=== PATIENT | male | born 1965 | race Caucasian/White ===

== ENCOUNTER 2017-01-01 12:02 | Emergency (ER) | payer MEDICARE, OTHER ==
--- NOTE | 2017-01-01 12:42 | ED ---
General Adult HPI - General Chief complaint: Fall Stated complaint: fall Time Seen by Provider: 01/01/17 12:24 Source: patient, RN notes reviewed, old records reviewed Mode of arrival: EMS Limitations: no limitations - History of Present Illness Initial comments: Patient is a 51-year-old male who presents emergency room today with a chief complaint of a fall that occurred actually one hour ago. Patient does admit that he was standing in his kitchen preparing dinner when his hips gave out falling hitting his head. Patient does admit that his hips give out occasionally. He states he had a recent fall just 2 days ago with the same thing happened. Patient does admit that he does have mild headache. He admits to increased neck pain. Patient's family did call EMS. Patient currently in cervical collar. Patient denies any other complaints or symptoms. Patient denies any recent fever, chills, shortness of breath, chest pain, back pain, abdominal pain, nausea or vomiting, numbness or tingling, dysuria or hematuria, constipation or diarrhea, visual changes, or any other complaints. - Related Data Home Medications Medication Instructions Recorded Confirmed Atorvastatin [Lipitor] 40 mg PO HS 08/31/14 08/24/16 Cyclobenzaprine [Flexeril] 10 mg PO HS 08/10/15 08/24/16 Furosemide [Lasix] 40 mg PO BID 08/10/15 08/24/16 Gabapentin [Neurontin] 800 mg PO QID 08/10/15 08/24/16 Insulin Glargine [Lantus] 30 units SQ BID 08/10/15 08/24/16 Omeprazole [PriLOSEC] 20 mg PO BID 08/10/15 08/24/16 Potassium Chloride [Klor-Con 20] 20 meq PO DAILY 08/10/15 08/24/16 amLODIPine [Norvasc] 5 mg PO DAILY 08/10/15 08/24/16 cloNIDine HCL [Catapres] 0.3 mg PO TID 08/10/15 08/24/16 lamoTRIgine [LaMICtal] 200 mg PO BID 08/10/15 08/24/16 Ascorbic Acid [Vitamin C] 500 mg PO BID 09/11/15 08/24/16 Atenolol [Tenormin] 100 mg PO BID 08/24/16 08/24/16 Diazepam [Diastat] 20 mg RECTAL ONCE PRN 08/24/16 08/24/16 EPINEPHrine [Epipen 2-Ehsan] 0.3 mg IM ONCE PRN 08/24/16 08/24/16 Ibuprofen [Motrin] 600 mg PO BID 08/24/16 08/24/16 Insulin Aspart [NovoLOG] 25 unit SQ AC-BID 08/24/16 08/24/16 Insulin Aspart [NovoLOG] See Protocol SQ AC-BID 08/24/16 08/24/16 Lisinopril 40 mg PO DAILY 08/24/16 08/24/16 Pregabalin [Lyrica] 150 mg PO BID 08/24/16 08/24/16 Tiotropium [place] [Spiriva 2 puff INHALATION RT-DAILY 08/24/16 08/24/16 Respimat] metFORMIN HCL 1,000 mg PO BID 08/24/16 08/24/16 oxyCODONE-APAP 10-325MG [Percocet 1 tab PO TID 08/24/16 08/24/16 10-325 mg] Previous Rx's Medication Instructions Recorded Aspirin 325 mg PO DAILY tab 08/28/16 Cefuroxime [Ceftin] 500 mg PO BID #14 tab 08/28/16 Wumszakncmsyjq-[place]-Raqclotfoi 1 each PO DAILY@1200 #30 tab 08/28/16 [Folbic] Diazepam [Valium] 10 mg PO DAILY PRN #30 tablet 08/28/16 Pregabalin [Lyrica] 150 mg PO BID #60 cap 08/28/16 oxyCODONE-APAP 10-325MG [Percocet 1 each PO TID #90 tab 08/28/16 10-325 mg] Allergies Allergy/AdvReac Type Severity Reaction Status Date / Time venom-honey bee Allergy Swelling Verified 01/01/17 12:21 [bee venom (honey bee)] Review of Systems ROS Statement: Those systems with pertinent positive or pertinent negative responses have been documented in the HPI. ROS Other: All systems not noted in ROS Statement are negative. Past Medical History Past Medical History: Diabetes Mellitus, GERD/Reflux, Hyperlipidemia, Hypertension, Memory Impairment, Seizure Disorder, Skin Disorder, Sleep Apnea/ CPAP/BIPAP Additional Past Medical History / Comment(s): uses c-pap machine. EPILEPTIC History of Any Multi-Drug Resistant Organisms: None Reported Past Surgical History: Hernia Repair Past Anesthesia/Blood Transfusion Reactions: No Reported Reaction Past Psychological History: No Psychological Hx Reported Smoking Status: Former smoker Past Alcohol Use History: None Reported Past Drug Use History: None Reported - Past Family History Father Family Medical History: Cancer Additional Family Medical History / Comment(s): LUNG Brother(s) History Unknown: Yes Family Medical History: Myocardial Infarction ([place]) Additional Family Medical History / Comment(s): Sister(s) History Unknown: Yes Family Medical History: Myocardial Infarction ([place]) Additional Family Medical History / Comment(s): General Exam - General Exam Comments Initial Comments: General: The patient is awake and alert, in no distress, and does not appear acutely ill. Eye: Pupils are equal, round and reactive to light, extra-ocular movements are intact. No nystagmus. There is normal conjunctiva bilaterally. No signs of icterus. Ears, nose, mouth and throat: There are moist mucous membranes and no oral lesions. Neck: The neck is supple, there is no tenderness or JVD. Cardiovascular: There is a regular rate and rhythm. No murmur, rub or gallop is appreciated. Respiratory: Lungs are clear to auscultation, respirations are non-labored, breath sounds are equal. No wheezes, stridor, rales, or rhonchi. Gastrointestinal: Soft, non-distended, non-tender abdomen without masses or organomegaly noted. There is no rebound or guarding present. No CVA tenderness. Bowel sounds are unremarkable. Musculoskeletal: Normal ROM, no tenderness. Strength 5/5. Sensation intact. Pulses equal bilaterally 2+. Neurological: A&O x 3. CN II-XII intact, There are no obvious motor or sensory deficits. Coordination appears grossly intact. Speech is normal. Skin: Hematoma to the middle of his forehead. Small superficial abrasion topically. Psychiatric: Cooperative, appropriate mood & affect, normal judgment. Limitations: no limitations Course Vital Signs 01/01/17 12:18 Temperature 97.5 F L Pulse Rate 59 L Respiratory 18 Rate Blood Pressure 138/69 O2 Sat by Pulse 95 Oximetry Medical Decision Making - Medical Decision Making Case discussed in detail with attending physician Dr. Marin. Patient reexamined at this time shows no signs of distress. His CT shows degenerative changes of cervical spine with no acute fracture dislocation. Patient's CT of the head is negative. Patient will be discharged home. He is advised follow- up the family doctor over the next 2 days. Advised return here to the emergency room if any symptoms increase or worsen or for new concerns. Disposition Clinical Impression: Fall, Concussion Disposition: HOME SELF-CARE Condition: Good Instructions: Concussion (ED) Additional Instructions: Please limit physical activity as discussed. Please follow-up with family doctor in the next 2 days. Please return to emergency room if the symptoms increase or worsen or for any other concerns. Time of Disposition: 14:22
--- NOTE | 2017-01-01 13:52 | CT ---
EXAMINATION TYPE: CT brain cspine wo con DATE OF EXAM: 01/01/2017 1:41 PM COMPARISON: 08/25/2016 HISTORY: syncope and fall CT DLP: 1967.3 mGycm, Automated exposure control for dose reduction was used. CONTRAST: None CT of the brain is performed utilizing 3 mm thick sections through the posterior fossa and 3 mm thick sections through the remaining calvarium. Study is performed within 24 hours of arrival to the hospital. No abnormal hyperdensity is present to suggest an acute intracranial hemorrhage. No mass lesion is evident. No acute infarcts are evident. Ventricles and sulci are appropriate for the patient age. Small retention cysts are within the septated maxillary sinuses. Remaining paranasal sinuses and mast oid air cells are clear. IMPRESSIONS: 1. No acute intracranial process. CT cervical spine. COMPARISON: None CT of the cervical spine is performed in the axial plane at 2 mm thick sections. Reconstructed image s in the coronal, and sagittal plane are reviewed on the computer. No acute fractures are evident. Vertebral body alignment is normal. Anterior vertebral body spurring is noted. Degenerative disc changes are present C5-6 C6-7. Vertebral body heights are preserved. No spinal canal stenosis is evident. No significant neural foraminal stenosis is evident. IMPRESSIONS: 1. Degenerative disc changes C5-6 C6-7 2. No acute changes evident
[2017-01-01] MEDS ORDERED: ONDANSETRON 4 MG/2 ML VIAL IVP STA (14:22)
[2017-01-01] MEDS ORDERED: HYDROmorphone 1 MG/ML 1 ML SYRINGE IVP STA (14:22)
[2017-01-01 14:57] VITALS: BP 138/74; PULSE 70; RESP 20; TEMP 97.8
== END 2017-01-01 14:56 | disposition home or self-care (01) ==
LOC: EC 12:02
DX: S06.0X0A Concussion without loss of consciousness, initial encounter (principal); M54.2 Cervicalgia; E11.9 Type 2 diabetes mellitus without complications; K21.9 Gastro-esophageal reflux disease without esophagitis; E78.5 Hyperlipidemia, unspecified; I10 Essential (primary) hypertension; G40.909 Epilepsy, unspecified, not intractable, without status epilepticus; Z87.891 Personal history of nicotine dependence; Z79.4 Long term (current) use of insulin; Z79.891 Long term (current) use of opiate analgesic; Z79.899 Other long term (current) drug therapy; Z91.030 Bee allergy status; W01.10XA Fall on same level from slipping, tripping and stumbling with subsequent striking against unspecified object, initial encounter; Y93.G3 Activity, cooking and baking; Y92.000 Kitchen of unspecified non-institutional (private) residence as the place of occurrence of the external cause
CPT/HCPCS: 99284; 96374; 96375; 72125; 70450; J2405; J1170

== ENCOUNTER 2018-05-14 12:04 | Observation (INO) | payer MEDICARE, OTHER ==
[2018-05-14] MEDS ORDERED: NITROGLYCERIN SL TABS 0.4 MG TAB SUBLINGUAL STA ×3 (12:25)
[2018-05-14] MEDS ORDERED: ASPIRIN 81 MG PO STA (12:25)
--- NOTE | 2018-05-14 12:33 | ED ---
General Adult HPI - General Chief complaint: Chest Pain Stated complaint: Chest Pain Time Seen by Provider: 05/14/18 12:08 Source: patient, EMS, RN notes reviewed Mode of arrival: EMS Limitations: no limitations - History of Present Illness Initial comments: Patient is a pleasant 52-year-old male presenting to the emergency Department with chest discomfort. Onset was yesterday around 6:00 while walking. Discomfort has been persistent for the most part and is rated 6/10. Discomfort is left chest with some radiation towards the shoulder. Patient has had some associated dyspnea, nausea, and diaphoresis. No history of similar symptoms previously. - Related Data Home Medications Medication Instructions Recorded Confirmed Atorvastatin [Lipitor] 40 mg PO HS 08/31/14 05/14/18 Furosemide [Lasix] 40 mg PO BID 08/10/15 05/14/18 Gabapentin [Neurontin] 800 mg PO QID 08/10/15 05/14/18 Potassium Chloride [Klor-Con 20] 20 meq PO BID 08/10/15 05/14/18 cloNIDine HCL [Catapres] 0.3 mg PO TID 08/10/15 05/14/18 lamoTRIgine [LaMICtal] 200 mg PO TID 08/10/15 05/14/18 Insulin Aspart [NovoLOG 27 unit SQ AC-BID 08/24/16 05/14/18 (formulary)] Insulin Aspart [NovoLOG See Protocol SQ AC-BID 08/24/16 05/14/18 (formulary)] metFORMIN HCL 1,000 mg PO BID 08/24/16 05/14/18 oxyCODONE-APAP 10-325MG [Percocet 1 tab PO TID 08/24/16 05/14/18 10-325 mg] Cephalexin [Keflex] 500 mg PO TID 05/14/18 05/14/18 Diazepam [Valium] 10 mg PO DAILY 05/14/18 05/14/18 Insulin Detemir [Levemir] 30 unit SQ QAM 05/14/18 05/14/18 Insulin Detemir [Levemir] 35 unit SQ HS 05/14/18 05/14/18 Lisinopril [Prinivil] 10 mg PO DAILY 05/14/18 05/14/18 Metoprolol Tartrate [Lopressor] 50 mg PO BID 05/14/18 05/14/18 Omeprazole 40 mg PO DAILY 05/14/18 05/14/18 Sertraline [Zoloft] 100 mg PO BID 05/14/18 05/14/18 Allergies Allergy/AdvReac Type Severity Reaction Status Date / Time venom-honey bee Allergy Swelling Verified 05/14/18 13:04 [bee venom (honey bee)] Review of Systems ROS Statement: Those systems with pertinent positive or pertinent negative responses have been documented in the HPI. ROS Other: All systems not noted in ROS Statement are negative. Constitutional: Denies: fever Eyes: Denies: eye pain ENT: Denies: ear pain Respiratory: Reports: dyspnea Cardiovascular: Reports: chest pain Endocrine: Denies: heat or cold intolerance Gastrointestinal: Reports: nausea. Denies: abdominal pain Genitourinary: Denies: dysuria Musculoskeletal: Denies: back pain Skin: Denies: rash Neurological: Denies: weakness Past Medical History Past Medical History: Diabetes Mellitus, GERD/Reflux, Hyperlipidemia, Hypertension, Memory Impairment, Seizure Disorder, Skin Disorder, Sleep Apnea/ CPAP/BIPAP Additional Past Medical History / Comment(s): uses c-pap machine. EPILEPTIC History of Any Multi-Drug Resistant Organisms: None Reported Past Surgical History: Hernia Repair Past Anesthesia/Blood Transfusion Reactions: No Reported Reaction Past Psychological History: No Psychological Hx Reported Smoking Status: Current every day smoker Past Alcohol Use History: None Reported Past Drug Use History: None Reported - Past Family History Father Family Medical History: Cancer Additional Family Medical History / Comment(s): LUNG Brother(s) History Unknown: Yes Family Medical History: Myocardial Infarction ([place]) Additional Family Medical History / Comment(s): Sister(s) History Unknown: Yes Family Medical History: Myocardial Infarction ([place]) Additional Family Medical History / Comment(s): General Exam Limitations: no limitations General appearance: alert, in no apparent distress Head exam: Present: atraumatic Eye exam: Present: normal appearance, PERRL ENT exam: Present: normal oropharynx Neck exam: Present: normal inspection Respiratory exam: Present: normal lung sounds bilaterally. Absent: chest wall tenderness Cardiovascular Exam: Present: regular rate, normal rhythm Expanded Peripheral pulses: 2+: Radial (R), Radial (L), Dorsalis Pedis (R), Dorsalis Pedis (L) GI/Abdominal exam: Present: soft. Absent: tenderness Extremities exam: Present: normal inspection. 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 IL 150. QRS 82. QT 426. QTc 43. Normal axis. Normal QRS. No acute ST change. Medical Decision Making - Medical Decision Making Patient reevaluated and resting comfortably in bed. Patient is still having some discomfort and dyspnea. Chest x-ray is concerning for CHF and BNP has been added. Patient is updated on results and plan. Case discussed in detail with Dr. Acosta, who will admit his patient. Cardiology will be consult. - Lab Data Result diagrams: 05/14/18 12:20 05/14/18 12:20 Lab Results 05/14/18 05/14/18 05/14/18 Range/Units 12:20 12:20 12:20 WBC 8.6 (3.8-10.6) k/uL RBC 3.88 L (4.30-5.90) m/uL Hgb 11.7 L (13.0-17.5) gm/dL Hct 35.5 L (39.0-53.0) % MCV 91.5 (80.0-100.0) fL MCH 30.2 (25.0-35.0) pg MCHC 33.0 (31.0-37.0) g/dL RDW 17.5 H (11.5-15.5) % Plt Count 216 (150-450) k/uL Neutrophils % 83 % Lymphocytes % 9 % Monocytes % 5 % Eosinophils % 2 % Basophils % 1 % Neutrophils # 7.1 (1.3-7.7) k/uL Lymphocytes # 0.8 L (1.0-4.8) k/uL Monocytes # 0.4 (0-1.0) k/uL Eosinophils # 0.2 (0-0.7) k/uL Basophils # 0.0 (0-0.2) k/uL Anisocytosis Slight PT (9.0-12.0) sec INR (<1.2) APTT (22.0-30.0) sec Sodium 140 (137-145) mmol/L Potassium 4.3 (3.5-5.1) mmol/L Chloride 104 (98-107) mmol/L Carbon Dioxide 25 (22-30) mmol/L Anion Gap 11 mmol/L BUN 13 (9-20) mg/dL Creatinine 0.85 (0.66-1.25) mg/dL Est GFR (CKD-EPI)AfAm >90 (>60 ml/min/1.73 sqM) Est GFR (CKD-EPI)NonAf >90 (>60 ml/min/1.73 sqM) Glucose 156 H (74-99) mg/dL Calcium 9.2 (8.4-10.2) mg/dL Magnesium 1.7 (1.6-2.3) mg/dL Total Bilirubin 0.7 (0.2-1.3) mg/dL AST 22 (17-59) U/L ALT 33 (21-72) U/L Alkaline Phosphatase 73 (38-126) U/L Total Creatine Kinase 284 H (55-170) U/L CK-MB (CK-2) 10.1 H* (0.0-2.4) ng/mL CK-MB (CK-2) Rel Index 3.6 Troponin I 0.032 (0.000-0.034) ng/mL Total Protein 7.4 (6.3-8.2) g/dL Albumin 4.1 (3.5-5.0) g/dL 05/14/18 Range/Units 12:20 WBC (3.8-10.6) k/uL RBC (4.30-5.90) m/uL Hgb (13.0-17.5) gm/dL Hct (39.0-53.0) % MCV (80.0-100.0) fL MCH (25.0-35.0) pg MCHC (31.0-37.0) g/dL RDW (11.5-15.5) % Plt Count (150-450) k/uL Neutrophils % % Lymphocytes % % Monocytes % % Eosinophils % % Basophils % % Neutrophils # (1.3-7.7) k/uL Lymphocytes # (1.0-4.8) k/uL Monocytes # (0-1.0) k/uL Eosinophils # (0-0.7) k/uL Basophils # (0-0.2) k/uL Anisocytosis PT 10.7 (9.0-12.0) sec INR 1.1 (<1.2) APTT 25.5 (22.0-30.0) sec Sodium (137-145) mmol/L Potassium (3.5-5.1) mmol/L Chloride (98-107) mmol/L Carbon Dioxide (22-30) mmol/L Anion Gap mmol/L BUN (9-20) mg/dL Creatinine (0.66-1.25) mg/dL Est GFR (CKD-EPI)AfAm (>60 ml/min/1.73 sqM) Est GFR (CKD-EPI)NonAf (>60 ml/min/1.73 sqM) Glucose (74-99) mg/dL Calcium (8.4-10.2) mg/dL Magnesium (1.6-2.3) mg/dL Total Bilirubin (0.2-1.3) mg/dL AST (17-59) U/L ALT (21-72) U/L Alkaline Phosphatase (38-126) U/L Total Creatine Kinase (55-170) U/L CK-MB (CK-2) (0.0-2.4) ng/mL CK-MB (CK-2) Rel Index Troponin I (0.000-0.034) ng/mL Total Protein (6.3-8.2) g/dL Albumin (3.5-5.0) g/dL - Radiology Data Radiology results: image reviewed (Chest x-ray does show some central venous congestion.) Disposition Clinical Impression: Chest pain Disposition: ADMITTED IP TO THIS [facility] Is patient prescribed a controlled substance at d/c from ED?: No Referrals: Liam Acosta MD [Primary Care Provider] - 1-2 days Decision Time: 14:19
[2018-05-14 12:41] LABS: Anisocytosis Slight; Basophils % (A) 1 %; Eosinophils # (A) 0.2 k/uL (0-0.7); Eosinophils % (A) 2 %; HCT 35.5 % (39.0-53.0); HGB 11.7 gm/dL (13.0-17.5); Lymphocytes # (A) 0.8 k/uL (1.0-4.8); Lymphocytes % (A) 9 %; MCH 30.2 pg (25.0-35.0); MCV 91.5 fL (80.0-100.0); Mean Platelet Volume 6.7; Monocytes # (A) 0.4 k/uL (0-1.0); Monocytes % (A) 5 %; Neutrophils # (A) 7.1 k/uL (1.3-7.7); Neutrophils % (A) 83 %; Platelet Count 216 k/uL (150-450); RBC 3.88 m/uL (4.30-5.90); RDW 17.5 % (11.5-15.5); WBC 8.6 k/uL (3.8-10.6)
[2018-05-14 12:49] LABS: ALT 33 U/L (21-72); AST 22 U/L (17-59); Albumin 4.1 g/dL (3.5-5.0); Alkaline Phosphatase 73 U/L (38-126); Anion Gap 11 mmol/L; Blood Urea Nitrogen 13 mg/dL (9-20); Calcium 9.2 mg/dL (8.4-10.2); Carbon Dioxide 25 mmol/L (22-30); Chloride 104 mmol/L (98-107); Glucose 156 mg/dL (74-99); Magnesium 1.7 mg/dL (1.6-2.3); Potassium 4.3 mmol/L (3.5-5.1); Sodium 140 mmol/L (137-145); Total Bilirubin 0.7 mg/dL (0.2-1.3); Total Protein 7.4 g/dL (6.3-8.2)
[2018-05-14 12:53] LABS: INR 1.1 (<1.2); Partial Thromboplastin Time 25.5 sec (22.0-30.0); Prothrombin Time 10.7 sec (9.0-12.0)
--- NOTE | 2018-05-14 13:02 | XR ---
EXAMINATION TYPE: XR chest 2V DATE OF EXAM: 05/14/2018 COMPARISON: 08/24/2016 HISTORY: Chest pain TECHNIQUE: Frontal and lateral views of the chest are obtained. FINDINGS: There is no focal air space opacity, pleural effusion, or pneumothorax seen. There is mil d pulmonary vascular congestion. The cardiac silhouette size is enlarged. The osseous structures ar e intact. Mild multilevel degenerative changes of the thoracic spine are noted. IMPRESSION: Mild pulmonary vascular congestion and cardiomegaly suggesting underlying congestive hea rt failure.
[2018-05-14 13:17] LABS: Troponin I 0.032 ng/mL (0.000-0.034)
[2018-05-14 13:24] LABS: Creatine Kinase MB 10.1 ng/mL (0.0-2.4)
[2018-05-14] MEDS ORDERED: MORPHINE SULFATE 4 MG/ML SYRINGE IVP STA (14:12)
[2018-05-14] MEDS ORDERED: FUROSEMIDE 10 MG/ML 4 ML VIAL IV STA (14:17)
[2018-05-14] MEDS ORDERED: NITROGLYCERIN SL TABS 0.4 MG TAB SUBLINGUAL PRN (14:19)
[2018-05-14 18:14] VITALS: BMI 38.8
[2018-05-14] MEDS: oxyCODONE-APAP 10-325MG 1 EACH TAB PO SCH ×2 (18:52→21:07)
[2018-05-14] MEDS: metFORMIN 500 MG TAB PO SCH (18:54)
[2018-05-14] MEDS: GABAPENTIN 400 MG CAP PO SCH ×2 (18:54→20:51)
[2018-05-14] MEDS: NITROGLYCERIN OINT 1 INCH/GM PACKET TOPICAL SCH ×2 (18:54→23:56)
[2018-05-14 18:58] LABS: Troponin I 0.03 ng/mL (0.000-0.034)
[2018-05-14 18:59] LABS: Creatine Kinase MB 8.6 ng/mL (0.0-2.4)
--- NOTE | 2018-05-14 20:30 | HP ---
HISTORY AND PHYSICAL CHIEF COMPLAINT: A 52-year-old white male presents with chest discomfort while walking, 6/10 discomfort in the left chest radiating to the shoulder, some dyspnea, nausea, diaphoresis. HOME MEDICATIONS: 1. Lasix 40 b.i.d. 2. Lipitor 40 daily. 3. Neurontin 800 q.i.d. 4. Klor-Con 20 mEq b.i.d. 5. Catapres 0.3 t.i.d. 6. Lamictal 200 t.i.d. 7. NovoLog 27 units a.c. b.i.d. 8. Metformin 1000 b.i.d. 9. Percocet 10/325 t.i.d. 10.Valium 10 mg daily. 11.Levemir 30 units in the a.m., 35 at night. 12.Prinivil 10 daily. 13.Lopressor 50 b.i.d. 14.Omeprazole 40 daily. 15.Zoloft 100 b.i.d. ALLERGIES: To BEE HONEY. REVIEW OF SYSTEMS: Fourteen-point review of systems negative except for mentioned in HPI. PAST MEDICAL HISTORY: Diabetes mellitus, GERD, dyslipidemia, hypertension, memory impairment, seizures, skin disorder, sleep apnea,. SOCIAL HISTORY: Current everyday smoker. No alcohol. No illicit drugs. FAMILY HISTORY: Father with cancer of the lung. Brother with a myocardial infarction. A sister with myocardial infarction. VITAL SIGNS: Stable, afebrile. ENDOCRINE: BMI is over 40. HEENT: Normocephalic, atraumatic. CARDIOVASCULAR: S1, S2. LUNGS: Clear. NEUROLOGIC: Alert and oriented x3. PSYCH: Fair mood and affect. Temp 99.4, pulse 71-76, blood pressure 130s-150s/60s- 70s, O2 97-98. CARDIOVASCULAR: S1, S2. LUNGS: Rales at the bases. HEMATOLOGY: Negative Homans'. PSYCH: Fair mood and affect. OPHTHALMOLOGIC: Pupils equal, round, reactive to light and accommodation. ASSESSMENT: 1. Atypical chest pain. 2. Hypertension. 3. Insulin-dependent diabetes mellitus. 4. Morbid obesity. Continue current treatment, follow up in the next 24-48 hours. Await Cardiology to see, rule out myocardial infarction. MMODL / IJN: [id number] /
[2018-05-14 20:31] LABS: Glucose,Whole Blood 145 mg/dL (75-99)
[2018-05-14] MEDS: SERTRALINE 100 MG TAB PO SCH (20:50)
[2018-05-14] MEDS: FUROSEMIDE 40 MG TAB PO SCH (20:50)
[2018-05-14] MEDS: METOPROLOL TARTRATE 50 MG TAB PO SCH (20:50)
[2018-05-14] MEDS: POTASSIUM CHLORIDE ER 20 MEQ TAB.ER PO SCH (20:50)
[2018-05-14] MEDS: cloNIDine HCL 0.1 MG TAB PO SCH (20:51)
[2018-05-14] MEDS: lamoTRIgine 100 MG TAB PO SCH (20:51)
[2018-05-14] MEDS ORDERED: ATORVASTATIN 40 MG TAB PO SCH (21:00)
[2018-05-14] MEDS ORDERED: INSULIN DETEMIR 100 UNIT/ML 10 ML VIAL SQ SCH (21:00)
[2018-05-15 01:32] LABS: Troponin I 0.023 ng/mL (0.000-0.034)
[2018-05-15 01:35] LABS: Creatine Kinase MB 8.1 ng/mL (0.0-2.4)
[2018-05-15 03:07] LABS: Cholesterol 115 mg/dL (<200); HDL Cholesterol 30 mg/dL (40-60); LDL Cholesterol,Calculated 59 mg/dL (0-99); Triglycerides 131 mg/dL (<150)
[2018-05-15 05:54] LABS: Glucose,Whole Blood 161 mg/dL (75-99)
[2018-05-15] MEDS: NITROGLYCERIN OINT 1 INCH/GM PACKET TOPICAL SCH ×3 (06:33→18:43)
[2018-05-15] MEDS ORDERED: PANTOPRAZOLE 40 MG TABLET PO SCH (07:30)
[2018-05-15] MEDS ORDERED: LISINOPRIL 10 MG TAB PO SCH (09:00)
[2018-05-15] MEDS ORDERED: INSULIN DETEMIR 100 UNIT/ML 10 ML VIAL SQ SCH (09:00)
[2018-05-15] MEDS ORDERED: DIAZEPAM 5 MG TAB PO SCH (09:00)
[2018-05-15] MEDS ORDERED: ASPIRIN 325 MG TAB PO SCH (09:00)
[2018-05-15 09:34] VITALS: PULSE 72
--- NOTE | 2018-05-15 09:49 | P.CRDCN ---
History of Present Illness Consult date: 05/15/18 Requesting physician: Liam Acosta Reason for Consult (text): chest pain Chief complaint: chest pain History of present illness: This is a pleasant 52-year-old gentleman who previously followed with Dr. Coronel, last seen in 2013. She has a history significant for diabetes mellitus, hyperlipidemia, hypertension, obstructive sleep apnea, uses CPAP, current every day smoker, significant family history of premature CAD in both her brother and sister who had MIs in their 40s. Presented to the hospital with complaints of chest discomfort, left-sided that radiated to her shoulder with associated shortness of breath, nausea and diaphoresis. Symptoms started around 6 PM Friday evening and he presented to the hospital on . According to the patient. Pain is quite constant. Upon presentation chest x- ray showed mild vascular congestion and cardiomegaly suggestive of underlying CHF. EKG showed sinus bradycardia without significant ST-T wave abnormalities. D-dimer was negative. Laboratory values showed hemoglobin of 11.7, NT proBNP of 1390, elevated CK and CK-MBs with a troponin of 0.032, 0.030 and 0.023. Since admission, blood pressure has been elevated. Upon examination, patient is resting comfortably in bed. He continues to complain of some shortness of breath as well as intermittent chest discomfort. He also complains of some mild lower extremity edema. Past Medical History Past Medical History: COPD, CVA/TIA, Diabetes Mellitus, Fibromyalgia, GERD/ Reflux, Hyperlipidemia, Hypertension, Memory Impairment, Seizure Disorder, Skin Disorder, Sleep Apnea/CPAP/BIPAP Additional Past Medical History / Comment(s): uses c-pap machine. EPILEPTIC, past fall w/ concussion, past cva rt side still has some weakness but pt able to ambulate w/ walker History of Any Multi-Drug Resistant Organisms: None Reported Past Surgical History: Hernia Repair Past Anesthesia/Blood Transfusion Reactions: No Reported Reaction Smoking Status: Current every day smoker - Past Family History Father Family Medical History: Cancer Additional Family Medical History / Comment(s): LUNG Brother(s) History Unknown: Yes Family Medical History: Myocardial Infarction (PR) Additional Family Medical History / Comment(s): Sister(s) History Unknown: Yes Family Medical History: Myocardial Infarction (PR) Additional Family Medical History / Comment(s): Medications and Allergies Home Medications Medication Instructions Recorded Confirmed Type Atorvastatin [Lipitor] 40 mg PO HS 08/31/14 05/14/18 History Furosemide [Lasix] 40 mg PO BID 08/10/15 05/14/18 History Gabapentin [Neurontin] 800 mg PO QID 08/10/15 05/14/18 History Potassium Chloride [Klor-Con 20] 20 meq PO BID 08/10/15 05/14/18 History cloNIDine HCL [Catapres] 0.3 mg PO TID 08/10/15 05/14/18 History lamoTRIgine [LaMICtal] 200 mg PO TID 08/10/15 05/14/18 History Insulin Aspart [NovoLOG 27 unit SQ AC-BID 08/24/16 05/14/18 History (formulary)] Insulin Aspart [NovoLOG See Protocol SQ AC-BID 08/24/16 05/14/18 History (formulary)] metFORMIN HCL 1,000 mg PO BID 08/24/16 05/14/18 History oxyCODONE-APAP 10-325MG [Percocet 1 tab PO TID 08/24/16 05/14/18 History 10-325 mg] Cephalexin [Keflex] 500 mg PO TID 05/14/18 05/14/18 History Diazepam [Valium] 10 mg PO DAILY 05/14/18 05/14/18 History Insulin Detemir [Levemir] 30 unit SQ QAM 05/14/18 05/14/18 History Insulin Detemir [Levemir] 35 unit SQ HS 05/14/18 05/14/18 History Lisinopril [Prinivil] 10 mg PO DAILY 05/14/18 05/14/18 History Metoprolol Tartrate [Lopressor] 50 mg PO BID 05/14/18 05/14/18 History Omeprazole 40 mg PO DAILY 05/14/18 05/14/18 History Sertraline [Zoloft] 100 mg PO BID 05/14/18 05/14/18 History Allergies Allergy/AdvReac Type Severity Reaction Status Date / Time venom-honey bee Allergy Swelling Verified 05/14/18 13:04 [bee venom (honey bee)] Physical Exam Vitals: Vital Signs Temp Pulse Pulse Resp BP BP Pulse Ox 05/15/18 04:00 97.1 F L 57 L 18 164/72 94 L 05/15/18 00:00 97.2 F L 53 L 18 139/73 96 05/14/18 20:00 97.4 F L 52 L 18 154/77 95 05/14/18 18:34 97.6 F 57 L 18 151/71 94 L 05/14/18 17:40 98.1 F 58 L 18 168/85 95 05/14/18 16:51 59 L 18 164/70 98 05/14/18 14:16 53 L 18 139/67 100 05/14/18 13:07 51 L 18 134/60 97 05/14/18 12:17 54 L 05/14/18 12:14 99.9 F H 56 L 18 151/70 98 Intake and Output 05/14/18 05/15/18 05/15/18 22:59 06:59 14:59 Intake Total 310 Output Total 925 575 Balance -925 -265 Intake: IV 10 0.9 10 Oral 300 Output: Urine 925 575 Other: Voiding Method Toilet Toilet Urinal Urinal # Voids 3 Weight 119.295 kg 125.7 kg PHYSICAL EXAMINATION: HEENT: [Head is atraumatic, normocephalic. Pupils equal, round. Neck is supple. There is no elevated jugular venous pressure.] HEART EXAMINATION: [Heart sounds regular, S1 and S2 normal. No murmur or gallop heard.] CHEST EXAMINATION:[ Lungs are clear to auscultation and precussion. No chest wall tenderness is noted on palpation or with deep breathing.] ABDOMEN: [ Soft, obese, nontender. Bowel sounds are heard. No organomegaly noted ]. EXTREMITIES:[ 2+ peripheral pulses with evidence of trace peripheral edema and no calf tenderness noted]. NEUROLOGIC [patient is awake, alert and oriented x3.] . Results 05/14/18 12:20 05/14/18 12:20 Cardiac Enzymes 05/14/18 05/14/18 05/14/18 Range/Units 12:20 12:20 18:12 AST 22 (17-59) U/L CK-MB (CK-2) 10.1 H* 8.6 H* (0.0-2.4) ng/mL Troponin I 0.032 0.030 (0.000-0.034) ng/mL 05/15/18 Range/Units 00:29 AST (17-59) U/L CK-MB (CK-2) 8.1 H* (0.0-2.4) ng/mL Troponin I 0.023 (0.000-0.034) ng/mL Coagulation 05/14/18 Range/Units 12:20 PT 10.7 (9.0-12.0) sec APTT 25.5 (22.0-30.0) sec Lipids 05/14/18 Range/Units 12:20 Triglycerides 131 (<150) mg/dL Cholesterol 115 (<200) mg/dL HDL Cholesterol 30 L (40-60) mg/dL CBC 05/14/18 Range/Units 12:20 WBC 8.6 (3.8-10.6) k/uL RBC 3.88 L (4.30-5.90) m/uL Hgb 11.7 L (13.0-17.5) gm/dL Hct 35.5 L (39.0-53.0) % Plt Count 216 (150-450) k/uL Comprehensive Metabolic Panel 05/14/18 Range/Units 12:20 Sodium 140 (137-145) mmol/L Potassium 4.3 (3.5-5.1) mmol/L Chloride 104 (98-107) mmol/L Carbon Dioxide 25 (22-30) mmol/L BUN 13 (9-20) mg/dL Creatinine 0.85 (0.66-1.25) mg/dL Glucose 156 H (74-99) mg/dL Calcium 9.2 (8.4-10.2) mg/dL AST 22 (17-59) U/L ALT 33 (21-72) U/L Alkaline Phosphatase 73 (38-126) U/L Total Protein 7.4 (6.3-8.2) g/dL Albumin 4.1 (3.5-5.0) g/dL Current Medications Generic Name Dose Route Start Last Admin Trade Name Freq PRN Reason Stop Dose Admin Aspirin 325 mg 05/15/18 09:00 Aspirin PO DAILY AMANDO Atorvastatin Calcium 40 mg 05/14/18 21:00 05/14/18 20:50 Lipitor PO 40 mg HS AM[facility]O Administration Clonidine 0.3 mg 05/14/18 22:00 05/14/18 20:51 Catapres PO 0.3 mg TID AMANDO Administration Diazepam 10 mg 05/15/18 09:00 Valium PO DAILY [facility] Furosemide 40 mg 05/14/18 21:00 05/14/18 20:50 Lasix PO 40 mg BID AM[facility]O Administration Gabapentin 800 mg 05/14/18 18:00 05/14/18 20:51 Neurontin PO 800 mg QID AMANDO Administration Insulin Detemir 30 unit 05/15/18 09:00 Levemir SQ QAM [facility]O Insulin Detemir 35 unit 05/14/18 21:00 05/14/18 21:07 Levemir SQ 35 unit HS [facility] Administration Lamotrigine 200 mg 05/14/18 22:00 05/14/18 20:51 Lamictal PO 200 mg TID [facility] Administration Lisinopril 10 mg 05/15/18 09:00 Zestril PO DAILY [facility] Metformin HCl 1,000 mg 05/14/18 17:30 05/14/18 18:54 Glucophage PO 1,000 mg BID-W/MEALS [facility] Administration Metoprolol Tartrate 50 mg 05/14/18 21:00 05/14/18 20:50 Lopressor PO 50 mg BID [facility] Administration Nitroglycerin 1 inch 05/14/18 18:00 05/15/18 06:33 Nitro-Bid Oint TOPICAL Not Given Q6HR [facility] Nitroglycerin 0.4 mg 05/14/18 14:19 Nitrostat SUBLINGUAL Q5M PRN Chest Pain Oxycodone/Acetaminophen 1 each 05/14/18 22:00 05/14/18 21:07 Percocet 10-325 PO 1 each TID [facility] Administration Pantoprazole Sodium 40 mg 05/15/18 07:30 05/15/18 06:31 Protonix PO 40 mg AC-BRKFST [facility] Administration Potassium Chloride 20 meq 05/14/18 21:00 05/14/18 20:50 K-Dur 20 PO 20 meq BID [facility] Administration Sertraline HCl 100 mg 05/14/18 21:00 05/14/18 20:50 Zoloft PO 100 mg BID [facility] Administration Sodium Chloride 10 ml 05/14/18 21:00 05/14/18 20:51 Saline Flush IV 10 ml BID [facility] Administration Intake and Output 05/14/18 05/15/18 05/15/18 22:59 06:59 14:59 Intake Total 310 Output Total 925 575 Balance -925 -265 Intake: IV 10 0.9 10 Oral 300 Output: Urine 925 572 Other: Voiding Method Toilet Toilet Urinal Urinal # Voids 3 Weight 119.295 kg 125.7 kg 05/14/18 12:20 05/14/18 12:20 EKG Interpretations (text) Sinus bradycardia Assessment and Plan Assessment: #1. Symptoms of chest discomfort with elevated CK and CK-MB and mildly abnormal troponins #2. Significant family history of premature CAD #3 hypertension #4 hyperlipidemia #5. Diabetes mellitus #6. Current every day smoker #7. Obstructive sleep apnea #8, epilepsy Plan: From cardiology's perspective, we'll obtain a 2-D echo with Doppler to assess LV systolic function. We will schedule the patient for cardiac catheterization due to significant risk factors and significant family history of CAD in a patient with complaints of ongoing chest discomfort beginning almost 24 hours prior to arrival. The procedure as well as risks and benefits were discussed with the patient. Further recommendations to follow. [employer] DEAN note has been reviewed, I agree with a documented findings and plan of care. Patient was seen and examined.
[2018-05-15] MEDS ORDERED: SODIUM CHLORIDE 0.9% 1,000 ML in EMPTY BAG 1 BAG IV ONE (09:55)
[2018-05-15] MEDS ORDERED: ATORVASTATIN 80 MG TAB PO STA (09:55)
[2018-05-15] MEDS ORDERED: ALPRAZolam 0.25 MG TAB PO PRN (09:55)
[2018-05-15] MEDS ORDERED: NITROGLYCERIN SL TABS 0.4 MG TAB SUBLINGUAL PRN (09:55)
[2018-05-15] MEDS ORDERED: ALPRAZolam 0.5 MG TAB PO PRN (09:55)
[2018-05-15] MEDS: metFORMIN 500 MG TAB PO SCH (10:32)
[2018-05-15] MEDS: GABAPENTIN 400 MG CAP PO SCH ×3 (10:40→18:42)
[2018-05-15] MEDS: cloNIDine HCL 0.1 MG TAB PO SCH ×2 (10:41→15:20)
[2018-05-15] MEDS: METOPROLOL TARTRATE 50 MG TAB PO SCH (10:42)
[2018-05-15] MEDS: lamoTRIgine 100 MG TAB PO SCH ×2 (10:42→15:21)
[2018-05-15] MEDS: SERTRALINE 100 MG TAB PO SCH (10:44)
[2018-05-15] MEDS: POTASSIUM CHLORIDE ER 20 MEQ TAB.ER PO SCH (10:44)
[2018-05-15] MEDS: oxyCODONE-APAP 10-325MG 1 EACH TAB PO SCH ×2 (10:57→18:41)
[2018-05-15] MEDS ORDERED: LIDOCAINE 1% INJ 10MG/ML (20 ML MDV) ONE (11:09)
[2018-05-15] MEDS ORDERED: SODIUM CHLORIDE 0.9% 1,000 ML IV ONE (11:20)
[2018-05-15] MEDS ORDERED: fentaNYL (PF) 50 MCG/ML 2 ML AMP ONE (11:44)
[2018-05-15] MEDS ORDERED: MIDAZOLAM 2 MG/2 ML VIAL ONE (11:44)
[2018-05-15] MEDS ORDERED: fentaNYL (PF) 50 MCG/ML 2 ML AMP IV ONE (11:53)
[2018-05-15] MEDS ORDERED: MIDAZOLAM 2 MG/2 ML VIAL IV ONE (11:53)
[2018-05-15] MEDS ORDERED: LIDOCAINE 1% INJ 10MG/ML (20 ML MDV) SQ ONE (11:53)
[2018-05-15] MEDS ORDERED: NITROGLYCERIN SL TABS 0.4 MG TAB SUBLINGUAL ONE ×2 (11:59→12:00)
[2018-05-15] MEDS ORDERED: IOPAMIDOL-370 125ML BTL INJ ONE (12:07)
[2018-05-15] MEDS ORDERED: RX INFO: IV CONTRAST WAS GIVEN 1 EACH MISC MISCELLANE PRN (12:24)
[2018-05-15] MEDS ORDERED: HYDROcodone/APAP 5-325MG 1 EACH TAB PO PRN (12:24)
[2018-05-15] MEDS ORDERED: SODIUM CHLORIDE 0.9% 1,000 ML IV SCH (12:30)
--- NOTE | 2018-05-15 12:34 | CC ---
CARDIAC CATHETERIZATION REPORT This patient has a history of diabetes, hypertension and multiple risk factors with a strong family history of coronary artery disease. Patient was admitted with symptoms of chest pain, shortness of breath. There was a borderline elevation in the troponin raising the possibility of non ST-segment elevation myocardial infarction. In view of that, the patient was recommended to have a cardiac catheterization for definitive diagnosis. PROCEDURE: Right groin was prepped and draped in the usual manner and the skin was infiltrated with 2% Xylocaine. The right femoral artery was entered using Seldinger technique, a #6-Greek sheath was placed in. Selective coronary angiography was then performed in multiple projections and the left ventricular pressures were obtained. Patient tolerated the procedure well. Sheath was removed and good hemostasis was achieved with the use of Angio-Seal. HEMODYNAMICS: Left ventricular end-diastolic pressure is 24-26 mmHg prior to angiography. No gradient is noted across the aortic valve. SELECTIVE CORONARY ANGIOGRAPHY: Left main coronary artery is normal and patent. LAD is a good caliber blood vessel and gives rise to a good-sized diagonal branch. LAD and its branches are normal. Circumflex coronary artery is a good caliber blood vessel and uses a good size obtuse marginal branch. Obtuse marginal branch has mild irregularity of 20%. Right coronary artery is normal. FINAL IMPRESSION: This study reveals minimal irregularity in the obtuse marginal branch of over 10-20 percent. Left anterior descending artery and the right coronary artery are normal. RECOMMENDATIONS: Medical treatment and risk factor modification. MMODL / IJN: [id number] /
[2018-05-15 13:11] LABS: Glucose,Whole Blood 159 mg/dL (75-99)
--- NOTE | 2018-05-15 14:04 | ECHOF ---
Referral Reason:chest pain MEASUREMENTS -------- HEIGHT: 175.3 cm WEIGHT: 125.6 kg BP: IVSd: 1.3 cm (0.6 - 1.1) LVIDd: 4.9 cm (3.9 - 5.3) LVPWd: 1.3 cm (0.6 - 1.1) IVSs: 2.3 cm LVIDs: 3.0 cm LVPWs: 1.9 cm LAESV Index (A-L): 30.40 ml/m Ao Diam: 3.0 cm (2.0 - 3.7) AV Cusp: 2.0 cm (1.5 - 2.6) LA Diam: 3.9 cm (2.7 - 3.8) MV EXCURSION: 19.913 mm (> 18.000) MV EF SLOPE: 84 mm/s (70 - 150) EPSS: 0.6 cm MV E Moose: 1.29 m/s MV DecT: 150 ms MV A Moose: 0.64 m/s MV E/A Ratio: 2.01 RAP: 15.00 mmHg RVSP: 19.94 mmHg FINDINGS -------- Sinus rhythm. This was a technically good study. The left ventricular size is normal. There is mild concentric left ventricular hypertrophy. Overa ll left ventricular systolic function is low-normal with, an EF between 50 - 55 %. The right ventricle is normal in size and function. LA is midly dilated 29-33ml/m2. The right atrium is normal in size. Aortic valve is trileaflet and is mildly thickened. The mitral valve leaflets are mildly thickened. Mild mitral regurgitation is present. Mild tricuspid regurgitation present. The right ventricular systolic pressure, as measured by Doppl er, is 19.94mmHg. Pulmonic valve appears structurally normal. The aortic root size is normal. The inferior vena cava is mildly dilated. The pericardium is normal. CONCLUSIONS -------- 1. Sinus rhythm. 2. This was a technically good study. 3. The left ventricular size is normal. 4. There is mild concentric left ventricular hypertrophy. 5. Overall left ventricular systolic function is low-normal with, an EF between 50 - 55 %. 6. The right ventricle is normal in size and function. 7. LA is midly dilated 29-33ml/m2. 8. The right atrium is normal in size. 9. Aortic valve is trileaflet and is mildly thickened. 10. The mitral valve leaflets are mildly thickened. 11. Mild mitral regurgitation is present. 12. Mild tricuspid regurgitation present. 13. The right ventricular systolic pressure, as measured by Doppler, is 19.94mmHg. 14. Pulmonic valve appears structurally normal. 15. The aortic root size is normal. 16. The inferior vena cava is mildly dilated. 17. The pericardium is normal. VETERINARY PHARMACOLOGIST: Princess Roque RDCS
[2018-05-15] MEDS: FUROSEMIDE 40 MG TAB PO SCH (15:18)
[2018-05-15 16:20] LABS: Glucose,Whole Blood 276 mg/dL (75-99)
[2018-05-15 17:26] VITALS: TEMP 97.2
[2018-05-15 17:29] VITALS: BP 146/80; RESP 17
[2018-05-18] MEDS ORDERED: metFORMIN 500 MG TAB PO SCH (07:30)
== END 2018-05-15 18:50 | disposition home or self-care (01) ==
LOC: EC 12:04 → 3OBS 14:20 → 6SEL 17:39
PROVIDERS: ADMIT Family Medicine; ATTEND Family Medicine
DX: R07.89 Other chest pain (principal); R77.8 Other specified abnormalities of plasma proteins; R74.8 Abnormal levels of other serum enzymes; R11.0 Nausea; R06.02 Shortness of breath; R06.00 Dyspnea, unspecified; R61 Generalized hyperhidrosis; R60.0 Localized edema; R41.3 Other amnesia; E11.9 Type 2 diabetes mellitus without complications; K21.9 Gastro-esophageal reflux disease without esophagitis; E78.5 Hyperlipidemia, unspecified; I10 Essential (primary) hypertension; F17.200 Nicotine dependence, unspecified, uncomplicated; E66.01 Morbid (severe) obesity due to excess calories; Z68.41 Body mass index [BMI] 40.0-44.9, adult; G47.33 Obstructive sleep apnea (adult) (pediatric); Z99.89 Dependence on other enabling machines and devices; M79.7 Fibromyalgia; G40.909 Epilepsy, unspecified, not intractable, without status epilepticus; I69.351 Hemiplegia and hemiparesis following cerebral infarction affecting right dominant side; Z91.030 Bee allergy status; Z79.891 Long term (current) use of opiate analgesic; Z79.4 Long term (current) use of insulin; Z79.899 Other long term (current) drug therapy; Z80.1 Family history of malignant neoplasm of trachea, bronchus and lung; Z82.49 Family history of ischemic heart disease and other diseases of the circulatory system
CPT/HCPCS: 99285; 96374 ×2; 96375 ×2; 36415; 93005; 93306; 93458; 85379; 83880; 80061; 80053; 82550 ×2; 82553 ×2; 83735; 84484 ×2; 85025; 85610; 85730; 71046; G0378 ×3; C1760; C1894; C1769; J2250; J2270; J1940; J2001; J3010; Q9967

== ENCOUNTER → 2019-11-29 | Outpatient (CLI) | payer MEDICARE ==
--- NOTE | 2019-11-29 13:39 | NM ---
EXAMINATION TYPE: NM bone/joint limited DATE OF EXAM: 11/29/2019 COMPARISON: NONE HISTORY: Open wound and swelling with pain TECHNIQUE: After the intravenous administration of 24.9 mCi Tc 99m MDP. Images acquired 3 hours pos t injection. Multiple views of feet are submitted. Findings: There is abnormal uptake involving the first MTP joint of the left foot. Remaining uptake is symmetri c within the feet bilaterally. IMPRESSION: Intense abnormal uptake first MTP joint left foot could be post arthritic. Osteomyelitis and posttraumatic etiology also in the differential diagnosis.
== END | disposition home or self-care (01) ==
LOC: RADNMMAIN 09:32
PROVIDERS: ATTEND Family Medicine
DX: R93.7 Abnormal findings on diagnostic imaging of other parts of musculoskeletal system (principal); M79.672 Pain in left foot
CPT/HCPCS: 78300; A9503

== ENCOUNTER → 2020-06-28 | Outpatient (CLI) | payer MEDICARE ==
--- NOTE | 2020-06-28 14:33 | XR ---
Left foot HISTORY: Diabetes, soft tissue swelling, E08.621, foot ulcer 3 views the left foot There is an overlying dressing. Soft tissue swelling is noted, lucency medial aspect of the first dig it consistent with patient's history of ulcer. Hallux valgus deformity is present with some osteoarth ritic change, marginal spurring. No periostitis to suggest osteomyelitis. The 5th digit shows disloca tion/subluxation at the interphalangeal joint. Small ossific density is present at the medial aspect of the 5th interphalangeal joint. There is a plantar calcaneal spur. IMPRESSION: Soft tissue swelling. Hallux valgus deformity with osteoarthritic change. Fifth digit sub luxation, correlate.
== END | disposition home or self-care (01) ==
LOC: RADXRMAIN 11:15
PROVIDERS: ATTEND Thoracic Surgery (Cardiothoracic Vascular Surgery)
DX: M20.12 Hallux valgus (acquired), left foot (principal); M19.072 Primary osteoarthritis, left ankle and foot; S93.302A Unspecified subluxation of left foot, initial encounter

== ENCOUNTER → 2020-07-05 | Outpatient (CLI) | payer MEDICARE ==
[2020-07-05 21:34] LABS: Hemoglobin A1C 6.9 % (4.0-6.0)
== END | disposition home or self-care (01) ==
LOC: LABWHC1 11:53
PROVIDERS: ATTEND Thoracic Surgery (Cardiothoracic Vascular Surgery)
DX: E66.09 Other obesity due to excess calories (principal); E08.621 Diabetes mellitus due to underlying condition with foot ulcer; L97.522 Non-pressure chronic ulcer of other part of left foot with fat layer exposed; F17.210 Nicotine dependence, cigarettes, uncomplicated
CPT/HCPCS: 36415; 83036; 84134

== ENCOUNTER → 2021-05-28 | Outpatient (CLI) | payer MEDICARE ==
--- NOTE | 2021-05-28 12:00 | CT ---
EXAMINATION TYPE: CT lumbar spine wo con DATE OF EXAM: 05/28/2021 11:18 AM COMPARISON: Lumbar spine x-ray August 26, 2016 HISTORY: low back pain, other intervertebral disc degeneration per water. CT DLP: 1973.3 mGycm Automated exposure control for dose reduction was used. Unenhanced CT of the lumbar spine was performed. Bone and soft tissue window settings are submitted as well as coronal and sagittal reconstructions. There are 5 lumbar type vertebra redemonstrated. Vertebral body heights and disc space heights remain within normal limits. No large disc herniations on sagittal images. Mild to minimal multilevel anter ior and lateral spurring. Axial images show T12-L1, L1-L2, L2-L3, and L3-L4 levels to appear within normal limits. Axial images at L4-L5 level mild facet arthropathy and ligamentum flavum hypertrophy bilaterally. The re is mild broad disc bulge. Spinal canal is preserved. Patent bilateral neural foramina. Axial images at L5-S1 level mild facet arthropathy bilaterally. No large disc herniation. Spinal tonia l preserved. Patent bilateral neural foramina. There is 2.8 x 2.4 cm low dense left adrenal nodule or mass eczema 12 Hounsfield units under 10 consi stent with benign lipid rich adenoma. Mild to moderate calcified plaque of the aorta extends into bra neh vessels. There is lower thoracic and upper lumbar posterior paraspinal muscular atrophy greater o n the left versus right side. IMPRESSION: Mild degenerative changes lower lumbar spine. No large suspicious focal disc herniation. Posterior paraspinal muscular atrophy left greater than right noted.
== END | disposition home or self-care (01) ==
LOC: RADCTMAIN 10:43
PROVIDERS: ATTEND Family Medicine
DX: M51.36 Other intervertebral disc degeneration, lumbar region (principal); E78.6 Lipoprotein deficiency
CPT/HCPCS: 72131

== ENCOUNTER 2021-06-18 10:05 | Inpatient (IN) | payer MEDICARE ==
[2021-06-18] MEDS ORDERED: SODIUM CHLORIDE 0.9% 500 ML 500 ML IV STA ×2 (10:31→12:53)
--- NOTE | 2021-06-18 10:40 | ED ---
Seizure HPI <Gerry Hamilton - Last Filed: 06/18/21 12:48> - General Source: patient, EMS Mode of arrival: EMS Limitations: no limitations <Ivy Boyd - Last Filed: 06/18/21 15:16> - General Chief Complaint: Seizure Stated Complaint: Seizure Time Seen by Provider: 06/18/21 10:24 - History of Present Illness Initial Comments: Patient is a 55-year-old male with history of seizures, COPD normally on 4 L at home, Parkinson's, presenting to the emergency department via EMS after having a seizure at home. He states he does live by himself and was able to call EMS afterwards. Last thing he remembers is sitting on his couch drinking last night of his coffee. He is not sure if he hit his head or not. Upon EMS arrival, his glucose was 62, they did give him an amp of D50, 4 mg of Zofran and 1 L of fluids before arrival. Patient is complaining of generalized fatigue and body aches at this time but no other specific complaints. He denies any chest pain or shortness of breath, no abdominal pain, no nausea or vomiting. He states he takes Lamictal for his seizures, he takes it regularly. He thinks he had a seizure a few days ago as well. Patient denies any dizziness or lightheadedne ss, no blurry vision. He has no further complaints at this time. Upon arrival to the ER, he is afebrile, heart rate 54, blood pressure is 141/111, 5 L of O2 satting at 96%. (Ivy Boyd) - Related Data Home Medications Medication Instructions Recorded Confirmed Atorvastatin [Lipitor] 40 mg PO HS 08/31/14 06/18/21 Furosemide [Lasix] 40 mg PO BID 08/10/15 06/18/21 Potassium Chloride [Klor-Con 20] 20 meq PO DAILY 08/10/15 06/18/21 lamoTRIgine [LaMICtal] 200 mg PO TID 08/10/15 06/18/21 INSULIN ASPART (NovoLOG) [NovoLOG 27 unit SQ AC-TID 08/24/16 06/18/21 (formulary)] INSULIN ASPART (NovoLOG) [NovoLOG See Protocol SQ AC-TID 08/24/16 06/18/21 (formulary)] metFORMIN HCL [Glucophage] 1,000 mg PO BID 08/24/16 06/18/21 oxyCODONE-APAP 10-325MG [Percocet 1 tab PO QID 08/24/16 06/18/21 10-325 mg] Cephalexin [Keflex] 500 mg PO BID 05/14/18 06/18/21 Diazepam [Valium] 10 mg PO DAILY 05/14/18 06/18/21 Omeprazole 40 mg PO DAILY 05/14/18 06/18/21 Carbidopa-Levodopa 10-100 mg 1 tab PO BID 06/18/21 06/18/21 [Sinemet 10-100] Citalopram Hydrobromide [CeleXA] 20 mg PO DAILY 06/18/21 06/18/21 Dulaglutide [Trulicity] 4.5 mg SQ CARD 06/18/21 06/18/21 Gabapentin 600 mg PO QID 06/18/21 06/18/21 Insulin Glargine,Hum.rec.anlog 30 unit SQ DAILY 06/18/21 06/18/21 [Lantus Solostar Pen] Insulin Glargine,Hum.rec.anlog 35 unit SQ HS 06/18/21 06/18/21 [Lantus Solostar Pen] Meloxicam [Mobic] 15 mg PO DAILY 06/18/21 06/18/21 Sulfamethox-Tmp 800-160Mg [Bactrim 1 tab PO Q12HR 06/18/21 06/18/21 DS 800-160 mg] amLODIPine [Norvasc] 10 mg PO DAILY 06/18/21 06/18/21 cloNIDine HCL [Catapres] 0.2 mg PO TID 06/18/21 06/18/21 lisinopriL 40 mg PO DAILY 06/18/21 06/18/21 risperiDONE [RisperDAL] 0.5 mg PO HS 06/18/21 06/18/21 Allergies Allergy/AdvReac Type Severity Reaction Status Date / Time venom-honey bee Allergy Swelling Verified 06/18/21 11:08 [bee venom (honey bee)] Review of Systems ROS Other: All systems not noted in ROS Statement are negative. <Gerry Hamilton - Last Filed: 06/18/21 12:48> ROS Other: All systems not noted in ROS Statement are negative. <Ivy Boyd - Last Filed: 06/18/21 15:16> ROS Statement: Those systems with pertinent positive or pertinent negative responses have been documented in the HPI. Past Medical History Past Medical History: COPD, CVA/TIA, Diabetes Mellitus, Fibromyalgia, GERD/Reflux, Hyperlipidemia, Hypertension, Memory Impairment, Seizure Disorder, Skin Disorder, Sleep Apnea/CPAP/BIPAP Additional Past Medical History / Comment(s): uses c-pap machine. EPILEPTIC, past fall w/ concussion, past cva rt side still has some weakness but pt able to ambulate w/ walker History of Any Multi-Drug Resistant Organisms: None Reported Past Surgical History: Hernia Repair Past Anesthesia/Blood Transfusion Reactions: No Reported Reaction Past Psychological History: No Psychological Hx Reported Smoking Status: Current some day smoker Past Alcohol Use History: None Reported Past Drug Use History: None Reported - Past Family History Father Family Medical History: Cancer Additional Family Medical History / Comment(s): LUNG Brother(s) History Unknown: Yes Family Medical History: Myocardial Infarction ([place]) Additional Family Medical History / Comment(s): Sister(s) History Unknown: Yes Family Medical History: Myocardial Infarction ([place]) Additional Family Medical History / Comment(s): <Ivy Boyd - Last Filed: 06/18/21 15:16> General Exam Limitations: no limitations <Ivy Boyd - Last Filed: 06/18/21 15:16> - General Exam Comments Initial Comments: GENERAL: Patient is well-developed and well-nourished, obese male. Patient is nontoxic and in no acute distress. HEAD: Atraumatic, normocephalic. EYES: Pupils equal round and reactive to light, extraocular movements intact, sclera anicteric, conjunctiva are normal. Eyelids were unremarkable. ENT: TMs normal, nares patent, oropharynx clear without exudates. Moist mucous membranes. NECK: Normal range of motion, supple without lymphadenopathy or JVD. LUNGS: Unlabored respirations. Breath sounds clear to auscultation bilaterally and equal. No wheezes rales or rhonchi. HEART: Regular rate and rhythm without murmurs, rubs or gallops. ABDOMEN: Soft, nontender, normoactive bowel sounds. No guarding, no rebound. No masses appreciated. : Deferred MUSCULOSKELETAL: Normal extremities with adequate strength and normal range of motion, no pitting or edema. No clubbing or cyanosis. NEUROLOGICAL: Patient is alert and oriented x 3. Motor and sensory are also intact. Cranial nerves II through XII grossly intact. Symmetrical smile. Normal speech, normal gait. PSYCH: Normal mood, normal affect. SKIN: Warm, Dry, normal turgor, no rashes or lesions noted. (Ivy Boyd) Course <Ivy Boyd - Last Filed: 06/18/21 15:16> Vital Signs 06/18/21 06/18/21 06/18/21 10:10 10:46 11:37 Temperature 97.8 F Pulse Rate 54 L 54 L 41 L Respiratory 20 20 18 Rate Blood Pressure 141/111 133/91 110/93 O2 Sat by Pulse 98 95 Oximetry 06/18/21 06/18/21 06/18/21 11:52 12:38 12:48 Temperature Pulse Rate 52 L 36 L 57 L Respiratory 20 16 16 Rate Blood Pressure 126/60 87/57 O2 Sat by Pulse 95 Oximetry 06/18/21 06/18/21 06/18/21 13:12 13:49 14:29 Temperature Pulse Rate 52 L 46 L 43 L Respiratory 16 14 16 Rate Blood Pressure 109/99 100/50 97/53 O2 Sat by Pulse 94 L 89 L Oximetry - Reevaluation(s) Reevaluation #1: 06/18/21 12:03 Nurse informed me that patient was heading to computed tomography scan, his side rail was lowered so that he could urinate, patient then rolled off the side of the bed, striking the floor, he does now have a laceration above his left eyebrow. He is alert and oriented, no loss of consciousness. Patient's glucose was rechecked after 1 amp of glucose, and it read 73. (Ivy Boyd) Reevaluation #2: 06/18/21 13:24 Patient's vital signs started to decrease the heart rate in the upper 20s, blood pressure was lowering, patient was moved into the trauma bay. Repeat EKG and showed marked sinus bradycardia with ventricular rate at 26. The patient was given 1 g of atropine. He did respond with his heart rate in the low 60s now. Dr. Hamilton aware of patient (Ivy Boyd L) Medical Decision Making - Lab Data Result diagrams: 06/18/21 11:32 06/18/21 11:32 <Gerry Hamilton - Last Filed: 06/18/21 12:48> - Lab Data Result diagrams: 06/18/21 11:32 06/18/21 11:32 <Ivy Boyd - Last Filed: 06/18/21 15:16> - Medical Decision Making I, Joshua Hamilton, personally saw and examined the patient. I have reviewed and agree with the PA findings, including all diagnostic interpretations and treatment plans as written unless otherwise stated. I was present for the harris portions of any procedures performed and the inclusive time noted for any critical care statement. (Gerry Hamilton) Patient is a 55-year-old male with history of seizures, Parkinson's, CVA, presenting after having a seizure at home. Patient called EMS himself. In the EMS, his glucose was found to be in the 50s, he was given an amp of D50, a liter of fluids and 4 mg of Zofran. His glucose is improved to 300. Patient had no acute neuro deficits on exam. (Ivy Boyd) - Lab Data Lab Results 06/18/21 06/18/21 06/18/21 Range/Units 11:27 11:32 11:32 WBC 9.3 (3.8-10.6) k/uL RBC 3.65 L (4.30-5.90) m/uL Hgb 11.3 L (13.0-17.5) gm/dL Hct 33.4 L (39.0-53.0) % MCV 91.5 (80.0-100.0) fL MCH 31.0 (25.0-35.0) pg MCHC 33.8 (31.0-37.0) g/dL RDW 18.6 H (11.5-15.5) % Plt Count 234 (150-450) k/uL MPV 7.5 Neutrophils % 83 % Lymphocytes % 9 % Monocytes % 6 % Eosinophils % 1 % Basophils % 1 % Neutrophils # 7.7 (1.3-7.7) k/uL Lymphocytes # 0.8 L (1.0-4.8) k/uL Monocytes # 0.5 (0-1.0) k/uL Eosinophils # 0.1 (0-0.7) k/uL Basophils # 0.1 (0-0.2) k/uL Anisocytosis Slight PT (9.0-12.0) sec INR (<1.2) APTT (22.0-30.0) sec Sodium (137-145) mmol/L Potassium (3.5-5.1) mmol/L Chloride (98-107) mmol/L Carbon Dioxide (22-30) mmol/L Anion Gap mmol/L BUN (9-20) mg/dL Creatinine (0.66-1.25) mg/dL Est GFR (CKD-EPI)AfAm (>60 ml/min/1.73 sqM) Est GFR (CKD-EPI)NonAf (>60 ml/min/1.73 sqM) Glucose (74-99) mg/dL POC Glucose (mg/dL) 54 L (75-99) mg/dL POC Glu Rescue Instructor ID Munir, Zabrina Plasma Lactic Acid Nathaniel (0.7-2.0) mmol/L Calcium (8.4-10.2) mg/dL Magnesium (1.6-2.3) mg/dL Total Bilirubin (0.2-1.3) mg/dL AST (17-59) U/L ALT (4-49) U/L Alkaline Phosphatase (38-126) U/L Troponin I (0.000-0.034) ng/mL Total Protein (6.3-8.2) g/dL Albumin (3.5-5.0) g/dL Urine Color Yellow Urine Appearance Clear (Clear) Urine pH 5.0 (5.0-8.0) Ur Specific [place] 1.015 (1.001-1.035) Urine Protein Trace H (Negative) Urine Glucose (UA) Negative (Negative) Urine Ketones Negative (Negative) Urine Blood Negative (Negative) Urine Nitrite Negative (Negative) Urine Bilirubin Negative (Negative) Urine Urobilinogen <2.0 (<2.0) mg/dL Ur Leukocyte Esterase Negative (Negative) Salicylates mg/dL Urine Opiates Screen Not Detected (NotDetected) Ur Oxycodone Screen Detected H (NotDetected) Urine Methadone Screen Not Detected (NotDetected) Ur Propoxyphene Screen Not Detected (NotDetected) Acetaminophen ug/mL Ur Barbiturates Screen Not Detected (NotDetected) U Tricyclic Antidepress Not Detected (NotDetected) Ur Phencyclidine Scrn Not Detected (NotDetected) Ur Amphetamines Screen Not Detected (NotDetected) U Methamphetamines Scrn Not Detected (NotDetected) U Benzodiazepines Scrn Detected H (NotDetected) Urine Cocaine Screen Not Detected (NotDetected) U Marijuana (THC) Screen Not Detected (NotDetected) Serum Alcohol mg/dL Coronavirus (PCR) (Not Detectd) 06/18/21 06/18/21 06/18/21 Range/Units 11:32 11:58 12:21 WBC (3.8-10.6) k/uL RBC (4.30-5.90) m/uL Hgb (13.0-17.5) gm/dL Hct (39.0-53.0) % MCV (80.0-100.0) fL MCH (25.0-35.0) pg MCHC (31.0-37.0) g/dL RDW (11.5-15.5) % Plt Count (150-450) k/uL MPV Neutrophils % % Lymphocytes % % Monocytes % % Eosinophils % % Basophils % % Neutrophils # (1.3-7.7) k/uL Lymphocytes # (1.0-4.8) k/uL Monocytes # (0-1.0) k/uL Eosinophils # (0-0.7) k/uL Basophils # (0-0.2) k/uL Anisocytosis PT (9.0-12.0) sec INR (<1.2) APTT (22.0-30.0) sec Sodium 137 (137-145) mmol/L Potassium 5.6 H (3.5-5.1) mmol/L Chloride 106 (98-107) mmol/L Carbon Dioxide 20 L (22-30) mmol/L Anion Gap 11 mmol/L BUN 22 H (9-20) mg/dL Creatinine 1.56 H (0.66-1.25) mg/dL Est GFR (CKD-EPI)AfAm 57 (>60 ml/min/1.73 sqM) Est GFR (CKD-EPI)NonAf 50 (>60 ml/min/1.73 sqM) Glucose 42 L* (74-99) mg/dL POC Glucose (mg/dL) 73 L 58 L (75-99) mg/dL POC Glu Rescue Instructor ID Cheko Alexis A Desot, Robert, A Plasma Lactic Acid Nathaniel (0.7-2.0) mmol/L Calcium 9.4 (8.4-10.2) mg/dL Magnesium 1.7 (1.6-2.3) mg/dL Total Bilirubin 0.5 (0.2-1.3) mg/dL AST 23 (17-59) U/L ALT 17 (4-49) U/L Alkaline Phosphatase 70 (38-126) U/L Troponin I (0.000-0.034) ng/mL Total Protein 7.1 (6.3-8.2) g/dL Albumin 3.9 (3.5-5.0) g/dL Urine Color Urine Appearance (Clear) Urine pH (5.0-8.0) Ur Specific [place] (1.001-1.035) Urine Protein (Negative) Urine Glucose (UA) (Negative) Urine Ketones (Negative) Urine Blood (Negative) Urine Nitrite (Negative) Urine Bilirubin (Negative) Urine Urobilinogen (<2.0) mg/dL Ur Leukocyte Esterase (Negative) Salicylates mg/dL Urine Opiates Screen (NotDetected) Ur Oxycodone Screen (NotDetected) Urine Methadone Screen (NotDetected) Ur Propoxyphene Screen (NotDetected) Acetaminophen ug/mL Ur Barbiturates Screen (NotDetected) U Tricyclic Antidepress (NotDetected) Ur Phencyclidine Scrn (NotDetected) Ur Amphetamines Screen (NotDetected) U Methamphetamines Scrn (NotDetected) U Benzodiazepines Scrn (NotDetected) Urine Cocaine Screen (NotDetected) U Marijuana (THC) Screen (NotDetected) Serum Alcohol <10 mg/dL Coronavirus (PCR) (Not Detectd) 06/18/21 06/18/21 06/18/21 Range/Units 12:33 13:03 13:08 WBC (3.8-10.6) k/uL RBC (4.30-5.90) m/uL Hgb (13.0-17.5) gm/dL Hct (39.0-53.0) % MCV (80.0-100.0) fL MCH (25.0-35.0) pg MCHC (31.0-37.0) g/dL RDW (11.5-15.5) % Plt Count (150-450) k/uL MPV Neutrophils % % Lymphocytes % % Monocytes % % Eosinophils % % Basophils % % Neutrophils # (1.3-7.7) k/uL Lymphocytes # (1.0-4.8) k/uL Monocytes # (0-1.0) k/uL Eosinophils # (0-0.7) k/uL Basophils # (0-0.2) k/uL Anisocytosis PT 10.6 (9.0-12.0) sec INR 1.0 (<1.2) APTT 27.4 (22.0-30.0) sec Sodium (137-145) mmol/L Potassium (3.5-5.1) mmol/L Chloride (98-107) mmol/L Carbon Dioxide (22-30) mmol/L Anion Gap mmol/L BUN (9-20) mg/dL Creatinine (0.66-1.25) mg/dL Est GFR (CKD-EPI)AfAm (>60 ml/min/1.73 sqM) Est GFR (CKD-EPI)NonAf (>60 ml/min/1.73 sqM) Glucose (74-99) mg/dL POC Glucose (mg/dL) 58 L (75-99) mg/dL POC Glu Rescue Instructor ID Cheko Alexis A Plasma Lactic Acid Nathaniel (0.7-2.0) mmol/L Calcium (8.4-10.2) mg/dL Magnesium (1.6-2.3) mg/dL Total Bilirubin (0.2-1.3) mg/dL AST (17-59) U/L ALT (4-49) U/L Alkaline Phosphatase (38-126) U/L Troponin I (0.000-0.034) ng/mL Total Protein (6.3-8.2) g/dL Albumin (3.5-5.0) g/dL Urine Color Urine Appearance (Clear) Urine pH (5.0-8.0) Ur Specific [place] (1.001-1.035) Urine Protein (Negative) Urine Glucose (UA) (Negative) Urine Ketones (Negative) Urine Blood (Negative) Urine Nitrite (Negative) Urine Bilirubin (Negative) Urine Urobilinogen (<2.0) mg/dL Ur Leukocyte Esterase (Negative) Salicylates mg/dL Urine Opiates Screen (NotDetected) Ur Oxycodone Screen (NotDetected) Urine Methadone Screen (NotDetected) Ur Propoxyphene Screen (NotDetected) Acetaminophen ug/mL Ur Barbiturates Screen (NotDetected) U Tricyclic Antidepress (NotDetected) Ur Phencyclidine Scrn (NotDetected) Ur Amphetamines Screen (NotDetected) U Methamphetamines Scrn (NotDetected) U Benzodiazepines Scrn (NotDetected) Urine Cocaine Screen (NotDetected) U Marijuana (THC) Screen (NotDetected) Serum Alcohol mg/dL Coronavirus (PCR) Not Detected (Not Detectd) 06/18/21 06/18/21 06/18/21 Range/Units 13:08 13:08 13:08 WBC (3.8-10.6) k/uL RBC (4.30-5.90) m/uL Hgb (13.0-17.5) gm/dL Hct (39.0-53.0) % MCV (80.0-100.0) fL MCH (25.0-35.0) pg MCHC (31.0-37.0) g/dL RDW (11.5-15.5) % Plt Count (150-450) k/uL MPV Neutrophils % % Lymphocytes % % Monocytes % % Eosinophils % % Basophils % % Neutrophils # (1.3-7.7) k/uL Lymphocytes # (1.0-4.8) k/uL Monocytes # (0-1.0) k/uL Eosinophils # (0-0.7) k/uL Basophils # (0-0.2) k/uL Anisocytosis PT (9.0-12.0) sec INR (<1.2) APTT (22.0-30.0) sec Sodium (137-145) mmol/L Potassium (3.5-5.1) mmol/L Chloride (98-107) mmol/L Carbon Dioxide (22-30) mmol/L Anion Gap mmol/L BUN (9-20) mg/dL Creatinine (0.66-1.25) mg/dL Est GFR (CKD-EPI)AfAm (>60 ml/min/1.73 sqM) Est GFR (CKD-EPI)NonAf (>60 ml/min/1.73 sqM) Glucose (74-99) mg/dL POC Glucose (mg/dL) (75-99) mg/dL POC Glu Rescue Instructor ID Plasma Lactic Acid Nathaniel 2.5 H* (0.7-2.0) mmol/L Calcium (8.4-10.2) mg/dL Magnesium (1.6-2.3) mg/dL Total Bilirubin (0.2-1.3) mg/dL AST (17-59) U/L ALT (4-49) U/L Alkaline Phosphatase (38-126) U/L Troponin I 0.019 (0.000-0.034) ng/mL Total Protein (6.3-8.2) g/dL Albumin (3.5-5.0) g/dL Urine Color Urine Appearance (Clear) Urine pH (5.0-8.0) Ur Specific [place] (1.001-1.035) Urine Protein (Negative) Urine Glucose (UA) (Negative) Urine Ketones (Negative) Urine Blood (Negative) Urine Nitrite (Negative) Urine Bilirubin (Negative) Urine Urobilinogen (<2.0) mg/dL Ur Leukocyte Esterase (Negative) Salicylates <1.0 mg/dL Urine Opiates Screen (NotDetected) Ur Oxycodone Screen (NotDetected) Urine Methadone Screen (NotDetected) Ur Propoxyphene Screen (NotDetected) Acetaminophen <10.0 ug/mL Ur Barbiturates Screen (NotDetected) U Tricyclic Antidepress (NotDetected) Ur Phencyclidine Scrn (NotDetected) Ur Amphetamines Screen (NotDetected) U Methamphetamines Scrn (NotDetected) U Benzodiazepines Scrn (NotDetected) Urine Cocaine Screen (NotDetected) U Marijuana (THC) Screen (NotDetected) Serum Alcohol mg/dL Coronavirus (PCR) (Not Detectd) 06/18/21 06/18/21 Range/Units 14:28 15:00 WBC (3.8-10.6) k/uL RBC (4.30-5.90) m/uL Hgb (13.0-17.5) gm/dL Hct (39.0-53.0) % MCV (80.0-100.0) fL MCH (25.0-35.0) pg MCHC (31.0-37.0) g/dL RDW (11.5-15.5) % Plt Count (150-450) k/uL MPV Neutrophils % % Lymphocytes % % Monocytes % % Eosinophils % % Basophils % % Neutrophils # (1.3-7.7) k/uL Lymphocytes # (1.0-4.8) k/uL Monocytes # (0-1.0) k/uL Eosinophils # (0-0.7) k/uL Basophils # (0-0.2) k/uL Anisocytosis PT (9.0-12.0) sec INR (<1.2) APTT (22.0-30.0) sec Sodium (137-145) mmol/L Potassium (3.5-5.1) mmol/L Chloride (98-107) mmol/L Carbon Dioxide (22-30) mmol/L Anion Gap mmol/L BUN (9-20) mg/dL Creatinine (0.66-1.25) mg/dL Est GFR (CKD-EPI)AfAm (>60 ml/min/1.73 sqM) Est GFR (CKD-EPI)NonAf (>60 ml/min/1.73 sqM) Glucose (74-99) mg/dL POC Glucose (mg/dL) 82 86 (75-99) mg/dL POC Glu Rescue Instructor Traci Rey Kylee Plasma Lactic Acid Nathaniel (0.7-2.0) mmol/L Calcium (8.4-10.2) mg/dL Magnesium (1.6-2.3) mg/dL Total Bilirubin (0.2-1.3) mg/dL AST (17-59) U/L ALT (4-49) U/L Alkaline Phosphatase (38-126) U/L Troponin I (0.000-0.034) ng/mL Total Protein (6.3-8.2) g/dL Albumin (3.5-5.0) g/dL Urine Color Urine Appearance (Clear) Urine pH (5.0-8.0) Ur Specific [place] (1.001-1.035) Urine Protein (Negative) Urine Glucose (UA) (Negative) Urine Ketones (Negative) Urine Blood (Negative) Urine Nitrite (Negative) Urine Bilirubin (Negative) Urine Urobilinogen (<2.0) mg/dL Ur Leukocyte Esterase (Negative) Salicylates mg/dL Urine Opiates Screen (NotDetected) Ur Oxycodone Screen (NotDetected) Urine Methadone Screen (NotDetected) Ur Propoxyphene Screen (NotDetected) Acetaminophen ug/mL Ur Barbiturates Screen (NotDetected) U Tricyclic Antidepress (NotDetected) Ur Phencyclidine Scrn (NotDetected) Ur Amphetamines Screen (NotDetected) U Methamphetamines Scrn (NotDetected) U Benzodiazepines Scrn (NotDetected) Urine Cocaine Screen (NotDetected) U Marijuana (THC) Screen (NotDetected) Serum Alcohol mg/dL Coronavirus (PCR) (Not Detectd) - EKG Data EKG Comments: Sinus bradycardia otherwise normal ECG, similar to previous and 05/14/2018. No signs of acute ST segment elevation. Ventricular rate 46, MS interval 168, QTC 428. Repeat EKG performed at 1235 showed marked sinus bradycardia, nonspecific ST-T wave abnormalities, ventricular rate 26, MS interval 186, QT 456. (Ivy Boyd) Disposition <Gerry Hamilton - Last Filed: 06/18/21 12:48> Decision Date: 06/18/21 Decision Time: 15:16 <Ivy Boyd - Last Filed: 06/18/21 15:16> Clinical Impression: Hypoglycemia, Bradycardia, Hypotension, Syncope Disposition: ADMITTED IP TO THIS [facility] Condition: Fair Referrals: Liam Acosta MD [Primary Care Provider] - 1-2 days
[2021-06-18 11:29] LABS: Glucose,Whole Blood 54 mg/dL (75-99)
[2021-06-18] MEDS ORDERED: DEXTROSE 50% SYRINGE 50 ML IVP STA (11:33)
[2021-06-18 11:46] LABS: Anisocytosis Slight; Basophils # (A) 0.1 k/uL (0-0.2); Basophils % (A) 1 %; Eosinophils # (A) 0.1 k/uL (0-0.7); Eosinophils % (A) 1 %; HCT 33.4 % (39.0-53.0); HGB 11.3 gm/dL (13.0-17.5); Lymphocytes # (A) 0.8 k/uL (1.0-4.8); Lymphocytes % (A) 9 %; MCHC 33.8 g/dL (31.0-37.0); MCV 91.5 fL (80.0-100.0); Mean Platelet Volume 7.5; Monocytes # (A) 0.5 k/uL (0-1.0); Monocytes % (A) 6 %; Neutrophils # (A) 7.7 k/uL (1.3-7.7); Neutrophils % (A) 83 %; Platelet Count 234 k/uL (150-450); RBC 3.65 m/uL (4.30-5.90); RDW 18.6 % (11.5-15.5); WBC 9.3 k/uL (3.8-10.6)
[2021-06-18 12:06] LABS: ALT 17 U/L (4-49); AST 23 U/L (17-59); African American GFR (CKD) 57 (>60 ml/min/1.73 sqM); Albumin 3.9 g/dL (3.5-5.0); Alcohol <10 mg/dL; Alkaline Phosphatase 70 U/L (38-126); Anion Gap 11 mmol/L; Blood Urea Nitrogen 22 mg/dL (9-20); Calcium 9.4 mg/dL (8.4-10.2); Carbon Dioxide 20 mmol/L (22-30); Chloride 106 mmol/L (98-107); Magnesium 1.7 mg/dL (1.6-2.3); Non-African American GFR(CKD) 50 (>60 ml/min/1.73 sqM); Potassium 5.6 mmol/L (3.5-5.1); Sodium 137 mmol/L (137-145); Total Bilirubin 0.5 mg/dL (0.2-1.3); Total Protein 7.1 g/dL (6.3-8.2)
[2021-06-18 12:09] LABS: Glucose,Whole Blood 73 mg/dL (75-99)
[2021-06-18 12:15] LABS: Glucose 42 mg/dL (74-99)
[2021-06-18] MEDS ORDERED: DEXTROSE 5%-0.45% NACL 1,000 ML IV ONE (12:24)
[2021-06-18] MEDS ORDERED: LIDOCAINE 1% INJ 10MG/ML (20 ML MDV) SQ ONE (12:25)
[2021-06-18 12:32] LABS: Glucose,Whole Blood 58 mg/dL (75-99)
--- NOTE | 2021-06-18 12:33 | CT ---
EXAMINATION TYPE: CT brain wo con DATE OF EXAM: 06/18/2021 COMPARISON: 01/01/2017 HISTORY: 55-year-old male pain after Possible seizure with fall and laceration to Left supraorbital l aceration. TECHNIQUE: Examination was done in axial plane without intravenous contrast. Coronal and sagittal r econstructions performed. CT DLP: 1201.4 mGycm Automated exposure control for dose reduction was used. FINDINGS: There is no evidence of acute intracranial hemorrhage, acute ischemic changes, mass, mass-effect, or extra-axial fluid collection. There is no effacement of cerebral sulci or basal subarachnoid cister ns. There is no hydrocephalus. There is no midline shift. [place]ancino-white matter distinction is preserv ed. Small polyps or mucosal retention cyst within the left maxillary sinus. Mastoid air cells well pneuma tized. Orbits and globes appear intact. IMPRESSION: No acute intracranial abnormality seen.
[2021-06-18 12:40] LABS: Glucose,Whole Blood 58 mg/dL (75-99)
[2021-06-18] MEDS ORDERED: ATROPINE SULFATE 0.1 MG/ML 10ML SYRINGE IV STA (12:42)
[2021-06-18 13:27] LABS: Acetaminophen <10.0 ug/mL; Salicylate <1.0 mg/dL
[2021-06-18 13:32] LABS: Partial Thromboplastin Time 27.4 sec (22.0-30.0); Prothrombin Time 10.6 sec (9.0-12.0)
[2021-06-18 13:56] LABS: Appearance,Urine Clear (Clear); Bilirubin,Urine Negative (Negative); Blood,Urine Negative (Negative); Color,Urine Yellow; Glucose,Urine (UA) Negative (Negative); Ketones,Urine Negative (Negative); Leukocyte Esterase,Urine Negative (Negative); Nitrite,Urine Negative (Negative); Protein,Urine Trace (Negative); Specific Gravity,Urine 1.015 (1.001-1.035); Urobilinogen,Urine <2.0 mg/dL (<2.0)
[2021-06-18 14:07] LABS: Amphetamine Screen,Urine Not Detected (NotDetected); Barbiturate Screen,Urine Not Detected (NotDetected); Benzodiazepines Screen,Urine Detected (NotDetected); Cocaine Screen,Urine Not Detected (NotDetected); Methadone Screen, Urine Not Detected (NotDetected); Opiate Screen,Urine Not Detected (NotDetected); Oxycodone Screen, Urine Detected (NotDetected); Phencyclidine Screen,Urine Not Detected (NotDetected); Tricyclic Antidepressant,Urine Not Detected (NotDetected); Urn Cannabinoid Scrn Not Detected (NotDetected)
[2021-06-18 14:29] LABS: Glucose,Whole Blood 82 mg/dL (75-99)
[2021-06-18 15:01] LABS: Glucose,Whole Blood 86 mg/dL (75-99)
[2021-06-18] MEDS ORDERED: NALOXONE 0.4 MG/ML 1 ML VIAL IV PRN (15:12)
[2021-06-18] MEDS: DOPamine DRIP 800 MG in DEXTROSE/WATER 1 250ML.BAG IV ONE (15:27)
[2021-06-18 16:40] LABS: Glucose,Whole Blood 110 mg/dL (75-99)
[2021-06-18 18:04] LABS: Glucose,Whole Blood 144 mg/dL (75-99)
--- NOTE | 2021-06-18 19:06 | XR ---
EXAMINATION TYPE: XR chest 1V DATE OF EXAM: 06/18/2021 COMPARISON: 05/14/2018. HISTORY: CBD and seizure. TECHNIQUE: Single frontal view of the chest is obtained. FINDINGS: There is mild to moderate left basilar opacity. No pleural effusion, or pneumothorax seen. The cardiac silhouette size is within normal limits. The osseous structures are intact. IMPRESSION: Left basilar opacity may represent aspiration changes, atelectasis or infiltrate.
[2021-06-18 20:57] LABS: Glucose,Whole Blood 142 mg/dL (75-99)
[2021-06-18] MEDS: IPRATROPIUM-ALBUTEROL 3 ML NEB INHALATION SCH (21:02)
[2021-06-18] MEDS ORDERED: METOCLOPRAMIDE 5 MG/ML 2 ML VIAL IVP PRN (21:40)
[2021-06-18] MEDS: ONDANSETRON 4 MG/2 ML VIAL IVP PRN (21:53)
[2021-06-18] MEDS: HEPARIN SODIUM,PORCINE/PF 5,000 UNIT/0.5 ML SYRINGE SQ SCH (23:48)
[2021-06-18] MEDS: PIPERACILLIN-TAZOBACTAM 3.375 GM in SODIUM CHLORIDE 0.9% 100 ML IVPB SCH (23:48)
[2021-06-18] MEDS: IPRATROPIUM-ALBUTEROL 3 ML NEB INHALATION PRN (23:51)
[2021-06-19 01:55] LABS: Glucose,Whole Blood 194 mg/dL (75-99)
[2021-06-19] MEDS ORDERED: METOCLOPRAMIDE 5 MG/ML 2 ML VIAL IVP PRN (02:56)
[2021-06-19 04:56] LABS: Anisocytosis Slight; Basophils % (A) 0 %; Eosinophils # (A) 0.1 k/uL (0-0.7); Eosinophils % (A) 1 %; HCT 36.2 % (39.0-53.0); HGB 11.8 gm/dL (13.0-17.5); Lymphocytes # (A) 0.3 k/uL (1.0-4.8); Lymphocytes % (A) 3 %; MCH 30.7 pg (25.0-35.0); MCHC 32.6 g/dL (31.0-37.0); MCV 94.2 fL (80.0-100.0); Mean Platelet Volume 7.6; Monocytes # (A) 0.6 k/uL (0-1.0); Monocytes % (A) 7 %; Neutrophils # (A) 7.6 k/uL (1.3-7.7); Neutrophils % (A) 87 %; Platelet Count 245 k/uL (150-450); RBC 3.85 m/uL (4.30-5.90); RDW 18.1 % (11.5-15.5); WBC 8.7 k/uL (3.8-10.6)
[2021-06-19 05:03] LABS: Albumin 3.7 g/dL (3.5-5.0); Calcium 9.2 mg/dL (8.4-10.2); Total Bilirubin 0.7 mg/dL (0.2-1.3); Total Protein 7.1 g/dL (6.3-8.2)
[2021-06-19] MEDS: DOPamine DRIP 800 MG in DEXTROSE/WATER 1 250ML.BAG IV ONE (05:17)
[2021-06-19] MEDS: IPRATROPIUM-ALBUTEROL 3 ML NEB INHALATION PRN (05:38)
[2021-06-19 06:02] LABS: Glucose,Whole Blood 210 mg/dL (75-99)
[2021-06-19] MEDS: ONDANSETRON 4 MG/2 ML VIAL IVP PRN (06:04)
--- NOTE | 2021-06-19 06:16 | HP ---
HISTORY AND PHYSICAL HISTORY OF PRESENT ILLNESS: 55-year-old white male with history of seizures, COPD normally at 4 L at home. Came to the emergency room after having a seizure at home. He had low blood sugar. He was sitting on his couch, drinking s not sure if he hit his head or not. His glucose was 62. Given some D50. We are going to order EEG for seizures. Takes Lamictal for seizures. He states he has not missed any medicines. States that sugars have been good. Denies any chest pain, shortness of breath. Thinks he had a seizure a few days ago. Denies any dizziness, lightheadedness at this time. A1c 6.9 for sugars. His sugars have been running good 150s. MEDICATIONS: Home medicines: Lipitor 40 q.h.s., Lasix 40 b.i.d., Klor-Con 20 mEq daily, NovoLog 27 units a.c. t.i.d., metformin 1 g b.i.d., Percocet 10/325 q.i.d., Valium 10 daily, omeprazole 40 daily, Sinemet 10/100 b.i.d., Celexa 20 daily, Trulicity 4.5 mg subcu Sundays, gabapentin 600 q.i.d., Lantus 30 units subcu daily, Mobic 15 mg daily, lisinopril 40 daily. Risperidone 0.5 at night. ALLERGIES: TO BEE HONEY. PAST MEDICAL HISTORY: COPD, CVA, TIA, diabetes mellitus, fibromyalgia, GERD, dyslipidemia, hypertension, memory impairment, seizure disorder, skin disorder, sleep apnea, uses CPAP, hernia repair. SOCIAL HISTORY: Current everyday smoker. PAST FAMILY MEDICAL HISTORY: Father with cancer of the lung, brother myocardial infarction. Sister, myocardial infarction. PHYSICAL EXAMINATION: He is sleeping in bed. He is answering questions appropriately and does not appear postictal. CARDIOVASCULAR: S1, S2. LUNGS: Clear. GI: Distended, obesity. PSYCH: Fair mood and affect. NEUROLOGIC: Alert, orient x3. Hematology 2 to 3+ edema. ASSESSMENT: 1. Altered mental status. 2. Severe hypoglycemia in the ER. 3. Suspect recurrent seizure disorder and syncope at home with abrasion above his left eye. 4. Acute tubular necrosis. 5. Prerenal renal insufficiency. 6. Hyperkalemia. Multiple consults in place. CT of the chest and abdomen, Azra Hardwick for vomiting. He has been vomiting at home he says for the past 2 to 3 days. We will get a CT of his abdomen. Possible aspiration. CT scan of his chest. Prognosis guarded. Maintain ICU at this time. MMODL / MARIAHN: [id number] /
[2021-06-19] MEDS ORDERED: INSULIN REGULAR 100 UNIT/ML VIAL (IV) IV ONE (06:29)
[2021-06-19] MEDS ORDERED: DEXTROSE 50% SYRINGE 50 ML IVP STA (06:29)
[2021-06-19] MEDS ORDERED: SODIUM POLYSTYRENE SULFONATE 15 GM/60 ML BOTTLE PO ONE (06:29)
--- NOTE | 2021-06-19 07:43 | P.CRDCN ---
History of Present Illness Consult date: 06/19/21 Chief complaint: Loss of consciousness History of present illness: This is a pleasant 55-year-old gentleman who we requested to see in the intens pallavi care unit for further evaluation off bradycardia. The patient is somewhat a poor historian. He does have an underlying history of obstructive sleep apnea, chronic hypoxic respiratory failure, chronic obstructive pulmonary disease on 4 L continuously at home, as well as diabetes and hypertension and dyslipidemia. The patient lives by himself. He woke up and found himself on the floor. He is known to have seizure disorder and he thinks that he had a seizure. Ambulance was called and the patient was brought to the emergency department where he underwent a workup including computed tomography scan of the brain and that came in to be unremarkable for acute abnormalities and at the same time he was found to be in profound bradycardia with initially heart rate in the 30s and subsequently in the 40s. Subsequently the patient was started on dopamine and he was admitted to the intensive care unit. The patient clinically was experiencing symptoms of generalized fatigue and tiredness and also increasing in the shortness of breath. No symptoms of chest pain or chest discomfort. The EKG was reviewed and showed sinus bradycardia without any evidence of advanced AV block. Cardiac enzymes were not checked. TSH and free T4 was not checked. Echo is in process to be done. The chest x-ray showed chronic changes only. Currently the patient is on 8 L high flow oxygen with saturation only in the 90s. Beside that on examination he does have severe bilateral expiratory wheezing noted. At this point I'm going to rule out thyroid disorder and obtain a TSH and free T4 and also I'm going to rule out acute coronary event. Please note that the patient underwent a heart catheterization in 2018 and that revealed mild nonobstructive coronary artery disease. Also he underwent an echo which revealed normal left ventricular systolic function without significant valvular abnormalities. Past Medical History Past Medical History: COPD, CVA/TIA, Diabetes Mellitus, Fibromyalgia, GERD/Reflux, Hyperlipidemia, Hypertension, Memory Impairment, Seizure Disorder, Skin Disorder, Sleep Apnea/CPAP/BIPAP Additional Past Medical History / Comment(s): uses c-pap machine, on 4L Home oxygen, EPILEPTIC, past fall w/ concussion, ambulate with a walker and a wheelchair; Parkinson's History of Any Multi-Drug Resistant Organisms: None Reported Past Surgical History: Hernia Repair Additional Past Surgical History / Comment(s): Left big toe surgery/debridement r/t diabetic ulcer Past Anesthesia/Blood Transfusion Reactions: No Reported Reaction Smoking Status: Current every day smoker - Past Family History Father Family Medical History: Cancer Additional Family Medical History / Comment(s): LUNG Brother(s) History Unknown: Yes Family Medical History: Myocardial Infarction ([place]) Additional Family Medical History / Comment(s): Sister(s) History Unknown: Yes Family Medical History: Myocardial Infarction (SD) Additional Family Medical History / Comment(s): Medications and Allergies Home Medications Medication Instructions Recorded Confirmed Type Atorvastatin [Lipitor] 40 mg PO HS 08/31/14 06/18/21 History Furosemide [Lasix] 40 mg PO BID 08/10/15 06/18/21 History Potassium Chloride [Klor-Con 20] 20 meq PO DAILY 08/10/15 06/18/21 History lamoTRIgine [LaMICtal] 200 mg PO TID 08/10/15 06/18/21 History INSULIN ASPART (NovoLOG) [NovoLOG 27 unit SQ AC-TID 08/24/16 06/18/21 History (formulary)] INSULIN ASPART (NovoLOG) [NovoLOG See Protocol SQ AC-TID 08/24/16 06/18/21 Histo ry (formulary)] metFORMIN HCL [Glucophage] 1,000 mg PO BID 08/24/16 06/18/21 History oxyCODONE-APAP 10-325MG [Percocet 1 tab PO QID 08/24/16 06/18/21 History 10-325 mg] Cephalexin [Keflex] 500 mg PO BID 05/14/18 06/18/21 History Diazepam [Valium] 10 mg PO DAILY 05/14/18 06/18/21 History Omeprazole 40 mg PO DAILY 05/14/18 06/18/21 History Carbidopa-Levodopa 10-100 mg 1 tab PO BID 06/18/21 06/18/21 History [Sinemet 10-100] Citalopram Hydrobromide [CeleXA] 20 mg PO DAILY 06/18/21 06/18/21 History Dulaglutide [Trulicity] 4.5 mg SQ CARD 06/18/21 06/18/21 History Gabapentin 600 mg PO QID 06/18/21 06/18/21 History Insulin Glargine,Hum.rec.anlog 30 unit SQ DAILY 06/18/21 06/18/21 History [Lantus Solostar Pen] Insulin Glargine,Hum.rec.anlog 35 unit SQ HS 06/18/21 06/18/21 History [Lantus Solostar Pen] Meloxicam [Mobic] 15 mg PO DAILY 06/18/21 06/18/21 History Sulfamethox-Tmp 800-160Mg [Bactrim 1 tab PO Q12HR 06/18/21 06/18/21 History DS 800-160 mg] amLODIPine [Norvasc] 10 mg PO DAILY 06/18/21 06/18/21 History cloNIDine HCL [Catapres] 0.2 mg PO TID 06/18/21 06/18/21 History lisinopriL 40 mg PO DAILY 06/18/21 06/18/21 History risperiDONE [RisperDAL] 0.5 mg PO HS 06/18/21 06/18/21 History Allergies Allergy/AdvReac Type Severity Reaction Status Date / Time venom-honey bee Allergy Swelling Verified 06/18/21 11:08 [bee venom (honey bee)] Physical Exam Vitals: Vital Signs Temp Pulse Resp BP Pulse Ox 06/19/21 07:00 64 20 140/57 90 L 06/19/21 06:30 63 20 140/56 87 L 06/19/21 06:00 59 L 20 151/65 88 L 06/19/21 05:51 60 06/19/21 05:39 61 06/19/21 05:30 60 24 164/72 86 L 06/19/21 05:17 87 L 06/19/21 05:07 79 L 06/19/21 05:05 81 L 06/19/21 05:00 62 23 143/63 87 L 06/19/21 04:30 60 22 143/59 89 L 06/19/21 04:00 97.9 F 63 21 134/58 91 L 06/19/21 03:30 61 24 142/65 90 L 06/19/21 03:00 62 25 H 129/58 89 L 06/19/21 02:30 62 22 132/54 87 L 06/19/21 02:00 58 L 18 138/58 92 L 06/19/21 01:30 60 19 138/56 90 L 06/19/21 01:00 58 L 20 141/60 87 L 06/19/21 00:30 60 20 151/63 94 L 06/19/21 00:20 61 22 151/63 86 L 06/19/21 00:06 63 06/19/21 00:00 97.9 F 59 L 20 153/68 90 L 06/18/21 23:51 58 L 06/18/21 23:30 62 22 106/73 87 L 06/18/21 23:00 63 30 H 125/64 87 L 06/18/21 22:30 65 17 142/73 92 L 06/18/21 22:00 66 20 127/90 88 L 06/18/21 21:30 62 19 141/84 85 L 06/18/21 21:17 92 L 06/18/21 21:16 60 06/18/21 21:03 63 06/18/21 21:00 67 21 143/61 92 L 06/18/21 20:30 62 15 137/67 90 L 06/18/21 20:00 97.6 F 60 17 123/53 91 L 06/18/21 19:00 57 L 15 134/56 89 L 06/18/21 18:00 64 18 129/73 87 L 06/18/21 17:00 51 L 25 H 146/57 88 L 06/18/21 16:27 97.9 F 67 18 154/58 90 L 06/18/21 16:00 71 16 96 06/18/21 15:47 63 16 06/18/21 15:40 55 L 18 122/55 98 06/18/21 14:29 43 L 16 97/53 06/18/21 13:49 46 L 14 100/50 89 L 06/18/21 13:12 52 L 16 109/99 94 L 06/18/21 12:48 57 L 16 87/57 06/18/21 12:38 36 L 16 06/18/21 11:52 52 L 20 126/60 95 06/18/21 11:37 41 L 18 110/93 95 06/18/21 10:46 54 L 20 133/91 98 06/18/21 10:10 97.8 F 54 L 20 141/111 Intake and Output 06/18/21 06/19/21 06/19/21 22:59 06:59 14:59 Intake Total 451.315 931.853 110.215 Output Total 300 1230 60 Balance 151.315 -298.147 50.215 Intake: Intake, IV Titration 451.315 931.853 110.215 Amount DOPamine DRIP 800 mg In 1.315 231.853 35.215 Dextrose/Water 1 250ml. bag @ 5 MCG/KG/MIN 11.269 mls/hr IV .[id number] [facility] Rx#:[id number] Dextrose 5%-0.45% NaCl 1, 450 600 75 000 ml @ 75 mls/hr IV . [id number] [facility] Rx#:[id number] Piperacillin-Tazobactam 3 100 .375 gm In Sodium Chloride 0.9% 100 ml @ 25 mls/hr IVPB Q8HR [facility] Rx# :[id number] Output: Urine 0 1230 60 Emesis 300 Other: Voiding Method External Catheter Indwelling Catheter Weight 120.202 kg 125.9 kg - Constitutional General appearance: no acute distress - Respiratory Respiratory: bilateral: wheezing - Cardiovascular Rhythm: regular Heart sounds: normal: S1, S2 Results 06/19/21 04:32 06/19/21 05:20 Cardiac Enzymes 06/18/21 06/18/21 06/19/21 Range/Units 11:32 13:08 04:32 AST 23 26 (17-59) U/L Troponin I 0.019 (0.000-0.034) ng/mL Coagulation 06/18/21 Range/Units 13:08 PT 10.6 (9.0-12.0) sec APTT 27.4 (22.0-30.0) sec CBC 06/18/21 06/19/21 Range/Units 11:32 04:32 WBC 9.3 8.7 (3.8-10.6) k/uL RBC 3.65 L 3.85 L (4.30-5.90) m/uL Hgb 11.3 L 11.8 L (13.0-17.5) gm/dL Hct 33.4 L 36.2 L (39.0-53.0) % Plt Count 234 245 (150-450) k/uL Comprehensive Metabolic Panel 06/18/21 06/19/21 06/19/21 Range/Units 11:32 04:32 05:20 Sodium 137 133 L (137-145) mmol/L Potassium 5.6 H 7.1 H* (3.5-5.1) mmol/L Chloride 106 108 H (98-107) mmol/L Carbon Dioxide 20 L 14 L (22-30) mmol/L BUN 22 H 23 H (9-20) mg/dL Creatinine 1.56 H 1.49 H (0.66-1.25) mg/dL Glucose 42 L* 183 H (74-99) mg/dL Calcium 9.4 9.2 (8.4-10.2) mg/dL AST 23 26 (17-59) U/L ALT 17 17 (4-49) U/L Alkaline Phosphatase 70 75 (38-126) U/L Total Protein 7.1 7.1 (6.3-8.2) g/dL Albumin 3.9 3.7 (3.5-5.0) g/dL Current Medications Generic Name Dose Route Start Last Admin Trade Name Freq PRN Reason Stop Dose Admin Albuterol/Ipratropium 3 ml 06/18/21 20:09 06/19/21 05:38 Ipratropium-Albuterol 3 Ml Neb INHALATION 3 ml RT-QID PRN Administration Shortness Of Breath Or Wheezing Albuterol/Ipratropium 3 ml 06/18/21 20:09 06/18/21 21:02 Ipratropium-Albuterol 3 Ml Neb INHALATION 3 ml RT-QID AMANDO Administration Atorvastatin Calcium 40 mg 06/19/21 21:00 Atorvastatin 40 Mg Tab PO HS AMANDO Budesonide 0.5 mg 06/19/21 08:00 Budesonide 0.5 Mg/2 Ml Nebu INHALATION RT-BID AMANDO Citalopram Hydrobromide 20 mg 06/19/21 09:00 Citalopram Hydrobromide 20 Mg Tab PO DAILY AMANDO Heparin Sodium (Porcine) 5,000 unit 06/19/21 00:00 06/18/21 23:48 Heparin Sodium,Porcine/Pf 5,000 Unit/0.5 Ml Syringe SQ 5,000 unit Q8HR AMANDO Administration Dopamine HCl/Dextrose 800 mg/ 250 mls @ 11.269 mls/hr 06/18/21 14:50 06/19/21 07:22 IV Solution IV 06/19/21 13:01 0 mcg/kg/min .[id number] ONE 0 mls/hr Titration Protocol 5 MCG/KG/MIN Piperacillin Sod/Tazobactam 100 mls @ 25 mls/hr 06/19/21 00:00 06/18/21 23:48 Sod 3.375 gm/ Sodium Chloride IVPB 25 mls/hr Q8HR AMANDO Administration Lamotrigine 200 mg 06/19/21 09:00 Lamotrigine 100 Mg Tab PO TID [facility] Metoclopramide HCl 10 mg 06/19/21 02:56 06/19/21 03:01 Metoclopramide 5 Mg/Ml 2 Ml Vial IVP 10 mg Q6HR PRN Administration Nausea And Vomiting Naloxone HCl 0.2 mg 06/18/21 15:12 Naloxone 0.4 Mg/Ml 1 Ml Vial IV Q2M PRN Opioid Reversal Ondansetron HCl 4 mg 06/18/21 21:40 06/19/21 06:04 Ondansetron 4 Mg/2 Ml Vial IVP 4 mg Q6HR PRN Administration Nausea And Vomiting Oxycodone/Acetaminophen 1 each 06/19/21 09:00 Oxycodone-Apap 10-325mg 1 Each Tab PO QID [facility] Pantoprazole Sodium 40 mg 06/19/21 09:00 Pantoprazole 40 Mg/10 Ml Vial IVP DAILY [facility] Risperidone 0.5 mg 06/19/21 21:00 Risperidone 0.5 Mg Tab PO HS [facility] Intake and Output 06/18/21 06/19/21 06/19/21 22:59 06:59 14:59 Intake Total 451.315 931.853 110.215 Output Total 300 1230 60 Balance 151.315 -298.147 50.215 Intake: Intake, IV Titration 451.315 931.853 110.215 Amount DOPamine DRIP 800 mg In 1.315 231.853 35.215 Dextrose/Water 1 250ml. bag @ 5 MCG/KG/MIN 11.269 mls/hr IV .[id number] [facility] Rx#:[id number] Dextrose 5%-0.45% NaCl 1, 450 600 75 000 ml @ 75 mls/hr IV . [id number] [facility] Rx#:[id number] Piperacillin-Tazobactam 3 100 .375 gm In Sodium Chloride 0.9% 100 ml @ 25 mls/hr IVPB Q8HR [facility] Rx# :[id number] Output: Urine 0 1230 60 Emesis 300 Other: Voiding Method External Catheter Indwelling Catheter Weight 120.202 kg 125.9 kg 06/19/21 04:32 06/19/21 05:20 Assessment and Plan Assessment: Assessment #1 profound sinus bradycardia #2 procedure #3 hypoxic respiratory failure #4 obstructive sleep apnea #5 multiple comorbid conditions Plan #1 the right to wean the patient off from dopamine #2 the differential diagnoses include severe sinus bradycardia inducing seizure/change in mental status versus seizure with reflux bradycardia #3 sinus node dysfunction to be ruled out. #4 acute coronary event to be ruled out. Will obtain serial cardiac enzymes #5 thyroid disorder to be ruled out. We'll obtain TSH and free T4 #6 assess the ejection fraction. We'll obtain an echocardiogram #7 hold any AV bernie paras agents #8 follow-up with the patient
[2021-06-19] MEDS ORDERED: BUDESONIDE 0.5 MG/2 ML NEBU INHALATION SCH (08:00)
[2021-06-19 08:04] LABS: Potassium 6.6 mmol/L (3.5-5.1)
--- NOTE | 2021-06-19 08:06 | XR ---
EXAMINATION TYPE: XR chest 1V DATE OF EXAM: 06/19/2021 COMPARISON: 06/18/2021 HISTORY: Shortness of breath TECHNIQUE: Single frontal view of the chest is obtained. FINDINGS: A diffuse interstitial pattern with bilateral infiltrate and pleural effusion. Cardiomegal y noted. No pneumothorax. Radiopaque density overlying the right clavicle may be superficial. IMPRESSION: Correlate for CHF otherwise consider diffuse pneumonia.
[2021-06-19] MEDS: IPRATROPIUM-ALBUTEROL 3 ML NEB INHALATION SCH ×4 (08:34→19:32)
[2021-06-19] MEDS ORDERED: CITALOPRAM HYDROBROMIDE 20 MG TAB PO SCH (09:00)
[2021-06-19] MEDS ORDERED: PANTOPRAZOLE 40 MG/10 ML VIAL IVP SCH (09:00)
[2021-06-19] MEDS: HEPARIN SODIUM,PORCINE/PF 5,000 UNIT/0.5 ML SYRINGE SQ SCH ×2 (09:14→16:48)
[2021-06-19] MEDS: PIPERACILLIN-TAZOBACTAM 3.375 GM in SODIUM CHLORIDE 0.9% 100 ML IVPB SCH ×2 (09:15→16:49)
[2021-06-19] MEDS: oxyCODONE-APAP 10-325MG 1 EACH TAB PO SCH ×4 (09:15→20:34)
[2021-06-19] MEDS: lamoTRIgine 100 MG TAB PO SCH ×3 (09:15→20:34)
[2021-06-19] MEDS: FUROSEMIDE 10 MG/ML 4 ML VIAL IV SCH ×2 (09:15→20:36)
--- NOTE | 2021-06-19 09:39 | P.CNPUL ---
History of Present Illness Consult date: 06/19/21 Requesting physician: Liam Acosta Reason for consult: dyspnea, hypoxemia, other Chief complaint: Hypoglycemia, bradycardia. History of present illness: Pulmonary consult dated 06/19/2021. 55-year-old male who was evaluated in the emergency department yesterday by Dr. Hamilton. The patient apparently has a history of chronic hypoxemic respiratory failure secondary to COPD, seizure disorder, Parkinson's disease, among other things, but apparently was found by the ER physician to have a very low blood sugar. The patient received some D50, and also some fluids and Zofran for nausea. Subsequent to that, the patient was found to be bradycardic. Cardiology was consulted, and the patient was placed on dopamine for control of his heart rate. Currently, the patient's resting comfortably. The dopamine is been turned off. The patient's on a nonrebreather mass. The patient is getting saline at 75 mL an hour. We are going to give the patient Lasix 40 mg IV push twice a day, cut back his fluids. Instruction was positive for oxycodone and benzodiazepines. The patient has made it clear that he would not want to be intubated should come to that. He was seen in the emergency room on June 18. He apparently crawls around his house according to his nurse. He apparently either because of neuropathy or muscle weakness, cannot stand up on his own feet. White count is 8.7, hemoglobin 11.8, hematocrit 36.2, and platelet count 245,000. Sodium 133, repeat potassium 6.6, initial potassium 7.1, chlorides 108, CO2 14, anion gap 11, BUN 23, creatinine 1.49. Chest x-ray was consistent with fluid overload/CHF. Brain CT was negative for anything acute. Review of Systems REVIEW OF SYSTEMS: CONSTITUTIONAL: Weakness, fatigue. NEUROLOGIC: Lower extremity numbness and tingling. HEENT: [ Negative.] CARDIAC: [Negative.] PULMONARY: Shortness of breath, cough. GI: Nausea. : [Negative.] RHEUMATOLOGIC: [ Negative.] IMMUNOLOGIC: [ Negative.] ENDOCRINE: [Negative. ] DERMATOLOGIC: [Negative.] Past Medical History Past Medical History: COPD, CVA/TIA, Diabetes Mellitus, Fibromyalgia, GERD/Reflux, Hyperlipidemia, Hypertension, Memory Impairment, Seizure Disorder, Skin Disorder, Sleep Apnea/CPAP/BIPAP Additional Past Medical History / Comment(s): uses c-pap machine, on 4L Home ox ygen, EPILEPTIC, past fall w/ concussion, ambulate with a walker and a wheelchair; Parkinson's History of Any Multi-Drug Resistant Organisms: None Reported Past Surgical History: Hernia Repair Additional Past Surgical History / Comment(s): Left big toe surgery/debridement r/t diabetic ulcer Past Anesthesia/Blood Transfusion Reactions: No Reported Reaction Smoking Status: Current every day smoker - Past Family History Father Family Medical History: Cancer Additional Family Medical History / Comment(s): LUNG Brother(s) History Unknown: Yes Family Medical History: Myocardial Infarction ([place]) Additional Family Medical History / Comment(s): Sister(s) History Unknown: Yes Family Medical History: Myocardial Infarction (NH) Additional Family Medical History / Comment(s): Medications and Allergies Home Medications Medication Instructions Recorded Confirmed Type Atorvastatin [Lipitor] 40 mg PO HS 08/31/14 06/18/21 History Furosemide [Lasix] 40 mg PO BID 08/10/15 06/18/21 History Potassium Chloride [Klor-Con 20] 20 meq PO DAILY 08/10/15 06/18/21 History lamoTRIgine [LaMICtal] 200 mg PO TID 08/10/15 06/18/21 History INSULIN ASPART (NovoLOG) [NovoLOG 27 unit SQ AC-TID 08/24/16 06/18/21 History (formulary)] INSULIN ASPART (NovoLOG) [NovoLOG See Protocol SQ AC-TID 08/24/16 06/18/21 History (formulary)] metFORMIN HCL [Glucophage] 1,000 mg PO BID 08/24/16 06/18/21 History oxyCODONE-APAP 10-325MG [Percocet 1 tab PO QID 08/24/16 06/18/21 History 10-325 mg] Cephalexin [Keflex] 500 mg PO BID 05/14/18 06/18/21 History Diazepam [Valium] 10 mg PO DAILY 05/14/18 06/18/21 History Omeprazole 40 mg PO DAILY 05/14/18 06/18/21 History Carbidopa-Levodopa 10-100 mg 1 tab PO BID 06/18/21 06/18/21 History [Sinemet 10-100] Citalopram Hydrobromide [CeleXA] 20 mg PO DAILY 06/18/21 06/18/21 History Dulaglutide [Trulicity] 4.5 mg SQ CARD 06/18/21 06/18/21 History Gabapentin 600 mg PO QID 06/18/21 06/18/21 History Insulin Glargine,Hum.rec.anlog 30 unit SQ DAILY 06/18/21 06/18/21 History [Lantus Solostar Pen] Insulin Glargine,Hum.rec.anlog 35 unit SQ HS 06/18/21 06/18/21 History [Lantus Solostar Pen] Meloxicam [Mobic] 15 mg PO DAILY 06/18/21 06/18/21 History Sulfamethox-Tmp 800-160Mg [Bactrim 1 tab PO Q12HR 06/18/21 06/18/21 History DS 800-160 mg] amLODIPine [Norvasc] 10 mg PO DAILY 06/18/21 06/18/21 History cloNIDine HCL [Catapres] 0.2 mg PO TID 06/18/21 06/18/21 History lisinopriL 40 mg PO DAILY 06/18/21 06/18/21 History risperiDONE [RisperDAL] 0.5 mg PO HS 06/18/21 06/18/21 History Allergies Allergy/AdvReac Type Severity Reaction Status Date / Time venom-honey bee Allergy Swelling Verified 06/18/21 11:08 [bee venom (honey bee)] Physical Exam Osteopathic Statement: *. No significant issues noted on an osteopathic structural exam other than those noted in the History and Physical/Consult. Vitals: Vital Signs Temp Pulse Resp BP Pulse Ox 06/19/21 09:00 49 L 21 108/50 94 L 06/19/21 08:44 50 L 06/19/21 08:35 49 L 06/19/21 08:30 50 L 20 103/67 94 L 06/19/21 08:00 99.7 F H 51 L 21 114/45 93 L 06/19/21 07:30 53 L 23 144/62 91 L 06/19/21 07:00 64 20 140/57 90 L 06/19/21 06:30 63 20 140/56 87 L 06/19/21 06:00 59 L 20 151/65 88 L 06/19/21 05:51 60 06/19/21 05:39 61 06/19/21 05:30 60 24 164/72 86 L 06/19/21 05:17 87 L 06/19/21 05:07 79 L 06/19/21 05:05 81 L 06/19/21 05:00 62 23 143/63 87 L 06/19/21 04:30 60 22 143/59 89 L 06/19/21 04:00 97.9 F 63 21 134/58 91 L 06/19/21 03:30 61 24 142/65 90 L 06/19/21 03:00 62 25 H 129/58 89 L 06/19/21 02:30 62 22 132/54 87 L 06/19/21 02:00 58 L 18 138/58 92 L 06/19/21 01:30 60 19 138/56 90 L 06/19/21 01:00 58 L 20 141/60 87 L 06/19/21 00:30 60 20 151/63 94 L 06/19/21 00:20 61 22 151/63 86 L 06/19/21 00:06 63 06/19/21 00:00 97.9 F 59 L 20 153/68 90 L 06/18/21 23:51 58 L 06/18/21 23:30 62 22 106/73 87 L 06/18/21 23:00 63 30 H 125/64 87 L 06/18/21 22:30 65 17 142/73 92 L 06/18/21 22:00 66 20 127/90 88 L 06/18/21 21:30 62 19 141/84 85 L 06/18/21 21:17 92 L 06/18/21 21:16 60 06/18/21 21:03 63 06/18/21 21:00 67 21 143/61 92 L 06/18/21 20:30 62 15 137/67 90 L 06/18/21 20:00 97.6 F 60 17 123/53 91 L 06/18/21 19:00 57 L 15 134/56 89 L 06/18/21 18:00 64 18 129/73 87 L 06/18/21 17:00 51 L 25 H 146/57 88 L 06/18/21 16:27 97.9 F 67 18 154/58 90 L 06/18/21 16:00 71 16 96 09/20/21 15:47 63 16 06/18/21 15:40 55 L 18 122/55 98 06/18/21 14:29 43 L 16 97/53 06/18/21 13:49 46 L 14 100/50 89 L 06/18/21 13:12 52 L 16 109/99 94 L 06/18/21 12:48 57 L 16 87/57 06/18/21 12:38 36 L 16 06/18/21 11:52 52 L 20 126/60 95 06/18/21 11:37 41 L 18 110/93 95 06/18/21 10:46 54 L 20 133/91 98 06/18/21 10:10 97.8 F 54 L 20 141/111 Intake and Output 06/18/21 06/19/21 06/19/21 22:59 06:59 14:59 Intake Total 451.315 931.853 260.215 Output Total 300 1230 120 Balance 151.315 -298.147 140.215 Intake: IV 150 Dextrose 5%-0.45% NaCl 1, 150 000 ml @ 75 mls/hr IV . [id number] [facility] Rx#:[id number] Intake, IV Titration 451.315 931.853 110.215 Amount DOPamine DRIP 800 mg In 1.315 231.853 35.215 Dextrose/Water 1 250ml. bag @ 5 MCG/KG/MIN 11.269 mls/hr IV .[id number] [facility] Rx#:[id number] Dextrose 5%-0.45% NaCl 1, 450 600 75 000 ml @ 75 mls/hr IV . [id number] [facility] Rx#:[id number] Piperacillin-Tazobactam 3 100 .375 gm In Sodium Chloride 0.9% 100 ml @ 25 mls/hr IVPB Q8HR [facility] Rx# :[id number] Output: Urine 0 1230 120 Emesis 300 Other: Voiding Method External Catheter Indwelling Catheter Weight 120.202 kg 125.9 kg No acute distress, nonrebreather mask in place, patient lethargic and somnolent, but does arouse. HEENT examination is grossly unremarkable. Neck supple. Full range of motion. No adenopathy thyromegaly or neck vein distention. Cardiovascular examination reveals regular rhythm rate. S1-S2 normal. No S3 or S4. No discernible murmur noted. Heart sounds are distant. Heart rate 49 bpm. Lungs reveal bilateral rhonchi, and crackles. Breath sounds equal. Breath sounds diminished throughout. No wheezes. Abdomen soft bowel sounds are heard. No masses or tenderness. Extremities are intact. No cyanosis clubbing or edema. Skin is without rash or lesion. Neurologic examination is brief but nonfocal. Results - Laboratory Findings CBC and BMP: 06/19/21 04:32 06/19/21 07:36 PT/INR, D-dimer PT 10.6 sec (9.0-12.0) 06/18/21 13:08 INR 1.0 (<1.2) 06/18/21 13:08 Abnormal lab findings: Abnormal Labs 06/18/21 06/18/21 06/18/21 11:27 11:32 11:32 RBC 3.65 L Hgb 11.3 L Hct 33.4 L RDW 18.6 H Lymphocytes # 0.8 L Sodium Potassium Chloride Carbon Dioxide BUN Creatinine Glucose POC Glucose (mg/dL) 54 L Plasma Lactic Acid Nathaniel TSH Urine Protein Trace H Ur Oxycodone Screen Detected H U Benzodiazepines Scrn Detected H 06/18/21 06/18/21 06/18/21 11:32 11:58 12:21 RBC Hgb Hct RDW Lymphocytes # Sodium Potassium 5.6 H Chloride Carbon Dioxide 20 L BUN 22 H Creatinine 1.56 H Glucose 42 L* POC Glucose (mg/dL) 73 L 58 L Plasma Lactic Acid Nathaniel TSH Urine Protein Ur Oxycodone Screen U Benzodiazepines Scrn 06/18/21 06/18/21 06/18/21 12:33 13:08 16:39 RBC Hgb Hct RDW Lymphocytes # Sodium Potassium Chloride Carbon Dioxide BUN Creatinine Glucose POC Glucose (mg/dL) 58 L 110 H Plasma Lactic Acid Nathaniel 2.5 H* TSH Urine Protein Ur Oxycodone Screen U Benzodiazepines Scrn 06/18/21 06/18/21 06/19/21 18:01 20:49 01:53 RBC Hgb Hct RDW Lymphocytes # Sodium Potassium Chloride Carbon Dioxide BUN Creatinine Glucose POC Glucose (mg/dL) 144 H 142 H 194 H Plasma Lactic Acid Nathaniel TSH Urine Protein Ur Oxycodone Screen U Benzodiazepines Scrn 06/19/21 06/19/21 06/19/21 04:32 04:32 05:20 RBC 3.85 L Hgb 11.8 L Hct 36.2 L RDW 18.1 H Lymphocytes # 0.3 L Sodium 133 L Potassium 7.1 H* Chloride 108 H Carbon Dioxide 14 L BUN 23 H Creatinine 1.49 H Glucose 183 H POC Glucose (mg/dL) Plasma Lactic Acid Nathaniel TSH Urine Protein Ur Oxycodone Screen U Benzodiazepines Scrn 06/19/21 06/19/21 06:01 07:36 RBC Hgb Hct RDW Lymphocytes # Sodium Potassium 6.6 H* Chloride Carbon Dioxide BUN Creatinine Glucose POC Glucose (mg/dL) 210 H Plasma Lactic Acid Nathaniel TSH 0.366 L Urine Protein Ur Oxycodone Screen U Benzodiazepines Scrn - Diagnostic Findings Chest x-ray: image reviewed Assessment and Plan Assessment: Mental status changes, with hypoglycemia and bradycardia. Acute hypoxemic respiratory failure, which may be multifactorial, in part related to underlying COPD exacerbation, pneumonia and/or heart failure. History of COPD with ongoing tobacco use and nicotine addiction. History of CVA. History of diabetes mellitus. Fibromyalgia. Gastroesophageal reflux disease. History of hyperlipidemia. History of hypertension. History of seizure disorder. History of obstructive sleep apnea syndrome, currently on home CPAP. Plan: Plan dated 06/19/2021. The patient's dopamine has been turned off by cardiology. The patient will get Lasix 40 mg IV push twice a day. The patient normally is on Lasix twice a day at home. We will turn his fluids down. Additional recommendations and suggestions are forthcoming. Medications are reviewed. A pro-calcitonin level be done. The patient will get doing nebs, 4 times a day and when necessary. We will continue to follow, and make recommendations where appropriate. Another consultants have been asked to see this patient including neurology for the patient's lower extremity weakness and neuropathy. The patient was also seen by cardiology. Hopefully, his mental status changes will improve, and additional history can be obtained. Time with Patient: Greater than 30
[2021-06-19 11:19] LABS: T4, Free (Free Thyroxine) 0.95 ng/dL (0.78-2.19)
[2021-06-19 11:34] LABS: Glucose,Whole Blood 109 mg/dL (75-99)
--- NOTE | 2021-06-19 13:00 | ECHOF ---
Referral Reason:bradycardia MEASUREMENTS -------- HEIGHT: 175.3 cm WEIGHT: 125.6 kg BP: 140/57 RVIDd: 3.3 cm (< 3.3) IVSd: 1.8 cm (0.6 - 1.1) LVIDd: 5.6 cm (3.9 - 5.3) LVPWd: 1.5 cm (0.6 - 1.1) IVSs: 2.1 cm LVIDs: 3.5 cm LVPWs: 1.4 cm LAESV Index (A-L): 47.96 ml/m Ao Diam: 3.5 cm (2.0 - 3.7) AV Cusp: 2.0 cm (1.5 - 2.6) MV E Moose: 1.33 m/s MV DecT: 363 ms MV A Moose: 1.00 m/s MV E/A Ratio: 1.33 AV maxP.00 mmHg AV meanP.85 mmHg RAP: 5.00 mmHg RVSP: 46.79 mmHg FINDINGS -------- Sinus rhythm. This was a technically difficult study with suboptimal views. The left ventricular size is normal. There is severe concentric left ventricular hypertrophy. Ove rall left ventricular systolic function is normal with, an EF between 55 - 60 %. The LV end diastol ic pressure is elevated 22.45. The right ventricle is mildly enlarged. LA is severely dilated >40 ml/m2 The right atrium was not well visualized. 5.0mg of Lumason was utilized for enhancement of images Interatrial and interventricular septum intact. There is mild aortic valve sclerosis. There is no evidence of aortic regurgitation. There is mild aortic stenosis present. Peak/mean gradient across the Aortic Valve is 28.00mmHg / 16.85mmHg. Mild mitral annular calcification present. Mild mitral regurgitation is present. Xung-qi-ltwsiemf mitral stenosis , with a MVA of 2.1cm (by PHT) Rqgk-nm-cvvhbyha tricuspid regurgitation present. There is mild to moderate pulmonary hypertension. The right ventricular systolic pressure, as measured by Doppler, is 46.79mmHg. There is no pulmonic regurgitation present. The aortic root size is normal. IVC Not well visulized. There is no pericardial effusion. CONCLUSIONS -------- 1. This was a technically difficult study with suboptimal views. 2. There is severe concentric left ventricular hypertrophy. 3. Overall left ventricular systolic function is normal with, an EF between 55 - 60 %. 4. The right ventricle is mildly enlarged. 5. LA is severely dilated >40 ml/m2 6. There is mild aortic stenosis present. 7. Peak/mean gradient across the Aortic Valve is 28.00mmHg / 16.85mmHg. 8. Mild mitral annular calcification present. 9. Mild mitral regurgitation is present. 10. Stps-cg-edajijpn mitral stenosis. 11. , with a MVA of 2.1cm (by PHT) 12. Xorr-jf-glnbezgw tricuspid regurgitation present. 13. There is mild to moderate pulmonary hypertension. WHALE TRAINER: Lia Berry RDCS
--- NOTE | 2021-06-19 14:23 | P.CN ---
Psychiatric Consult - . Consult date: 06/19/21 Consult:: 06/19/21 13:30 IDENTIFYING DATA: This patient is a 55-year-old male who currently lives alone in apartment is and has 3 kids. REASON FOR REFERRAL: Psychiatry was consulted for "depression" HISTORY OF PRESENT ILLNESS: The patient presented to the hospital initially for a seizure at home. Patient apparently called EMS himself. He was complaining of fatigue and body aches. There is taking. Patient did not complain of any significant behavioral changes and claims that patient has not been endorsing any suicidal thoughts. Patient was seen at the bedside today after speaking with his daughter and her significant other outside of the room. They stated that patient is mainly stubborn and refuses to ask for help at home. They state that he has been crawling around his apartment and didn't want to ask for help and has also been experiencing an increase in his depression since his dog in December. Patient was seen at the bedside and appeared to be in fair bright spirits and was joking around with insurance underwriter sales at times. He spoke about his seizure and coming into the hospital and claims that "I blacked out and now I can't use my legs" and states that this has been going on for 3-4 days now. He spoke abou t having a neuropathy also a previous diagnosis of Parkinson's however does not now believe that he has it. He does claim that he has been depressed for several years. He claims that he has been taking Sinemet for 3 or 4 months now. He endorses poor sleep and poor appetite. He claims that he did have some visual hallucinations of different hospital staff . At this time patient denies any suicidal or homical ideations, intent or plan. Patient denies any auditory, and denies any paranoia or delusions. Patients admits to using cigarettes however no recreational drugs. PAST PSYCHIATRIC HISTORY: Patient has a a history of depression and anxiety and possible Parkinson's. Patient is currently on Celexa and Risperdal along with Lamictal 3 times a day for seizures. Patient denies any previous psychiatric hospitalizations. Patient denies any psychiatric outpatient follow-up. Patient denies any history of suicide attempts in the past. Past Medical History: COPD, CVA/TIA, Diabetes Mellitus, Fibromyalgia, GERD/Reflux, Hyperlipidemia, Hypertension, Memory Impairment, Seizure Disorder, Skin Disorder, Sleep Apnea/CPAP/BIPAP Additional Past Medical History / Comment(s): uses c-pap machine. EPILEPTIC, past fall w/ concussion, past cva rt side still has some weakness but pt able to ambulate w/ walker ALLERGIES: as per EMR. CHEMICAL DEPENDENCY HISTORY: as per HPI. FAMILY PSYCHIATRIC/SUBSTANCE USE HISTORY: denies SOCIAL HISTORY: Patient was born and raised in [place]. He apparently went to school up until the eighth grade and then dropped out. 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 He has 3 kids is and lives alone in an apartment. He has never been to assisted or [facility] before. MENTAL STATUS EXAM: General Appearance: Patient appears to be overweight, older than stated age is alert, pleasant, and attempts to be cooperative. Patient appears to have fair hygiene and grooming wearing hospital gown with fair eye contact. Behavior: Patient is calmly lying in bed without any agitated behavior. Speech: Patient's speech is fluent and nonpressured. Mood/Affect: Patient reports their mood is "depressed", affect is congruent Suicidality/Homicidality: Patient denies having any suicidal or homicidal ideation intent or plan. Perceptions: Patient denies any visual hallucinations and denies any auditory hallucinations Though content/process: There is no evidence of any delusional thought content and thought process is linear and goal-directed. Focused on his symptoms somatically. Minimizing his stressors. Memory and concentration: AOX3, grossly intact for the purposes of this session. Can spell "WORLD" backwards Judgment and insight: poor IMPRESSIONS: Major depressive disorder unspecified Possible Parkinson's disease PLAN: -At this time patient DOES NOT meet criteria for inpatient psychiatric admission. -Delirium precautions recommended with patient including - avoiding use of narcotics and BUSINESS TEAM LEADER sedatives, limit anticholinergic medications when possible, frequent re-orientation, minimize use of restraints, open window shades during the day and close them at night -Would recommend the following medication changes/additions: Discontinued R isperdal and replaced with Seroquel 50 mg daily at bedtime for mood adjunct/hallucinations/insomnia, increase Celexa to 30 mg daily for mood/anxiety. Can continue with Lamictal 3 times a day for seizures. -Rake Operator spoke with neurologist Dr. Danielson, patient's case and both agreed that cutting back on sinmet may help improve his condition and decrease the hallucinations. -outreach worker to provide patient with outpatient mental health/psychiatry resources for appropriate follow up upon discharge -Communicated plan to patient's nurse -Will continue to follow along -Please contact with any questions. 06/19/21 14:16
[2021-06-19] MEDS ORDERED: CITALOPRAM HYDROBROMIDE 10 MG TAB PO ONE (14:30)
[2021-06-19 15:42] LABS: Hemoglobin A1C 6.2 % (4.0-6.0)
--- NOTE | 2021-06-19 16:17 | P.CONS ---
History of Present Illness - Reason for Consult Consult date: 06/19/21 nausea and vomiting Requesting physician: iLam Acosta - Chief Complaint Hypoglycemia, bradycardia - History of Present Illness This is a 55-year-old who presented to the emergency department for evaluation for possible seizure. Patient reported having a seizure at home and calling EMS for further evaluation. He has a past medical history of COPD with home oxygen, seizure disorder, Parkinson's disease, diabetes mellitus, hyperlipidemia, hypertension, sleep apnea, fibromyalgia and GERD. He also has a history of anxiety and depression. He is a current every day smoker. Apparently when the patient presented to the emergency department he was hypoglycemic and was also found to be bradycardic. The patient was admitted to the intensive care unit for close monitoring. Gastroenterology was consult. 4 reported nausea and vomiting. The patient was seen and examined in the ICU. He states he had some nausea and vomiting over the last 2 days. States yesterday he vomited 1-2 times and thinks he may have vomited a small amount this morning. There is no repor miriam hematemesis or coffee-ground emesis. He denies any abdominal pain, nausea, or vomiting at this time. He has been tolerating a clear liquid diet. Has no history of peptic ulcer disease. No previous history of the EGD. He states he is feeling much better today. Today's labs WBC 8.7 hemoglobin 11.8 hematocrit 36 platelet count 245,000 sodium 133 potassium 5.6E 123 creatinine 1.49 glucose 183 total bilirubin 0.7 AST 26 ALP 17 alkaline phosphatase 75 lipase on presentation was 110. Review of Systems REVIEW OF SYSTEMS: CARDIOPULMONARY: No chest pain or chronic mild shortness of breath. Gastrointestinal: No abdominal pain. Nausea with vomiting 2-3 times over the past 2 days, improved today. No hematemesis, coffee-ground emesis. No rectal bleeding, or melena. GENITOURINARY: No dysuria or hematuria. MUSCULOSKELETAL: Reports normal range of motion., Joint pain. SKIN: No rashes. No jaundice. ENDOCRINE: No chills, fevers. Hypoglycemic on presentation. PSYCHIATRIC: Unremarkable. NEUROLOGY: Reported seizure activity yesterday with altered mental status changes. ENT: Vision unremarkable. CONSTITUTIONAL: No recent weight loss. No fever, chills, night sweats. Past Medical History Past Medical History: COPD, CVA/TIA, Diabetes Mellitus, Fibromyalgia, GERD/Reflux, Hyperlipidemia, Hypertension, Memory Impairment, Seizure Disorder, Skin Disorder, Sleep Apnea/CPAP/BIPAP Additional Past Medical History / Comment(s): uses c-pap machine, on 4L Home oxygen, EPILEPTIC, past fall w/ concussion, ambulate with a walker and a wheelchair; Parkinson's History of Any Multi-Drug Resistant Organisms: None Reported Past Surgical History: Hernia Repair Additional Past Surgical History / Comment(s): Left big toe surgery/debridement r/t diabetic ulcer Past Anesthesia/Blood Transfusion Reactions: No Reported Reaction Smoking Status: Current every day smoker - Past Family History Father Family Medical History: Cancer Additional Family Medical History / Comment(s): LUNG Brother(s) History Unknown: Yes Family Medical History: Myocardial Infarction ([place]) Additional Family Medical History / Comment(s): Sister(s) History Unknown: Yes Family Medical History: Myocardial Infarction ([place]) Additional Family Medical History / Comment(s): Medications and Allergies Home Medications Medication Instructions Recorded Confirmed Type Atorvastatin [Lipitor] 40 mg PO HS 08/31/14 06/18/21 History Furosemide [Lasix] 40 mg PO BID 08/10/15 06/18/21 History Potassium Chloride [Klor-Con 20] 20 meq PO DAILY 08/10/15 06/18/21 History lamoTRIgine [LaMICtal] 200 mg PO TID 08/10/15 06/18/21 History INSULIN ASPART (NovoLOG) [NovoLOG 27 unit SQ AC-TID 08/24/16 06/18/21 History (formulary)] INSULIN ASPART (NovoLOG) [NovoLOG See Protocol SQ AC-TID 08/24/16 06/18/21 History (formulary)] metFORMIN HCL [Glucophage] 1,000 mg PO BID 08/24/16 06/18/21 History oxyCODONE-APAP 10-325MG [Percocet 1 tab PO QID 08/24/16 06/18/21 History 10-325 mg] Cephalexin [Keflex] 500 mg PO BID 05/14/18 06/18/21 History Diazepam [Valium] 10 mg PO DAILY 05/14/18 06/18/21 History Omeprazole 40 mg PO DAILY 05/14/18 06/18/21 History Carbidopa-Levodopa 10-100 mg 1 tab PO BID 06/18/21 06/18/21 History [Sinemet 10-100] Citalopram Hydrobromide [CeleXA] 20 mg PO DAILY 06/18/21 06/18/21 History Dulaglutide [Trulicity] 4.5 mg SQ CARD 06/18/21 06/18/21 History Gabapentin 600 mg PO QID 06/18/21 06/18/21 History Insulin Glargine,Hum.rec.anlog 30 unit SQ DAILY 06/18/21 06/18/21 History [Lantus Solostar Pen] Insulin Glargine,Hum.rec.anlog 35 unit SQ HS 06/18/21 06/18/21 History [Lantus Solostar Pen] Meloxicam [Mobic] 15 mg PO DAILY 06/18/21 06/18/21 History Sulfamethox-Tmp 800-160Mg [Bactrim 1 tab PO Q12HR 06/18/21 06/18/21 History DS 800-160 mg] amLODIPine [Norvasc] 10 mg PO DAILY 06/18/21 06/18/21 History cloNIDine HCL [Catapres] 0.2 mg PO TID 06/18/21 06/18/21 History lisinopriL 40 mg PO DAILY 06/18/21 06/18/21 History risperiDONE [RisperDAL] 0.5 mg PO HS 06/18/21 06/18/21 History Allergies Allergy/AdvReac Type Severity Reaction Status Date / Time venom-honey bee Allergy Swelling Verified 06/18/21 11:08 [bee venom (honey bee)] Physical Exam Vitals: Vital Signs Temp Pulse Resp BP Pulse Ox 06/19/21 11:00 60 25 H 128/60 94 L 06/19/21 10:30 60 20 147/66 91 L 06/19/21 10:00 58 L 20 102/89 95 06/19/21 09:30 52 L 24 103/52 91 L 06/19/21 09:00 49 L 21 108/50 94 L 06/19/21 08:44 50 L 06/19/21 08:35 49 L 06/19/21 08:30 50 L 20 103/67 94 L 06/19/21 08:00 99.7 F H 51 L 21 114/45 93 L 06/19/21 07:30 53 L 23 144/62 91 L 06/19/21 07:00 64 20 140/57 90 L 06/19/21 06:30 63 20 140/56 87 L 06/19/21 06:00 59 L 20 151/65 88 L 06/19/21 05:51 60 06/19/21 05:39 61 06/19/21 05:30 60 24 164/72 86 L 06/19/21 05:17 87 L 06/19/21 05:07 79 L 06/19/21 05:05 81 L 06/19/21 05:00 62 23 143/63 87 L 06/19/21 04:30 60 22 143/59 89 L 06/19/21 04:00 97.9 F 63 21 134/58 91 L 06/19/21 03:30 61 24 142/65 90 L 06/19/21 03:00 62 25 H 129/58 89 L 06/19/21 02:30 62 22 132/54 87 L 06/19/21 02:00 58 L 18 138/58 92 L 06/19/21 01:30 60 19 138/56 90 L 06/19/21 01:00 58 L 20 141/60 87 L 06/19/21 00:30 60 20 151/63 94 L 06/19/21 00:20 61 22 151/63 86 L 06/19/21 00:06 63 06/19/21 00:00 97.9 F 59 L 20 153/68 90 L 06/18/21 23:51 58 L 06/18/21 23:30 62 22 106/73 87 L 06/18/21 23:00 63 30 H 125/64 87 L 06/18/21 22:30 65 17 142/73 92 L 06/18/21 22:00 66 20 127/90 88 L 06/18/21 21:30 62 19 141/84 85 L 06/18/21 21:17 92 L 06/18/21 21:16 60 06/18/21 21:03 63 06/18/21 21:00 67 21 143/61 92 L 06/18/21 20:30 62 15 137/67 90 L 06/18/21 20:00 97.6 F 60 17 123/53 91 L 06/18/21 19:00 57 L 15 134/56 89 L 06/18/21 18:00 64 18 129/73 87 L 06/18/21 17:00 51 L 25 H 146/57 88 L 06/18/21 16:27 97.9 F 67 18 154/58 90 L 06/18/21 16:00 71 16 96 06/18/21 15:47 63 16 06/18/21 15:40 55 L 18 122/55 98 06/18/21 14:29 43 L 16 97/53 06/18/21 13:49 46 L 14 100/50 89 L 06/18/21 13:12 52 L 16 109/99 94 L 06/18/21 12:48 57 L 16 87/57 06/18/21 12:38 36 L 16 06/18/21 11:52 52 L 20 126/60 95 Intake and Output 06/18/21 06/19/21 06/19/21 22:59 06:59 14:59 Intake Total 451.315 931.853 335.215 Output Total 300 1230 245 Balance 151.315 -298.147 90.215 Intake: IV 225 Dextrose 5%-0.45% NaCl 1, 225 000 ml @ 75 mls/hr IV . [id number] [facility] Rx#:[id number] Intake, IV Titration 451.315 931.853 110.215 Amount DOPamine DRIP 800 mg In 1.315 231.853 35.215 Dextrose/Water 1 250ml. bag @ 5 MCG/KG/MIN 11.269 mls/hr IV .[id number] ONE Rx#:[id number] Dextrose 5%-0.45% NaCl 1, 450 600 75 000 ml @ 75 mls/hr IV . [id number] [facility] Rx#:[id number] Piperacillin-Tazobactam 3 100 .375 gm In Sodium Chloride 0.9% 100 ml @ 25 mls/hr IVPB Q8HR [facility] Rx# :[id number] Output: Urine 0 1230 245 Emesis 300 Other: Voiding Method External Catheter Indwelling Catheter Indwelling Catheter Weight 120.202 kg 125.9 kg 125.9 kg General appearance: The patient is alert, oriented, appears in no acute distress . Obese HET: Head is normocephalic and atraumatic. Conjunctiva pink. Sclera anicteric. Neck: Supple without lymphadenopathy. Trachea midline. Heart: S1 S2. Regular rate and rhythm. Lungs: Clear to auscultation. Abdomen: Soft, obese, nontender, nondistended with bowel sounds. No guarding or rigidity. Skin: No rashes. No jaundice. Extremities: Normal skin color and turgor. No pedal edema. Neurological: No focal deficits. Alert and oriented 3.. Results CBC & Chem 7: 06/19/21 04:32 06/19/21 10:06 Labs: Abnormal Lab Results - Last 24 Hours (Table) 06/18/21 06/18/21 06/18/21 Range/Units 11:32 11:32 11:32 RBC 3.65 L (4.30-5.90) m/uL Hgb 11.3 L (13.0-17.5) gm/dL Hct 33.4 L (39.0-53.0) % RDW 18.6 H (11.5-15.5) % Lymphocytes # 0.8 L (1.0-4.8) k/uL Sodium (137-145) mmol/L Potassium 5.6 H (3.5-5.1) mmol/L Chloride (98-107) mmol/L Carbon Dioxide 20 L (22-30) mmol/L BUN 22 H (9-20) mg/dL Creatinine 1.56 H (0.66-1.25) mg/dL Glucose 42 L* (74-99) mg/dL POC Glucose (mg/dL) (75-99) mg/dL Plasma Lactic Acid Nathaniel (0.7-2.0) mmol/L TSH (0.465-4.680) mIU/L Urine Protein Trace H (Negative) Ur Oxycodone Screen Detected H (NotDetected) U Benzodiazepines Scrn Detected H (NotDetected) 06/18/21 06/18/21 06/18/21 Range/Units 11:58 12:21 12:33 RBC (4.30-5.90) m/uL Hgb (13.0-17.5) gm/dL Hct (39.0-53.0) % RDW (11.5-15.5) % Lymphocytes # (1.0-4.8) k/uL Sodium (137-145) mmol/L Potassium (3.5-5.1) mmol/L Chloride (98-107) mmol/L Carbon Dioxide (22-30) mmol/L BUN (9-20) mg/dL Creatinine (0.66-1.25) mg/dL Glucose (74-99) mg/dL POC Glucose (mg/dL) 73 L 58 L 58 L (75-99) mg/dL Plasma Lactic Acid Nathaniel (0.7-2.0) mmol/L TSH (0.465-4.680) mIU/L Urine Protein (Negative) Ur Oxycodone Screen (NotDetected) U Benzodiazepines Scrn (NotDetected) 06/18/21 06/18/21 06/18/21 Range/Units 13:08 16:39 18:01 RBC (4.30-5.90) m/uL Hgb (13.0-17.5) gm/dL Hct (39.0-53.0) % RDW (11.5-15.5) % Lymphocytes # (1.0-4.8) k/uL Sodium (137-145) mmol/L Potassium (3.5-5.1) mmol/L Chloride (98-107) mmol/L Carbon Dioxide (22-30) mmol/L BUN (9-20) mg/dL Creatinine (0.66-1.25) mg/dL Glucose (74-99) mg/dL POC Glucose (mg/dL) 110 H 144 H (75-99) mg/dL Plasma Lactic Acid Nathaniel 2.5 H* (0.7-2.0) mmol/L TSH (0.465-4.680) mIU/L Urine Protein (Negative) Ur Oxycodone Screen (NotDetected) U Benzodiazepines Scrn (NotDetected) 06/18/21 06/19/21 06/19/21 Range/Units 20:49 01:53 04:32 RBC 3.85 L (4.30-5.90) m/uL Hgb 11.8 L (13.0-17.5) gm/dL Hct 36.2 L (39.0-53.0) % RDW 18.1 H (11.5-15.5) % Lymphocytes # 0.3 L (1.0-4.8) k/uL Sodium (137-145) mmol/L Potassium (3.5-5.1) mmol/L Chloride (98-107) mmol/L Carbon Dioxide (22-30) mmol/L BUN (9-20) mg/dL Creatinine (0.66-1.25) mg/dL Glucose (74-99) mg/dL POC Glucose (mg/dL) 142 H 194 H (75-99) mg/dL Plasma Lactic Acid Nathaniel (0.7-2.0) mmol/L TSH (0.465-4.680) mIU/L Urine Protein (Negative) Ur Oxycodone Screen (NotDetected) U Benzodiazepines Scrn (NotDetected) 06/19/21 06/19/21 06/19/21 Range/Units 04:32 05:20 06:01 RBC (4.30-5.90) m/uL Hgb (13.0-17.5) gm/dL Hct (39.0-53.0) % RDW (11.5-15.5) % Lymphocytes # (1.0-4.8) k/uL Sodium 133 L (137-145) mmol/L Potassium 7.1 H* (3.5-5.1) mmol/L Chloride 108 H (98-107) mmol/L Carbon Dioxide 14 L (22-30) mmol/L BUN 23 H (9-20) mg/dL Creatinine 1.49 H (0.66-1.25) mg/dL Glucose 183 H (74-99) mg/dL POC Glucose (mg/dL) 210 H (75-99) mg/dL Plasma Lactic Acid Nathaniel (0.7-2.0) mmol/L TSH (0.465-4.680) mIU/L Urine Protein (Negative) Ur Oxycodone Screen (NotDetected) U Benzodiazepines Scrn (NotDetected) 06/19/21 06/19/21 06/19/21 Range/Units 07:36 10:06 11:32 RBC (4.30-5.90) m/uL Hgb (13.0-17.5) gm/dL Hct (39.0-53.0) % RDW (11.5-15.5) % Lymphocytes # (1.0-4.8) k/uL Sodium (137-145) mmol/L Potassium 6.6 H* 6.0 H (3.5-5.1) mmol/L Chloride (98-107) mmol/L Carbon Dioxide (22-30) mmol/L BUN (9-20) mg/dL Creatinine (0.66-1.25) mg/dL Glucose (74-99) mg/dL POC Glucose (mg/dL) 109 H (75-99) mg/dL Plasma Lactic Acid Nathaniel (0.7-2.0) mmol/L TSH 0.366 L (0.465-4.680) mIU/L Urine Protein (Negative) Ur Oxycodone Screen (NotDetected) U Benzodiazepines Scrn (NotDetected) Assessment and Plan (1) Nausea and vomiting Narrative/Plan: 45-year-old male with multiple comorbidities who presented to the emergency department yesterday after reportedly having a seizure at home and then calling EMS. Patient arrived and was found to be hypoglycemic and bradycardic. Patient had reportedly had some nausea and vomiting for the last 2 days duration. States he vomited 1 or 2 times yesterday, no hematemesis or coffee-ground emesis. States he had one small episode of vomiting this morning. He has been tolerating clear liquid diet otherwise. He denies any abdominal pain. No previous history of peptic ulcer disease. Denies any fevers, chills, or diarrhea. No previous EGD. States symptoms are improved. No plans on endoscopic evaluation. Continue with antiemetics as needed and Protonix for GI prophylaxis. Current Visit: Yes Status: Acute Code(s): R11.2 - NAUSEA WITH VOMITING, UNSPECIFIED SNOMED Code(s): 28329985 (2) Bradycardia Current Visit: Yes Status: Acute Code(s): R00.1 - BRADYCARDIA, UNSPECIFIED SNOMED Code(s): 21850126 (3) Hypoglycemia Current Visit: Yes Status: Acute Code(s): E16.2 - HYPOGLYCEMIA, UNSPECIFIED SNOMED Code(s): 351829948 (4) Obesity (BMI 30.0-34.9) Current Visit: No Status: Acute Code(s): E66.9 - OBESITY, UNSPECIFIED SNOMED Code(s): 031907866147683 Plan: 1. Continue symptomatic and supportive care 2. Continue ICU management 3. Continue antiemetics as needed 4. Protonix 40 mg daily for GI prophylaxis 5. Advance to consistent carbohydrate diet 6. No plans on endoscopic evaluation Thank you for this consultation, we will continue to monitor. Dr. Kit Pierre I agree with the dictator's note, documented as a scribe by Krysten Zamorano.
[2021-06-19 16:59] LABS: Glucose,Whole Blood 131 mg/dL (75-99)
[2021-06-19] MEDS: amLODIPine 10 MG TAB PO SCH (18:22)
[2021-06-19] MEDS: GABAPENTIN 300 MG CAP PO SCH ×2 (18:50→20:35)
--- NOTE | 2021-06-19 19:41 | EEG ---
ELECTROENCEPHALOGRAM REPORT DATE OF SERVICE: 06/19/2021 PREAMBLE: This is a 55-year-old male with seizure disorder, has syncope versus seizure. This study is performed to evaluate for any epileptiform activity. EEG FINDINGS: This is a 21-channel routine EEG recording in a patient utilizing 10/20 international system with referential and bipolar montages. Background consists of well-developed, moderately well regulated, mixed frequencies of 8-9 hertz alpha, with some low-voltage mixed theta and delta activity seen in bihemispheric region. The background does not seem to be clearly reactive to eye opening and closing. The patient was drowsy during most of the study with the presence of bilaterally symmetric theta and delta frequency rhythm. Different stages of sleep were not clearly seen. Photic driving response was not seen. No focal or generalized epileptiform activity was seen. IMPRESSION: This is an abnormal EEG due to background slowing of mild to moderate degree. This is suggestive of generalized cerebral dysfunction as can be seen with toxic metabolic encephalopathy or due to diffuse structural brain abnormality. No epileptiform activity was seen. MMODL / IJN: [id number] /
--- NOTE | 2021-06-19 19:45 | P.CNNES ---
History of Present Illness Consult date: 06/19/21 Requesting physician: Liam Acosta Reason for Consult: Seizures; increased numbness in lower extremities History of Present Illness: Patient is a 55-year-old male with history of seizure disorder, peripheral neuropathy, diabetes, came to the hospital by ambulance yesterday at 10:05 AM. As per EMS flow sheet, when they arrived on the scene, patient was confused to event, GCS 14, appeared post ictal. Patient had a witnessed seizure-like activity for a few moments with difficulty/irregular breathing. Patient has h istory of Parkinson's, epilepsy and takes his medications to normal and had a seizure last week. Patient's blood glucose was 347. Patient's blood pressure 152/70, pulse is 62, respirations 18, saturation 97%. Patient's vital signs on arrival blood pressure 141/111, pulse rate 54 and temperature 97.8. Patient has been bradycardic, with heart rate dropping down to 36 lowest. Patient's blood test shows normal WBC hemoglobin 11.3, platelets 234. Sodium is normal, potassium 5.6, BUN 22, creatinine 1.56. Hepatic panel normal. UA negative. Urine drug screen positive for oxycodone and benzodiazepine. Bubble echo level negative. Troponin, powell virus PCR negative. TSH is mildly decreased 0.366, free T4 pending. Patient's sodium had gone up to 7.1. BUN 23, creatinine 1.49. CT head showed no acute intracranial abnormality. EKG shows marked sinus bradycardia with heart rate of 26. Nonspecific ST and T-wave abnormality. Repeat EKG shows heart rate of 46. Chest x-ray showed correlate for CHF, otherwise consider diffuse pneumonia. Lamictal level is therapeutic 11.6 (2-15). Patient's previous blood tests shows elevated rheumatoid factor 18/09, CCP is normal. NANDA negative. Patient has elevated homocystine 15.56/14.0 in the past on 08/25/2016. Patient states he has history of seizure disorder for last 10-12 years. He gets a grand mal seizures as well as "small seizures". Patient states that the grand mal seizures "beats the hell out of me". He on the average gets 10-12 grand mal seizures a year. He does not bite his tongue, although sometimes have lost control of urine in the past. He could not tell how long the seizure lasts. He could not tell how often he gets "small seizures", as he lives by himself in the only time he would know he had small seizure is when he finds himself with wet underpants due to losing control of urine. He states he could have small seizures "100 times a day". Patient does not have a neurologist, and is managed by his primary physician. He is currently on Lamictal 200 mg 3 times a day. Patient states that he has not seen neurology because he could not afford the co-pays. Patient states the reason he came to the hospital was because he blacked out, when his legs gave out and don't know how long he was out for. Patient states he has history of neuropathy in the legs for the last 4-5 years. It involves from toes up to his upper thighs bilaterally, and also from hands to the mid forearms. He has a walker, and a walking stick as well as a wheelchair at home. Patient also has history of diabetic ulcer in the foot. Patient has history of obstructive sleep apnea, COPD on 4 L of oxygen continuously at home, diabetes, hypertension and dyslipidemia. Cardiology has seen the patient, evaluating for arrhythmia. Echo has been ordered. Patient has history of diabetes for 10-12 years. He denies any alcohol, no drugs. He has smoked half pack per day for 40 years. Patient takes Lamictal 200 mg 3 times a day, potassium, Lasix 40 mg twice a day, Lipitor 40 mg, metformin, oxycodone, insulin, Valium 10 mg daily, Risperdal 0.5 mg at bedtime meloxicam 15 mg, gabapentin 600 mg 4 times a day, clonidine 0.2 mg 3 times a day, Celexa 20 mg, amlodipine 10 mg, Trulicity, lisinopril 40 mg, Sinemet 10/100 twice a day. Review of Systems As above in detail. Patient has gait problem, numbness tingling. Denies any chest pain, abdominal pain. Patient has some nausea. No diarrhea. No fever or chills. Denies any headache, double vision, loss of vision. Patient had shortness of breath. Patient has depression. No hematuria. No dysuria. Patient has fatigue. No rash. No hearing loss. Past Medical History Past Medical History: COPD, CVA/TIA, Diabetes Mellitus, Fibromyalgia, GERD/Reflux, Hyperlipidemia, Hypertension, Memory Impairment, Seizure Disorder, Skin Disorder, Sleep Apnea/CPAP/BIPAP Additional Past Medical History / Comment(s): uses c-pap machine, on 4L Home oxygen, EPILEPTIC, past fall w/ concussion, ambulate with a walker and a wheelchair; Parkinson's History of Any Multi-Drug Resistant Organisms: None Reported Past Surgical History: Hernia Repair Additional Past Surgical History / Comment(s): Left big toe surgery/debridement r/t diabetic ulcer Past Anesthesia/Blood Transfusion Reactions: No Reported Reaction Smoking Status: Current every day smoker - Past Family History Father Family Medical History: Cancer Additional Family Medical History / Comment(s): LUNG Brother(s) History Unknown: Yes Family Medical History: Myocardial Infarction ([place]) Additional Family Medical History / Comment(s): Sister(s) History Unknown: Yes Family Medical History: Myocardial Infarction ([place]) Additional Family Medical History / Comment(s): Medications and Allergies Home Medications Medication Instructions Recorded Confirmed Type Atorvastatin [Lipitor] 40 mg PO HS 08/31/14 06/18/21 History Furosemide [Lasix] 40 mg PO BID 08/10/15 06/18/21 History Potassium Chloride [Klor-Con 20] 20 meq PO DAILY 08/10/15 06/18/21 History lamoTRIgine [LaMICtal] 200 mg PO TID 08/10/15 06/18/21 History INSULIN ASPART (NovoLOG) [NovoLOG 27 unit SQ AC-TID 08/24/16 06/18/21 History (formulary)] INSULIN ASPART (NovoLOG) [NovoLOG See Protocol SQ AC-TID 08/24/16 06/18/21 History (formulary)] metFORMIN HCL [Glucophage] 1,000 mg PO BID 08/24/16 06/18/21 History oxyCODONE-APAP 10-325MG [Percocet 1 tab PO QID 08/24/16 06/18/21 History 10-325 mg] Cephalexin [Keflex] 500 mg PO BID 05/14/18 06/18/21 History Diazepam [Valium] 10 mg PO DAILY 05/14/18 06/18/21 History Omeprazole 40 mg PO DAILY 05/14/18 06/18/21 History Carbidopa-Levodopa 10-100 mg 1 tab PO BID 06/18/21 06/18/21 History [Sinemet 10-100] Citalopram Hydrobromide [CeleXA] 20 mg PO DAILY 06/18/21 06/18/21 History Dulaglutide [Trulicity] 4.5 mg SQ CARD 06/18/21 06/18/21 History Gabapentin 600 mg PO QID 06/18/21 06/18/21 History Insulin Glargine,Hum.rec.anlog 30 unit SQ DAILY 06/18/21 06/18/21 History [Lantus Solostar Pen] Insulin Glargine,Hum.rec.anlog 35 unit SQ HS 06/18/21 06/18/21 History [Lantus Solostar Pen] Meloxicam [Mobic] 15 mg PO DAILY 06/18/21 06/18/21 History Sulfamethox-Tmp 800-160Mg [Bactrim 1 tab PO Q12HR 06/18/21 06/18/21 History DS 800-160 mg] amLODIPine [Norvasc] 10 mg PO DAILY 06/18/21 06/18/21 History cloNIDine HCL [Catapres] 0.2 mg PO TID 06/18/21 06/18/21 History lisinopriL 40 mg PO DAILY 06/18/21 06/18/21 History risperiDONE [RisperDAL] 0.5 mg PO HS 06/18/21 06/18/21 History Allergies Allergy/AdvReac Type Severity Reaction Status Date / Time venom-honey bee Allergy Swelling Verified 06/18/21 11:08 [bee venom (honey bee)] Physical Examination - Vital Signs Vital Signs: Vital Signs Temp Pulse Resp BP Pulse Ox 06/19/21 08:44 50 L 06/19/21 08:35 49 L 06/19/21 07:00 64 20 140/57 90 L 06/19/21 06:30 63 20 140/56 87 L 06/19/21 06:00 59 L 20 151/65 88 L 06/19/21 05:51 60 06/19/21 05:39 61 06/19/21 05:30 60 24 164/72 86 L 06/19/21 05:17 87 L 06/19/21 05:07 79 L 06/19/21 05:05 81 L 06/19/21 05:00 62 23 143/63 87 L 06/19/21 04:30 60 22 143/59 89 L 06/19/21 04:00 97.9 F 63 21 134/58 91 L 06/19/21 03:30 61 24 142/65 90 L 06/19/21 03:00 62 25 H 129/58 89 L 06/19/21 02:30 62 22 132/54 87 L 06/19/21 02:00 58 L 18 138/58 92 L 06/19/21 01:30 60 19 138/56 90 L 06/19/21 01:00 58 L 20 141/60 87 L 06/19/21 00:30 60 20 151/63 94 L 06/19/21 00:20 61 22 151/63 86 L 06/19/21 00:06 63 06/19/21 00:00 97.9 F 59 L 20 153/68 90 L 06/18/21 23:51 58 L 06/18/21 23:30 62 22 106/73 87 L 06/18/21 23:00 63 30 H 125/64 87 L 06/18/21 22:30 65 17 142/73 92 L 06/18/21 22:00 66 20 127/90 88 L 06/18/21 21:30 62 19 141/84 85 L 06/18/21 21:17 92 L 06/18/21 21:16 60 06/18/21 21:03 63 06/18/21 21:00 67 21 143/61 92 L 06/18/21 20:30 62 15 137/67 90 L 06/18/21 20:00 97.6 F 60 17 123/53 91 L 06/18/21 19:00 57 L 15 134/56 89 L 06/18/21 18:00 64 18 129/73 87 L 06/18/21 17:00 51 L 25 H 146/57 88 L 06/18/21 16:27 97.9 F 67 18 154/58 90 L 06/18/21 16:00 71 16 96 06/18/21 15:47 63 16 06/18/21 15:40 55 L 18 122/55 98 06/18/21 14:29 43 L 16 97/53 06/18/21 13:49 46 L 14 100/50 89 L 06/18/21 13:12 52 L 16 109/99 94 L 06/18/21 12:48 57 L 16 87/57 06/18/21 12:38 36 L 16 06/18/21 11:52 52 L 20 126/60 95 06/18/21 11:37 41 L 18 110/93 95 06/18/21 10:46 54 L 20 133/91 98 06/18/21 10:10 97.8 F 54 L 20 141/111 Intake and Output 06/18/21 06/19/21 06/19/21 22:59 06:59 14:59 Intake Total 451.315 931.853 110.215 Output Total 300 1230 60 Balance 151.315 -298.147 50.215 Intake: Intake, IV Titration 451.315 931.853 110.215 Amount DOPamine DRIP 800 mg In 1.315 231.853 35.215 Dextrose/Water 1 250ml. bag @ 5 MCG/KG/MIN 11.269 mls/hr IV .[id number] ONE Rx#:[id number] Dextrose 5%-0.45% NaCl 1, 450 600 75 000 ml @ 75 mls/hr IV . [id number] ONE Rx#:[id number] Piperacillin-Tazobactam 3 100 .375 gm In Sodium Chloride 0.9% 100 ml @ 25 mls/hr IVPB Q8HR [facility] Rx# :[id number] Output: Urine 0 1230 60 Emesis 300 Other: Voiding Method External Catheter Indwelling Catheter Weight 120.202 kg 125.9 kg Patient is a middle aged male, in no acute distress. He is using oxygen by facemask. Patient is alert awake oriented to time place and person. He knows it is May 2021 and that he is in [facility] in [facility] and name of the current president. Speech and language functions are normal. At tention, concentration and fund of knowledge is adequate. No aphasia or dysarthria. On cranial examination, pupils are round and reacting to light, visual gutierrez are full on confrontation, extraocular muscles are intact with no nystagmus. Face is symmetric, tongue protrudes to the midline. Palatal elevation and sensation normal, hearing and shoulder shrug normal, facial sensation normal. Shoulder shrug normal. On muscle strength testing, there is no pronator drift and the strength is ashish l in arms distally and proximally. In the lower extremities patient has some myoclonic jerks noted with some giveaway weakness. Patient's ankles also giveaway as well as the knees and hips. Deep tendon reflexes are absent in the arms and legs and plantars are downgoing. Sensory to touch is decreased from toes up to mid thighs bilaterally. Also has decreased sensation for fine touch from fingers to mid forearms bilaterally. Cerebellar function showed no ataxia for [id number] testing. No dysdiadochokinesia. Tone is normal in both upper limbs and bulk of muscles normal. Gait not checked. On general examination, there is no carotid bruit or murmur, S1-S2 audible. Abdomen is soft nontender. Chest is clear. Peripheral pulses are present. No edema. Results - Laboratory Findings CBC and BMP: 06/19/21 04:32 06/19/21 15:24 Abnormal Lab Findings: Abnormal Labs 06/18/21 06/18/21 06/18/21 11:27 11:32 11:32 RBC 3.65 L Hgb 11.3 L Hct 33.4 L RDW 18.6 H Lymphocytes # 0.8 L Sodium Potassium Chloride Carbon Dioxide BUN Creatinine Glucose POC Glucose (mg/dL) 54 L Plasma Lactic Acid Nathaniel TSH Urine Protein Trace H Ur Oxycodone Screen Detected H U Benzodiazepines Scrn Detected H 06/18/21 06/18/21 06/18/21 11:32 11:58 12:21 RBC Hgb Hct RDW Lymphocytes # Sodium Potassium 5.6 H Chloride Carbon Dioxide 20 L BUN 22 H Creatinine 1.56 H Glucose 42 L* POC Glucose (mg/dL) 73 L 58 L Plasma Lactic Acid Nathaniel TSH Urine Protein Ur Oxycodone Screen U Benzodiazepines Scrn 06/18/21 06/18/21 06/18/21 12:33 13:08 16:39 RBC Hgb Hct RDW Lymphocytes # Sodium Potassium Chloride Carbon Dioxide BUN Creatinine Glucose POC Glucose (mg/dL) 58 L 110 H Plasma Lactic Acid Nathaniel 2.5 H* TSH Urine Protein Ur Oxycodone Screen U Benzodiazepines Scrn 06/18/21 06/18/21 06/19/21 18:01 20:49 01:53 RBC Hgb Hct RDW Lymphocytes # Sodium Potassium Chloride Carbon Dioxide BUN Creatinine Glucose POC Glucose (mg/dL) 144 H 142 H 194 H Plasma Lactic Acid Nathaniel TSH Urine Protein Ur Oxycodone Screen U Benzodiazepines Scrn 06/19/21 06/19/21 06/19/21 04:32 04:32 05:20 RBC 3.85 L Hgb 11.8 L Hct 36.2 L RDW 18.1 H Lymphocytes # 0.3 L Sodium 133 L Potassium 7.1 H* Chloride 108 H Carbon Dioxide 14 L BUN 23 H Creatinine 1.49 H Glucose 183 H POC Glucose (mg/dL) Plasma Lactic Acid Nathaniel TSH Urine Protein Ur Oxycodone Screen U Benzodiazepines Scrn 06/19/21 06/19/21 06:01 07:36 RBC Hgb Hct RDW Lymphocytes # Sodium Potassium 6.6 H* Chloride Carbon Dioxide BUN Creatinine Glucose POC Glucose (mg/dL) 210 H Plasma Lactic Acid Nathaniel TSH 0.366 L Urine Protein Ur Oxycodone Screen U Benzodiazepines Scrn Assessment and Plan Assessment: * Syncopal spell versus seizure. Patient EKG showed significant bradycardia, therefore arrhythmia is a likely possibility. Patient has history of seizure disorder, but he is on fairly high doses of Lamictal, and the levels are therapeutic. Therefore seizure appears somewhat less likely. * Diabetes with peripheral neuropathy. * Hypertension * Obesity * COPD * Angel. depressive disorder * ? Parkinson's disease * Sleep apnea * Tobacco use Plan: * EEG was performed today, which revealed [id number] background slowing, suggestive of toxic metabolic encephalopathy. No epileptiform activity. Patient is currently on Lamictal 200 mg every 8 hours, which will be continued. Levels are therapeutic. Seizure appears less likely. Patient has been running significant bradycardia, therefore arrhythmia likely the cause of syncopal episode. * Patient has history of peripheral neuropathy. We will check B12, folate, MMA, B6, NANDA, Sjogren's antibodies, zinc level, IgG, igM, immune fixation electrophoresis, SPEP. Patient would need outpatient EMG and nerve conduction studies of upper and lower extremities, to rule out inflammatory neuropathy. * Patient also carries a diagnosis of Parkinson's disease. Patient's tone was normal. I would suggest decreasing dose of Sinemet to one tablet daily. Suggest stopping Reglan to prevent drug-induced parkinsonism. * Cardiology also following for possible arrhythmia. * Patient's thyroid functions are slightly abnormal. Will defer IM to address abnormal thyroid functions. * We will follow clinically. Time with Patient: Greater than 30
[2021-06-19 20:35] LABS: Glucose,Whole Blood 107 mg/dL (75-99)
[2021-06-19] MEDS: ATORVASTATIN 40 MG TAB PO SCH (20:35)
[2021-06-19] MEDS: QUEtiapine 50 MG TAB PO SCH (20:36)
[2021-06-19] MEDS ORDERED: risperiDONE 0.5 MG TAB PO SCH (21:00)
[2021-06-20] MEDS: PIPERACILLIN-TAZOBACTAM 3.375 GM in SODIUM CHLORIDE 0.9% 100 ML IVPB SCH ×4 (00:14→23:12)
[2021-06-20] MEDS: HEPARIN SODIUM,PORCINE/PF 5,000 UNIT/0.5 ML SYRINGE SQ SCH ×4 (00:14→23:12)
[2021-06-20 04:15] LABS: Albumin 3.3 g/dL (3.5-5.0); Calcium 8.8 mg/dL (8.4-10.2); Potassium 4.8 mmol/L (3.5-5.1); Total Bilirubin 0.6 mg/dL (0.2-1.3); Total Protein 6.4 g/dL (6.3-8.2)
[2021-06-20 04:21] LABS: Anisocytosis Slight; HGB 10.6 gm/dL (13.0-17.5); MCH 30.7 pg (25.0-35.0); MCHC 33.1 g/dL (31.0-37.0); MCV 92.7 fL (80.0-100.0); Mean Platelet Volume 8.6; Platelet Count 217 k/uL (150-450); RBC 3.46 m/uL (4.30-5.90); RDW 18.6 % (11.5-15.5); WBC 4.6 k/uL (3.8-10.6)
[2021-06-20 04:40] LABS: Band Neutrophils % 4 %; Eosinophils # (M) 0.09 k/uL (0-0.7); Lymphocytes # (M) 0.28 k/uL (1.0-4.8); Neutrophils % (M) 75 %; Nucleated Red Blood Cells 0 /100 WBC (0-0); Total Cells Counted 100
--- NOTE | 2021-06-20 05:28 | PN ---
PROGRESS NOTE A 55-year-old white male remains in ICU. Sugars are maintaining good today. Blood pressure is maintaining good, a little bit high up to 150 systolic. Amlodipine will be started. Neurontin will be restarted back for his neuropathy as he has trouble walking due to neuropathies. A1c has been good. EEG is pending for seizure. Psych: Fair mood and affect. Cardiovascular S1, S2. Lungs are clear. GI soft. Neurologic: Alert and oriented x3. ASSESSMENT: 1. Syncope. 2. Possible seizures. 3. Head contusion. 4. Hyperglycemia. 5. Hypotension all improved. 6. Unclear etiology to what happened whether it was cardiac arrhythmia or seizure. Continue current treatment. Possibly discharge home in the next 24 to 48 hours, he is much better. Wait for Neurology, EEG report. MMODL / IJN: [id number] /
--- NOTE | 2021-06-20 05:55 | P.CONS ---
History of Present Illness - Chief Complaint Medical debility - History of Present Illness I had the opportunity to see patient for inpatient rehab consultation with regard to medical debility. He is admitted to [facility] June 18 with seizure, bradycardia, hypoglycemia and syncope. Seen by Dr. Lyles really bradycardia. Seen by Dr. Hoffman for acute on chronic hypoxic respiratory failure and COPD. Seen by Dr. Kit Pierre for nausea and emesis and coffee-ground emesis. Seen by Dr. Posada is for depression. Chest x-rays followed for CHF versus pneumonia versus atelectasis. Head CT demonstrates maxillary polyp only. Has started therapies. PT reports two-person maximal assistance for bed mobility t wo-person total assistance to sit up. Unable to stand gait. OT reports moderate assistance for upper dressing, total assistance for lower dressing, maximal assistance for bathing. 2 person maximal assistance for toileting and two-person total assistance for toilet transfer. Previous functional history as elicited from patient: 55-year-old right-handed white male who is single lives in a first-floor apartment alone. On disability/skilled nursing. Lives alone. Describes intent with own cooking, laundry, sitdown shower and gait with assistive device and has walkers and canes. Receives medical transportation from insurance and otherwise a friend or his daughter drives them. Review of Systems Review of systems: Gen.: Patient reports that he feels like shit. ENT: Denies sneezes or discharge. Eyes: Denies discharge or photophobia. Cardiac: Denies chest pain or palpitation. Pulmonary: At least mild shortness of breath. Gastrointestinal: Denies nausea, emesis, constipation, diarrhea. Genitourinary: Denies discharge or frequency. Musculoskeletal: Denies muscle or bone aches. Neurologic: General weakness. Endocrine: Denies shakes or sweats. Oncology: Denies cancers. Dermatologic: Denies rash, itching, pruritus. ALLERGY/immunology: Denies sneezes, rashes. Past Medical History Past Medical History: COPD, CVA/TIA, Diabetes Mellitus, Fibromyalgia, GERD/Reflux, Hyperlipidemia, Hypertension, Memory Impairment, Seizure Disorder, Skin Disorder, Sleep Apnea/CPAP/BIPAP Additional Past Medical History / Comment(s): uses c-pap machine, on 4L Home oxygen, EPILEPTIC, past fall w/ concussion, ambulate with a walker and a wheelchair; Parkinson's History of Any Multi-Drug Resistant Organisms: None Reported Past Surgical History: Hernia Repair Additional Past Surgical History / Comment(s): Left big toe surgery/debridement r/t diabetic ulcer Past Anesthesia/Blood Transfusion Reactions: No Reported Reaction Smoking Status: Current every day smoker - Past Family History Father Family Medical History: Cancer Additional Family Medical History / Comment(s): LUNG Brother(s) History Unknown: Yes Family Medical History: Myocardial Infarction (CT) Additional Family Medical History / Comment(s): Sister(s) History Unknown: Yes Family Medical History: Myocardial Infarction (CT) Additional Family Medical History / Comment(s): Medications and Allergies Home Medications Medication Instructions Recorded Confirmed Type Atorvastatin [Lipitor] 40 mg PO HS 08/31/14 06/18/21 History Furosemide [Lasix] 40 mg PO BID 08/10/15 06/18/21 History Potassium Chloride [Klor-Con 20] 20 meq PO DAILY 08/10/15 06/18/21 History lamoTRIgine [LaMICtal] 200 mg PO TID 08/10/15 06/18/21 History INSULIN ASPART (NovoLOG) [NovoLOG 27 unit SQ AC-TID 08/24/16 06/18/21 History (formulary)] INSULIN ASPART (NovoLOG) [NovoLOG See Protocol SQ AC-TID 08/24/16 06/18/21 History (formulary)] metFORMIN HCL [Glucophage] 1,000 mg PO BID 08/24/16 06/18/21 History oxyCODONE-APAP 10-325MG [Percocet 1 tab PO QID 08/24/16 06/18/21 History 10-325 mg] Cephalexin [Keflex] 500 mg PO BID 05/14/18 06/18/21 History Diazepam [Valium] 10 mg PO DAILY 05/14/18 06/18/21 History Omeprazole 40 mg PO DAILY 05/14/18 06/18/21 History Carbidopa-Levodopa 10-100 mg 1 tab PO BID 06/18/21 06/18/21 History [Sinemet 10-100] Citalopram Hydrobromide [CeleXA] 20 mg PO DAILY 06/18/21 06/18/21 History Dulaglutide [Trulicity] 4.5 mg SQ CARD 06/18/21 06/18/21 History Gabapentin 600 mg PO QID 06/18/21 06/18/21 History Insulin Glargine,Hum.rec.anlog 30 unit SQ DAILY 06/18/21 06/18/21 History [Lantus Solostar Pen] Insulin Glargine,Hum.rec.anlog 35 unit SQ HS 06/18/21 06/18/21 History [Lantus Solostar Pen] Meloxicam [Mobic] 15 mg PO DAILY 06/18/21 06/18/21 History Sulfamethox-Tmp 800-160Mg [Bactrim 1 tab PO Q12HR 06/18/21 06/18/21 History DS 800-160 mg] amLODIPine [Norvasc] 10 mg PO DAILY 06/18/21 06/18/21 History cloNIDine HCL [Catapres] 0.2 mg PO TID 06/18/21 06/18/21 History lisinopriL 40 mg PO DAILY 06/18/21 06/18/21 History risperiDONE [RisperDAL] 0.5 mg PO HS 06/18/21 06/18/21 History Allergies Allergy/AdvReac Type Severity Reaction Status Date / Time venom-honey bee Allergy Swelling Verified 06/18/21 11:08 [bee venom (honey bee)] Physical Exam Vitals: Vital Signs Temp Pulse Resp BP Pulse Ox 06/20/21 04:00 98.8 F 78 17 144/81 90 L 06/20/21 03:00 85 14 124/67 93 L 06/20/21 02:00 65 19 119/56 93 L 06/20/21 01:00 77 19 134/67 95 06/20/21 00:00 98.6 F 73 17 119/48 95 06/19/21 23:00 66 17 114/51 98 06/19/21 22:00 72 18 135/63 98 06/19/21 21:00 72 17 131/70 94 L 06/19/21 20:30 64 21 128/60 96 06/19/21 20:00 98.6 F 67 21 128/63 95 06/19/21 19:41 71 06/19/21 19:32 67 06/19/21 19:30 71 15 120/48 96 06/19/21 19:00 73 24 105/52 94 L 06/19/21 18:30 61 19 109/65 94 L 06/19/21 18:00 68 16 137/35 92 L 06/19/21 17:30 63 15 150/55 91 L 06/19/21 17:00 64 28 H 142/53 94 L 06/19/21 16:30 64 129/61 98 06/19/21 16:00 98.3 F 63 18 124/58 94 L 06/19/21 15:30 59 L 16 126/61 98 06/19/21 15:28 59 L 06/19/21 15:17 99 06/19/21 15:14 57 L 06/19/21 15:00 133/63 95 06/19/21 14:30 60 32 H 137/63 100 06/19/21 14:00 63 20 127/60 96 06/19/21 13:30 61 19 118/63 92 L 06/19/21 13:00 63 19 125/60 89 L 06/19/21 12:30 64 20 131/68 95 06/19/21 12:00 100.5 F H 61 22 127/63 95 06/19/21 11:30 60 23 97 06/19/21 11:00 60 25 H 128/60 94 L 06/19/21 10:30 60 20 147/66 91 L 06/19/21 10:00 58 L 20 102/89 95 06/19/21 09:30 52 L 24 103/52 91 L 06/19/21 09:00 49 L 21 108/50 94 L 06/19/21 08:44 50 L 06/19/21 08:35 49 L 06/19/21 08:30 50 L 20 103/67 94 L 06/19/21 08:00 99.7 F H 51 L 21 114/45 93 L 06/19/21 07:30 53 L 23 144/62 91 L 06/19/21 07:00 64 20 140/57 90 L 06/19/21 06:30 63 20 140/56 87 L 06/19/21 06:00 59 L 20 151/65 88 L 06/19/21 05:51 60 Intake and Output 06/19/21 06/19/21 06/20/21 14:59 22:59 06:59 Intake Total 360.215 160 120 Output Total 1195 975 800 Balance -834.823 -192 -065 Intake: IV 250 160 120 0.9 100 160 120 Dextrose 5%-0.45% NaCl 1, 150 000 ml @ 75 mls/hr IV . [id number] ONE Rx#:[id number] Intake, IV Titration 110.215 Amount DOPamine DRIP 800 mg In 35.215 Dextrose/Water 1 250ml. bag @ 5 MCG/KG/MIN 11.269 mls/hr IV .[id number] ONE Rx#:[id number] Dextrose 5%-0.45% NaCl 1, 75 000 ml @ 75 mls/hr IV . [id number] ONE Rx#:[id number] Output: Urine 1195 975 800 Other: Voiding Method Indwelling Catheter Indwelling Catheter Indwelling Catheter Weight 125.9 kg Skin: Good color, texture, turgor. General: Obese build and comfortable appearance. Head: Normocephalic, atraumatic. Eyes: Symmetric. Pupils equal round. Ears: Symmetric. Hearing within normal limits. Mouth: Clear. Neck: Supple. Carotid without bruit. Cardiac: Regular rate and rhythm. Lungs: Clear anteriorly and posteriorly. Abdomen: Soft active nontender. Extremities: Normal tone. Neurological: Mental status: Alert, cooperative, pleasant. Cranial nerves: Symmetric facial tone and trapezius. Motor: Active movement all 4 limbs. Arms about antigravity in legs less than antigravity. Sensation: Intact throughout. DTRs: Symmetric and equal throughout. Mobility: Requires physical assist for bed mobility. Results CBC & Chem 7: 06/20/21 03:37 06/20/21 03:43 Labs: Abnormal Lab Results - Last 24 Hours (Table) 06/19/21 06/19/21 06/19/21 Range/Units 04:32 05:20 05:55 RBC (4.30-5.90) m/uL Hgb (13.0-17.5) gm/dL Hct (39.0-53.0) % RDW (11.5-15.5) % Lymphocytes # (Manual) (1.0-4.8) k/uL Sodium (137-145) mmol/L Potassium 7.1 H* (3.5-5.1) mmol/L POC Glucose (mg/dL) (75-99) mg/dL Hemoglobin A1c 6.2 H (4.0-6.0) % Albumin (3.5-5.0) g/dL Procalcitonin 0.17 H (0.02-0.09) ng/mL TSH (0.465-4.680) mIU/L 06/19/21 06/19/21 06/19/21 Range/Units 06:01 07:36 10:06 RBC (4.30-5.90) m/uL Hgb (13.0-17.5) gm/dL Hct (39.0-53.0) % RDW (11.5-15.5) % Lymphocytes # (Manual) (1.0-4.8) k/uL Sodium (137-145) mmol/L Potassium 6.6 H* 6.0 H (3.5-5.1) mmol/L POC Glucose (mg/dL) 210 H (75-99) mg/dL Hemoglobin A1c (4.0-6.0) % Albumin (3.5-5.0) g/dL Procalcitonin (0.02-0.09) ng/mL TSH 0.366 L (0.465-4.680) mIU/L 06/19/21 06/19/21 06/19/21 Range/Units 11:32 15:24 16:58 RBC (4.30-5.90) m/uL Hgb (13.0-17.5) gm/dL Hct (39.0-53.0) % RDW (11.5-15.5) % Lymphocytes # (Manual) (1.0-4.8) k/uL Sodium (137-145) mmol/L Potassium 5.6 H (3.5-5.1) mmol/L POC Glucose (mg/dL) 109 H 131 H (75-99) mg/dL Hemoglobin A1c (4.0-6.0) % Albumin (3.5-5.0) g/dL Procalcitonin (0.02-0.09) ng/mL TSH (0.465-4.680) mIU/L 06/19/21 06/20/21 06/20/21 Range/Units 20:33 03:37 03:43 RBC 3.46 L (4.30-5.90) m/uL Hgb 10.6 L (13.0-17.5) gm/dL Hct 32.0 L (39.0-53.0) % RDW 18.6 H (11.5-15.5) % Lymphocytes # (Manual) 0.28 L (1.0-4.8) k/uL Sodium 136 L (137-145) mmol/L Potassium (3.5-5.1) mmol/L POC Glucose (mg/dL) 107 H (75-99) mg/dL Hemoglobin A1c (4.0-6.0) % Albumin 3.3 L (3.5-5.0) g/dL Procalcitonin (0.02-0.09) ng/mL TSH (0.465-4.680) mIU/L Microbiology - Last 24 Hours (Table) 06/18/21 13:35 Blood Culture - Preliminary Blood No Growth after 24 hours Assessment and Plan (1) Bradycardia Current Visit: Yes Status: Acute Code(s): R00.1 - BRADYCARDIA, UNSPECIFIED SNOMED Code(s): 43200889 (2) Hypoglycemia Current Visit: Yes Status: Acute Code(s): E16.2 - HYPOGLYCEMIA, UNSPECIFIED SNOMED Code(s): 017012718 (3) Hypotension Current Visit: Yes Status: Acute Code(s): I95.9 - HYPOTENSION, UNSPECIFIED SNOMED Code(s): 58012297 (4) Nausea and vomiting Current Visit: Yes Status: Acute Code(s): R11.2 - NAUSEA WITH VOMITING, UNSPECIFIED SNOMED Code(s): 40080594 (5) Syncope Current Visit: Yes Status: Acute Code(s): R55 - SYNCOPE AND COLLAPSE SNOMED Code(s): 341681981 (6) Diabetic ulcer of left foot associated with diabetes mellitus due to underlying condition, with fat layer exposed Current Visit: No Status: Acute Code(s): E08.621 - DIABETES MELLITUS DUE TO UNDERLYING CONDITION W FOOT ULCER; L97.522 - NON-PRS CHRONIC ULCER OTH PRT LEFT FOOT W FAT LAYER EXPOSED SNOMED Code(s): 943846947 Plan: Comments and plan: At this time PT and OT are ongoing. Patient requires definite to person physical assist and really is unable to stand. Currently not ready for inpatient rehab. Will continue to follow with yourself.
[2021-06-20] MEDS: PANTOPRAZOLE 40 MG TABLET PO SCH (06:41)
[2021-06-20 06:46] LABS: Glucose,Whole Blood 103 mg/dL (75-99)
[2021-06-20] MEDS: IPRATROPIUM-ALBUTEROL 3 ML NEB INHALATION SCH ×4 (07:25→20:11)
[2021-06-20] MEDS ORDERED: Magnesium Replacement Protocol 1 EACH MISC MISCELLANE PRN (09:27)
[2021-06-20] MEDS: oxyCODONE-APAP 10-325MG 1 EACH TAB PO SCH ×4 (09:39→21:04)
[2021-06-20] MEDS: GABAPENTIN 300 MG CAP PO SCH ×4 (09:39→21:04)
[2021-06-20] MEDS: amLODIPine 10 MG TAB PO SCH (09:40)
[2021-06-20] MEDS: lamoTRIgine 100 MG TAB PO SCH ×3 (09:40→21:04)
[2021-06-20] MEDS: CITALOPRAM HYDROBROMIDE 10 MG TAB PO SCH (09:41)
[2021-06-20] MEDS: FUROSEMIDE 10 MG/ML 4 ML VIAL IV SCH ×2 (09:42→21:04)
--- NOTE | 2021-06-20 09:43 | P.PN ---
Subjective Progress Note Date: 06/20/21 Principal diagnosis: Mental status changes. Pulmonary consult dated 06/19/2021. 55-year-old male who was evaluated in the emergency department yesterday by Dr. Hamilton. The patient apparently has a history of chronic hypoxemic respiratory failure secondary to COPD, seizure disorder, Parkinson's disease, among other things, but apparently was found by the ER physician to have a very low blood sugar. The patient received some D50, and also some fluids and Zofran for nausea. Subsequent to that, the patient was found to be bradycardic. Cardiology was consulted, and the patient was placed on dopamine for control of his heart rate. Currently, the patient's resting comfortably. The dopamine is been turned off. The patient's on a nonrebreather mass. The patient is getting saline at 75 mL an hour. We are going to give the patient Lasix 40 mg IV push twice a day, cut back his fluids. Instruction was positive for oxycodone and benzodiazepines. The patient has made it clear that he would not want to be intubated should come to that. He was seen in the emergency room on June 18. He apparently crawls around his house according to his nurse. He apparently either because of neuropathy or muscle weakness, cannot stand up on his own feet. White count is 8.7, hemoglobin 11.8, hematocrit 36.2, and platelet count 245,000. Sodium 133, repeat potassium 6.6, initial potassium 7.1, chlorides 108, CO2 14, anion gap 11, BUN 23, creatinine 1.49. Chest x-ray was consistent with fluid overload/CHF. Brain CT was negative for anything acute. Progress note dated 06/20/2021. 55-year-old male, seen yesterday in consultation. He was initially seen by Dr. Hamilton in the emergency room for hypoglycemia, and bradycardia. The patient was initially placed on dopamine drip as per cardiology. That is turned off. The patient's doing much better today. He is much more awake and alert. He is on 8 L nasal cannula. He is not getting any IV. In my opinion, the patient could be transferred out of the intensive care unit general medical floor with. We will check a magnesium level today. Current lab work includes a white count of 4.6, hemoglobin 10.6, hematocrit 32, and a platelet count 217,000. Electrolyte profile shows a sodium 136, potassium 4.8, chlorides 105, CO2 26, anion gap 5, BUN 19, and creatinine 1.19. The patient has been seen by neurology and p sychiatry. The EEG was abnormal showing background slowing of mild to moderate degree. This was suggestive of generalized cerebral dysfunction with toxic/metabolic encephalopathy. Objective - Vital Signs Vital signs: Vital Signs Temp 98.8 F 06/20/21 04:00 Pulse 78 06/20/21 07:34 Resp 15 06/20/21 07:00 BP 148/70 06/20/21 07:00 Pulse Ox 98 06/20/21 07:27 Intake & Output 06/19/21 06/20/21 06/20/21 18:59 06:59 18:59 Intake Total 440.215 220 Output Total 1595 1775 75 Balance -1154.785 -1555 -75 Weight 125.9 kg 1168.8 kg Intake: IV 330 220 0.9 180 220 Dextrose 5%-0.45% NaCl 1, 150 000 ml @ 75 mls/hr IV . [id number] ONE Rx#:[id number] Intake, IV Titration 110.215 Amount DOPamine DRIP 800 mg In 35.215 Dextrose/Water 1 250ml. bag @ 5 MCG/KG/MIN 11.269 mls/hr IV .[id number] ONE Rx#:[id number] Dextrose 5%-0.45% NaCl 1, 75 000 ml @ 75 mls/hr IV . [id number] ONE Rx#:[id number] Output: Urine 1595 1775 75 Other: Voiding Method Indwelling Catheter Indwelling Catheter - Exam No acute distress, currently on 6 L nasal cannula. The patient is much more awake and alert. He is quite conversant. HEENT examination is grossly unremarkable. Neck supple. Full range of motion. No adenopathy thyromegaly or neck vein distention. Cardiovascular examination reveals regular rhythm rate. S1-S2 normal. No S3 or S4. No discernible murmur noted. Heart sounds are distant. Heart rate 78 bpm. Lungs reveal bilateral rhonchi, and crackles. Breath sounds equal. Breath sounds diminished throughout. No wheezes. Abdomen soft bowel sounds are heard. No masses or tenderness. Extremities are intact. No cyanosis clubbing or edema. Skin is without rash or lesion. Neurologic examination is brief but nonfocal. - Labs CBC & Chem 7: 06/20/21 03:37 06/20/21 03:43 Labs: Abnormal Lab Results - Last 24 Hours (Table) 06/19/21 06/19/21 06/19/21 Range/Units 04:32 05:55 10:06 RBC (4.30-5.90) m/uL Hgb (13.0-17.5) gm/dL Hct (39.0-53.0) % RDW (11.5-15.5) % Lymphocytes # (Manual) (1.0-4.8) k/uL Sodium (137-145) mmol/L Potassium 6.0 H (3.5-5.1) mmol/L POC Glucose (mg/dL) (75-99) mg/dL Hemoglobin A1c 6.2 H (4.0-6.0) % Albumin (3.5-5.0) g/dL Procalcitonin 0.17 H (0.02-0.09) ng/mL 06/19/21 06/19/21 06/19/21 Range/Units 11:32 15:24 16:58 RBC (4.30-5.90) m/uL Hgb (13.0-17.5) gm/dL Hct (39.0-53.0) % RDW (11.5-15.5) % Lymphocytes # (Manual) (1.0-4.8) k/uL Sodium (137-145) mmol/L Potassium 5.6 H (3.5-5.1) mmol/L POC Glucose (mg/dL) 109 H 131 H (75-99) mg/dL Hemoglobin A1c (4.0-6.0) % Albumin (3.5-5.0) g/dL Procalcitonin (0.02-0.09) ng/mL 06/19/21 06/20/21 06/20/21 Range/Units 20:33 03:37 03:43 RBC 3.46 L (4.30-5.90) m/uL Hgb 10.6 L (13.0-17.5) gm/dL Hct 32.0 L (39.0-53.0) % RDW 18.6 H (11.5-15.5) % Lymphocytes # (Manual) 0.28 L (1.0-4.8) k/uL Sodium 136 L (137-145) mmol/L Potassium (3.5-5.1) mmol/L POC Glucose (mg/dL) 107 H (75-99) mg/dL Hemoglobin A1c (4.0-6.0) % Albumin 3.3 L (3.5-5.0) g/dL Procalcitonin (0.02-0.09) ng/mL 06/20/21 Range/Units 06:44 RBC (4.30-5.90) m/uL Hgb (13.0-17.5) gm/dL Hct (39.0-53.0) % RDW (11.5-15.5) % Lymphocytes # (Manual) (1.0-4.8) k/uL Sodium (137-145) mmol/L Potassium (3.5-5.1) mmol/L POC Glucose (mg/dL) 103 H (75-99) mg/dL Hemoglobin A1c (4.0-6.0) % Albumin (3.5-5.0) g/dL Procalcitonin (0.02-0.09) ng/mL Microbiology - Last 24 Hours (Table) 06/18/21 13:35 Blood Culture - Preliminary Blood No Growth after 24 hours Assessment and Plan Assessment: Mental status changes, with hypoglycemia and bradycardia. Acute hypoxemic respiratory failure, which may be multifactorial, in part related to underlying COPD exacerbation, pneumonia and/or heart failure. History of COPD with ongoing tobacco use and nicotine addiction. History of CVA. History of diabetes mellitus. Fibromyalgia. Gastroesophageal reflux disease. History of hyperlipidemia. History of hypertension. History of seizure disorder. History of obstructive sleep apnea syndrome, currently on home CPAP. Plan: Plan dated 06/19/2021. The patient's dopamine has been turned off by cardiology. The patient will get Lasix 40 mg IV push twice a day. The patient normally is on Lasix twice a day at home. We will turn his fluids down. Additional recommendations and suggestions are forthcoming. Medications are reviewed. A pro-calcitonin level be done. The patient will get doing nebs, 4 times a day and when necessary. We will continue to follow, and make recommendations where appropriate. Another consultants have been asked to see this patient including neurology for the patient's lower extremity weakness and neuropathy. The patient was also seen by cardiology. Hopefully, his mental status changes will improve, and additional history can be obtained. Plan dated 06/20/2021. The patient is much more awake today. His oxygen has improved, and is down to 60 L nasal cannula. Saturations are reasonable. The patient will have a repeat chest x-ray. The N-terminal proBNP was 1330. The pro-calcitonin level was 0.17. The patient can be transferred out of the ICU to the general medical floor with telemetry. Repeat chest x-ray is ordered. Medications are reviewed. He remains on Zosyn and updraft treatments. Time with Patient: Less than 30
--- NOTE | 2021-06-20 10:26 | P.PN ---
Subjective Progress Note Date: 06/20/21 HISTORY OF PRESENT ILLNESS: This is a pleasant 55-year-old gentleman who we requested to see in the intensive care unit for further evaluation off bradycardia. The patient is somewhat a poor historian. He does have an underlying history of obstructive sleep apnea, chronic hypoxic respiratory failure, chronic obstructive pulmonary disease on 4 L continuously at home, as well as diabetes and hypertension and dyslipidemia. The patient lives by himself. He woke up and found himself on the floor. He is known to have seizure disorder and he thinks that he had a seizure. Ambulance was called and the patient was brought to the emergency department where he underwent a workup including computed tomography scan of the brain and that came in to be unremarkable for acute abnormalities and at the same time he was found to be in profound bradycardia with initially heart rate i n the 30s and subsequently in the 40s. Subsequently the patient was started on dopamine and he was admitted to the intensive care unit. The patient clinically was experiencing symptoms of generalized fatigue and tiredness and also increasing in the shortness of breath. No symptoms of chest pain or chest discomfort. The EKG was reviewed and showed sinus bradycardia without any evidence of advanced AV block. Cardiac enzymes were not checked. TSH and free T4 was not checked. Echo is in process to be done. The chest x-ray showed chronic changes only. Currently the patient is on 8 L high flow oxygen with saturation only in the 90s. Beside that on examination he does have severe bilateral expiratory wheezing noted. At this point I'm going to rule out thyroid disorder and obtain a TSH and free T4 and also I'm going to rule out acute coronary event. Please note that the patient underwent a heart catheterization in 2018 and that revealed mild nonobstructive coronary artery disease. Also he underwent an echo which revealed normal left ventricular systolic function without significant valvular abnormalities. 06/20/2021 Patient examined this morning at the bedside. Patient denies chest pain or pressure. Denies shortness of breath. Dopamine has been weaned off. Telemetry reveals sinus mechanism with PVCS with a heart rate 70-80s. Echocardiogram completed revealed ejection fraction 55-60%, mild aortic stenosis, mild mitral regurgitation, mild to moderate mitral stenosis, cpxh-fi-nwldgjdy tricuspid regurgitation, and mild to moderate pulmonary hypertension PHYSICAL EXAM: VITAL SIGNS: Reviewed. GENERAL: Well-developed in no acute distress. NECK: Supple. No JVD or thyromegaly LUNGS: Respirations even and unlabored. Lungs diminished to auscultation bilaterally. HEART: Regular rate and rhythm. S1 and S2 heard. EXTREMITIES: Normal range of motion. No clubbing or cyanosis. Peripheral pulses intact. No lower extremity edema ASSESSMENT: Sinus bradycardia, resolved Acute hypoxic respiratory failure Obstructive sleep apnea Hypertension Hyperlipidemia Seizure disorder PLAN: Continue telemetry monitoring Avoid AV bernie blocking agents No plans for PPM at this time Further recommendations pending patient course Nurse practitioner note has been reviewed by physician. Signing provider agrees with the documented findings, assessment, and plan of care. Objective - Vital Signs Vital signs: Vital Signs Temp 98.8 F 06/20/21 04:00 Pulse 78 06/20/21 07:34 Resp 15 06/20/21 07:00 BP 148/70 06/20/21 07:00 Pulse Ox 98 06/20/21 07:27 Intake & Output 06/19/21 06/20/21 06/20/21 18:59 06:59 18:59 Intake Total 440.215 220 100 Output Total 1595 1775 300 Balance -1154.785 -1555 -200 Weight 125.9 kg 1168.8 kg Intake: IV 330 220 100 0.9 180 220 Dextrose 5%-0.45% NaCl 1, 150 000 ml @ 75 mls/hr IV . [id number] ONE Rx#:[id number] Piperacillin-Tazobactam 3 100 .375 gm In Sodium Chloride 0.9% 100 ml @ 25 mls/hr IVPB Q8HR [facility] Rx# :[id number] Intake, IV Titration 110.215 Amount DOPamine DRIP 800 mg In 35.215 Dextrose/Water 1 250ml. bag @ 5 MCG/KG/MIN 11.269 mls/hr IV .[id number] ONE Rx#:[id number] Dextrose 5%-0.45% NaCl 1, 75 000 ml @ 75 mls/hr IV . [id number] ONE Rx#:[id number] Output: Urine 1595 1775 300 Other: Voiding Method Indwelling Catheter Indwelling Catheter - Labs CBC & Chem 7: 06/20/21 03:37 06/20/21 03:43 Labs: Abnormal Lab Results - Last 24 Hours (Table) 06/19/21 06/19/21 06/19/21 Range/Units 04:32 05:55 10:06 RBC (4.30-5.90) m/uL Hgb (13.0-17.5) gm/dL Hct (39.0-53.0) % RDW (11.5-15.5) % Lymphocytes # (Manual) (1.0-4.8) k/uL Sodium (137-145) mmol/L Potassium 6.0 H (3.5-5.1) mmol/L POC Glucose (mg/dL) (75-99) mg/dL Hemoglobin A1c 6.2 H (4.0-6.0) % Albumin (3.5-5.0) g/dL Procalcitonin 0.17 H (0.02-0.09) ng/mL 06/19/21 06/19/21 06/19/21 Range/Units 11:32 15:24 16:58 RBC (4.30-5.90) m/uL Hgb (13.0-17.5) gm/dL Hct (39.0-53.0) % RDW (11.5-15.5) % Lymphocytes # (Manual) (1.0-4.8) k/uL Sodium (137-145) mmol/L Potassium 5.6 H (3.5-5.1) mmol/L POC Glucose (mg/dL) 109 H 131 H (75-99) mg/dL Hemoglobin A1c (4.0-6.0) % Albumin (3.5-5.0) g/dL Procalcitonin (0.02-0.09) ng/mL 06/19/21 06/20/21 06/20/21 Range/Units 20:33 03:37 03:43 RBC 3.46 L (4.30-5.90) m/uL Hgb 10.6 L (13.0-17.5) gm/dL Hct 32.0 L (39.0-53.0) % RDW 18.6 H (11.5-15.5) % Lymphocytes # (Manual) 0.28 L (1.0-4.8) k/uL Sodium 136 L (137-145) mmol/L Potassium (3.5-5.1) mmol/L POC Glucose (mg/dL) 107 H (75-99) mg/dL Hemoglobin A1c (4.0-6.0) % Albumin 3.3 L (3.5-5.0) g/dL Procalcitonin (0.02-0.09) ng/mL 06/20/21 Range/Units 06:44 RBC (4.30-5.90) m/uL Hgb (13.0-17.5) gm/dL Hct (39.0-53.0) % RDW (11.5-15.5) % Lymphocytes # (Manual) (1.0-4.8) k/uL Sodium (137-145) mmol/L Potassium (3.5-5.1) mmol/L POC Glucose (mg/dL) 103 H (75-99) mg/dL Hemoglobin A1c (4.0-6.0) % Albumin (3.5-5.0) g/dL Procalcitonin (0.02-0.09) ng/mL Microbiology - Last 24 Hours (Table) 06/18/21 13:35 Blood Culture - Preliminary Blood No Growth after 24 hours
[2021-06-20 10:51] LABS: Protein, Total 6.3 g/dL (6.2-8.2)
[2021-06-20] MEDS: MAGNESIUM SULFATE-D5W PMX 1 GM in DEXTROSE/WATER 1 100ML.BAG IVPB SCH ×2 (10:53→12:39)
[2021-06-20 10:58] VITALS: BMI 380.5
[2021-06-20 11:14] LABS: Glucose,Whole Blood 147 mg/dL (75-99)
--- NOTE | 2021-06-20 11:44 | P.PN ---
Subjective Progress Note Date: 06/20/21 Patient was seen for a follow-up. Patient denies any headache. He is concerned about difficulty standing. He states the physical therapy tried and he couldn't stand. The nurse reported that he gets tremors of his legs when standing. Objective - Vital Signs Vital signs: Vital Signs Temp 99.0 F 06/20/21 08:00 Pulse 75 06/20/21 11:11 Resp 21 06/20/21 10:00 BP 184/95 06/20/21 10:00 Pulse Ox 90 L 06/20/21 09:00 Intake & Output 06/19/21 06/20/21 06/20/21 18:59 06:59 18:59 Intake Total 440.215 220 100 Output Total 1595 1775 300 Balance -1154.785 -1555 -200 Weight 125.9 kg 1168.8 kg 1168.8 kg Intake: IV 330 220 100 0.9 180 220 Dextrose 5%-0.45% NaCl 1, 150 000 ml @ 75 mls/hr IV . [id number] ONE Rx#:[id number] Piperacillin-Tazobactam 3 100 .375 gm In Sodium Chloride 0.9% 100 ml @ 25 mls/hr IVPB Q8HR [facility] Rx# :[id number] Intake, IV Titration 110.215 Amount DOPamine DRIP 800 mg In 35.215 Dextrose/Water 1 250ml. bag @ 5 MCG/KG/MIN 11.269 mls/hr IV .[id number] ONE Rx#:[id number] Dextrose 5%-0.45% NaCl 1, 75 000 ml @ 75 mls/hr IV . [id number] ONE Rx#:[id number] Output: Urine 1595 1775 300 Other: Voiding Method Indwelling Catheter Indwelling Catheter - Exam Patient's mental status, speech and language functions are normal. Cranial nerves are normal. Extraocular muscles are intact. Visual gutierrez are full. Face is symmetric. On muscle strength testing, there is no pronator drift and the strength is normal in arms and legs. Patient is less shaky while testing. Patient has mild ataxia for uzzutj-fq-huuj, but at least moderate ataxia for oxck-xy-myyu testing. Patient has some postural tremor versus myoclonic tremors of outstretched hands. Reflexes are absent in the upper limbs, 1 at the knees, absent ankles and plantars are downgoing. Sensations are decreased from toes up to mid thighs and from fingers up to mid forearms bilaterally. Tone and bulk of muscles normal. - Labs CBC & Chem 7: 06/20/21 03:37 06/20/21 03:43 Labs: Abnormal Lab Results - Last 24 Hours (Table) 06/19/21 06/19/21 06/19/21 Range/Units 04:32 05:55 15:24 RBC (4.30-5.90) m/uL Hgb (13.0-17.5) gm/dL Hct (39.0-53.0) % RDW (11.5-15.5) % Lymphocytes # (Manual) (1.0-4.8) k/uL Sodium (137-145) mmol/L Potassium 5.6 H (3.5-5.1) mmol/L POC Glucose (mg/dL) (75-99) mg/dL Hemoglobin A1c 6.2 H (4.0-6.0) % Albumin (3.5-5.0) g/dL Procalcitonin 0.17 H (0.02-0.09) ng/mL 06/19/21 06/19/21 06/20/21 Range/Units 16:58 20:33 03:37 RBC 3.46 L (4.30-5.90) m/uL Hgb 10.6 L (13.0-17.5) gm/dL Hct 32.0 L (39.0-53.0) % RDW 18.6 H (11.5-15.5) % Lymphocytes # (Manual) 0.28 L (1.0-4.8) k/uL Sodium (137-145) mmol/L Potassium (3.5-5.1) mmol/L POC Glucose (mg/dL) 131 H 107 H (75-99) mg/dL Hemoglobin A1c (4.0-6.0) % Albumin (3.5-5.0) g/dL Procalcitonin (0.02-0.09) ng/mL 06/20/21 06/20/21 06/20/21 Range/Units 03:43 06:44 11:13 RBC (4.30-5.90) m/uL Hgb (13.0-17.5) gm/dL Hct (39.0-53.0) % RDW (11.5-15.5) % Lymphocytes # (Manual) (1.0-4.8) k/uL Sodium 136 L (137-145) mmol/L Potassium (3.5-5.1) mmol/L POC Glucose (mg/dL) 103 H 147 H (75-99) mg/dL Hemoglobin A1c (4.0-6.0) % Albumin 3.3 L (3.5-5.0) g/dL Procalcitonin (0.02-0.09) ng/mL Microbiology - Last 24 Hours (Table) 06/18/21 13:35 Blood Culture - Preliminary Blood No Growth after 24 hours Assessment and Plan Assessment: * Syncopal spell versus seizure. Patient EKG showed significant bradycardia, therefore arrhythmia is a likely possibility. Patient has history of seizure disorder, but he is on fairly high doses of Lamictal, and the levels are therapeutic. Therefore seizure appears somewhat less likely. * Diabetes with peripheral neuropathy. Rule out other causes of polyneuropathy. * Hypertension * Obesity * COPD * Angel. depressive disorder * ? Parkinson's disease * Sleep apnea * Tobacco use Plan: * Patient's mentation has much improved. He is much more alert and awake and interactive. Patient has difficulty with standing and mobility, of unclear etiology. Patient does have polyneuropathy involving arms and legs. Examination also revealed possibility of ataxia in the lower extremities. Await blood tests performed as below. * EEG 06/19/2021 revealed eayt-oq-dehepgax background slowing, suggestive of toxic metabolic encephalopathy. No epileptiform activity. Patient is currently on Lamictal 200 mg every 8 hours, which will be continued. Levels are therapeutic. Seizure appears less likely. Patient has been running significant bradycardia, therefore arrhythmia likely the cause of syncopal episode. * Patient has history of peripheral neuropathy. Await B12, folate, MMA, B6, NANDA, Sjogren's antibodies, zinc level, IgG, igM, immune fixation electrophoresis, SPEP. Patient would need outpatient EMG and nerve conduction studies of upper and lower extremities, to rule out inflammatory neuropathy. * Patient also carries a diagnosis of Parkinson's disease. Patient's tone was normal. I would suggest decreasing dose of Sinemet to one tablet daily. Suggest stopping Reglan to prevent drug-induced parkinsonism. * Cardiology also following for possible arrhythmia. * Patient's thyroid functions are slightly abnormal. Will defer IM to address abnormal thyroid functions. * PT OT, possible rehab. * We will follow clinically.
[2021-06-20 12:16] LABS: Immunoglobulin M <16.9 mg/dL (40.0-280.0)
--- NOTE | 2021-06-20 15:03 | P.PN ---
Subjective Progress Note Date: 06/20/21 Principal diagnosis: Nausea and vomiting 55-year-old male who presented to the hospital after reportedly having a seizure at home. Once he was in the emergency department he was found to be hypoglycemic and bradycardic and was admitted to the ICU for further evaluation and treatment. GI was consulted for reported nausea and vomiting. The patient has had no further nausea or vomiting since he's been in the hospital. He is tolerating a regular diet. Denies any abdominal pain. He is having normal bowel movements. Objective - Vital Signs Vital signs: Vital Signs Temp 98.8 F 06/20/21 04:00 Pulse 78 06/20/21 07:34 Resp 15 06/20/21 07:00 BP 148/70 06/20/21 07:00 Pulse Ox 98 06/20/21 07:27 Intake & Output 06/19/21 06/20/21 06/20/21 18:59 06:59 18:59 Intake Total 440.215 220 Output Total 1595 1775 75 Balance -1154.785 -1555 -75 Weight 125.9 kg 1168.8 kg Intake: IV 330 220 0.9 180 220 Dextrose 5%-0.45% NaCl 1, 150 000 ml @ 75 mls/hr IV . [id number] ONE Rx#:[id number] Intake, IV Titration 110.215 Amount DOPamine DRIP 800 mg In 35.215 Dextrose/Water 1 250ml. bag @ 5 MCG/KG/MIN 11.269 mls/hr IV .[id number] ONE Rx#:[id number] Dextrose 5%-0.45% NaCl 1, 75 000 ml @ 75 mls/hr IV . [id number] ONE Rx#:[id number] Output: Urine 1595 1775 75 Other: Voiding Method Indwelling Catheter Indwelling Catheter - Exam General appearance: The patient is alert, oriented, appears in no acute distre ss. Obese. HET: Head is normocephalic and atraumatic. Conjunctiva pink. Sclera anicteric. Neck: Supple without lymphadenopathy. Abdomen: Soft, nontender, nondistended with bowel sounds. No guarding or rigidity. Extremities: Normal skin color and turgor. No pedal edema Skin: No rashes, no jaundice Neurological: No focal deficits. Alert and oriented 3. - Labs CBC & Chem 7: 06/20/21 03:37 06/20/21 03:43 Labs: Abnormal Lab Results - Last 24 Hours (Table) 06/19/21 06/19/21 06/19/21 Range/Units 04:32 05:55 10:06 RBC (4.30-5.90) m/uL Hgb (13.0-17.5) gm/dL Hct (39.0-53.0) % RDW (11.5-15.5) % Lymphocytes # (Manual) (1.0-4.8) k/uL Sodium (137-145) mmol/L Potassium 6.0 H (3.5-5.1) mmol/L POC Glucose (mg/dL) (75-99) mg/dL Hemoglobin A1c 6.2 H (4.0-6.0) % Albumin (3.5-5.0) g/dL Procalcitonin 0.17 H (0.02-0.09) ng/mL 06/19/21 06/19/21 06/19/21 Range/Units 11:32 15:24 16:58 RBC (4.30-5.90) m/uL Hgb (13.0-17.5) gm/dL Hct (39.0-53.0) % RDW (11.5-15.5) % Lymphocytes # (Manual) (1.0-4.8) k/uL Sodium (137-145) mmol/L Potassium 5.6 H (3.5-5.1) mmol/L POC Glucose (mg/dL) 109 H 131 H (75-99) mg/dL Hemoglobin A1c (4.0-6.0) % Albumin (3.5-5.0) g/dL Procalcitonin (0.02-0.09) ng/mL 06/19/21 06/20/21 06/20/21 Range/Units 20:33 03:37 03:43 RBC 3.46 L (4.30-5.90) m/uL Hgb 10.6 L (13.0-17.5) gm/dL Hct 32.0 L (39.0-53.0) % RDW 18.6 H (11.5-15.5) % Lymphocytes # (Manual) 0.28 L (1.0-4.8) k/uL Sodium 136 L (137-145) mmol/L Potassium (3.5-5.1) mmol/L POC Glucose (mg/dL) 107 H (75-99) mg/dL Hemoglobin A1c (4.0-6.0) % Albumin 3.3 L (3.5-5.0) g/dL Procalcitonin (0.02-0.09) ng/mL 06/20/21 Range/Units 06:44 RBC (4.30-5.90) m/uL Hgb (13.0-17.5) gm/dL Hct (39.0-53.0) % RDW (11.5-15.5) % Lymphocytes # (Manual) (1.0-4.8) k/uL Sodium (137-145) mmol/L Potassium (3.5-5.1) mmol/L POC Glucose (mg/dL) 103 H (75-99) mg/dL Hemoglobin A1c (4.0-6.0) % Albumin (3.5-5.0) g/dL Procalcitonin (0.02-0.09) ng/mL Microbiology - Last 24 Hours (Table) 06/18/21 13:35 Blood Culture - Preliminary Blood No Growth after 24 hours Assessment and Plan (1) Nausea and vomiting Narrative/Plan: 45-year-old male with multiple comorbidities who presented to the emergency department yesterday after reportedly having a seizure at home and then calling EMS. Patient arrived and was found to be hypoglycemic and bradycardic. Patient had reportedly had some nausea and vomiting for the last 2 days duration. States he vomited 1 or 2 times yesterday, no hematemesis or coffee-ground emesis. States he had one small episode of vomiting this morning. He has been tolerating clear liquid diet otherwise. He denies any abdominal pain. No previous history of peptic ulcer disease. Denies any fevers, chills, or diarrhea. No previous EGD. States symptoms are improved. No plans on endoscopic evaluation. Continue with antiemetics as needed and Protonix for GI prophylaxis. Current Visit: Yes Status: Acute Code(s): R11.2 - NAUSEA WITH VOMITING, UN SPECIFIED SNOMED Code(s): 40002461 (2) Bradycardia Current Visit: Yes Status: Acute Code(s): R00.1 - BRADYCARDIA, UNSPECIFIED SNOMED Code(s): 31385105 (3) Hypoglycemia Current Visit: Yes Status: Acute Code(s): E16.2 - HYPOGLYCEMIA, UNSPECIFIED SNOMED Code(s): 791210283 (4) Obesity (BMI 30.0-34.9) Current Visit: No Status: Acute Code(s): E66.9 - OBESITY, UNSPECIFIED SNOMED Code(s): 582595469296823 Plan: 1. Continue symptomatic and supportive care 2. Continue medical management 3. Continue antiemetics as needed 4. Protonix 40 mg daily for GI prophylaxis 5. Continue consistent carbohydrate diet 6. No plans on endoscopic evaluation as nausea and vomiting have resolved Thank you for this consultation, we will sign off at this time. Dr. Kit Pierre I agree with the dictator's note, documented as a scribe by Krysten Zamorano.
--- NOTE | 2021-06-20 15:17 | P.PN ---
Progress Note - Text Progress Note Date: 06/20/21 Interval History: Patient was seen today for psychiatric follow-up regarding patient's depression. Patients nurse claims that patient has been doing much better today and not endorsing any suicidal thoughts. Patient was seen at the bedside and agreeable to speak to typewriter aligner. He appeared to be more engaged with conversation and joked around with typewriter aligner and told him this stories about himself and also spoke about his dogs. He appeared to be fairly future oriented. He claims that his mood an d anxiety have been improving since yesterday. He states that he took the Seroquel last night which helped him with sleep. At this time patient denies any suicidal or homical ideations, intent or plan. Patient denies any auditory, visual hallucinations and denies any paranoia or delusions. Patient denies any side effects from the medications and has been compliant with meds. He claims that he is no longer having any more visual hallucinations. Mental Status Exam: General Appearance: Patient appears to be overweight, older than stated age is alert, pleasant, and attempts to be cooperative. Patient appears to have fair hygiene and grooming wearing hospital gown with fair eye contact. Behavior: Patient is calmly lying in bed without any agitated behavior. More cooperative today Speech: Patient's speech is fluent and nonpressured. Mood/Affect: Patient reports their mood is "good", affect is congruent and brighter affect today Suicidality/Homicidality: Patient denies having any suicidal or homicidal ideation intent or plan. Perceptions: Patient denies any visual hallucinations and denies any auditory hallucinations Though content/process: There is no evidence of any delusional thought content and thought process is linear and goal-directed. More future oriented Memory and concentration: AOX3, grossly intact for the purposes of this session. Can spell "WORLD" backwards Judgment and insight: Improving mildly IMPRESSIONS: Major depressive disorder unspecified Possible Parkinson's disease PLAN: -At this time patient DOES NOT meet criteria for inpatient psychiatric adm ission. -Delirium precautions recommended with patient including - avoiding use of narcotics and [employer] sedatives, limit anticholinergic medications when possible, frequent re-orientation, minimize use of restraints, open window shades during the day and close them at night -Would recommend the following medication changes/additions: Continue with Seroquel 50 mg daily at bedtime for mood adjunct/hallucinations/insomnia, Celexa to 30 mg daily for mood/anxiety. Can continue with Lamictal 3 times a day for seizures. -interior surface insulation worker to provide patient with outpatient mental health/psychiatry resources for appropriate follow up upon discharge -Communicated plan to patient's nurse -At this time psychiatry will sign off. -Please contact with any questions.
[2021-06-20 17:30] LABS: Glucose,Whole Blood 98 mg/dL (75-99)
[2021-06-20] MEDS: ATORVASTATIN 40 MG TAB PO SCH (21:03)
[2021-06-20] MEDS: QUEtiapine 50 MG TAB PO SCH (21:04)
[2021-06-21 02:11] LABS: Glucose,Whole Blood 100 mg/dL (75-99)
--- NOTE | 2021-06-21 06:40 | PN ---
PROGRESS NOTE Psychiatry saw him depression. Appears to be Seroquel helped with sleep last night. Denies any suicidal ideations. No seizures. Wait for Neurology recommendations. Continue Seroquel 50 at night, Celexa 30 daily, Lamictal 3 times a day for seizures. Wait for Neurology recommendations. Vital signs stable. Afebrile. He has diabetic neuropathy of the feet which is going to get admitted rehab to ambulate. He has syncope versus seizure. He is on therapeutic Lamictal for diabetic neuropathy. Hypertension, obesity, COPD, depression, Parkinson's, sleep apnea, nicotine addiction. He is stable at this time. Toxic metabolic encephalopathy on EEG. No seizure seen. Going to continue on Lamictal. Possible significant bradycardia causing syncope. Peripheral neuropathy. Await for Cardiology and see their recommendations. MMODL / IJN: [id number] /
[2021-06-21 06:58] LABS: Glucose,Whole Blood 90 mg/dL (75-99)
--- NOTE | 2021-06-21 07:56 | XR ---
EXAMINATION TYPE: XR chest 2V DATE OF EXAM: 06/21/2021 COMPARISON: 06/19/2020 TECHNIQUE: PA and lateral views submitted. HISTORY: Shortness of breath FINDINGS: A diffuse interstitial pattern with bilateral infiltrate and pleural effusion. Cardiomegaly noted. No pneumothorax. Radiopaque density overlying the right clavicle may be superficial. Hypertrophic and d egenerative change of the spine. IMPRESSION: Correlate for Interstitial pneumonitis otherwise consider venous congestion. Findings sta ble..
[2021-06-21] MEDS: PANTOPRAZOLE 40 MG TABLET PO SCH (08:08)
[2021-06-21] MEDS: HEPARIN SODIUM,PORCINE/PF 5,000 UNIT/0.5 ML SYRINGE SQ SCH ×3 (08:08→23:23)
[2021-06-21] MEDS: lamoTRIgine 100 MG TAB PO SCH ×3 (08:08→23:23)
[2021-06-21] MEDS: amLODIPine 10 MG TAB PO SCH (08:08)
[2021-06-21] MEDS: GABAPENTIN 300 MG CAP PO SCH ×4 (08:08→23:23)
[2021-06-21] MEDS: oxyCODONE-APAP 10-325MG 1 EACH TAB PO SCH ×4 (08:08→23:23)
[2021-06-21] MEDS: CITALOPRAM HYDROBROMIDE 10 MG TAB PO SCH (08:08)
[2021-06-21] MEDS: FUROSEMIDE 10 MG/ML 4 ML VIAL IV SCH ×2 (08:08→23:22)
[2021-06-21] MEDS: PIPERACILLIN-TAZOBACTAM 3.375 GM in SODIUM CHLORIDE 0.9% 100 ML IVPB SCH ×3 (08:09→23:24)
[2021-06-21] MEDS: IPRATROPIUM-ALBUTEROL 3 ML NEB INHALATION SCH ×4 (08:57→19:02)
[2021-06-21] MEDS: ASPIRIN 81 MG PO SCH (10:41)
--- NOTE | 2021-06-21 10:53 | P.PN ---
Subjective This is a pleasant 55-year-old male with a past medical history of mild non- obstructive coronartery disease, seizure disorder, obstructive sleep apnea, chronic hypoxic respiratory failure, chronic obstructive pulmonary disease on 4 L continuously at home, as well as diabetes and hypertension and dyslipidemia. Patient was seen in the office last in [address] Pierre at that time. Cardiology was consulted for further evaluation off bradycardia. Patient was admitted to the hospital on 06/18/21, Patient woke up and found himself on the floor, patient thought he had a seizure. EMS was called and the patient was brought to the emergency department where he underwent a workup including CT brain and that came in to be unremarkable for acute abnormalities and at the same time he was found to be in profound bradycardia with initially heart rate in the 30s and subsequently in the 40s. The patient was started on dopamine and he was admitted to the ICU. The patient clinically was experiencing symptoms of generalized fatigue and tiredness and also increasing in the shortness of breath. No symptoms of chest pain or chest discomfort. EKG showed sinus bradycardia without any evidence of advanced AV block. Troponin negative x 2. TSH low, Free T4 within normal limits. Echocardiogram completed revealed ejection fraction 55-60%, mild aortic stenosis, mild mitral regurgitation, mild to moderate mitral stenosis, [id number] tricuspid regurgitation, and mild to moderate pulmonary hypertension Of note patient underwent a heart catheterization in 2018 and that revealed mild nonobstructive coronary artery disease with obtuse marginal branch of 10-20% stenosis. 06/21/21 Patient examined this morning at the bedside. Patient denies chest pain or pressure. Denies shortness of breath, lightheadedness, dizziness or palpitations. Telemetry reveals sinus mechanism with PVCS with a heart rate 60- 80s, no evidence of arrhythmia or bradycardia. Blood pressure 128/77, height 71, afebrile, maintaining oxygen saturation on 3 L high flow nasal cannula. Patient currently maintained on amlodipine 10 mg daily, atorvastatin 40 mg nightly, IV Lasix 40 mg twice a day per pulmonary. PHYSICAL EXAM: VITAL SIGNS: Reviewed. GENERAL: Well-developed in no acute distress. NECK: Supple. No JVD or thyromegaly LUNGS: Respirations even and unlabored. Lungs diminished to auscultation bilaterally. HEART: Regular rate and rhythm. S1 and S2 heard. EXTREMITIES: Normal range of motion. No clubbing or cyanosis. Peripheral pulses intact. No lower extremity edema ASSESSMENT: Sinus bradycardia, resolved Acute hypoxic respiratory failure Obstructive sleep apnea Hypertension Hyperlipidemia Seizure disorder Non-obstructive coronary artery disease PLAN: Avoid AV bernie blocking agents Add aspirin 81mg daily Continue amlodipine and statin No plans for PPM at this time We will follow the patient on an as needed basis, please reach out with any questions or concerns. Patient can follow up in the office with Dr. Lyles. Nurse practitioner note has been reviewed by physician. Signing provider agrees with the documented findings, assessment, and plan of care. Objective - Vital Signs Vital signs: Vital Signs Temp 98.8 F 06/21/21 07:18 Pulse 71 06/21/21 09:10 Resp 16 06/21/21 09:10 BP 157/71 06/21/21 07:18 Pulse Ox 93 L 06/21/21 08:58 Intake & Output 06/20/21 06/21/21 06/21/21 18:59 06:59 18:59 Intake Total 200 Output Total 1400 2150 Balance -1200 -2150 Weight 1168.8 kg 119 kg Intake: IV 200 Piperacillin-Tazobactam 3 200 .375 gm In Sodium Chloride 0.9% 100 ml @ 25 mls/hr IVPB Q8HR [facility] Rx# :[id number] Output: Urine 1400 2150 Other: Voiding Method Indwelling Catheter Indwelling Catheter Indwelling Catheter - Labs CBC & Chem 7: 06/20/21 03:37 06/20/21 03:43 Labs: Abnormal Lab Results - Last 24 Hours (Table) 06/20/21 06/20/21 06/21/21 Range/Units 03:37 11:13 02:10 POC Glucose (mg/dL) 147 H 100 H (75-99) mg/dL IgA 427.0 H (60.0-350.0) mg/dL IgM <16.9 L (40.0-280.0) mg/dL Microbiology - Last 24 Hours (Table) 06/18/21 13:35 Blood Culture - Preliminary Blood No Growth after 48 hours
[2021-06-21 11:15] LABS: Glucose,Whole Blood 109 mg/dL (75-99)
--- NOTE | 2021-06-21 15:14 | P.PN ---
Subjective Progress Note Date: 06/21/21 Principal diagnosis: Altered mental status 55-year-old male who was evaluated in the emergency department yesterday by Dr. Hamilton. The patient apparently has a history of chronic hypoxemic respiratory failure secondary to COPD, seizure disorder, Parkinson's disease, among other t hings, but apparently was found by the ER physician to have a very low blood sugar. The patient received some D50, and also some fluids and Zofran for nausea. Subsequent to that, the patient was found to be bradycardic. Cardiology was consulted, and the patient was placed on dopamine for control of his heart rate. Currently, the patient's resting comfortably. The dopamine is been turned off. The patient's on a nonrebreather mass. The patient is getting saline at 75 mL an hour. We are going to give the patient Lasix 40 mg IV push twice a day, cut back his fluids. Instruction was positive for oxycodone and benzodiazepines. The patient has made it clear that he would not want to be in tubated should come to that. He was seen in the emergency room on June 18. He apparently crawls around his house according to his nurse. He apparently either because of neuropathy or muscle weakness, cannot stand up on his own feet. White count is 8.7, hemoglobin 11.8, hematocrit 36.2, and platelet count 245,000. Sodium 133, repeat potassium 6.6, initial potassium 7.1, chlorides 108, CO2 14, anion gap 11, BUN 23, creatinine 1.49. Chest x-ray was consistent with fluid overload/CHF. Brain CT was negative for anything acute. Progress note dated 06/20/2021. 55-year-old male, seen yesterday in consultation. He was initially seen by Dr. Hamilton in the emergency room for hypoglycemia, and bradycardia. The patient was initially placed on dopamine drip as per cardiology. That is turned off. The patient's doing much better today. He is much more awake and alert. He is on 8 L nasal cannula. He is not getting any IV. In my opinion, the patient could be transferred out of the intensive care unit general medical floor with. We will check a magnesium level today. Current lab work includes a white count of 4.6, hemoglobin 10.6, hematocrit 32, and a platelet count 217,000. Electrolyte profile shows a sodium 136, potassium 4.8, chlorides 105, CO2 26, anion gap 5, BUN 19, and creatinine 1.19. The patient has been seen by neurology and psychiatry. The EEG was abnormal showing background slowing of mild to moderate degree. This was suggestive of generalized cerebral dysfunction with toxic/metabolic encephalopathy. The patient is seen today 06/21/2021 in follow-up on the selective care unit. He is currently resting comfortably in bed. Awake and alert in no acute dis tress. Breathing easier today compared to yesterday. He is down to 3 L/m per nasal cannula. Chest x-ray showing improvement. Blood cultures reveal no growth. Blood glucose 109. He remains on Lasix 40 mg IV every 12 hours. He is continued on DuoNeb inhalations, Zosyn, heparin for DVT prophylaxis. He has been seen and evaluated by psychiatric services. No plans for inpatient admission. Subacute rehabilitation pending. Objective - Vital Signs Vital signs: Vital Signs Temp 98.3 F 06/21/21 13:59 Pulse 68 06/21/21 13:59 Resp 18 06/21/21 13:59 BP 151/71 06/21/21 13:59 Pulse Ox 95 06/21/21 13:59 Intake & Output 06/20/21 06/21/21 06/21/21 18:59 06:59 18:59 Intake Total 200 Output Total 1400 2150 1000 Balance -1200 -2150 -1000 Weight 1168.8 kg 119 kg Intake: IV 200 Piperacillin-Tazobactam 3 200 .375 gm In Sodium Chloride 0.9% 100 ml @ 25 mls/hr IVPB Q8HR [facility] Rx# :[id number] Output: Urine 1400 2150 1000 Uretheral (Atkins) 1000 Other: Voiding Method Indwelling Catheter Indwelling Catheter Indwelling Catheter - Exam GENERAL EXAM: Alert, pleasant 55-year-old gentleman, on 3 L nasal cannula, comfortable in no apparent distress. HEAD: Normocephalic. EYES: Normal reaction of pupils, equal size. NOSE: Clear with pink turbinates. THROAT: No erythema or exudates. NECK: No masses, no JVD. CHEST: No chest wall deformity. LUNGS: Equal air entry with crackles in the posterior bases. CVS: S1 and S2 normal with no audible murmur, regular rhythm. ABDOMEN: No hepatosplenomegaly, normal bowel sounds, no guarding or rigidity. SPINE: No scoliosis or deformity SKIN: No rashes CENTRAL NERVOUS SYSTEM: No focal deficits, tone is normal in all 4 extremities. EXTREMITIES: There is no peripheral edema. No clubbing, no cyanosis. Peripheral pulses are intact. - Labs CBC & Chem 7: 06/20/21 03:37 06/20/21 03:43 Labs: Abnormal Lab Results - Last 24 Hours (Table) 06/20/21 06/21/21 06/21/21 Range/Units 03:37 02:10 11:13 POC Glucose (mg/dL) 100 H 109 H (75-99) mg/dL Zinc 53 L (60-130) ug/dL Microbiology - Last 24 Hours (Table) 06/18/21 13:35 Blood Culture - Preliminary Blood No Growth after 48 hours Assessment and Plan Assessment: 1 Mental status changes, with hypoglycemia and bradycardia. 2 Acute hypoxemic respiratory failure, which may be multifactorial, in part related to underlying COPD exacerbation, pneumonia and/or heart failure. 3 History of COPD with ongoing tobacco use and nicotine addiction. 4 History of CVA. 5 History of diabetes mellitus. 6 Fibromyalgia. 7 Gastroesophageal reflux disease. 8 History of hyperlipidemia. 9 History of hypertension. 10 History of seizure disorder. 11 History of obstructive sleep apnea syndrome, currently on home CPAP. Plan: The patient was seen and evaluated by Dr. Hoffman Chest x-ray and labs reviewed Remains on IV diuretics Stable from the pulmonary standpoint Remains on Zosyn, could be transitioned to Augmentin ECF versus inpatient rehabilitation pending I, the cosigning physician, performed a history & physical examination of the patient. Lungs sounds with faint crackles in the posterior bases. Maintaining good O2 saturations in the 90s on 3 L/m per nasal cannula I discussed the assessment and plan of care with my nurse practitioner, Aleah Chavez. I attest to the above note as dictated by her.
[2021-06-21 16:30] LABS: Glucose,Whole Blood 112 mg/dL (75-99)
--- NOTE | 2021-06-21 17:49 | PN ---
PROGRESS NOTE This 55-year-old white male is doing better. No seizures. Trying to wean off oxygen. He is being treated for pneumonia. EEG shows toxic metabolic encephalopathy. He is weaned down to 3 L, which is about his baseline. We are going to switch him from IV to oral Lasix. Possibly go to the rehab, possibly tomorrow. Vital signs stable. Head normocephalic, atraumatic. Lungs clear. GI soft. Psych: Normal affect. ASSESSMENT: 1. Hyperglycemia. 2. Bradycardia. 3. Syncope versus seizure. 4. Hypoxemic respiratory failure. 5. Aspiration pneumonia/chronic obstructive pulmonary disease. 6. History of cerebrovascular accident. 7. Diabetes. 8. Fibromyalgia. 9. Gastroesophageal reflux disease. 10.Dyslipidemia. 11.Hypertension. 12.Seizures. 13.Sleep apnea, on CPAP. He is stable. Possibly send him home on Augmentin to the F. Switch to oral diuretics. No further changes neurology recommendation. MMODL / IJN: [id number] /
--- NOTE | 2021-06-21 17:53 | P.PN ---
Subjective Progress Note Date: 06/21/21 Patient was seen for a follow-up. Patient denies any headache. Continues to have numbness in the arms and legs, but has been present for "a long time". Patient probably will be going to [facility] for rehab. Objective - Vital Signs Vital signs: Vital Signs Temp 98.3 F 06/21/21 13:59 Pulse 70 06/21/21 16:02 Resp 18 06/21/21 13:59 BP 151/71 06/21/21 13:59 Pulse Ox 95 06/21/21 13:59 Intake & Output 06/20/21 06/21/21 06/21/21 18:59 06:59 18:59 Intake Total 200 Output Total 1400 2150 1000 Balance -1200 -2150 -1000 Weight 1168.8 kg 119 kg Intake: IV 200 Piperacillin-Tazobactam 3 200 .375 gm In Sodium Chloride 0.9% 100 ml @ 25 mls/hr IVPB Q8HR [facility] Rx# :[id number] Output: Urine 1400 2150 1000 Uretheral (Atkins) 1000 Other: Voiding Method Indwelling Catheter Indwelling Catheter Indwelling Catheter - Exam Patient's mental status, speech and language functions are normal. Cranial nerv es are normal. Extraocular muscles are intact. Visual gutierrez are full. Face is symmetric. On muscle strength testing, there is no pronator drift and the strength is normal in arms and legs. Patient has mild ataxia for zeffjk-gu-bzfc, but at least moderate ataxia for fnst-ex-[id number] testing. Patient has some postural tremor versus myoclonic tremors of outstretched hands. Reflexes are absent in the upper limbs, 1 at the knees, absent ankles and plantars are downgoing. Sensations are decreased from toes up to mid thighs and from fingers up to mid forearms bilaterally. Tone and bulk of muscles normal. - Labs CBC & Chem 7: 06/20/21 03:37 06/20/21 03:43 Labs: Abnormal Lab Results - Last 24 Hours (Table) 06/20/21 06/21/21 06/21/21 Range/Units 03:37 02:10 11:13 POC Glucose (mg/dL) 100 H 109 H (75-99) mg/dL Zinc 53 L (60-130) ug/dL 06/21/21 Range/Units 16:29 POC Glucose (mg/dL) 112 H (75-99) mg/dL Zinc (60-130) ug/dL Microbiology - Last 24 Hours (Table) 06/18/21 13:35 Blood Culture - Preliminary Blood No Growth after 72 hours Assessment and Plan Assessment: * Syncopal spell versus seizure. Patient EKG showed significant bradycardia, therefore arrhythmia is a likely possibility. Patient has history of seizure disorder, but he is on fairly high doses of Lamictal, and the levels are therapeutic. Therefore seizure appears somewhat less likely. * Diabetes with peripheral neuropathy. Rule out other causes of polyneuropathy. * Hypertension * Obesity * COPD * Angel. depressive disorder * Reported diagnosis of Parkinson's disease. Clinically patient does not appear to have Parkinson's symptoms. * Sleep apnea * Tobacco use Plan: * Patient's mentation has much improved. He is much more alert and awake and interactive. Patient has difficulty with standing and mobility, of unclear etiology. Patient does have polyneuropathy involving arms and legs. Examination also revealed possibility of ataxia in the lower extremities. Await blood tests performed as below. * EEG 06/19/2021 revealed [id number] background slowing, suggestive of toxic metabolic encephalopathy. No epileptiform activity. Patient is currently on Lamictal 200 mg every 8 hours, which will be continued. Levels are therapeutic. Seizure appears less likely. Patient has been running significant bradycardia, therefore arrhythmia likely the cause of syncopal episode. * Patient has history of peripheral neuropathy. * Await B12, folate, MMA, B6, NANDA, Sjogren's antibodies negative, zinc level 53 (60 to 130), IgG 1040, igM <16.9, immune fixation electrophoresis, SPEP still pending. Hemoglobin A1c 6.2. Patient would need outpatient EMG and nerve conduction studies of upper and lower extremities, to rule out inflammatory neuropathy. We will consider zinc replacement. * Patient also carries a diagnosis of Parkinson's disease. Patient's tone was normal. I would suggest decreasing dose of Sinemet to one tablet daily. Suggest stopping Reglan to prevent drug-induced parkinsonism. * Cardiology also following for possible arrhythmia. * PT OT, possible rehab. * We will follow clinically.
[2021-06-21 19:38] LABS: Folate, Serum 5.8 ng/mL
[2021-06-21 20:41] LABS: Glucose,Whole Blood 103 mg/dL (75-99)
[2021-06-21] MEDS: ATORVASTATIN 40 MG TAB PO SCH (23:22)
[2021-06-21] MEDS: QUEtiapine 50 MG TAB PO SCH (23:24)
[2021-06-22 01:57] LABS: Glucose,Whole Blood 109 mg/dL (75-99)
[2021-06-22 07:03] LABS: Glucose,Whole Blood 120 mg/dL (75-99)
[2021-06-22 07:55] LABS: Methylmalonic Acid 0.76 umol/L (<0.40)
[2021-06-22] MEDS: IPRATROPIUM-ALBUTEROL 3 ML NEB INHALATION SCH ×3 (08:37→16:20)
[2021-06-22 08:39] VITALS: RESP 16
[2021-06-22] MEDS: PIPERACILLIN-TAZOBACTAM 3.375 GM in SODIUM CHLORIDE 0.9% 100 ML IVPB SCH ×2 (08:56→16:03)
[2021-06-22] MEDS: HEPARIN SODIUM,PORCINE/PF 5,000 UNIT/0.5 ML SYRINGE SQ SCH ×2 (09:06→16:03)
[2021-06-22] MEDS: PANTOPRAZOLE 40 MG TABLET PO SCH (09:06)
[2021-06-22] MEDS: GABAPENTIN 300 MG CAP PO SCH ×3 (09:06→18:02)
[2021-06-22] MEDS: FUROSEMIDE 10 MG/ML 4 ML VIAL IV SCH (09:06)
[2021-06-22] MEDS: oxyCODONE-APAP 10-325MG 1 EACH TAB PO SCH ×4 (09:07→18:06)
[2021-06-22] MEDS: amLODIPine 10 MG TAB PO SCH (09:07)
[2021-06-22] MEDS: ASPIRIN 81 MG PO SCH (09:08)
[2021-06-22] MEDS: lamoTRIgine 100 MG TAB PO SCH ×2 (09:08→16:02)
[2021-06-22] MEDS: CITALOPRAM HYDROBROMIDE 10 MG TAB PO SCH (09:40)
[2021-06-22] MEDS ORDERED: CYANOCOBALAMIN 1,000 MCG/ML 1 ML VIAL IM SCH (11:15)
[2021-06-22 11:45] LABS: Glucose,Whole Blood 140 mg/dL (75-99)
--- NOTE | 2021-06-22 13:10 | P.PN ---
Subjective Progress Note Date: 06/22/21 Patient was seen for a follow-up. Patient denies any headache. Patient is in his recliner comfortably. Continues to have numbness in the arms and legs, but has been present for "a long time". Objective - Vital Signs Vital signs: Vital Signs Temp 98.8 F 06/22/21 07:33 Pulse 60 06/22/21 08:46 Resp 16 06/22/21 08:46 BP 132/57 06/22/21 07:33 Pulse Ox 95 06/22/21 08:37 Intake & Output 06/21/21 06/22/21 06/22/21 18:59 06:59 18:59 Output Total 1999 2099 Balance -1999 -2099 Weight 112 kg Output: Urine 1999 2099 Uretheral (Atkins) 1000 Other: Voiding Method Indwelling Catheter Indwelling Catheter Indwelling Catheter - Exam Patient's mental status, speech and language functions are normal. Cranial nerves are normal. Extraocular muscles are intact. Visual gutierrez are full. Face is symmetric. On muscle strength testing, there is no pronator drift and the strength is normal in arms and legs, except hip flexion is 4/4 bilaterally. His hip abduction, hip abduction and knee extension are normal. Ankles and toes normal. Patient has mild ataxia for [id number]-tk-sqpc, but at least moderate ataxia for eqjf-ki-rxst testing bilaterally. Postural tremors have resolved. Reflexes are absent in the upper limbs, 1 at the knees, absent ankles and plantars are downgoing. Sensations are decreased from toes up to mid thighs and from fingers up to mid forearms bilaterally. Tone and bulk of muscles normal. - Labs CBC & Chem 7: 06/20/21 03:37 06/20/21 03:43 Labs: Abnormal Lab Results - Last 24 Hours (Table) 06/20/21 06/20/21 06/21/21 Range/Units 03:37 03:43 16:29 POC Glucose (mg/dL) 112 H (75-99) mg/dL Vitamin B12 132.0 L (200.0-944.0) pg/mL Methylmalonic Acid 0.76 H (<0.40) umol/L 06/21/21 06/22/21 06/22/21 Range/Units 20:39 01:56 06:50 POC Glucose (mg/dL) 103 H 109 H 120 H (75-99) mg/dL Vitamin B12 (200.0-944.0) pg/mL Methylmalonic Acid (<0.40) umol/L 06/22/21 Range/Units 11:40 POC Glucose (mg/dL) 140 H (75-99) mg/dL Vitamin B12 (200.0-944.0) pg/mL Methylmalonic Acid (<0.40) umol/L Microbiology - Last 24 Hours (Table) 06/18/21 13:35 Blood Culture - Preliminary Blood No Growth after 72 hours Assessment and Plan Assessment: * Vitamin B12 deficiency, severe degree. * Syncopal spell versus seizure. Patient EKG showed significant bradycardia, therefore arrhythmia is a likely possibility. Patient has history of seizure disorder, but he is on fairly high doses of Lamictal, and the levels are therapeutic. Therefore seizure appears somewhat less likely. * Diabetes. * Mild zinc deficiency * Hypertension * Obesity * COPD * Angel. depressive disorder * Reported diagnosis of Parkinson's disease. Clinically patient does not appear to have Parkinson's symptoms. * Sleep apnea * Tobacco use Plan: * Patient's B12 is very low 132 (200-944), methylmalonic acid 0.76 (<0.40), previous homocysteine was 15.56 (4-14). Patient has severe vitamin B12 deficiency, which is the likely cause of his numbness, ataxia, gait imbalance. Patient will be started on vitamin B12 1000 g IM daily for 7 days, then weekly for 3 months. After that the dose can be decreased to 1000 g twice a month and maintain at this dose. We will check parietal cell antibodies to rule out pernicious anemia. * Folate 5.8, which is very borderline. Patient will be started on folate replacement. * Await NANDA and B6. * Sjogren's antibodies negative, zinc level 53 (60 to 130), IgG 1040, igM <16.9, immune fixation electrophoresis, SPEP still pending. Hemoglobin A1c 6.2. * Patient's mentation has much improved. He is much more alert and awake and interactive. Patient has difficulty with standing and mobility, most likely from B12 deficiency. * EEG 06/19/2021 revealed [id number] background slowing, suggestive of toxic metabolic encephalopathy. No epileptiform activity. Patient is currently on Lamictal 200 mg every 8 hours, which will be continued. Levels are therapeutic. Seizure appears less likely. Patient has been running significant bradycardia, therefore arrhythmia likely the cause of syncopal episode. * Patient does not have Parkinson's clinically. Sinemet has been stopped. Suggest stopping Reglan to prevent drug-induced parkinsonism. * Patient going to [facility] for inpatient rehabilitation today.
--- NOTE | 2021-06-22 13:22 | P.PN ---
Subjective Progress Note Date: 06/22/21 Principal diagnosis: Mental status changes. Pulmonary consult dated 06/19/2021. 55-year-old male who was evaluated in the emergency department yesterday by Dr. Hamilton. The patient apparently has a history of chronic hypoxemic respiratory failure secondary to COPD, seizure disorder, Parkinson's disease, among other things, but apparently was found by the ER physician to have a very low blood sugar. The patient received some D50, and also some fluids and Zofran for nausea. Subsequent to that, the patient was found to be bradycardic. Cardiology was consulted, and the patient was placed on dopamine for control of his heart rate. Currently, the patient's resting comfortably. The dopamine is been turned off. The patient's on a nonrebreather mass. The patient is getting saline at 75 mL an hour. We are going to give the patient Lasix 40 mg IV push twice a day, cut back his fluids. Instruction was positive for oxycodone and benzodiazepines. The patient has made it clear that he would not want to be intubated should come to that. He was seen in the emergency room on June 18. He apparently crawls around his house according to his nurse. He apparently either because of neuropathy or muscle weakness, cannot stand up on his own feet. White count is 8.7, hemoglobin 11.8, hematocrit 36.2, and platelet count 245,000. Sodium 133, repeat potassium 6.6, initial potassium 7.1, chlorides 108, CO2 14, anion gap 11, BUN 23, creatinine 1.49. Chest x-ray was consistent with fluid overload/CHF. Brain CT was negative for anything acute. Progress note dated 06/20/2021. 55-year-old male, seen yesterday in consultation. He was initially seen by Dr. Hamilton in the emergency room for hypoglycemia, and bradycardia. The patient was initially placed on dopamine drip as per cardiology. That is turned off. The patient's doing much better today. He is much more awake and alert. He is on 8 L nasal cannula. He is not getting any IV. In my opinion, the patient could be transferred out of the intensive care unit general medical floor with. We will check a magnesium level today. Current lab work includes a white count of 4.6, hemoglobin 10.6, hematocrit 32, and a platelet count 217,000. Electrolyte profile shows a sodium 136, potassium 4.8, chlorides 105, CO2 26, anion gap 5, BUN 19, and creatinine 1.19. The patient has been seen by neurology and p sychiatry. The EEG was abnormal showing background slowing of mild to moderate degree. This was suggestive of generalized cerebral dysfunction with toxic/metabolic encephalopathy. Progress note dated 06/22/2021. 55-year-old male, seen in consultation on June 19. Please refer back to that note. The patient was initially in the intensive care unit, and transferred out to the floor, in to room 456 where he was seen today. Currently he is doing very well. His been titrated down to 3 L nasal cannula. His breathing is much improved. Initially admitted with a diagnosis of hypoglycemia and bradycardia. There were no new labs today. There are also no new chest x- rays today. Chest x-ray from yesterday showed some mild interstitial edema, but the pattern has improved since he was admitted. Objective - Vital Signs Vital signs: Vital Signs Temp 98.8 F 06/22/21 07:33 Pulse 60 06/22/21 08:46 Resp 16 06/22/21 08:46 BP 132/57 06/22/21 07:33 Pulse Ox 95 06/22/21 08:37 Intake & Output 06/21/21 06/22/21 06/22/21 18:59 06:59 18:59 Output Total 1999 2099 Balance -1999 -2099 Weight 112 kg Output: Urine 1999 2099 Uretheral (Atkins) 1000 Other: Voiding Method Indwelling Catheter Indwelling Catheter Indwelling Catheter - Exam No acute distress, currently on 3 L nasal cannula. The patient is much more awake and alert. He is quite conversant. HEENT examination is grossly unremarkable. Neck supple. Full range of motion. No adenopathy thyromegaly or neck vein distention. Cardiovascular examination reveals regular rhythm rate. S1-S2 normal. No S3 or S4. No discernible murmur noted. Heart sounds are distant. Heart rate 60 bpm. Lungs reveal bilateral rhonchi, and crackles. Breath sounds equal. Breath sounds diminished throughout. No wheezes. Abdomen soft bowel sounds are heard. No masses or tenderness. Extremities are intact. No cyanosis clubbing or edema. Skin is without rash or lesion. Neurologic examination is brief but nonfocal. - Labs CBC & Chem 7: 06/20/21 03:37 06/20/21 03:43 Labs: Abnormal Lab Results - Last 24 Hours (Table) 06/20/21 06/20/21 06/21/21 Range/Units 03:37 03:43 16:29 POC Glucose (mg/dL) 112 H (75-99) mg/dL Vitamin B12 132.0 L (200.0-944.0) pg/mL Methylmalonic Acid 0.76 H (<0.40) umol/L 06/21/21 06/22/21 06/22/21 Range/Units 20:39 01:56 06:50 POC Glucose (mg/dL) 103 H 109 H 120 H (75-99) mg/dL Vitamin B12 (200.0-944.0) pg/mL Methylmalonic Acid (<0.40) umol/L 06/22/21 Range/Units 11:40 POC Glucose (mg/dL) 140 H (75-99) mg/dL Vitamin B12 (200.0-944.0) pg/mL Methylmalonic Acid (<0.40) umol/L Microbiology - Last 24 Hours (Table) 06/18/21 13:35 Blood Culture - Preliminary Blood No Growth after 72 hours Assessment and Plan Assessment: Mental status changes, with hypoglycemia and bradycardia, much improved. Acute hypoxemic respiratory failure, which may be multifactorial, in part related to underlying COPD exacerbation, pneumonia and/or heart failure. History of COPD with ongoing tobacco use and nicotine addiction. History of CVA. History of diabetes mellitus. Fibromyalgia. Gastroesophageal reflux disease. History of hyperlipidemia. History of hypertension. History of seizure disorder. History of obstructive sleep apnea syndrome, currently on home CPAP. Plan: Plan dated 06/19/2021. The patient's dopamine has been turned off by cardiology. The patient will get Lasix 40 mg IV push twice a day. The patient normally is on Lasix twice a day at home. We will turn his fluids down. Additional recommendations and suggestions are forthcoming. Medications are reviewed. A pro-calcitonin level be done. The patient will get doing nebs, 4 times a day and when necessary. We will continue to follow, and make recommendations where appropriate. Another consultants have been asked to see this patient including neurology for the patient's lower extremity weakness and neuropathy. The patient was also seen by cardiology. Hopefully, his mental status changes will improve, and additional history can be obtained. Plan dated 06/20/2021. The patient is much more awake today. His oxygen has improved, and is down to 60 L nasal cannula. Saturations are reasonable. The patient will have a repeat chest x-ray. The N-terminal proBNP was 1330. The pro-calcitonin level was 0.17. The patient can be transferred out of the ICU to the general medical floor with telemetry. Repeat chest x-ray is ordered. Medications are reviewed. He remains on Zosyn and updraft treatments. Plan dated 06/22/2021. Currently, the patient's doing much better. She has been weaned down to 3 L nasal cannula. Clinically he is doing much better and his breathing is much improved. The patient denies any chest pain or chest discomfort. The patient is awake and alert. Additional recommendations and suggestions are forthcoming. Prognosis is guarded. Time with Patient: Less than 30
[2021-06-22 14:50] VITALS: BP 122/67; TEMP 98.5
[2021-06-22] MEDS ORDERED: FOLIC ACID 1 MG TAB PO SCH (15:00)
[2021-06-22 16:24] VITALS: PULSE 60
[2021-06-22 16:33] LABS: Glucose,Whole Blood 152 mg/dL (75-99)
--- NOTE | 2021-06-22 16:41 | P.DS ---
Providers Date of admission: 06/18/21 15:03 Expected date of discharge: 06/22/21 Attending physician: Liam Acosta Consults: 06/18/21 15:12 Consult Physician Stat Consulting Provider: Eric Hoffman Consult Reason/Comments: Bradycardia, hypotensive, hypoglycemia Do you want consulting provider notified?: Already Contacted Consult Physician Urgent Consulting Provider: Girish Lyles Consult Reason/Comments: Bradycardia, hypotensive Do you want consulting provider notified?: Yes 06/18/21 20:00 Consult Physician Routine Consulting Provider: Mc Posada Consult Reason/Comments: depression Do you want consulting provider notified?: Yes 06/18/21 21:42 Consult Physician Stat Consulting Provider: Judson Hoffman Consult Reason/Comments: Seizures; increased numbness in lower extremities Do you want consulting provider notified?: Yes 06/19/21 14:43 Consult Physician Routine Consulting Provider: Michael Milton Consult Reason/Comments: possible IPR Do you want consulting provider notified?: Yes Primary care physician: [facility] Course: 55-year-old male who was evaluated in the emergency department yesterday by Dr. Hamilton. The patient apparently has a history of chronic hypoxemic respiratory failure secondary to COPD, seizure disorder, Parkinson's disease, among other things, but apparently was found by the ER physician to have a very low blood card gar. The patient received some D50, and also some fluids and Zofran for nausea. Subsequent to that, the patient was found to be bradycardic. Cardiology was consulted, and the patient was placed on dopamine for control of his heart rate. Currently, the patient's resting comfortably. The dopamine is been turned off. The patient's on a nonrebreather mass. The patient is getting saline at 75 mL an hour. We are going to give the patient Lasix 40 mg IV push twice a day, cut back his fluids. Instruction was positive for oxycodone and benzodiazepines. The patient has made it clear that he would not want to be intubated should come to that. He was seen in the emergency room on June 18. He apparently crawls around his house according to his nurse. He apparently either because of neuropathy or muscle weakness, cannot stand up on his own feet. White count is 8.7, hemoglobin 11.8, hematocrit 36.2, and platelet count 245,000. Sodium 133, repeat potassium 6.6, initial potassium 7.1, chlorides 108, CO2 14, anion gap 11, BUN 23, creatinine 1.49. Chest x-ray was consistent with fluid overload/CHF. Brain CT was negative for anything acute. Assessment: Mental status changes, with hypoglycemia and bradycardia, much improved. Acute hypoxemic respiratory failure, which may be multifactorial, in part related to underlying COPD exacerbation, pneumonia and/or heart failure. History of COPD with ongoing tobacco use and nicotine addiction. History of CVA. History of diabetes mellitus. Fibromyalgia. Gastroesophageal reflux disease. History of hyperlipidemia. History of hypertension. History of seizure disorder. History of obstructive sleep apnea syndrome, currently on home CPAP. Patient Condition at Discharge: Fair Plan - Discharge Summary New Discharge Prescriptions: No Action Atorvastatin [Lipitor] 40 mg PO HS Furosemide [Lasix] 40 mg PO BID Potassium Chloride [Klor-Con 20] 20 meq PO DAILY lamoTRIgine [LaMICtal] 200 mg PO TID metFORMIN HCL [Glucophage] 1,000 mg PO BID oxyCODONE-APAP 10-325MG [Percocet 10-325 mg] 1 tab PO QID INSULIN ASPART (NovoLOG) [NovoLOG (formulary)] 27 unit SQ AC-TID INSULIN ASPART (NovoLOG) [NovoLOG (formulary)] See Protocol SQ AC-TID Omeprazole 40 mg PO DAILY Cephalexin [Keflex] 500 mg PO BID Diazepam [Valium] 10 mg PO DAILY risperiDONE [RisperDAL] 0.5 mg PO HS Sulfamethox-Tmp 800-160Mg [Bactrim DS 800-160 mg] 1 tab PO Q12HR Meloxicam [Mobic] 15 mg PO DAILY Insulin Glargine,Hum.rec.anlog [Lantus Solostar Pen] 35 unit SQ HS Gabapentin 600 mg PO QID cloNIDine HCL [Catapres] 0.2 mg PO TID Citalopram Hydrobromide [CeleXA] 20 mg PO DAILY amLODIPine [Norvasc] 10 mg PO DAILY Dulaglutide [Trulicity] 4.5 mg SQ CARD lisinopriL 40 mg PO DAILY Insulin Glargine,Hum.rec.anlog [Lantus Solostar Pen] 30 unit SQ DAILY Carbidopa-Levodopa 10-100 mg [Sinemet 10-100] 1 tab PO BID Discharge Medication List Atorvastatin [Lipitor] 40 mg PO HS 08/31/14 [History] Furosemide [Lasix] 40 mg PO BID 08/10/15 [History] Potassium Chloride [Klor-Con 20] 20 meq PO DAILY 08/10/15 [History] lamoTRIgine [LaMICtal] 200 mg PO TID 08/10/15 [History] INSULIN ASPART (NovoLOG) [NovoLOG (formulary)] 27 unit SQ AC-TID 08/24/16 [History] INSULIN ASPART (NovoLOG) [NovoLOG (formulary)] See Protocol SQ AC-TID 08/24/16 [History] metFORMIN HCL [Glucophage] 1,000 mg PO BID 08/24/16 [History] oxyCODONE-APAP 10-325MG [Percocet 10-325 mg] 1 tab PO QID 08/24/16 [History] Cephalexin [Keflex] 500 mg PO BID 05/14/18 [History] Diazepam [Valium] 10 mg PO DAILY 05/14/18 [History] Omeprazole 40 mg PO DAILY 05/14/18 [History] Carbidopa-Levodopa 10-100 mg [Sinemet 10-100] 1 tab PO BID 06/18/21 [History] Citalopram Hydrobromide [CeleXA] 20 mg PO DAILY 06/18/21 [History] Dulaglutide [Trulicity] 4.5 mg SQ CARD 06/18/21 [History] Gabapentin 600 mg PO QID 06/18/21 [History] Insulin Glargine,Hum.rec.anlog [Lantus Solostar Pen] 30 unit SQ DAILY 06/18/21 [History] Insulin Glargine,Hum.rec.anlog [Lantus Solostar Pen] 35 unit SQ HS 06/18/21 [History] Meloxicam [Mobic] 15 mg PO DAILY 06/18/21 [History] Sulfamethox-Tmp 800-160Mg [Bactrim DS 800-160 mg] 1 tab PO Q12HR 06/18/21 [History] amLODIPine [Norvasc] 10 mg PO DAILY 06/18/21 [History] cloNIDine HCL [Catapres] 0.2 mg PO TID 06/18/21 [History] lisinopriL 40 mg PO DAILY 06/18/21 [History] risperiDONE [RisperDAL] 0.5 mg PO HS 06/18/21 [History] Follow up Appointment(s)/Referral(s): Girish Lyles MD [STAFF PHYSICIAN] - 1 Week [facility] [NON-STAFF] - 1-2 Days Liam Acosta MD [Primary Care Provider] - 1-2 days
--- NOTE | 2021-06-25 13:41 | CDI ---
Documentation Clarification Form Date: 06/25/21 From: [facility] [employer] Admit Date: 06/18/2021 03:03:00 PM Patient Name: Sajan Sullivan Visit Number: [id number] Discharge Date: 06/22/2021 06:22:00 PM ATTENTION: The Clinical Documentation Specialists (CDI) and [facility] Coding Staff appreciate your assistance in clarifying documentation. Please respond to the clarification below the line at the bottom and electronically sign. The CDI & [facility] Coding staff will review the response and follow-up if needed. Please note: Queries are made part of the Legal Health Record. If you have any questions, please contact the author of this message via ITS. Dr. Francis Talavera, Your patient has the documented diagnosis of unspecified CHF in Dr Hoffman's consult and several PN's. Additional information regarding the [type, acuity] of CHF is requested. History/Risk Factors: Hypertension, DM T2 w hypoglycemia, acute and chronic respiratory failure with hypoxia, ATN Clinical Indicators: Dr Hoffman's consult-CXR was consistent with fluid overload/CHF, VS/Pulse OX: 06/19- BNP: 1330 06/19 - Echocardiogram Results: Overall left ventricular systolic function is normal with, an EF between 55- 60 %. Chest X Ray: A diffuse interstitial pattern with bilateral infiltrate and pleural effusion. Cardiomegaly noted. No pneumothorax. Radiopaque density overlying the right clavicle may be superficial. IMPRESSION: Correlate for CHF otherwise consider diffuse pneumonia. Treatment: IV Lasix 40 mg In your professional opinion, can you please clarify the [acuity and type] of CHF if known? Acute Diastolic Heart Failure (preserved EF) MTDD
[2021-06-28 08:50] LABS: Albumin 3.09 g/dL (3.80-4.90); Gamma Globulin 1.07 g/dL (0.70-1.50)
== END 2021-06-22 18:22 | DRG 637 ==
LOC: EC 10:05 → 2SICU 15:03 → 4SSUR 06-20 22:18
PROVIDERS: ADMIT Family Medicine; ATTEND Family Medicine
PROC: 5A0945A Assistance with Respiratory Ventilation, 24-96 Consecutive Hours, High Flow/Velocity Cannula (ICD-10-PCS; principal; 2021-06-18)
DX: E11.649 Type 2 diabetes mellitus with hypoglycemia without coma (principal); J96.21 Acute and chronic respiratory failure with hypoxia; J69.0 Pneumonitis due to inhalation of food and vomit; I50.31 Acute diastolic (congestive) heart failure; Z68.41 Body mass index [BMI] 40.0-44.9, adult; N17.0 Acute kidney failure with tubular necrosis; G92 Toxic encephalopathy; L97.522 Non-pressure chronic ulcer of other part of left foot with fat layer exposed; I27.20 Pulmonary hypertension, unspecified; E11.42 Type 2 diabetes mellitus with diabetic polyneuropathy; I95.9 Hypotension, unspecified; E11.621 Type 2 diabetes mellitus with foot ulcer; G20 Parkinson's disease; I11.0 Hypertensive heart disease with heart failure; G40.409 Other generalized epilepsy and epileptic syndromes, not intractable, without status epilepticus; J44.9 Chronic obstructive pulmonary disease, unspecified; E11.65 Type 2 diabetes mellitus with hyperglycemia; Z79.4 Long term (current) use of insulin; E66.9 Obesity, unspecified; Z20.822 Contact with and (suspected) exposure to COVID-19; R00.1 Bradycardia, unspecified; M79.7 Fibromyalgia; K21.9 Gastro-esophageal reflux disease without esophagitis; E78.5 Hyperlipidemia, unspecified; F32.9 Major depressive disorder, single episode, unspecified; G47.33 Obstructive sleep apnea (adult) (pediatric); I08.3 Combined rheumatic disorders of mitral, aortic and tricuspid valves; E53.8 Deficiency of other specified B group vitamins; E60 Dietary zinc deficiency; E87.5 Hyperkalemia; F41.9 Anxiety disorder, unspecified; I25.10 Atherosclerotic heart disease of native coronary artery without angina pectoris; S01.112A Laceration without foreign body of left eyelid and periocular area, initial encounter; J33.8 Other polyp of sinus; F17.210 Nicotine dependence, cigarettes, uncomplicated; Z71.6 Tobacco abuse counseling; Z99.81 Dependence on supplemental oxygen; Z79.891 Long term (current) use of opiate analgesic; Z79.1 Long term (current) use of non-steroidal anti-inflammatories (NSAID); Z79.899 Other long term (current) drug therapy; Z86.73 Personal history of transient ischemic attack (TIA), and cerebral infarction without residual deficits; Z60.2 Problems related to living alone; Z87.19 Personal history of other diseases of the digestive system; Z87.2 Personal history of diseases of the skin and subcutaneous tissue; Z98.890 Other specified postprocedural states; Z71.3 Dietary counseling and surveillance; Z91.030 Bee allergy status; Z80.1 Family history of malignant neoplasm of trachea, bronchus and lung; Z82.49 Family history of ischemic heart disease and other diseases of the circulatory system; W06.XXXA Fall from bed, initial encounter
CPT/HCPCS: 36415; 70450; 71045; 71046; 80053; 80143; 80175; 80179; 80306; 80320; 81003; 82271; 82607; 82746; 82784; 83036; 83516; 83605; 83690; 83735; 83880; 83921; 84132; 84145; 84165; 84207; 84436; 84439; 84443; 84484; 84630; 85025; 85610; 85730; 86038; 86235; 86334; 87040; 87635; 93005; 93306; 94640; 94760; 95816; 96361; 96365; 96375; 99285

== ENCOUNTER 2024-06-21 09:22 | Inpatient (IN) | payer MEDICARE ==
--- NOTE | 2024-06-21 09:35 | ED ---
Chest Pain HPI - General Stated Complaint: chest pain Time Seen by Provider: 06/21/24 09:31 Source: RN notes reviewed, old records reviewed Limitations: no limitations, altered mental status - History of Present Illness Initial Comments: This is a 58-year-old male to the ER for evaluation of altered mental status weakness and complaining of severe chest pain anterior chest heaviness significant that was with him when he woke up this morning is persistent here in the ER with shortness of breath diaphoresis and shortness of persistent weakness MD Complaint: chest pain -: hour(s) Onset: awoke with symptoms Pain Location: substernal Pain Radiation: none Severity: moderate Severity scale (1-10): 5 Quality: aching Consistency: constant Improves With: nothing Worsens With: nothing Anginal Symptoms: diaphoresis, dyspnea, sense of impending doom Other Symptoms: palpitations Treatments Prior to Arrival: none - Related Data Home Medications Medication Instructions Recorded Confirmed Atorvastatin [Lipitor] 40 mg PO W/SUPPER 08/31/14 06/21/24 Potassium Chloride [Klor-Con 20] 20 meq PO DAILY 08/10/15 06/21/24 lamoTRIgine [LaMICtal] 200 mg PO TID-W/MEALS 08/10/15 06/21/24 Omeprazole 40 mg PO DAILY 05/14/18 06/21/24 Dulaglutide [Trulicity] 4.5 mg SQ CARD 06/18/21 06/21/24 Gabapentin 600 mg PO TID 06/18/21 06/21/24 Insulin Glargine,Hum.rec.anlog 20 unit SQ HS 06/18/21 06/21/24 [Lantus Solostar Pen] Meloxicam [Mobic] 15 mg PO DAILY 06/18/21 06/21/24 Aspirin EC [Ecotrin Low Dose] 81 mg PO DAILY 06/21/24 06/21/24 DULoxetine HCL [Cymbalta] 60 mg PO DAILY 06/21/24 06/21/24 Ergocalciferol [Vitamin D2 (1250 1,250 mcg PO CARD 06/21/24 06/21/24 Mcg = 64972 Iu)] Insulin Aspart [NovoLOG Flexpen] 10 units SQ AC-TID 06/21/24 06/21/24 Insulin Aspart [NovoLOG Flexpen] See Protocol SQ AC-TID 06/21/24 06/21/24 Ipratropium-Albuterol Nebulize 3 ml INHALATION RT-QID PRN 06/21/24 06/21/24 [Duoneb 0.5 mg-3 mg/3 ml Soln] Metoprolol Succinate [Toprol XL] 50 mg PO DAILY 06/21/24 06/21/24 Montelukast [Singulair] 10 mg PO DAILY 06/21/24 06/21/24 Sacubitril/Valsartan [Entresto 24 1 tab PO BID-W/MEALS 06/21/24 06/21/24 mg-26 mg Tablet] Sucralfate [Carafate] 1 gm PO TID 06/21/24 06/21/24 Terbinafine [LamISIL] 250 mg PO W/SUPPER 06/21/24 06/21/24 Vortioxetine Hydrobromide 20 mg PO W/SUPPER 06/21/24 06/21/24 [Trintellix] amLODIPine [Norvasc] 5 mg PO DAILY 06/21/24 06/21/24 Previous Rx's Medication Instructions Recorded Carbidopa-Levodopa 25-100 mg 1 each PO QID 30 Days #120 tab 06/24/24 [Sinemet 25-100 mg] Nitroglycerin Sl Tabs [Nitrostat] 0.4 mg SUBLINGUAL Q5M PRN 180 Days 06/24/24 #100 tab Allergies Allergy/AdvReac Type Severity Reaction Status Date / Time venom-honey bee Allergy Swelling Verified 06/21/24 14:29 [bee venom (honey bee)] Review of Systems ROS Statement: Those systems with pertinent positive or pertinent negative responses have been documented in the HPI. ROS Other: All systems not noted in ROS Statement are negative. EKG Findings - EKG Comments: EKG Findings:: EKG is paced 49 OR 215 QRS 142 QTc 429 - EKG Results: EKG: interpreted by SUSIED Past Medical History Past Medical History: COPD, CVA/TIA, Diabetes Mellitus, Fibromyalgia, GERD/Reflux, Hyperlipidemia, Hypertension, Memory Impairment, Seizure Disorder, Skin Disorder, Sleep Apnea/CPAP/BIPAP Additional Past Medical History / Comment(s): uses c-pap machine, on 4L Home oxygen, EPILEPTIC, past fall w/ concussion, ambulate with a walker and a wheelchair; Parkinson's History of Any Multi-Drug Resistant Organisms: None Reported Past Surgical History: Hernia Repair Additional Past Surgical History / Comment(s): Left big toe surgery/debridement r/t diabetic ulcer Past Anesthesia/Blood Transfusion Reactions: No Reported Reaction Smoking Status: Current every day smoker - Past Family History Father Family Medical History: Cancer Additional Family Medical History / Comment(s): LUNG Brother(s) History Unknown: Yes Family Medical History: Myocardial Infarction ([place]) Additional Family Medical History / Comment(s): Sister(s) History Unknown: Yes Family Medical History: Myocardial Infarction ([place]) Additional Family Medical History / Comment(s): General Exam General appearance: alert, in no apparent distress, anxious, in distress Head exam: Present: atraumatic, normocephalic, normal inspection Eye exam: Present: normal appearance, PERRL, EOMI. Absent: scleral icterus, conjunctival injection, periorbital swelling ENT exam: Present: normal exam, mucous membranes moist Neck exam: Present: normal inspection. Absent: tenderness, meningismus, lymphadenopathy Respiratory exam: Present: normal lung sounds bilaterally. Absent: respiratory distress, wheezes, rales, rhonchi, stridor Cardiovascular Exam: Present: regular rate, normal rhythm, normal heart sounds. Absent: systolic murmur, diastolic murmur, rubs, gallop, clicks GI/Abdominal exam: Present: soft, normal bowel sounds. Absent: distended, tenderness, guarding, rebound, rigid Extremities exam: Present: normal inspection, full ROM, normal capillary refill. Absent: tenderness, pedal edema, joint swelling, calf tenderness Back exam: Present: normal inspection Neurological exam: Present: alert, oriented X3, CN II-XII intact Psychiatric exam: Present: normal affect, normal mood Skin exam: Present: warm, dry, intact, normal color. Absent: rash Course Vital Signs 06/21/24 06/21/24 06/21/24 09:28 10:05 11:41 Temperature 98.2 F Pulse Rate 49 L 49 L 49 L Respiratory 18 20 16 Rate Blood Pressure 153/83 142/76 137/88 O2 Sat by Pulse 91 L 94 L 94 L Oximetry Fraction of Inspired Oxygen (FIO2) 06/21/24 06/21/24 06/21/24 14:54 16:08 17:34 Temperature Pulse Rate 49 L 49 L Respiratory 18 22 Rate Blood Pressure 165/92 147/77 O2 Sat by Pulse 94 L 100 Oximetry Fraction of 95 Inspired Oxygen (FIO2) 06/21/24 06/21/24 06/22/24 18:58 22:44 01:44 Temperature 96.9 F L Pulse Rate 49 L 49 L 49 L Respiratory 20 18 17 Rate Blood Pressure 120/92 130/73 124/63 O2 Sat by Pulse 100 98 100 Oximetry Fraction of Inspired Oxygen (FIO2) 06/22/24 06/22/24 06/22/24 04:07 06:30 07:35 Temperature 96.9 F L 97.4 F L Pulse Rate 49 L 49 L 49 L Respiratory 16 17 18 Rate Blood Pressure 140/75 128/73 138/66 O2 Sat by Pulse 100 100 100 Oximetry Fraction of Inspired Oxygen (FIO2) 06/22/24 06/22/24 06/22/24 08:10 09:42 12:00 Temperature Pulse Rate 49 L 49 L Respiratory 18 18 Rate Blood Pressure 125/72 124/66 O2 Sat by Pulse 97 97 96 Oximetry Fraction of Inspired Oxygen (FIO2) 06/22/24 13:53 Temperature 98.0 F Pulse Rate 50 L Respiratory 18 Rate Blood Pressure 123/85 O2 Sat by Pulse 95 Oximetry Fraction of Inspired Oxygen (FIO2) - Reevaluation(s) Reevaluation #1: 06/21/24 12:55 Records reviewed Reevaluation #2: 06/21/24 12:55 Symptoms unchanged Reevaluation #3: 06/21/24 12:55 Patient informed of results and questions answered Reevaluation #4: Was pt. sent in by a medical professional or institution (, PA, MAINTENANCE MGR, urgent care, hospital, or half-way...) When possible be specific @ -no Did you speak to anyone other than the patient for history (EMS, parent, family, police, friend...)? What history was obtained from this source @ -no Did you review nursing and triage notes (agree or disagree)? Why? @ -agree Are old charts reviewed (outside hosp., previous admission, EMS record, old EKG, old radiological studies, urgent care reports/EKG's, half-way records)? Report findings @ -yes Differential Diagnosis (chest pain, altered mental status, abdominal pain women, abdominal pain men, vaginal bleeding, weakness, fever, dyspnea, syncope, headache, dizziness, GI bleed, back pain, seizure, CVA, palpatations, mental health, musculoskeletal)? @ -prior EKG interpreted by me (3pts min.). @ -yes X-rays interpreted by me (1pt min.). @ -yes negative for acute disease CT interpreted by me (1pt min.). @ -no U/S interpreted by me (1pt. min.). @ -no What testing was considered but not performed or refused? (CT, X-rays, U/S, labs)? Why? @ -none What meds were considered but not given or refused? Why? @ -none Did you discuss the management of the patient with other professionals (professionals i.e. , PA, MAINTENANCE MGR, lab, RT, psych nurse, social professionals, novelty maker, teacher, associate loan officer, case management coordinator)? Give summary @ -no Was smoking cessation discussed for >3mins.? @ -no Was critical care preformed (if so, how long)? @ -yes13 Were there social determinants of health that impacted care today? How? (Homelessness, low income, unemployed, alcoholism, drug addiction, transportation, low edu. Level, literacy, decrease access to med. care, residential, rehab)? @ -none Was there de-escalation of care discussed even if they declined (Discuss DNR or withdrawal of care, Hospice)? DNR status @ -no What co-morbidities impacted this encounter? (DM, HTN, Smoking, COPD, CAD, Cancer, CVA, ARF, Chemo, Hep., AIDS, mental health diagnosis, sleep apnea, morbid obesity)? @ -none Was patient admitted / discharged? Hospital course, mention meds given and route, prescriptions, significant lab abnormalities, going to OR and other pertinent info. @ - 58 male to ER for evaluation of chest pain today. Patient will be admitted for chest pain observation, EKG is nondiagnostic paced rhythm Admitted Undiagnosed new problem with uncertain prognosis? @ -no Drug Therapy requiring intensive monitoring for toxicity (Heparin, Nitro, Insulin, Cardizem)? @ -no Were any procedures done? @ -no Diagnosis/symptom? @ -Chest pain Acute, or Chronic, or Acute on Chronic? @ -Acute Uncomplicated (without systemic symptoms) or Complicated (systemic symptoms)? @ -Complicated Side effects of treatment? @ -no Exacerbation, Progression, or Severe Exacerbation? @ -exacerbation Poses a threat to life or bodily function? How? (Chest pain, [place], [place], pneumonia, PE, COPD, DKA, ARF, appy, cholecystitis, CVA, Diverticulitis, Homicidal, Suicidal, threat to staff... and all critical care pts) @ -yes with acute chest pain Reevaluation #5: Differential Chest Pain: Stable Angina, Unstable Angina, STEMI, NSTEMI Aortic Dissection, Pneumothorax, Musculoskeletal, Esophageal Spasm GERD, Cholecystitis, Pancreatitis, Zoster, this is not meant to be an all-inclusive list. - Consultations Consultation #1: Spoke with Karla who agrees to admit this patient Chest Pain MDM - MDM 58 male to ER for evaluation of chest pain today. Patient will be admitted for chest pain observation, EKG is nondiagnostic paced rhythm Critical Care Time Critical Care Time: Yes Total Critical Care Time: 31 Disposition Clinical Impression: Anterior pleuritic pain, Chest pain, Nausea and vomiting, Syncope, Bradycardia, Hyperkalemia Disposition: ADMITTED IP TO THIS [facility] Condition: Serious Is patient prescribed a controlled substance at d/c from ED?: No Time of Disposition: 13:00
[2024-06-21] MEDS: SODIUM CHLORIDE 0.9% 1,000 ML IV STA (09:55)
[2024-06-21] MEDS: ONDANSETRON 4 MG/2 ML VIAL IVP STA (09:57)
--- NOTE | 2024-06-21 10:14 | XR ---
EXAMINATION TYPE: XR chest 1V portable DATE OF EXAM: 06/21/2024 COMPARISON: 06/21/2020 HISTORY: Spitting TECHNIQUE: Single frontal view of the chest is obtained. FINDINGS: There is no focal air space opacity, pleural effusion, or pneumothorax seen. The cardiac silhouette size is within normal limits. The osseous structures are intact. Atherosclerotic change aorta. Dual lead cardiac device. Subsegmental linear changes may suggest scarring or atelectasis IMPRESSION: Left basilar atelectasis. Over infiltrate. No overt failure. [facility], , 06/21/2024 10:12 AM
[2024-06-21 10:18] LABS: Basophils % (A) 1 %; Eosinophils % (A) 1 %; HCT 37.3 % (39.0-53.0); HGB 12.3 gm/dL (13.0-17.5); Hypochromasia Slight; Lymphocytes # (A) 0.5 k/uL (1.0-4.8); Lymphocytes % (A) 8 %; MCH 32.1 pg (25.0-35.0); MCHC 32.9 g/dL (31.0-37.0); MCV 97.6 fL (80.0-100.0); Mean Platelet Volume 7.4; Monocytes # (A) 0.2 k/uL (0-1.0); Monocytes % (A) 4 %; Neutrophils # (A) 5.2 k/uL (1.3-7.7); Neutrophils % (A) 86 %; Platelet Count 231 k/uL (150-450); RBC 3.83 m/uL (4.30-5.90); RDW 15.9 % (11.5-15.5)
[2024-06-21 10:31] LABS: INR 1.1 (<1.2); Partial Thromboplastin Time 25.4 sec (22.0-30.0); Prothrombin Time 11.5 sec (10.0-12.5)
[2024-06-21 10:33] LABS: ALT 22 U/L (4-49); AST 23 U/L (17-59); African American GFR (CKD) 65 (>60 ml/min/1.73 sqM); Albumin 4.5 g/dL (3.5-5.0); Alkaline Phosphatase 66 U/L (38-126); Anion Gap 8 mmol/L; Blood Urea Nitrogen 35 mg/dL (9-20); Calcium 10.2 mg/dL (8.4-10.2); Carbon Dioxide 20 mmol/L (22-30); Chloride 110 mmol/L (98-107); Glucose 176 mg/dL (74-99); Magnesium 1.8 mg/dL (1.6-2.3); Non-African American GFR(CKD) 56 (>60 ml/min/1.73 sqM); Phosphorus 3.3 mg/dL (2.5-4.5); Sodium 138 mmol/L (137-145); Total Bilirubin 0.7 mg/dL (0.2-1.3); Total Protein 7.4 g/dL (6.3-8.2)
[2024-06-21 10:41] LABS: NT-Pro-B-Type Natriuretic Pept 628 pg/mL
[2024-06-21 10:54] LABS: Potassium 6.6 mmol/L (3.5-5.1)
[2024-06-21] MEDS ORDERED: NITROGLYCERIN SL TABS 0.4 MG TAB SUBLINGUAL PRN (12:46)
[2024-06-21] MEDS ORDERED: MORPHINE SULFATE 2 MG/ML SYRINGE IVP PRN (12:46)
[2024-06-21] MEDS: INSULIN REGULAR 100 UNIT/ML VIAL (IV) IV ONE (13:24)
[2024-06-21] MEDS: DEXTROSE 50% SYRINGE 50 ML IVP STA (13:24)
[2024-06-21] MEDS: SODIUM ZIRCONIUM CYCLOSILICATE 10 GM PACKET PO ONE (13:24)
[2024-06-21] MEDS: FUROSEMIDE 10 MG/ML 4 ML VIAL IV STA (13:24)
[2024-06-21] MEDS: SODIUM BICARB 8.4% 50 ML SYR (1 MEQ/ML) IV STA (13:24)
[2024-06-21] MEDS: HEPARIN SODIUM 1,000 UN/ML (10ML VL) IV ONE (13:29)
[2024-06-21] MEDS: HEPARIN SOD,PORK IN 0.45% NACL 25,000 UNIT in 0.45% NACL 1 250ML.BAG IV SCH (13:30)
[2024-06-21] MEDS: ASPIRIN 81 MG PO STA (13:32)
[2024-06-21] MEDS: SODIUM ZIRCONIUM CYCLOSILICATE 10 GM PACKET PO SCH (15:42)
[2024-06-21] MEDS: INSULIN DETEMIR (LEVEMIR) 100 UNIT/ML SYR SQ SCH (21:48)
[2024-06-21] MEDS: GABAPENTIN 300 MG CAP PO SCH (21:49)
[2024-06-21] MEDS: SUCRALFATE 1 GM TAB PO SCH (21:49)
[2024-06-21] MEDS: HEPARIN SODIUM 1,000 UN/ML (10ML VL) MISCELLANE PRN (22:37)
[2024-06-22 06:21] LABS: Anisocytosis Slight; Basophils % (A) 1 %; Eosinophils # (A) 0.1 k/uL (0-0.7); Eosinophils % (A) 1 %; HCT 36.4 % (39.0-53.0); Hypochromasia Slight; Lymphocytes % (A) 20 %; MCH 32.4 pg (25.0-35.0); MCV 98.3 fL (80.0-100.0); Mean Platelet Volume 7.3; Monocytes # (A) 0.3 k/uL (0-1.0); Monocytes % (A) 7 %; Neutrophils # (A) 3.5 k/uL (1.3-7.7); Neutrophils % (A) 69 %; Platelet Count 200 k/uL (150-450); RBC 3.71 m/uL (4.30-5.90); WBC 5.1 k/uL (3.8-10.6)
[2024-06-22 06:43] LABS: Albumin 3.9 g/dL (3.5-5.0); Chloride 105 mmol/L (98-107); Glucose 88 mg/dL (74-99); Potassium 5.3 mmol/L (3.5-5.1); Sodium 139 mmol/L (137-145); Total Protein 6.8 g/dL (6.3-8.2)
[2024-06-22 06:45] LABS: ALT 20 U/L (4-49); AST 20 U/L (17-59); African American GFR (CKD) 76 (>60 ml/min/1.73 sqM); Alkaline Phosphatase 58 U/L (38-126); Anion Gap 8 mmol/L; Blood Urea Nitrogen 31 mg/dL (9-20); Calcium 9.9 mg/dL (8.4-10.2); Carbon Dioxide 26 mmol/L (22-30); Non-African American GFR(CKD) 66 (>60 ml/min/1.73 sqM); Total Bilirubin 0.6 mg/dL (0.2-1.3)
[2024-06-22 07:19] LABS: Glucose,Whole Blood 82 mg/dL (70-110)
[2024-06-22] MEDS: SACUBITRIL/VALSARTAN 24 MG-26 MG TABLET PO SCH (07:41)
[2024-06-22] MEDS: lamoTRIgine 100 MG TAB PO SCH (07:42)
[2024-06-22] MEDS: PANTOPRAZOLE 40 MG TABLET PO SCH (07:42)
[2024-06-22] MEDS ORDERED: CAFFEINE CITRATE 60 MG/3 ML VIAL IV PRN (08:17)
[2024-06-22] MEDS ORDERED: REGADENOSON 0.4 MG/5 ML SYRINGE IV PRN (08:17)
[2024-06-22] MEDS ORDERED: AMINOPHYLLINE 500 MG/20 ML VIAL IV PRN (08:17)
[2024-06-22] MEDS ORDERED: POTASSIUM CHLORIDE ER 20 MEQ TAB.ER PO SCH (09:00)
[2024-06-22] MEDS ORDERED: ASPIRIN 325 MG TAB PO SCH (09:00)
[2024-06-22] MEDS: MONTELUKAST 10 MG TAB PO SCH (09:53)
[2024-06-22] MEDS: ASPIRIN 81 MG PO SCH (09:53)
[2024-06-22] MEDS: DULoxetine HCL 60 MG CAPSULE.DR PO SCH (09:53)
[2024-06-22] MEDS: amLODIPine 5 MG TAB PO SCH (09:54)
[2024-06-22] MEDS: METOPROLOL SUCCINATE (ER) 50 MG TAB.ER.24H PO SCH (09:54)
[2024-06-22 14:38] LABS: Chol/HDL Ratio 3.65 Ratio; LDL Cholesterol,Calculated 56.4 mg/dL (0.0-131.0)
--- NOTE | 2024-06-22 14:56 | P.CRDCN ---
History of Present Illness Consult date: 06/22/24 Consult reason: chest pain History of present illness: HISTORY OF PRESENT ILLNESS: This is a 58-year-old gentleman with past medical history significant for diabetes with neuropathy, hypertension, dyslipidemia, history of CVA, and known seizure disorder. Denies any recent seizures. Patient has a dual-lead pacemaker [place] [address] Bray. Patient was last seen in the office with Dr. 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 We are asked to see the patient in cons ultation for chest pain. Patient was examined at the bedside in the emergency room. He states that for the last couple days he has had chest pain, tightness, weakness, sweating, and shortness of breath. He does endorse some leg swelling. He says it is worse with exertion and with deep breathing his chest tightness worsens. He does not endorse any alleviating factors. DIAGNOSTICS: - EKG reveals electronic atrial pacemaker - Chest xray shows left basilar atelectasis, dual-lead pacemaker without cardiomegaly - Laboratory data: Hemoglobin 12. PTT 36.4. Potassium 5.3, downtrending. BUN 31, Creatinine 1.22 downtrending. Troponins x 3 negative. proBNP 628. 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 REVIEW OF SYSTEMS: As noted in HPI above. PHYSICAL EXAM: VITAL SIGNS: Reviewed. BP 138/66, heart rate 49, satting well on room air GENERAL: Well-developed in no acute distress. HEENT: Head is normocephalic. Pupils are equal, round. Sclerae anicteric. Mucous membranes of the mouth are moist. Neck supple. No JVD or thyromegaly LUNGS: Respirations even and unlabored. Diminished breath sounds bilaterally. HEART: Regular rate and rhythm. S1 and S2 heard. Systolic ejection murmur. ABDOMEN: Soft. Nontender to palpation. EXTREMITIES: Normal range of motion. No clubbing or cyanosis. Peripheral pulses intact. No notable lower extremity edema. NEUROLOGIC: Awake and alert. Oriented x 3. ASSESSMENT: Unstable angina Hypertension Diabetes with neuropathy Dyslipidemia Hyperkalemia, improving History of CVA COPD Seizure disorder PLAN: Follow-up on echocardiogram Continue Norvasc, aspirin, Lipitor, Toprol, Entresto Spironolactone, potassium chloride held due to hyperkalemia, Lokelma 5g TID added Discontinued heparin Patient to be NPO after midnight Lexiscan stress test tomorrow If Lexiscan abnormal, consider possible cardiac cath. If Lexiscan normal, consider follow-up on pacemaker. Monitor vital signs, electrolytes and renal function Further recommendations to follow based upon clinical course Thank you kindly for this consultation. Past Medical History Past Medical History: COPD, CVA/TIA, Diabetes Mellitus, Fibromyalgia, GERD/Reflux, Hyperlipidemia, Hypertension, Memory Impairment, Seizure Disorder, Skin Disorder, Sleep Apnea/CPAP/BIPAP Additional Past Medical History / Comment(s): uses c-pap machine, on 4L Home oxygen, EPILEPTIC, past fall w/ concussion, ambulate with a walker and a wheelchair; Parkinson's History of Any Multi-Drug Resistant Organisms: None Reported Past Surgical History: Hernia Repair Additional Past Surgical History / Comment(s): Left big toe surgery/debridement r/t diabetic ulcer Past Anesthesia/Blood Transfusion Reactions: No Reported Reaction Smoking Status: Current every day smoker - Past Family History Father Family Medical History: Cancer Additional Family Medical History / Comment(s): LUNG Brother(s) History Unknown: Yes Family Medical History: Myocardial Infarction ([place]) Additional Family Medical History / Comment(s): Sister(s) History Unknown: Yes Family Medical History: Myocardial Infarction ([place]) Additional Family Medical History / Comment(s): Medications and Allergies Home Medications Medication Instructions Recorded Confirmed Type Atorvastatin [Lipitor] 40 mg PO W/SUPPER 08/31/14 06/21/24 History Potassium Chloride [Klor-Con 20] 20 meq PO DAILY 08/10/15 06/21/24 History lamoTRIgine [LaMICtal] 200 mg PO TID-W/MEALS 08/10/15 06/21/24 History metFORMIN HCL [Glucophage] 1,000 mg PO BID-W/MEALS 08/24/16 06/21/24 History Omeprazole 40 mg PO DAILY 05/14/18 06/21/24 History Dulaglutide [Trulicity] 4.5 mg SQ CARD 06/18/21 06/21/24 History Gabapentin 600 mg PO TID 06/18/21 06/21/24 History Insulin Glargine,Hum.rec.anlog 20 unit SQ HS 06/18/21 06/21/24 History [Lantus Solostar Pen] Meloxicam [Mobic] 15 mg PO DAILY 06/18/21 06/21/24 History Aspirin EC [Ecotrin Low Dose] 81 mg PO DAILY 06/21/24 06/21/24 History DULoxetine HCL [Cymbalta] 60 mg PO DAILY 06/21/24 06/21/24 History Doxycycline Hyclate 100 mg PO BID 06/21/24 06/21/24 History Ergocalciferol [Vitamin D2 (1250 1,250 mcg PO CARD 06/21/24 06/21/24 History Mcg = 35173 Iu)] Insulin Aspart [NovoLOG Flexpen] 10 units SQ AC-TID 06/21/24 06/21/24 History Insulin Aspart [NovoLOG Flexpen] See Protocol SQ AC-TID 06/21/24 06/21/24 History Ipratropium-Albuterol Nebulize 3 ml INHALATION RT-QID PRN 06/21/24 06/21/24 History [Duoneb 0.5 mg-3 mg/3 ml Soln] Metoprolol Succinate [Toprol XL] 50 mg PO DAILY 06/21/24 06/21/24 History Montelukast [Singulair] 10 mg PO DAILY 06/21/24 06/21/24 History Sacubitril/Valsartan [Entresto 24 1 tab PO BID-W/MEALS 06/21/24 06/21/24 History mg-26 mg Tablet] Spironolactone 50 mg PO W/SUPPER 06/21/24 06/21/24 History Sucralfate [Carafate] 1 gm PO TID 06/21/24 06/21/24 History Terbinafine [LamISIL] 250 mg PO W/SUPPER 06/21/24 06/21/24 History Vortioxetine Hydrobromide 20 mg PO W/SUPPER 06/21/24 06/21/24 History [Trintellix] amLODIPine [Norvasc] 5 mg PO DAILY 06/21/24 06/21/24 History Allergies Allergy/AdvReac Type Severity Reaction Status Date / Time venom-honey bee Allergy Swelling Verified 06/21/24 14:29 [bee venom (honey bee)] Physical Exam Vitals: Vital Signs Temp Pulse Resp BP Pulse Ox FiO2 06/22/24 12:00 49 L 18 124/66 96 06/22/24 09:42 49 L 18 125/72 97 06/22/24 08:10 97 06/22/24 07:35 97.4 F L 49 L 18 138/66 100 06/22/24 06:30 96.9 F L 49 L 17 128/73 100 06/22/24 04:07 49 L 16 140/75 100 06/22/24 01:44 49 L 17 124/63 100 06/21/24 22:44 96.9 F L 49 L 18 130/73 98 06/21/24 18:58 49 L 20 120/92 100 06/21/24 17:34 95 06/21/24 16:08 49 L 22 147/77 100 06/21/24 14:54 49 L 18 165/92 94 L Intake and Output 06/21/24 06/22/24 06/22/24 22:59 06:59 14:59 Intake Total 66.992 91.333 Balance 66.992 91.333 Intake: Intake, IV Titration 66.992 91.333 Amount Heparin Sod,Pork in 0.45% 66.992 91.333 NaCl 25,000 unit In 0.45 % NaCl 1 250ml.bag @ 9. 931 UNITS/KG/HR 10 mls/hr IV .Q24H [facility] Rx#: [id number] Results 06/22/24 06:12 06/22/24 06:12 Cardiac Enzymes 06/21/24 06/21/24 06/22/24 Range/Units 14:06 19:22 06:12 AST 20 (17-59) U/L Troponin I 0.014 0.016 (0.000-0.034) ng/mL Coagulation 06/21/24 06/21/24 06/22/24 Range/Units 14:06 19:22 06:12 APTT 101.2 H* 27.4 36.4 H (22.0-30.0) sec CBC 06/22/24 Range/Units 06:12 WBC 5.1 (3.8-10.6) k/uL RBC 3.71 L (4.30-5.90) m/uL Hgb 12.0 L (13.0-17.5) gm/dL Hct 36.4 L (39.0-53.0) % Plt Count 200 (150-450) k/uL Comprehensive Metabolic Panel 06/22/24 Range/Units 06:12 Sodium 139 (137-145) mmol/L Potassium 5.3 H (3.5-5.1) mmol/L Chloride 105 (98-107) mmol/L Carbon Dioxide 26 (22-30) mmol/L BUN 31 H (9-20) mg/dL Creatinine 1.22 (0.66-1.25) mg/dL Glucose 88 (74-99) mg/dL Calcium 9.9 (8.4-10.2) mg/dL AST 20 (17-59) U/L ALT 20 (4-49) U/L Alkaline Phosphatase 58 (38-126) U/L Total Protein 6.8 (6.3-8.2) g/dL Albumin 3.9 (3.5-5.0) g/dL Current Medications Generic Name Dose Route Start Last Admin Trade Name Freq PRN Reason Stop Dose Admin Albuterol/Ipratropium 3 ml 06/21/24 17:34 Ipratropium-Albuterol 3 Ml Neb INHALATION RT-QID PRN Shortness Of Breath Amlodipine Besylate 5 mg 06/22/24 09:00 06/22/24 09:54 Amlodipine 5 Mg Tab PO 5 mg DAILY AMANDO Administration Aspirin 81 mg 06/22/24 09:00 06/22/24 09:53 Aspirin 81 Mg PO 81 mg DAILY AMANDO Administration Atorvastatin Calcium 40 mg 06/22/24 17:30 Atorvastatin 40 Mg Tab PO W/SUPPER AMANDO Duloxetine HCl 60 mg 06/22/24 09:00 06/22/24 09:53 Duloxetine Hcl 60 Mg Capsule.Dr PO 60 mg DAILY AMANDO Administration Gabapentin 600 mg 06/21/24 22:00 06/22/24 09:54 Gabapentin 300 Mg Cap PO 600 mg TID AMANDO Administration Insulin Detemir 20 unit 06/21/24 21:00 06/21/24 21:48 Insulin Detemir (Levemir) 100 Unit/Ml Syr SQ 20 unit HS AMANDO Administration Lamotrigine 200 mg 06/22/24 07:30 06/22/24 12:31 Lamotrigine 100 Mg Tab PO 200 mg TID-W/MEALS AMANDO Administration Metoprolol Succinate 50 mg 06/22/24 09:00 06/22/24 09:54 Metoprolol Succinate (Er) 50 Mg Tab.Er.24h PO 50 mg DAILY AMANDO Administration Montelukast Sodium 10 mg 06/22/24 09:00 06/22/24 09:53 Montelukast 10 Mg Tab PO 10 mg DAILY AMANDO Administration Morphine Sulfate 2 mg 06/21/24 12:46 Morphine Sulfate 2 Mg/Ml Syringe IVP Q4HR PRN Chest Pain Nitroglycerin 0.4 mg 06/21/24 12:46 Nitroglycerin Sl Tabs 0.4 Mg Tab SUBLINGUAL Q5M PRN Chest Pain Pantoprazole Sodium 40 mg 06/22/24 07:30 06/22/24 07:42 Pantoprazole 40 Mg Tablet PO 40 mg DAILY@0730 [facility] Administration Sacubitril/Valsartan 1 each 06/22/24 07:30 06/22/24 07:41 Sacubitril/Valsartan 24 Mg-26 Mg Tablet PO 1 each BID-W/MEALS AMANDO Administration Sodium Zirconium Cyclosilicate 5 gm 06/21/24 16:00 06/22/24 09:56 Sodium Zirconium Cyclosilicate 10 Gm Packet PO 5 gm TID AMANDO Administration Sucralfate 1 gm 06/21/24 22:00 06/22/24 09:54 Sucralfate 1 Gm Tab PO 1 gm TID AMANDO Administration Intake and Output 06/21/24 06/22/24 06/22/24 22:59 06:59 14:59 Intake Total 66.992 91.333 Balance 66.992 91.333 Intake: Intake, IV Titration 66.992 91.333 Amount Heparin Sod,Pork in 0.45% 66.992 91.333 NaCl 25,000 unit In 0.45 % NaCl 1 250ml.bag @ 9. 931 UNITS/KG/HR 10 mls/hr IV .Q24H [facility] Rx#: [id number] 06/22/24 06:12 06/22/24 06:12
[2024-06-22] MEDS: ATORVASTATIN 40 MG TAB PO SCH (15:46)
[2024-06-22 16:50] LABS: Glucose,Whole Blood 138 mg/dL (70-110)
[2024-06-22] MEDS ORDERED: SPIRONOLACTONE 25 MG TAB PO SCH (17:30)
[2024-06-22 20:10] LABS: Glucose,Whole Blood 130 mg/dL (70-110)
--- NOTE | 2024-06-23 06:57 | CA ---
Transthoracic Echo Report Name: Sajan Sullivan Age: 58 Gender: M : 1965 Exam Date: 06/22/2024 08:06 Exam Location: [place] [facility] Ht (in): 69 Wt (lb): 222 Ordering Physician: Gerry Marin DO Attending/Referring Phys: [id number], Tomas Liberal Arts Teacher Lia Berry RDCS Procedure CPT: Indications: CP Cardiac Hx: Technical Quality: Fair Contrast 1: Total Dose (mL): Contrast 2: Total Dose (mL): MEASUREMENTS (Male / Female) Normal Values 2D ECHO LV Diastolic Diameter PLAX 4.4 cm 4.2 - 5.9 / 3.9 - 5.3 cm LV Systolic Diameter PLAX 3.3 cm IVS Diastolic Thickness 1.6 cm 0.6 - 1.0 / 0.6 - 0.9 cm LVPW Diastolic Thickness 1.5 cm 0.6 - 1.0 / 0.6 - 0.9 cm LV Relative Wall Thickness 0.7 RV Internal Dim ED PLAX 3.3 cm LVOT Diameter 1.8 cm LA Volume 109.7 cm??? 18 - 58 / 22 - 52 cm??? LA Volume Index 48.8 cm???/m??? 16 - 28 cm???/m??? M-MODE Aortic Root Diameter MM 3.0 cm LA Systolic Diameter MM 6.0 cm LA Ao Ratio MM 2.0 AV Cusp Separation MM 1.1 cm DOPPLER AV Peak Velocity 275.1 cm/s AV Peak Gradient 30.3 mmHg AV Mean Velocity 210.3 cm/s AV Mean Gradient 19.3 mmHg AV Velocity Time Integral 64.5 cm LVOT Peak Velocity 85.0 cm/s LVOT Peak Gradient 2.9 mmHg LVOT Velocity Time Integral 18.6 cm LVOT Stroke Volume 45.4 cm??? LVOT Stroke Volume Index 21.0 ml/m??? LVOT Cardiac Index 1011.1 cm???/min???m??? AV Area Cont Eq vti 0.7 cm??? AV Area Cont Eq pk 0.8 cm??? MV Area PHT 3.2 cm??? Mitral E Point Velocity 121.8 cm/s Mitral A Point Velocity 39.5 cm/s Mitral E to A Ratio 3.1 MV Deceleration Time 237.7 ms MV E' Velocity 5.7 cm/s Mitral E to MV E' Ratio 21.3 TR Peak Velocity 252.3 cm/s TR Peak Gradient 25.5 mmHg Right Ventricular Systolic Press 29.3 mmHg FINDINGS Left Ventricle Moderately increased left ventricular wall thickness. Left ventricular cavity size normal. Normal left ventricular systolic function with no obvious regional wall motion abnormalities. Grade 1 diastolic dysfunction. Left ventricular ejection fraction is estimated at 55 %. Right Ventricle Normal right ventricular size and function. Right ventricular systolic pressure within normal limits. Right Atrium Right atrium not well visualized. Left Atrium Severely increased left atrial volume. Mildly increased left atrial area. Mitral Valve Structurally normal mitral valve. Mitral valve thickened. Mild mitral annular calcification. Mild to moderate mitral regurgitation. Aortic Valve Mild aortic stenosis with a peak gradient of 30 mmHg and a mean gradient of 19 mmHg. Trace aortic regurgitation. Tricuspid Valve Structurally normal tricuspid valve. Mild tricuspid regurgitation. Pulmonic Valve Structurally normal pulmonic valve. Pericardium No pericardial effusion. Aorta Normal size aortic root and proximal ascending aorta. CONCLUSIONS Technically difficult study for interpretation Normal LV systolic function Mild to moderate mitral regurgitation The aortic valve is poorly visualized. The valve is thickened. Cannot tell if the valve is trileaflet or bicuspid. Mild aortic stenosis Previewed by: Dr. Girish Lyles MD (Electronically Signed) Final Date: 23 June 2024 06:56
[2024-06-23 07:58] LABS: Mean Platelet Volume 7.5; Platelet Count 216 k/uL (150-450)
[2024-06-23 08:22] LABS: African American GFR (CKD) 66 (>60 ml/min/1.73 sqM); Anion Gap 5 mmol/L; Blood Urea Nitrogen 26 mg/dL (9-20); Calcium 9.9 mg/dL (8.4-10.2); Carbon Dioxide 30 mmol/L (22-30); Chloride 102 mmol/L (98-107); Glucose 80 mg/dL (74-99); Non-African American GFR(CKD) 57 (>60 ml/min/1.73 sqM); Potassium 4.5 mmol/L (3.5-5.1); Sodium 137 mmol/L (137-145)
[2024-06-23] MEDS ORDERED: REGADENOSON 0.4 MG/5 ML SYRINGE IV ONE (10:30)
[2024-06-23 11:22] LABS: Glucose,Whole Blood 99 mg/dL (70-110)
[2024-06-23] MEDS: CARBIDOPA-LEVODOPA 25-100 MG 1 EACH TAB PO SCH (12:26)
--- NOTE | 2024-06-23 13:04 | NM ---
EXAMINATION TYPE: NM stress lexiscan cardiolite DATE OF EXAM: 06/23/2024 COMPARISON: NONE CLINICAL INDICATION: Male, 58 years old with history of chest pain; TECHNIQUE: After the intravenous administration of 10.15 mCi Tc 99m Sestamibi - Cardiolite resting S PECT images acquired 70 minutes post injection. The patient received 0.4mg Lexiscan, 26.2 mCi Tc 99m Sestamibi - Stress images obtained [address] injection FINDINGS: Review of stress and rest SPECT images demonstrates findings suspicious for a small area of stress-in duced reversibility involving the inferolateral myocardium.. Gated analysis shows reduced wall motio n with an estimated left ventricular ejection fraction of 44 %. IMPRESSION: Findings suspicious for small area of stress-induced reversible ischemia inferior lateral myocardium. A Red level critical message alert has been initiated for Liam Acosta MD via the [employer] Critical Results System on 06/23/2024 1:02 PM. This message alert has been sent to Liam Acosta MD via the preferences provided by the clinician for the receipt of Radiology Critical Findings. Message ID [id number]. [facility], , 06/23/2024 1:02 PM
--- NOTE | 2024-06-23 13:13 | CA ---
Lexiscan Nuclear Stress Test Report Name: Sajan Sullivan Exam Date: 06/23/2024 10:07 Exam Location: [place] [facility] Ht (in): 69 Wt (lb): 229 BSA: 2.19 Ordering Phys: Mary Cartwright Referring Phys: JAXSON, Technologist: Mike Charles Age: 58 Gender: M : 1965 Procedure CPT: Indications: Reflex order-Stress test ICD-10 Codes: Patient History: Chest pain,shortness of breath, palpitations, hypertension and hyperlipidemia Medications: Meds past 24 hrs: Pretest Chest Pain: STRESS TEST Lexiscan Protocol Exercise Duration (min:sec): 02:[address] Depressions (mm): Angina Score: Romo Score: Resting HR (bpm): 50 Peak HR (bpm): 50 Resting BP (mmHg): 144 / 88 Peak BP (mmHg): 144 / 64 MPHR: 163 Target HR: 139 % MPHR: 31 METS: 1.0 Total Dose: Peak Dose: Atropine: Double Product: 7200 BP Response: Stress Termination: Infusion complete Stress Symptoms: No chest pain or symptoms Stress Summary: ECG ANALYSIS Resting ECG: Stress ECG: CONCLUSIONS Nondiagnostic electrocardiogram stress test Dr. Girish Lyles MD (Electronically Signed) Final Date: 23 June 2024 13:12
[2024-06-23] MEDS ORDERED: NITROGLYCERIN SL TABS 0.4 MG TAB SUBLINGUAL PRN (13:35)
--- NOTE | 2024-06-23 16:07 | P.PN ---
Subjective Progress Note Date: 06/23/24 HISTORY OF PRESENT ILLNESS: This is a 58-year-old gentleman with past medical history significant for di abetes with neuropathy, hypertension, dyslipidemia, history of CVA, and known seizure disorder. Denies any recent seizures. Patient has a dual-lead pacemaker [place] [address] Bray. Patient was last seen in the office with Dr. 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 We are asked to see the patient in consultation for chest pain. Patient was examined at the bedside in the emergency room. He states that for the last couple days he has had chest pain, tightness, weakness, sweating, and shortness of breath. He does endorse some leg swelling. He says it is worse with exertion and with deep breathing his chest tightness worsens. He does not endorse any alleviating factors. DIAGNOSTICS: - EKG reveals electronic atrial pacemaker - Chest xray shows left basilar atelectasis, dual-lead pacemaker without cardiomegaly -Today's laboratory data: BUN 26. Creatinine 1.36. 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 REVIEW OF SYSTEMS: As noted in HPI above. 06/23 Patient underwent Lexiscan Cardiolite stress test today. Nuclear portion shows small area of stress-induced reversible ischemia inferior lateral myocardium. Patient states she still has some chest tightness but denies chest pain, shortn ess of breath, lightheadedness dizziness. PHYSICAL EXAM: VITAL SIGNS: Reviewed. BP 151/80. Heart rate 50. Satting well on room air. GENERAL: Well-developed in no acute distress. HEENT: Head is normocephalic. Pupils are equal, round. Sclerae anicteric. Mucous membranes of the mouth are moist. Neck supple. No JVD or thyromegaly LUNGS: Respirations even and unlabored. Diminished breath sounds bilaterally. HEART: Regular rate and rhythm. S1 and S2 heard. Systolic ejection murmur. ABDOMEN: Soft. Nontender to palpation. EXTREMITIES: Normal range of motion. No clubbing or cyanosis. Peripheral pulses intact. No notable lower extremity edema. NEUROLOGIC: Awake and alert. Oriented x 3. ASSESSMENT: Unstable angina Hypertension Diabetes with neuropathy Dyslipidemia Hyperkalemia, improving History of CVA COPD Seizure disorder PLAN: Will undergo cardiac cath tomorrow Continue Norvasc, aspirin, Lipitor, Toprol, Entresto for BP control Spironolactone, potassium chloride held due to hyperkalemia, Lokelma 5g TID added Patient will be made NPO starting tomorrow morning with exception of clear liquids for up to 2 hours before procedure tomorrow Monitor vital signs, electrolytes and renal function Further recommendations to follow based upon clinical course Objective - Vital Signs Vital signs: Vital Signs Temp 97.6 F 06/23/24 11:37 Pulse 50 L 06/23/24 11:37 Resp 16 06/23/24 11:37 BP 137/99 06/23/24 11:37 Pulse Ox 95 06/23/24 11:37 FiO2 95 06/21/24 17:34 Intake & Output 06/22/24 06/23/24 06/23/24 18:59 06:59 18:59 Intake Total 219.333 540 550 Balance 219.333 540 550 Weight 100.698 kg 104.1 kg Intake: IV 10 10 Invasive Line 2 10 Invasive Line 4 10 Intake, IV Titration 91.333 Amount Heparin Sod,Pork in 0.45% 91.333 NaCl 25,000 unit In 0.45 % NaCl 1 250ml.bag @ 9. 931 UNITS/KG/HR 10 mls/hr IV .Q24H [facility] Rx#: [id number] Oral 118 540 540 Other: Voiding Method Urinal Urinal Urinal - Labs CBC & Chem 7: 06/23/24 07:14 06/23/24 07:14 Labs: Abnormal Lab Results - Last 24 Hours (Table) 06/22/24 06/22/24 06/23/24 Range/Units 16:49 20:08 07:14 BUN 26 H (9-20) mg/dL Creatinine 1.36 H (0.66-1.25) mg/dL POC Glucose (mg/dL) 138 H 130 H (70-110) mg/dL
[2024-06-23 16:43] LABS: Glucose,Whole Blood 114 mg/dL (70-110)
[2024-06-23] MEDS: SODIUM CHLORIDE 0.9% 1,000 ML IV SCH ×2 (18:22→22:00)
[2024-06-23] MEDS: ALPRAZolam 0.5 MG TAB PO PRN (18:35)
[2024-06-23 20:52] LABS: Glucose,Whole Blood 160 mg/dL (70-110)
[2024-06-24 06:01] LABS: Glucose,Whole Blood 103 mg/dL (70-110)
[2024-06-24] MEDS: ASPIRIN 325 MG TAB PO ONE (06:14)
[2024-06-24] MEDS: ATORVASTATIN 80 MG TAB PO ONE (06:15)
[2024-06-24] MEDS ORDERED: HEPARIN SODIUM,PORCINE 10,000 UNIT in SODIUM CHLORIDE 0.9% 1,000 ML IRRIGATION PRN (07:00)
[2024-06-24] MEDS ORDERED: HEPARIN SODIUM,PORCINE (1 ML) 2,500 UNIT in SODIUM CHLORIDE 0.9% 250 ML IRRIGATION PRN (07:00)
[2024-06-24 07:52] LABS: Basophils # (A) 0.1 k/uL (0-0.2); Basophils % (A) 1 %; Eosinophils # (A) 0.1 k/uL (0-0.7); Eosinophils % (A) 2 %; HCT 38.4 % (39.0-53.0); HGB 12.4 gm/dL (13.0-17.5); Hypochromasia Slight; Lymphocytes % (A) 20 %; MCH 31.8 pg (25.0-35.0); MCHC 32.4 g/dL (31.0-37.0); MCV 98.2 fL (80.0-100.0); Mean Platelet Volume 7.4; Monocytes # (A) 0.4 k/uL (0-1.0); Monocytes % (A) 7 %; Neutrophils # (A) 3.4 k/uL (1.3-7.7); Neutrophils % (A) 67 %; Platelet Count 240 k/uL (150-450); RBC 3.91 m/uL (4.30-5.90); RDW 15.8 % (11.5-15.5)
[2024-06-24 08:06] LABS: ALT <6 U/L (4-49); AST 21 U/L (17-59); African American GFR (CKD) 76 (>60 ml/min/1.73 sqM); Albumin 4.1 g/dL (3.5-5.0); Alkaline Phosphatase 62 U/L (38-126); Anion Gap 7 mmol/L; Blood Urea Nitrogen 22 mg/dL (9-20); Calcium 10.1 mg/dL (8.4-10.2); Carbon Dioxide 30 mmol/L (22-30); Chloride 101 mmol/L (98-107); Glucose 95 mg/dL (74-99); Non-African American GFR(CKD) 66 (>60 ml/min/1.73 sqM); Potassium 4.6 mmol/L (3.5-5.1); Sodium 138 mmol/L (137-145); Total Bilirubin 0.9 mg/dL (0.2-1.3)
[2024-06-24] MEDS: IV FLUID CONTINUATION 1,000 ML IV ONE (10:33)
[2024-06-24] MEDS: fentaNYL (PF) 50 MCG/1 ML VIAL IVP ONE (10:34)
[2024-06-24] MEDS: LIDOCAINE 1% INJ 10MG/ML (20 ML MDV) SQ ONE (10:36)
[2024-06-24] MEDS: VERAPAMIL SYRINGE (5 MG/10 ML) INTRAARTER ONE (10:38)
[2024-06-24] MEDS: MIDAZOLAM 2 MG/2 ML VIAL IVP ONE (10:40)
[2024-06-24] MEDS: HEPARIN SODIUM 1,000 UN/ML (10ML VL) IVP ONE (10:41)
[2024-06-24] MEDS: IOPAMIDOL-370 100ML BTL INJ ONE (10:46)
[2024-06-24] MEDS ORDERED: RX INFO: IV CONTRAST WAS GIVEN 1 EACH MISC MISCELLANE PRN (10:55)
--- NOTE | 2024-06-24 10:59 | P.CNPUL ---
History of Present Illness Consult date: 06/23/24 Reason for consult: dyspnea, obstructive sleep apnea Chief complaint: Chest pain and shortness of breath History of present illness: 71-year-old morbidly obese male has history of snoring and apneic events patient wants a CPAP machine without sleep study. Prior medical history significant for diabetes, hypertension hypertensive cardiovascular disease dyslipidemia history of CVA. Patient has a dual-chamber pacemaker patient has been complaining of intermittent chest pain and tightness chest x-ray significant for basilar atelectasis Review of Systems All systems: negative Past Medical History Past Medical History: COPD, CVA/TIA, Diabetes Mellitus, Fibromyalgia, GERD/Reflux, Hyperlipidemia, Hypertension, Memory Impairment, Seizure Disorder, Skin Disorder, Sleep Apnea/CPAP/BIPAP Additional Past Medical History / Comment(s): uses c-pap machine, on 4L Home oxygen, EPILEPTIC, past fall w/ concussion, ambulate with a walker and a wheelchair; Parkinson's History of Any Multi-Drug Resistant Organisms: None Reported Past Surgical History: Hernia Repair Additional Past Surgical History / Comment(s): Left big toe surgery/debridement r/t diabetic ulcer Past Anesthesia/Blood Transfusion Reactions: No Reported Reaction Smoking Status: Current every day smoker - Past Family History Father Family Medical History: Cancer Additional Family Medical History / Comment(s): LUNG Brother(s) History Unknown: Yes Family Medical History: Myocardial Infarction ([place]) Additional Family Medical History / Comment(s): Sister(s) History Unknown: Yes Family Medical History: Myocardial Infarction ([place]) Additional Family Medical History / Comment(s): Medications and Allergies Home Medications Medication Instructions Recorded Confirmed Type Atorvastatin [Lipitor] 40 mg PO W/SUPPER 08/31/14 06/21/24 History Potassium Chloride [Klor-Con 20] 20 meq PO DAILY 08/10/15 06/21/24 History lamoTRIgine [LaMICtal] 200 mg PO TID-W/MEALS 08/10/15 06/21/24 History metFORMIN HCL [Glucophage] 1,000 mg PO BID-W/MEALS 08/24/16 06/21/24 History Omeprazole 40 mg PO DAILY 05/14/18 06/21/24 History Dulaglutide [Trulicity] 4.5 mg SQ CARD 06/18/21 06/21/24 History Gabapentin 600 mg PO TID 06/18/21 06/21/24 History Insulin Glargine,Hum.rec.anlog 20 unit SQ HS 06/18/21 06/21/24 History [Lantus Solostar Pen] Meloxicam [Mobic] 15 mg PO DAILY 06/18/21 06/21/24 History Aspirin EC [Ecotrin Low Dose] 81 mg PO DAILY 06/21/24 06/21/24 History DULoxetine HCL [Cymbalta] 60 mg PO DAILY 06/21/24 06/21/24 History Doxycycline Hyclate 100 mg PO BID 06/21/24 06/21/24 History Ergocalciferol [Vitamin D2 (1250 1,250 mcg PO CARD 06/21/24 06/21/24 History Mcg = 61875 Iu)] Insulin Aspart [NovoLOG Flexpen] 10 units SQ AC-TID 06/21/24 06/21/24 History Insulin Aspart [NovoLOG Flexpen] See Protocol SQ AC-TID 06/21/24 06/21/24 History Ipratropium-Albuterol Nebulize 3 ml INHALATION RT-QID PRN 06/21/24 06/21/24 History [Duoneb 0.5 mg-3 mg/3 ml Soln] Metoprolol Succinate [Toprol XL] 50 mg PO DAILY 06/21/24 06/21/24 History Montelukast [Singulair] 10 mg PO DAILY 06/21/24 06/21/24 History Sacubitril/Valsartan [Entresto 24 1 tab PO BID-W/MEALS 06/21/24 06/21/24 History mg-26 mg Tablet] Spironolactone 50 mg PO W/SUPPER 06/21/24 06/21/24 History Sucralfate [Carafate] 1 gm PO TID 06/21/24 06/21/24 History Terbinafine [LamISIL] 250 mg PO W/SUPPER 06/21/24 06/21/24 History Vortioxetine Hydrobromide 20 mg PO W/SUPPER 06/21/24 06/21/24 History [Trintellix] amLODIPine [Norvasc] 5 mg PO DAILY 06/21/24 06/21/24 History Allergies Allergy/AdvReac Type Severity Reaction Status Date / Time venom-honey bee Allergy Swelling Verified 06/21/24 14:29 [bee venom (honey bee)] Physical Exam Vitals: Vital Signs Temp Pulse Resp BP Pulse Ox 06/23/24 16:29 97.9 F 50 L 18 140/67 97 06/23/24 11:37 97.6 F 50 L 16 137/99 95 06/23/24 07:41 97.4 F L 50 L 16 151/80 100 06/23/24 04:08 96.9 F L 50 L 16 135/74 99 06/23/24 00:14 97.5 F L 51 L 16 114/64 96 06/22/24 20:41 98.5 F 50 L 14 113/61 99 Intake and Output 06/23/24 06/23/24 06/23/24 06:59 14:59 22:59 Intake Total 540 550 540 Balance 540 550 540 Intake: IV 10 Invasive Line 4 10 Oral 540 540 540 Other: Voiding Method Urinal Urinal # Voids 1 1 Weight 104.1 kg - Constitutional General appearance: disheveled, morbidly obese - EENT Eyes: EOMI, PERRLA Ears: bilateral: normal - Neck Neck: normal ROM Carotids: bilateral: upstroke normal Thyroid: bilateral: normal size - Respiratory Respiratory: bilateral: CTA - Cardiovascular Rhythm: regular Heart sounds: normal: S1, S2 - Gastrointestinal General gastrointestinal: decreased bowel sounds - Integumentary Integumentary: normal, normal turgor - Neurologic Neurologic: CNII-XII intact - Musculoskeletal Musculoskeletal: gait normal, generalized weakness, strength equal bilaterally - Psychiatric Psychiatric: A&O x's 3, appropriate affect, intact judgment & insight Results - Laboratory Findings CBC and BMP: 06/24/24 06:43 06/24/24 06:43 PT/INR, D-dimer PT 11.5 sec (10.0-12.5) 06/21/24 09:51 INR 1.1 (<1.2) 06/21/24 09:51 D-Dimer 0.28 mg/L FEU (<0.60) 06/21/24 09:51 Abnormal lab findings: Abnormal Labs 06/21/24 06/21/24 06/21/24 09:51 09:51 09:51 RBC 3.83 L Hgb 12.3 L Hct 37.3 L RDW 15.9 H Lymphocytes # 0.5 L APTT Potassium 6.6 H* Chloride 110 H Carbon Dioxide 20 L BUN 35 H Creatinine 1.38 H Glucose 176 H POC Glucose (mg/dL) Plasma Lactic Acid Nathaniel 3.7 H* Triglycerides HDL Cholesterol 06/21/24 06/22/24 06/22/24 14:06 06:12 06:12 RBC 3.71 L Hgb 12.0 L Hct 36.4 L RDW 16.0 H Lymphocytes # APTT 101.2 H* Potassium 5.3 H Chloride Carbon Dioxide BUN 31 H Creatinine Glucose POC Glucose (mg/dL) Plasma Lactic Acid Nathaniel Triglycerides 161.00 H HDL Cholesterol 33.40 L 06/22/24 06/22/24 06/22/24 06:12 16:49 20:08 RBC Hgb Hct RDW Lymphocytes # APTT 36.4 H Potassium Chloride Carbon Dioxide BUN Creatinine Glucose POC Glucose (mg/dL) 138 H 130 H Plasma Lactic Acid Nathaniel Triglycerides HDL Cholesterol 06/23/24 06/23/24 07:14 16:41 RBC Hgb Hct RDW Lymphocytes # APTT Potassium Chloride Carbon Dioxide BUN 26 H Creatinine 1.36 H Glucose POC Glucose (mg/dL) 114 H Plasma Lactic Acid Nathaniel Triglycerides HDL Cholesterol - Diagnostic Findings Chest x-ray: report reviewed, image reviewed (Being as noted above) Assessment and Plan Assessment: Sleep disordered breathing and sleep apnea Density hypoventilation syndrome Stable angina Hypertension hypertensive cardiovascular disease Anemia Dyslipidemia History of stroke and seizure disorder Plan: Discussed with patient at length patient needs to be evaluated for sleep disordered breathing and sleep apnea further need a sleep study would recommend to follow-up in the office Time with Patient: Greater than 30
--- NOTE | 2024-06-24 11:01 | P.PN ---
Subjective Progress Note Date: 06/24/24 Principal diagnosis: Sleep disordered breathing and sleep apnea Density hypoventilation syndrome Stable angina Hypertension hypertensive cardiovascular disease Anemia Dyslipidemia History of stroke and seizure disorder June 24, 2024, patient seen evaluate examined during rounds, discussed with patient at length explained him about limitation of arranging CPAP without sleep study, will schedule patient for workup and evaluation outpatient 71-year-old morbidly obese male has history of snoring and apneic events patient wants a CPAP machine without sleep study. Prior medical history significant for diabetes, hypertension hypertensive cardiovascular disease dyslipidemia history of CVA. Patient has a dual-chamber pacemaker patient has been complaining of intermittent chest pain and tightness chest x-ray significant for basilar atelectasis Objective - Vital Signs Vital signs: Vital Signs Temp 97.4 F L 06/24/24 07:45 Pulse 51 L 06/24/24 07:45 Resp 18 06/24/24 07:45 BP 176/84 06/24/24 07:45 Pulse Ox 99 06/24/24 07:45 FiO2 95 06/21/24 17:34 Intake & Output 06/23/24 06/24/24 06/24/24 18:59 06:59 18:59 Intake Total 1630 20 110 Balance 1630 20 110 Weight 100 kg Intake: IV 10 20 110 Invasive Line 4 10 20 10 Oral 1620 Other: Voiding Method Urinal Urinal Urinal # Voids 1 1 # Bowel Movements 0 - Exam - Constitutional General appearance: disheveled, morbidly obese - EENT Eyes: EOMI, PERRLA Ears: bilateral: normal - Neck Neck: normal ROM Carotids: bilateral: upstroke normal Thyroid: bilateral: normal size - Respiratory Respiratory: bilateral: CTA - Cardiovascular Rhythm: regular Heart sounds: normal: S1, S2 - Gastrointestinal General gastrointestinal: decreased bowel sounds - Integumentary Integumentary: normal, normal turgor - Neurologic Neurologic: CNII-XII intact - Musculoskeletal Musculoskeletal: gait normal, generalized weakness, strength equal bilaterally - Psychiatric Psychiatric: A&O x's 3, appropriate affect, intact judgment & insight - Labs CBC & Chem 7: 06/24/24 06:43 06/24/24 06:43 Labs: Abnormal Lab Results - Last 24 Hours (Table) 06/23/24 06/23/24 06/24/24 Range/Units 16:41 20:50 06:43 RBC 3.91 L (4.30-5.90) m/uL Hgb 12.4 L (13.0-17.5) gm/dL Hct 38.4 L (39.0-53.0) % RDW 15.8 H (11.5-15.5) % BUN (9-20) mg/dL POC Glucose (mg/dL) 114 H 160 H (70-110) mg/dL 06/24/24 Range/Units 06:43 RBC (4.30-5.90) m/uL Hgb (13.0-17.5) gm/dL Hct (39.0-53.0) % RDW (11.5-15.5) % BUN 22 H (9-20) mg/dL POC Glucose (mg/dL) (70-110) mg/dL Assessment and Plan Assessment: Sleep disordered breathing and sleep apnea Density hypoventilation syndrome Stable angina Hypertension hypertensive cardiovascular disease Anemia Dyslipidemia History of stroke and seizure disorder Plan: Discussed with patient at length patient needs to be evaluated for sleep disordered breathing and sleep apnea further need a sleep study would recommend to follow-up in the office Time with Patient: Greater than 30
--- NOTE | 2024-06-24 11:01 | P.CARDCATH ---
Date of Procedure: 06/24/24 Description of Procedure: Cardiac Catheterization: The patient is a 58-year-old male with known history of diabetes, hypertension and hyperlipidemia who presented with symptoms of chest discomfort but no evidence of myocardial infarction. He has a known history of permanent pacemaker implantation. He had an abnormal MPI. Recommendations were made regarding cardiac catheterization, the risks and the complications were discussed with the patient who is in full understanding and agreement. 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 Using Xylocaine Anesthesia and modified Seldinger technique, a 6-[place] sheath was introduced in the right radial artery . Subsequently, selective coronary angiography was performed using a 5-[place] 3.5 bend Shayy catheter. Multiple views of the coronary artery including hemiaxial views were obtained. The left Shayy catheter was used to cross the aortic valve and LVEDP was calculated. Following that, catheter and sheath were removed. Hemostasis was obtained with deployment of vascular band . There was no immediate complication. Patient was returned to room in stable condition. Of note, the patient received a total of 5000 units of intravenous heparin as well as intra-arterial verapamil. Findings: Left main: This is a large size vessel, bifurcating into LAD and left circumflex, left main has no obstructive disease LAD: This is a large size vessel, reaching to the apex, giving rise to 2 diagonal branch of moderate caliber. The LAD in the midsegment after the takeoff of the diagonal branch has a 20 to 30% plaque, the rest of the vessel has no high-grade stenosis Left circumflex: This is a large nondominant vessel giving rise to 4 obtuse marginal branch, the third and fourth obtuse marginal branch are large in caliber. The left circumflex has mild intimal disease in the midsegment of 20% with no high-grade stenosis RCA: This is a large dominant vessel, bifurcating distally to PDA and PLV. The mid right coronary artery has a 20% plaque. The PDA is chronically occluded toward the distal segment with small collateral from the left coronary system. Left Ventriculogram: Not performed Hemodynamics: There was no gradient across aortic valve, LVEDP was 16-20 mmHg Conclusion: 1. 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 Mild disease in the LAD and left circumflex 3. Right dominance 4. Mildly elevated LVEDP Recommendations: I have recommended to continue medical therapy with continuing aggressive coronary risks modifications. The findings and the recommendations were discussed with the patient and the family and they were in full understanding and agreement. Duration of sedation is 12 minutes.
[2024-06-24 11:25] LABS: Glucose,Whole Blood 108 mg/dL (70-110)
[2024-06-24] MEDS: IPRATROPIUM-ALBUTEROL 3 ML NEB INHALATION PRN (11:35)
--- NOTE | 2024-06-24 14:47 | HP ---
HISTORY AND PHYSICAL HISTORY OF PRESENT ILLNESS: A 58-year-old white male, came to the hospital with chest pain, altered mental status, weakness, chest heaviness. He woke up this morning with diaphoresis, weakness. HOME MEDICATIONS: Reviewed. 1. Lipitor 40 at night. 2. Lasix 40 b.i.d. 3. Lamictal 200 t.i.d. 4. Klor-Con 20 mEq daily. 5. Metformin 1000 b.i.d. 6. Insulin 27 units subcu t.i.d. of NovoLog. 7. Valium 10 units daily. 8. Sinemet q.i.d. 9. Trulicity 4.5 daily. 10.Lantus 30 units daily. 11.Lisinopril 40 daily. 12.Risperdal 0.5 at night. ALLERGIES: Honey bee venom. PAST MEDICAL HISTORY: COPD, CVA, TIA, diabetes mellitus, fibromyalgia, GERD, dyslipidemia, hypertension, memory impairment, seizure disorder, skin disorder, sleep apnea, CPAP at night with oxygen. FAMILY HISTORY: Father, cancer of the lung. Brother with myocardial infarction. PHYSICAL EXAMINATION: GENERAL: Obese white male, in no acute distress. HEAD: Normocephalic, atraumatic. Pupils equal, round, reactive. LUNGS: Scattered wheeze and rhonchi. CARDIOVASCULAR: S1, S2. GI: Soft, distended, obesity. EXTREMITIES: No cyanosis, clubbing, or edema. PSYCH: Fair mood and affect. VITAL SIGNS: Blood pressure is 130s to 150s over 70s to 80s, O2 of 91% on room air on admission, temp 98.2, pulse is 49. ASSESSMENT: Atypical chest pain. We will get Cardiology consulted. Rule out MO. Rule out PE. Pleuritic chest pain. No nausea, vomiting, syncope, bradycardia, hyperkalemia. Please see further orders. MMODL / IJN: [id number] /
--- NOTE | 2024-06-24 14:48 | HP ---
HISTORY AND PHYSICAL HISTORY OF PRESENT ILLNESS: A 58-year-old white male came with altered mental status, severe chest pain in the anterior chest. He passed out when he stood up at home. He wants his pacemaker checked as he has had this problem before he had his pacemaker. He comes in with shortness of breath, diaphoresis, also weakness, sitting up in bed in no acute distress. I saw him in the ER last night. MEDICATIONS: 1. Lipitor 40 at night. 2. Lasix 40 b.i.d. 3. Klor-Con 20 mEq daily. 4. Lamictal 200 b.i.d. 5. NovoLog 27 units t.i.d. 6. Metformin 1000 b.i.d. 7. Percocet 10 q.i.d. 8. Valium 10 daily. 9. Omeprazole 40 daily. 10.Sinemet 10/100 b.i.d. 11.Celexa 20 daily. 12.Trulicity 4.5 weekly. 13.Gabapentin 600 q.i.d. 14.Lantus 30 units daily. 15.Mobic 7.5 daily. 16.Amlodipine 10 mg daily. 17.Catapres 0.2 t.i.d. REVIEW OF SYSTEMS: A 14-point review of systems otherwise negative. He has a history of bad COPD and shortness of breath chronically. EKG is paced at 49 with some bradycardia. PAST MEDICAL HISTORY: COPD, CVA, TIA, diabetes mellitus, fibromyalgia, GERD, dyslipidemia, hypertension memory impairment, seizure disorder, skin disorder, sleep apnea. FAMILY HISTORY: See old chart. PHYSICAL EXAMINATION: VITAL SIGNS: Blood pressure 153/83, O2 of 91% on room air, temp 98.2, pulse is high 40s, respiratory rate is 18 to 20. LUNGS: Clear. CARDIOVASCULAR: S1, S2. SKIN: Warm, dry. No rashes. PSYCH: Fair mood and affect. NEUROLOGIC: Cranial nerves intact. BACK: Cervical and lumbar tenderness to palpation on paraspinal muscles. GI: Soft, nontender. LABORATORY DATA: Labs reviewed which include hyperkalemia, for which we gave medication for his anterior pleuritic chest pain, nausea, vomiting, syncope, bradycardia, hyperkalemia. He suspects possibly his pacemaker is off. Multiple tests have been ordered. Wait for Cardiology consult. MMODL / IJN: [id number] /
--- NOTE | 2024-06-24 14:49 | PN ---
PROGRESS NOTE SUBJECTIVE: A 58-year-old white male came in for syncope. Cardiology evaluation for possible syncope and chest pain. EKG shows chronic right atrial pacemaker. He has a dual-lead pacemaker. Laboratory reviews are reviewed. Troponins are negative x3. ProBNP is 628. OBJECTIVE: LUNGS: Clear. CARDIOVASCULAR: S1, S2. PSYCH: Fair mood and affect. NEUROLOGIC: Alert and oriented x3. ASSESSMENT: Unstable angina, hypertension, diabetes, neuropathy, dyslipidemia, chronic obstructive pulmonary disease, history of CVA, seizures. We will do an echo. Continue his medications. Spironolactone held due to hyperkalemia. Lokelma 5 g t.i.d. added. Discontinued heparin. N.p.o. after midnight. We will also get stress test tomorrow. If and when we do heart tests, interrogate pacemaker. Prognosis guarded. KEL / CLIF: [id number] /
--- NOTE | 2024-06-24 14:50 | HP ---
HISTORY AND PHYSICAL HISTORY OF PRESENT ILLNESS: A 58-year-old came with weakness and chest pain. Apparently, it look like a syncope attack. When he stood up, he fell to the ground. He had this before prior to getting the pacemaker. He wants his pacemaker checked. He is sitting in the bed in the ER comfortably with no chest pain, shortness of breath, talking to me. HOME MEDICINES: 1. Lipitor 40 daily. 2. Lasix 40 b.i.d. 3. Lamictal 200 t.i.d. 4. Potassium 20 mEq daily. 5. Metformin 1000 b.i.d. 6. Valium 10 daily. 7. Omeprazole 40 daily. 8. Sinemet b.i.d. 9. Celexa 20 daily. 10.Trulicity 4.5 sublingual daily. 11.Gabapentin 600 q.i.d. 12.Lantus 30 daily. 13.Norvasc 10 daily. 14.Catapres 0.2 t.i.d. REVIEW OF SYSTEMS: A 14-point review of systems otherwise negative. EKG, sinus rhythm. PAST MEDICAL HISTORY: COPD, CVA, TIA, diabetes mellitus, fibromyalgia, GERD, dyslipidemia, hypertension, memory impairment, seizure disorder, sleep apnea, wears 4 L oxygen at home and a CPAP. He is epileptic. Hernia repair. He has Parkinson's. He has had multiple surgeries on his toe for infection. Other history of cancer. PHYSICAL EXAMINATION: VITAL SIGNS: Blood pressure 150s over 80s, O2 is 91%, temp 98.2, pulse 49, respiratory rate 18 to 20. CARDIOVASCULAR: S1, S2. LUNGS: Transmitted upper sounds. GI: Soft. HEMATOLOGY: Negative Homans. NEUROLOGIC: Alert and oriented x3. OPHTHALMOLOGIC: Pupils equal, round, reactive. NEUROLOGIC: Cranial nerves intact. ASSESSMENT: Anterior pleuritic chest pain, nausea, vomiting, syncope, bradycardia, hyperkalemia. Continue current treatment. Prognosis guarded. Await for Cardiology workup. Check pacemaker. We will make sure we increased his Sinemet to q.i.d. from increasing it 3 times a day. Prognosis guarded. MMODL / IJN: [id number] /
--- NOTE | 2024-06-24 14:51 | PN ---
PROGRESS NOTE SUBJECTIVE: He had a Lexiscan stress test, which showed some ischemia in the inferior part of the heart. Waiting for Cardiology recommendations on this as well as pacemaker evaluation. Otherwise, he is feeling better. OBJECTIVE: VITAL SIGNS: Temp 97.6, pulse is still low 50 to 49, respiratory rate 16 to 18, blood pressure 137/99, 95 on room air. CARDIOVASCULAR: S1, S2. LUNGS: Transmitted upper sounds. GI: Soft. HEMATOLOGY: Negative Homans. EXTREMITIES: 2+ edema. Atkins catheter placement. ASSESSMENT: 1. Abnormal stress test. 2. Syncope possible pacemaker abnormality. 3. Chronic obstructive pulmonary disease. 4. Asthma. 5. Diabetes mellitus. 6. Hypertension. Continue current treatment. Await for Cardiology clearance. We will make sure he takes Sinemet 4 times a day instead of twice a day for increased tremors at different times a day. Prognosis guarded. MMXAVIER / MARIAHN: [id number] /
[2024-06-24] MEDS: ALPRAZolam 0.25 MG TAB PO PRN (15:55)
[2024-06-24 16:41] LABS: Glucose,Whole Blood 125 mg/dL (70-110)
[2024-06-24] MEDS: SODIUM CHLORIDE 0.9% 1,000 ML IV SCH (16:50)
[2024-06-24 16:51] VITALS: BP 140/65; PULSE 52; RESP 18; TEMP 97.8
== END 2024-06-24 19:13 | disposition home or self-care (01) | DRG 287 ==
LOC: EC 09:22 → 3SCARD 13:42
PROVIDERS: ADMIT Family Medicine; ATTEND Family Medicine
PROC: B2111ZZ Fluoroscopy of Multiple Coronary Arteries using Low Osmolar Contrast (ICD-10-PCS; 2024-06-24)
PROC: 4A023N7 Measurement of Cardiac Sampling and Pressure, Left Heart, Percutaneous Approach (ICD-10-PCS; principal; 2024-06-24 09:00)
DX: I25.110 Atherosclerotic heart disease of native coronary artery with unstable angina pectoris (principal); J98.11 Atelectasis; E11.40 Type 2 diabetes mellitus with diabetic neuropathy, unspecified; G20.A1 Parkinson's disease without dyskinesia, without mention of fluctuations; I11.9 Hypertensive heart disease without heart failure; D64.9 Anemia, unspecified; E66.01 Morbid (severe) obesity due to excess calories; E87.5 Hyperkalemia; E78.5 Hyperlipidemia, unspecified; F17.200 Nicotine dependence, unspecified, uncomplicated; G40.909 Epilepsy, unspecified, not intractable, without status epilepticus; G47.33 Obstructive sleep apnea (adult) (pediatric); J44.89 Other specified chronic obstructive pulmonary disease; M79.7 Fibromyalgia; Z79.1 Long term (current) use of non-steroidal anti-inflammatories (NSAID); Z79.4 Long term (current) use of insulin; Z79.82 Long term (current) use of aspirin; Z79.84 Long term (current) use of oral hypoglycemic drugs; Z79.899 Other long term (current) drug therapy; Z79.85 Long-term (current) use of injectable non-insulin antidiabetic drugs; Z86.73 Personal history of transient ischemic attack (TIA), and cerebral infarction without residual deficits; Z95.0 Presence of cardiac pacemaker; Z68.32 Body mass index [BMI] 32.0-32.9, adult; Z82.49 Family history of ischemic heart disease and other diseases of the circulatory system
CPT/HCPCS: 36410; 36415; 71045; 76937; 78452; 80048; 80053; 80061; 83036; 83605; 83735; 83880; 84100; 84443; 84484; 85025; 85049; 85379; 85610; 85730; 87636; 93005; 93017; 93306; 93458; 94640; 94660; 94760; 96361; 96365; 96366; 96375; 99291

== ENCOUNTER 2024-12-24 11:55 | Inpatient (IN) | payer MEDICARE ==
--- NOTE | 2024-12-24 12:14 | ED ---
Chest Pain HPI - General Source: patient, RN notes reviewed Mode of arrival: ambulatory Limitations: no limitations <Dick Coleman - Last Filed: 12/24/24 12:13> - General Source: patient, RN notes reviewed, old records reviewed Mode of arrival: ambulatory Limitations: no limitations - History of Present Illness MD Complaint: chest pain -: days(s) Pain Location: left chest Pain Radiation: none Severity: moderate Severity scale (1-10): 6 Quality: aching Consistency: constant Improves With: nothing Worsens With: nothing Anginal Symptoms: dyspnea, sense of impending doom Other Symptoms: palpitations Treatments Prior to Arrival: none <Gerry Marin - Last Filed: 12/28/24 13:54> - General Chief Complaint: Chest Pain Stated Complaint: dyspnea, atrial flutter Time Seen by Provider: 12/24/24 12:13 - History of Present Illness Initial Comments: Quick note: 59-year-old male presented the ER for evaluation of chest pain. Patient was seen by PCP today and had EKG completed. Patient states after this he was sent to the emergency department for further evaluation and treatment. Patient states it feels like he has been punched in the chest "all the time". He is "all the time" short of breath, dizzy and lightheaded. Reports a history of a pacemaker. (Dick Coleman) This is a 59 male to the ER for evaluation today. Today patient presents for shortness of breath and chest pain. Patient was originally seen by his primary care had an EKG and sent to the ER. Patient states he does not feel like his chest or his heart is beating fast or any palpitations but he does feel short of breath all the time dizzy lightheaded with occasional chest pain chest feels heavy with history of pacemaker placement, patient is not sure if he does have defibrillator. Patient has otherwise no recent travel history no sick contacts no fever cough or congestion, no change in medications. (Gerry Marin) - Related Data Home Medications Medication Instructions Recorded Confirmed Atorvastatin [Lipitor] 40 mg PO W/SUPPER 08/31/14 12/24/24 Potassium Chloride [Klor-Con 20] 20 meq PO DAILY 08/10/15 12/24/24 lamoTRIgine [LaMICtal] 200 mg PO TID-W/MEALS 08/10/15 12/24/24 Omeprazole 40 mg PO DAILY 05/14/18 12/24/24 Dulaglutide [Trulicity] 4.5 mg SQ CARD 06/18/21 12/24/24 Gabapentin 600 mg PO TID 06/18/21 12/24/24 Insulin Glargine,Hum.rec.anlog 10 unit SQ HS 06/18/21 12/24/24 [Lantus Solostar Pen] Meloxicam [Mobic] 15 mg PO DAILY 06/18/21 12/24/24 Aspirin EC [Ecotrin Low Dose] 81 mg PO DAILY 06/21/24 12/24/24 DULoxetine HCL [Cymbalta] 60 mg PO DAILY 06/21/24 12/24/24 Ergocalciferol [Vitamin D2 (1250 1,250 mcg PO CARD 06/21/24 12/24/24 Mcg = 48487 Iu)] Insulin Aspart [NovoLOG Flexpen] 5 units SQ AC-TID 06/21/24 12/24/24 Insulin Aspart [NovoLOG Flexpen] See Protocol SQ AC-TID 06/21/24 12/24/24 Ipratropium-Albuterol Nebulize 3 ml INHALATION RT-QID PRN 06/21/24 12/24/24 [Duoneb 0.5 mg-3 mg/3 ml Soln] Metoprolol Succinate [Toprol XL] 50 mg PO DAILY 06/21/24 12/24/24 Montelukast [Singulair] 10 mg PO DAILY 06/21/24 12/24/24 Sacubitril/Valsartan [Entresto 24 1 tab PO BID-W/MEALS 06/21/24 12/24/24 mg-26 mg Tablet] Sucralfate [Carafate] 1 gm PO TID 06/21/24 12/24/24 Terbinafine [LamISIL] 250 mg PO W/SUPPER 06/21/24 12/24/24 Vortioxetine Hydrobromide 20 mg PO W/SUPPER 06/21/24 12/24/24 [Trintellix] amLODIPine [Norvasc] 5 mg PO DAILY 06/21/24 12/24/24 Doxycycline Hyclate 100 mg PO BID 12/24/24 12/24/24 Spironolactone 50 mg PO DAILY 12/24/24 12/24/24 metFORMIN HCL 1,000 mg PO BID 12/24/24 12/24/24 Previous Rx's Medication Instructions Recorded Carbidopa-Levodopa 25-100 mg 1 each PO QID 30 Days #120 tab 06/24/24 [Sinemet 25-100 mg] Nitroglycerin Sl Tabs [Nitrostat] 0.4 mg SUBLINGUAL Q5M PRN 180 Days 06/24/24 #100 tab Allergies Allergy/AdvReac Type Severity Reaction Status Date / Time venom-honey bee Allergy Swelling Verified 12/24/24 14:01 [bee venom (honey bee)] Review of Systems ROS Other: All systems not noted in ROS Statement are negative. <Dick Coleman - Last Filed: 12/24/24 12:13> ROS Other: All systems not noted in ROS Statement are negative. <Gerry Marin - Last Filed: 12/28/24 13:54> ROS Statement: Those systems with pertinent positive or pertinent negative responses have been documented in the HPI. EKG Findings - EKG Comments: EKG Findings:: EKG is a flutter 148 QRS 87 QTc 348 - EKG Results: EKG: interpreted by ERMD EKG shows: tachycardia, atrial fibrillation <Gerry Marin - Last Filed: 12/28/24 13:54> Past Medical History Past Medical History: COPD, CVA/TIA, Diabetes Mellitus, Fibromyalgia, GERD/Reflux, Hyperlipidemia, Hypertension, Memory Impairment, Seizure Disorder, Skin Disorder, Sleep Apnea/CPAP/BIPAP Additional Past Medical History / Comment(s): uses c-pap machine, on 4L Home oxygen, EPILEPTIC, past fall w/ concussion, ambulate with a walker and a wheelchair; Parkinson's History of Any Multi-Drug Resistant Organisms: None Reported Past Surgical History: Hernia Repair, Pacemaker Additional Past Surgical History / Comment(s): Left big toe surgery/debridement r/t diabetic ulcer Past Anesthesia/Blood Transfusion Reactions: No Reported Reaction Past Psychological History: No Psychological Hx Reported Smoking Status: Current every day smoker Past Alcohol Use History: None Reported Past Drug Use History: None Reported - Past Family History Father Family Medical History: Cancer Additional Family Medical History / Comment(s): LUNG Brother(s) History Unknown: Yes Family Medical History: Myocardial Infarction ([place]) Additional Family Medical History / Comment(s): Sister(s) History Unknown: Yes Family Medical History: Myocardial Infarction ([place]) Additional Family Medical History / Comment(s): <Dick Coleman - Last Filed: 12/24/24 12:13> General Exam Limitations: no limitations <Dick Coleman - Last Filed: 12/24/24 12:13> General appearance: alert, anxious Head exam: Present: atraumatic, normocephalic, normal inspection Eye exam: Present: normal appearance, PERRL, EOMI. Absent: scleral icterus, conjunctival injection, periorbital swelling ENT exam: Present: normal exam, mucous membranes moist Neck exam: Present: normal inspection. Absent: tenderness, meningismus, lymphadenopathy Respiratory exam: Present: normal lung sounds bilaterally, respiratory distress, wheezes, decreased breath sounds, prolonged expiratory. Absent: rales, rhonchi, stridor Cardiovascular Exam: Present: tachycardia, irregular rhythm, normal heart sounds. Absent: systolic murmur, diastolic murmur, rubs, gallop, clicks GI/Abdominal exam: Present: soft, normal bowel sounds. Absent: distended, tenderness, guarding, rebound, rigid Extremities exam: Present: normal inspection, full ROM, normal capillary refill. Absent: tenderness, pedal edema, joint swelling, calf tenderness Back exam: Present: normal inspection Neurological exam: Present: alert, oriented X3, CN II-XII intact Psychiatric exam: Present: normal affect, normal mood Skin exam: Present: warm, dry, intact, normal color. Absent: rash <Gerry Marin - Last Filed: 12/28/24 13:54> - General Exam Comments Initial Comments: Visual Physical Exam Vital signs reviewed General: Well-appearing, nontoxic, no acute distress. Head: Normocephalic, atraumatic Eyes: PERRLA, EOMI ENT: Airway patent Chest: Nonlabored breathing Skin: No visual rash, normal skin tone Neuro: Alert and oriented 3 Musculoskeletal: No gross abnormalities (Dick Coleman) Course <Gerry Marin - Last Filed: 12/28/24 13:54> Vital Signs 12/24/24 12/24/24 12/24/24 12:05 14:08 15:00 Temperature 97.9 F Pulse Rate 145 H 158 H 130 H Pulse Rate [ Retail Loan Officer ] Respiratory 20 20 20 Rate Blood Pressure 183/103 137/68 127/86 O2 Sat by Pulse 99 98 96 Oximetry 12/24/24 12/24/24 12/24/24 15:25 16:41 17:21 Temperature Pulse Rate 85 111 H Pulse Rate [ 144 H Retail Loan Officer ] Respiratory 20 20 Rate Blood Pressure 127/86 141/101 O2 Sat by Pulse 98 98 Oximetry 12/24/24 12/24/24 12/24/24 17:37 20:58 22:16 Temperature 99.6 F Pulse Rate 120 H 146 H 142 H Pulse Rate [ Retail Loan Officer ] Respiratory 20 18 18 Rate Blood Pressure 106/71 143/94 130/93 O2 Sat by Pulse 96 99 98 Oximetry - Reevaluation(s) Reevaluation #1: 12/24/24 16:05 Medical records reviewed (Gerry Marin) Reevaluation #2: 12/24/24 16:05 Patient has no improvement in heart rate after Cardizem and Cardizem drip Patient heart rate is improved after metoprolol (Gerry Marin) Reevaluation #3: 12/24/24 16:06 Informed of results questions answered (Gerry Marin) Reevaluation #4: Was pt. sent in by a medical professional or institution (, PA, WEED INSPECTOR, urgent care, hospital, or penitentiary...) When possible be specific @ -no Did you speak to anyone other than the patient for history (EMS, parent, family, police, friend...)? What history was obtained from this source @ -no Did you review nursing and triage notes (agree or disagree)? Why? @ -agree Are old charts reviewed (outside hosp., previous admission, EMS record, old EKG, old radiological studies, urgent care reports/EKG's, penitentiary records)? Report findings @ -yes Differential Diagnosis (chest pain, altered mental status, abdominal pain women, abdominal pain men, vaginal bleeding, weakness, fever, dyspnea, syncope, headache, dizziness, GI bleed, back pain, seizure, CVA, palpatations, mental health, musculoskeletal)? @ -prior EKG interpreted by me (3pts min.). @ -yes X-rays interpreted by me (1pt min.). @ -yes negative for acute disease CT interpreted by me (1pt min.). @ -no U/S interpreted by me (1pt. min.). @ -no What testing was considered but not performed or refused? (CT, X-rays, U/S, labs)? Why? @ -none What meds were considered but not given or refused? Why? @ -none Did you discuss the management of the patient with other professionals (professionals i.e. , PA, WEED INSPECTOR, lab, RT, psych nurse, social worker aide, branner machine tender, teacher, science and operations officer, showcase maker)? Give summary @ -no Was smoking cessation discussed for >3mins.? @ -no Was critical care preformed (if so, how long)? @ -yes31 Were there social determinants of health that impacted care today? How? (Homelessness, low income, unemployed, alcoholism, drug addiction, transportation, low edu. Level, literacy, decrease access to med. care, [facility], rehab)? @ -none Was there de-escalation of care discussed even if they declined (Discuss DNR or withdrawal of care, Hospice)? DNR status @ -no What co-morbidities impacted this encounter? (DM, HTN, Smoking, COPD, CAD, Cancer, CVA, ARF, Chemo, Hep., AIDS, mental health diagnosis, sleep apnea, morbid obesity)? @ -none Was patient admitted / discharged? Hospital course, mention meds given and route, prescriptions, significant lab abnormalities, going to OR and other pertinent info. @ - 59 male to the ER for evaluation of dyspnea A-fib with RVR chest pain. Patient placed on anticoagulation will admit for cardiac observation, this is new onset atrial fibrillation Admitted Undiagnosed new problem with uncertain prognosis? @ -no Drug Therapy requiring intensive monitoring for toxicity (Heparin, Nitro, Insulin, Cardizem)? @ -no Were any procedures done? @ -no Diagnosis/symptom? @ -new onset atrial fibrillation Acute, or Chronic, or Acute on Chronic? @ -Acute Uncomplicated (without systemic symptoms) or Complicated (systemic symptoms)? @ -Complicated Side effects of treatment? @ -no Exacerbation, Progression, or Severe Exacerbation? @ -exacerbation Poses a threat to life or bodily function? How? (Chest pain, [place], [place], pneumonia, PE, COPD, DKA, ARF, appy, cholecystitis, CVA, Diverticulitis, Homicidal, Suicidal, threat to staff... and all critical care pts) @ -yes with arrhythmia (Gerry Marin) Reevaluation #5: Differential Chest Pain: Stable Angina, Unstable Angina, STEMI, NSTEMI Aortic Dissection, Pneumothorax, Musculoskeletal, Esophageal Spasm GERD, Cholecystitis, Pancreatitis, Zoster, this is not meant to be an all-inclusive list. Differential Dyspnea: Coronary syndrome, arrhythmia, tamponade, asthma, COPD, pulmonary embolism, pneumonia, pneumothorax, pulmonary effusion, anaphylaxis, diabetic ketoacidosis, flailed chest, pulmonary contusion, diaphragmatic rupture, anemia, neuromuscular, this is not meant to be an all-inclusive list. (Gerry Marin) - Consultations Consultation #1: Spoke with Dr. Acosta who agrees to admit this patient (Gerry Marin) Chest Pain MDM <Dick Coleman - Last Filed: 12/24/24 12:13> <Gerry Marin - Last Filed: 12/28/24 13:54> - MDM I performed the quick note portion of this chart. Electronically signed by Dick Coleman PA-C (Dick Coleman) 59 male to the ER for evaluation of dyspnea A-fib with RVR chest pain. Patient placed on anticoagulation will admit for cardiac observation, this is new onset atrial fibrillation (Gerry Marin) Critical Care Time Critical Care Time: Yes Total Critical Care Time: 31 <Gerry Marin - Last Filed: 12/28/24 13:54> Disposition <Dick Coleman - Last Filed: 12/24/24 12:13> Is patient prescribed a controlled substance at d/c from ED?: No Time of Disposition: 16:00 <Gerry Marin - Last Filed: 12/28/24 13:54> Clinical Impression: Acute non-ST elevation myocardial infarction (NSTEMI), Atrial fibrillation with rapid ventricular response, New onset atrial fibrillation, Chest pain Disposition: ADMITTED IP TO THIS HOSP Condition: Serious
[2024-12-24 12:46] LABS: Basophils # (A) 0.1 k/uL (0-0.2); Basophils % (A) 1 %; Eosinophils # (A) 0.1 k/uL (0-0.7); Eosinophils % (A) 2 %; HCT 40.3 % (39.0-53.0); HGB 13.3 gm/dL (13.0-17.5); Hypochromasia Slight; Lymphocytes # (A) 0.9 k/uL (1.0-4.8); Lymphocytes % (A) 11 %; MCH 30.4 pg (25.0-35.0); MCV 92.2 fL (80.0-100.0); Monocytes # (A) 0.4 k/uL (0-1.0); Monocytes % (A) 5 %; Neutrophils % (A) 80 %; Platelet Count 244 k/uL (150-450); Poikilocytosis Slight; RBC 4.38 m/uL (4.30-5.90); RDW 15.7 % (11.5-15.5); WBC 7.6 k/uL (3.8-10.6)
[2024-12-24 12:56] LABS: ALT 15 U/L (4-49); AST 24 U/L (17-59); African American GFR (CKD) 86 (>60 ml/min/1.73 sqM); Albumin 4.6 g/dL (3.5-5.0); Alkaline Phosphatase 72 U/L (38-126); Anion Gap 13 mmol/L; Blood Urea Nitrogen 16 mg/dL (9-20); Calcium 9.9 mg/dL (8.4-10.2); Carbon Dioxide 21 mmol/L (22-30); Chloride 103 mmol/L (98-107); Glucose 135 mg/dL (74-99); Magnesium 1.7 mg/dL (1.6-2.3); Non-African American GFR(CKD) 75 (>60 ml/min/1.73 sqM); Potassium 4.7 mmol/L (3.5-5.1); Sodium 137 mmol/L (137-145)
[2024-12-24 12:57] LABS: Partial Thromboplastin Time 23.7 sec (22.0-30.0); Prothrombin Time 11.3 sec (10.0-12.5)
--- NOTE | 2024-12-24 12:59 | XR ---
EXAMINATION TYPE: XR chest 2V DATE OF EXAM: 12/24/2024 12:45 PM COMPARISON: Chest radiographs from 06/21/2024 TECHNIQUE: XR chest 2V Frontal and lateral views of the chest. CLINICAL INDICATION:Male, 59 years old with history of Chest Pain; FINDINGS: Lungs/Pleura: There is no evidence of pleural effusion, focal consolidation, or pneumothorax. Pulmonary vascularity: Unremarkable. Heart/mediastinum: Cardiomediastinal silhouette is prominent in size. Atherosclerotic calcifications are seen in the aorta. Two lead cardiac conduction device overlying the left hemithorax with lead ti ps projecting over the right ventricle and right atrium. Musculoskeletal: Multiple level degenerative disc disease changes seen throughout the spine. IMPRESSION: No acute cardiopulmonary disease/process. [facility], , 12/24/2024 12:57 PM
[2024-12-24 13:57] LABS: Phosphorus 3.4 mg/dL (2.5-4.5)
[2024-12-24] MEDS: MAGNESIUM SULFATE-D5W PMX 1 GM in DEXTROSE/WATER 1 100ML.BAG IVPB ONE (14:04)
[2024-12-24] MEDS: MAGNESIUM OXIDE 400 MG TAB PO STA (14:04)
[2024-12-24 14:07] LABS: NT-Pro-B-Type Natriuretic Pept 8100 pg/mL
[2024-12-24] MEDS: DILTIAZEM 125 MG in SODIUM CHLORIDE 0.9% 100 ML IV SCH (14:15)
[2024-12-24] MEDS: DILTIAZEM DRIP BOLUS FROM BAG 1 MG SOLN IV ONE (14:15)
[2024-12-24] MEDS: METOPROLOL TARTRATE 5 MG/5 ML VIAL IVP STA (15:12)
[2024-12-24] MEDS ORDERED: NALOXONE 0.4 MG/ML 1 ML VIAL IV PRN (16:01)
[2024-12-24] MEDS: SODIUM CHLORIDE 0.9% 1,000 ML IV SCH (16:22)
[2024-12-24] MEDS: HEPARIN SODIUM 1,000 UN/ML (10ML VL) IV ONE (16:32)
[2024-12-24] MEDS: HEPARIN SOD,PORK IN 0.45% NACL 25,000 UNIT in 0.45% NACL 1 250ML.BAG IV SCH (16:37)
[2024-12-24 16:50] LABS: INR 1.1 (<1.2); Partial Thromboplastin Time 24.6 sec (22.0-30.0); Prothrombin Time 11.6 sec (10.0-12.5)
[2024-12-24] MEDS: CARBIDOPA-LEVODOPA 25-100 MG 1 EACH TAB PO SCH (19:21)
[2024-12-24] MEDS: GABAPENTIN 300 MG CAP PO SCH (22:50)
[2024-12-24] MEDS: SUCRALFATE 1 GM TAB PO SCH (22:50)
[2024-12-25] MEDS: HEPARIN SODIUM 1,000 UN/ML (10ML VL) IV PRN (00:19)
[2024-12-25] MEDS: SACUBITRIL/VALSARTAN 24 MG-26 MG TABLET PO SCH (06:32)
[2024-12-25] MEDS: lamoTRIgine 100 MG TAB PO SCH (06:32)
[2024-12-25 06:36] LABS: Glucose,Whole Blood 113 mg/dL (70-110)
--- NOTE | 2024-12-25 07:59 | P.CRDCN ---
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 Beside that the patient does have diabetes and hypertension and dyslipidemia and history of stroke and history of seizure limiting his physical activities and driving as well. He was seen yesterday by his primary care physician where he underwent an EKG and that showed atrial fibrillation/flutter with RVR and the patient subsequently was sent to the hospital. He reports chest discomfort appears to be intermittent and chronic and reports shortness of breath as well as dizziness and lightheadedness and heart racing and fluttering but no presyncope or syncope. He is in atrial fibrillation with RVR which is new to him. Currently he is on Cardizem IV and he is on heparin IV. The EKG showed atrial flutter with RVR. Blood work showed mild elevation in the troponin which could be secondary to sinus tachycardia. The echo from 2023 showed normal LV systolic function with no significant valvular abnormalities. The physical examination is remarkable for regular rhythm with tachycardia and clear breathing sounds bilaterally and no edema was noted in the lower extremities Assessment Atrial fibrillation/flutter with RVR which is new to the patient Evidence of myocardial injury with no evidence of ischemia CAD as described above Multiple comorbid conditions including history of stroke and hypertension and dyslipidemia History of seizure Plan Continue the current medical regimen Consider cardioversion if the patient remains in RVR Continue IV heparin and consider switching the patient to oral anticoagulation Follow-up on the echocardiogram which was performed Past Medical History Past Medical History: COPD, CVA/TIA, Diabetes Mellitus, Fibromyalgia, GERD/Reflux, Hyperlipidemia, Hypertension, Memory Impairment, Seizure Disorder, Skin Disorder, Sleep Apnea/CPAP/BIPAP Additional Past Medical History / Comment(s): uses CPAP machine, on 4L home oxygen, EPILEPTIC, past fall w/ concussion, ambulate with a walker and a wheelchair, Parkinson's History of Any Multi-Drug Resistant Organisms: None Reported Past Surgical History: Hernia Repair, Pacemaker Additional Past Surgical History / Comment(s): left big toe surgery/debridement r/t diabetic ulcer Past Anesthesia/Blood Transfusion Reactions: No Reported Reaction Type of Cardiac Device: Permanent Pacemaker, AICD Device Placement Date:: 2020 Past Psychological History: No Psychological Hx Reported Additional Psychological History / Comment(s): Pt lives alone, has a power chair, straight cane, shower chair, nebulizer, glucometer. Pt no longer drives, has friend that takes him to appts. Smoking Status: Former smoker Past Alcohol Use History: None Reported Past Drug Use History: None Reported - Past Family History Father Family Medical History: Cancer Additional Family Medical History / Comment(s): LUNG Brother(s) History Unknown: Yes Family Medical History: Myocardial Infarction ([place]) Additional Family Medical History / Comment(s): Sister(s) History Unknown: Yes Family Medical History: Myocardial Infarction ([place]) Additional Family Medical History / Comment(s): Medications and Allergies Home Medications Medication Instructions Recorded Confirmed Type Atorvastatin [Lipitor] 40 mg PO W/SUPPER 08/31/14 12/24/24 History Potassium Chloride [Klor-Con 20] 20 meq PO DAILY 08/10/15 12/24/24 History lamoTRIgine [LaMICtal] 200 mg PO TID-W/MEALS 08/10/15 12/24/24 History Omeprazole 40 mg PO DAILY 05/14/18 12/24/24 History Dulaglutide [Trulicity] 4.5 mg SQ CARD 06/18/21 12/24/24 History Gabapentin 600 mg PO TID 06/18/21 12/24/24 History Insulin Glargine,Hum.rec.anlog 10 unit SQ HS 06/18/21 12/24/24 History [Lantus Solostar Pen] Meloxicam [Mobic] 15 mg PO DAILY 06/18/21 12/24/24 History Aspirin EC [Ecotrin Low Dose] 81 mg PO DAILY 06/21/24 12/24/24 History DULoxetine HCL [Cymbalta] 60 mg PO DAILY 06/21/24 12/24/24 History Ergocalciferol [Vitamin D2 (1250 1,250 mcg PO CARD 06/21/24 12/24/24 History Mcg = 56875 Iu)] Insulin Aspart [NovoLOG Flexpen] 5 units SQ AC-TID 06/21/24 12/24/24 History Insulin Aspart [NovoLOG Flexpen] See Protocol SQ AC-TID 06/21/24 12/24/24 History Ipratropium-Albuterol Nebulize 3 ml INHALATION RT-QID PRN 06/21/24 12/24/24 History [Duoneb 0.5 mg-3 mg/3 ml Soln] Metoprolol Succinate [Toprol XL] 50 mg PO DAILY 06/21/24 12/24/24 History Montelukast [Singulair] 10 mg PO DAILY 06/21/24 12/24/24 History Sacubitril/Valsartan [Entresto 24 1 tab PO BID-W/MEALS 06/21/24 12/24/24 History mg-26 mg Tablet] Sucralfate [Carafate] 1 gm PO TID 06/21/24 12/24/24 History Terbinafine [LamISIL] 250 mg PO W/SUPPER 06/21/24 12/24/24 History Vortioxetine Hydrobromide 20 mg PO W/SUPPER 06/21/24 12/24/24 History [Trintellix] amLODIPine [Norvasc] 5 mg PO DAILY 06/21/24 12/24/24 History Carbidopa-Levodopa 25-100 mg 1 each PO QID 30 Days #120 tab 06/24/24 12/24/24 Rx [Sinemet 25-100 mg] Nitroglycerin Sl Tabs [Nitrostat] 0.4 mg SUBLINGUAL Q5M PRN 180 Days 06/24/24 12/24/24 Rx #100 tab Doxycycline Hyclate 100 mg PO BID 12/24/24 12/24/24 History Spironolactone 50 mg PO DAILY 12/24/24 12/24/24 History metFORMIN HCL 1,000 mg PO BID 12/24/24 12/24/24 History Allergies Allergy/AdvReac Type Severity Reaction Status Date / Time venom-honey bee Allergy Swelling Verified 12/24/24 14:01 [bee venom (honey bee)] Physical Exam Vitals: Vital Signs Temp Pulse Pulse Resp BP BP Pulse Ox 12/25/24 04:00 98.1 F 123 H 18 145/104 100 12/24/24 23:17 98.0 F 144 H 18 135/99 99 12/24/24 22:16 99.6 F 142 H 18 130/93 98 12/24/24 20:58 146 H 18 143/94 99 12/24/24 17:37 120 H 20 106/71 96 12/24/24 17:21 144 H 12/24/24 16:41 111 H 20 141/101 98 12/24/24 15:25 85 20 127/86 98 12/24/24 15:00 130 H 20 127/86 96 12/24/24 14:08 158 H 20 137/68 98 12/24/24 12:05 97.9 F 145 H 20 183/103 99 Intake and Output 12/24/24 12/25/24 12/25/24 22:59 06:59 14:59 Intake Total 173.751 Balance 173.751 Intake: IV 10 Invasive Line 2 10 Intake, IV Titration 163.751 Amount Diltiazem 125 mg In 88.584 Sodium Chloride 0.9% 100 ml @ 5 MG/HR 5 mls/hr IV .Q24H [facility] Rx#:[id number] Heparin Sod,Pork in 0.45% 75.167 NaCl 25,000 unit In 0.45 % NaCl 1 250ml.bag @ 9. 931 UNITS/KG/HR 10 mls/hr IV .Q24H [facility] Rx#: [id number] Other: Voiding Method Urinal # Voids 2 Weight 97.7 kg Results 12/24/24 12:32 12/24/24 12:32 Cardiac Enzymes 12/24/24 12/24/24 12/24/24 Range/Units 12:32 12:32 16:27 AST 24 (17-59) U/L Troponin I 0.074 H* 0.080 H* (0.000-0.034) ng/mL 12/24/24 Range/Units 20:57 AST (17-59) U/L Troponin I 0.073 H* (0.000-0.034) ng/mL Coagulation 12/24/24 12/24/24 12/24/24 Range/Units 12:32 16:27 22:15 PT 11.3 11.6 (10.0-12.5) sec APTT 23.7 24.6 31.3 H (22.0-30.0) sec CBC 12/24/24 Range/Units 12:32 WBC 7.6 (3.8-10.6) k/uL RBC 4.38 (4.30-5.90) m/uL Hgb 13.3 (13.0-17.5) gm/dL Hct 40.3 (39.0-53.0) % Plt Count 244 (150-450) k/uL Comprehensive Metabolic Panel 12/24/24 Range/Units 12:32 Sodium 137 (137-145) mmol/L Potassium 4.7 (3.5-5.1) mmol/L Chloride 103 (98-107) mmol/L Carbon Dioxide 21 L (22-30) mmol/L BUN 16 (9-20) mg/dL Creatinine 1.09 (0.66-1.25) mg/dL Glucose 135 H (74-99) mg/dL Calcium 9.9 (8.4-10.2) mg/dL AST 24 (17-59) U/L ALT 15 (4-49) U/L Alkaline Phosphatase 72 (38-126) U/L Total Protein 8.0 (6.3-8.2) g/dL Albumin 4.6 (3.5-5.0) g/dL Current Medications Generic Name Dose Route Start Last Admin Trade Name Freq PRN Reason Stop Dose Admin Albuterol/Ipratropium 3 ml 12/24/24 17:53 Ipratropium-Albuterol 3 Ml Neb INHALATION RT-QID PRN Shortness Of Breath Amlodipine Besylate 5 mg 12/25/24 09:00 Amlodipine 5 Mg Tab PO DAILY [facility] Aspirin 81 mg 12/25/24 09:00 Aspirin 81 Mg PO DAILY [facility] Atorvastatin Calcium 40 mg 12/25/24 17:30 Atorvastatin 40 Mg Tab PO W/SUPPER [facility] Carbidopa/Levodopa 1 each 12/24/24 18:00 12/24/24 22:50 Carbidopa-Levodopa 25-100 Mg 1 Each Tab PO 1 each QID [facility] Administration Duloxetine HCl 60 mg 12/25/24 09:00 Duloxetine Hcl 60 Mg Capsule.Dr PO DAILY [facility] Gabapentin 600 mg 12/24/24 22:00 12/24/24 22:50 Gabapentin 300 Mg Cap PO 600 mg TID [facility] Administration Heparin Sodium (Porcine) 0 unit 12/24/24 16:01 12/25/24 00:19 Heparin Sodium 1,000 Un/Ml (10ml Vl) IV 2,500 unit PER PROTOCOL PRN Administration Low PTT Protocol Diltiazem HCl 125 mg/ Sodium 125 mls @ 5 mls/hr 12/24/24 13:45 12/25/24 05:03 Chloride IV 10 mg/hr .Q24H [facility] 10 mls/hr Administration 5 MG/HR Heparin Sodium/Sodium Chloride 250 mls @ 10 mls/hr 12/24/24 16:15 12/25/24 00:08 25,000 unit/ Sodium Chloride IV 11.931 units/kg/hr .Q24H [facility] 12.014 mls/hr Titration Protocol 9.931 UNITS/KG/HR Sodium Chloride 1,000 mls @ 75 mls/hr 12/24/24 16:15 12/25/24 05:05 Saline 0.9% IV Not Given .[id number] [facility] Lamotrigine 200 mg 12/25/24 07:30 12/25/24 06:32 Lamotrigine 100 Mg Tab PO 200 mg TID-W/MEALS [facility] Administration Metoprolol Succinate 50 mg 12/25/24 09:00 Metoprolol Succinate (Er) 50 Mg Tab.Er.24h PO DAILY [facility] Montelukast Sodium 10 mg 12/25/24 09:00 Montelukast 10 Mg Tab PO DAILY [facility] Morphine Sulfate 4 mg 12/24/24 16:01 Morphine Sulfate 4 Mg/Ml Syringe IV Q4HR PRN Severe Pain (Scale 7 to 10) Naloxone HCl 0.2 mg 12/24/24 16:01 Naloxone 0.4 Mg/Ml 1 Ml Vial IV Q2M PRN Opioid Reversal Ondansetron HCl 4 mg 12/24/24 16:01 Ondansetron 4 Mg/2 Ml Vial IVP Q8HR PRN Nausea And Vomiting Pantoprazole Sodium 40 mg 12/25/24 09:00 Pantoprazole 40 Mg Tablet PO DAILY [facility] Potassium Chloride 20 meq 12/25/24 09:00 Potassium Chloride Er 20 Meq Tab.Er PO DAILY [facility] Sacubitril/Valsartan 1 each 12/25/24 07:30 12/25/24 06:32 Sacubitril/Valsartan 24 Mg-26 Mg Tablet PO 1 each BID-W/MEALS [facility] Administration Spironolactone 50 mg 12/25/24 09:00 Spironolactone 25 Mg Tab PO DAILY [facility] Sucralfate 1 gm 12/24/24 22:00 12/24/24 22:50 Sucralfate 1 Gm Tab PO 1 gm TID [facility] Administration Vortioxetine 20 mg 12/25/24 17:30 Vortioxetine Hydrobromide 20 Mg Tablet PO W/SUPPER [facility] Intake and Output 12/24/24 12/25/24 12/25/24 22:59 06:59 14:59 Intake Total 173.751 Balance 173.751 Intake: IV 10 Invasive Line 2 10 Intake, IV Titration 163.751 Amount Diltiazem 125 mg In 88.584 Sodium Chloride 0.9% 100 ml @ 5 MG/HR 5 mls/hr IV .Q24H [facility] Rx#:[id number] Heparin Sod,Pork in 0.45% 75.167 NaCl 25,000 unit In 0.45 % NaCl 1 250ml.bag @ 9. 931 UNITS/KG/HR 10 mls/hr IV .Q24H [facility] Rx#: [id number] Other: Voiding Method Urinal # Voids 2 Weight 97.7 kg 12/24/24 12:32 12/24/24 12:32
[2024-12-25 08:03] LABS: Basophils % (A) 0 %; Eosinophils # (A) 0.1 k/uL (0-0.7); Eosinophils % (A) 2 %; HCT 37.4 % (39.0-53.0); HGB 12.3 gm/dL (13.0-17.5); Hypochromasia Slight; Lymphocytes # (A) 0.9 k/uL (1.0-4.8); Lymphocytes % (A) 14 %; MCH 30.4 pg (25.0-35.0); MCHC 32.8 g/dL (31.0-37.0); MCV 92.6 fL (80.0-100.0); Monocytes # (A) 0.4 k/uL (0-1.0); Monocytes % (A) 6 %; Neutrophils # (A) 5.2 k/uL (1.3-7.7); Neutrophils % (A) 77 %; Platelet Count 222 k/uL (150-450); Poikilocytosis Slight; RBC 4.04 m/uL (4.30-5.90); RDW 15.7 % (11.5-15.5); WBC 6.8 k/uL (3.8-10.6)
[2024-12-25 08:25] LABS: African American GFR (CKD) >90 (>60 ml/min/1.73 sqM); Anion Gap 7 mmol/L; Blood Urea Nitrogen 15 mg/dL (9-20); Calcium 9.5 mg/dL (8.4-10.2); Carbon Dioxide 23 mmol/L (22-30); Chloride 105 mmol/L (98-107); Glucose 131 mg/dL (74-99); Magnesium 1.9 mg/dL (1.6-2.3); Non-African American GFR(CKD) >90 (>60 ml/min/1.73 sqM); Potassium 4.2 mmol/L (3.5-5.1); Sodium 135 mmol/L (137-145)
--- NOTE | 2024-12-25 08:57 | CT ---
EXAMINATION TYPE: CT chest wo con DATE OF EXAM: 12/25/2024 COMPARISON: 08/12/2014 CLINICAL INDICATION: Male, 59 years old with history of pleural effusion; PHH, Pleural effusion TECHNIQUE: CT scan of the thorax is performed without IV contrast. CT DLP: 514.[address] CTDI: mGy Automated exposure control for dose reduction was used. FINDINGS: There is no pleural effusion or pneumothorax. There is scattered groundglass opacity throughout both lungs raising the question of mild pulmonary e shaneka. There are a few scattered stable sub-6 mm nodules but no new or suspicious lung mass or nodule. The heart is mildly enlarged. There is a cardiac pacemaker. There is no mediastinal, hilar or axillary adenopathy. Limited scanning through the upper abdomen reveals no gross abnormality. No focal osseous lesions are seen. IMPRESSION: 1. No pleural effusion. 2 scattered patchy groundglass throughout both lungs raising the question of mild pulmonary edema po ssibly a pneumonic process. Clinical correlation and short-term follow-up is recommended. [facility], Workstation: CARLEY 12/25/2024 8:54 AM
[2024-12-25] MEDS ORDERED: METOPROLOL SUCCINATE (ER) 50 MG TAB.ER.24H PO SCH (09:00)
[2024-12-25] MEDS: ASPIRIN 81 MG PO SCH (09:13)
[2024-12-25] MEDS: PANTOPRAZOLE 40 MG TABLET PO SCH (09:13)
[2024-12-25] MEDS: DULoxetine HCL 60 MG CAPSULE.DR PO SCH (09:13)
[2024-12-25] MEDS: MONTELUKAST 10 MG TAB PO SCH (09:14)
[2024-12-25] MEDS: SPIRONOLACTONE 25 MG TAB PO SCH (09:14)
[2024-12-25] MEDS: amLODIPine 5 MG TAB PO SCH (09:14)
[2024-12-25] MEDS: METOPROLOL TARTRATE 50 MG TAB PO SCH (09:14)
[2024-12-25] MEDS: POTASSIUM CHLORIDE ER 20 MEQ TAB.ER PO SCH (09:14)
[2024-12-25 11:32] LABS: Glucose,Whole Blood 211 mg/dL (70-110)
[2024-12-25] MEDS: IPRATROPIUM-ALBUTEROL 3 ML NEB INHALATION PRN (11:32)
[2024-12-25] MEDS: MORPHINE SULFATE 4 MG/ML SYRINGE IV PRN (12:35)
[2024-12-25] MEDS ORDERED: METHYL SALICYLATE-MENTHOL OINT (3 OZ TUBE) TOPICAL PRN (14:05)
[2024-12-25 16:45] LABS: Glucose,Whole Blood 118 mg/dL (70-110)
[2024-12-25] MEDS: ATORVASTATIN 40 MG TAB PO SCH (17:11)
[2024-12-25] MEDS: VORTIOXETINE HYDROBROMIDE 20 MG TABLET PO SCH (17:11)
--- NOTE | 2024-12-25 18:06 | CA ---
Transthoracic Echo Report Name: Sajan Sullivan Age: 59 Gender: M : 1965 Exam Date: 12/25/2024 07:56 Exam Location: [place] [facility] Ht (in): 69 Wt (lb): 222 Ordering Physician: Liam Acosta MD Attending/Referring Phys: Roller Leveler Operator Jessica Bravo RDCS Procedure CPT: Indications: chf Cardiac Hx: Technical Quality: Good Contrast 1: Total Dose (mL): Contrast 2: Total Dose (mL): MEASUREMENTS (Male / Female) Normal Values 2D ECHO LV Diastolic Diameter PLAX 4.3 cm 4.2 - 5.9 / 3.9 - 5.3 cm LV Systolic Diameter PLAX 4.3 cm IVS Diastolic Thickness 1.6 cm 0.6 - 1.0 / 0.6 - 0.9 cm LVPW Diastolic Thickness 1.6 cm 0.6 - 1.0 / 0.6 - 0.9 cm LV Relative Wall Thickness 0.7 RV Internal Dim ED PLAX 3.4 cm LVOT Diameter 2.4 cm LA Systolic Diameter LX 4.9 cm 3.0 - 4.0 / 2.7 - 3.8 cm LV Diastolic Volume MOD BP 162.5 cm??? 67 - 155 / 56 - 104 cm??? LV Systolic Volume MOD BP 94.2 cm??? 22 - 58 / 19 - 49 cm??? LV Ejection Fraction MOD BP 42.0 % >= 55 % LV Cardiac Index MOD BP 3223.8 cm???/min???m??? LV Diastolic Volume MOD 4C 149.1 cm??? LV Systolic Volume MOD 4C 86.3 cm??? LV Ejection Fraction MOD 4C 42.1 % LV Cardiac Index MOD 4C 2962.5 cm???/min???m??? LV Diastolic Length 4C 8.4 cm LV Systolic Length 4C 7.5 cm LV Diastolic Volume MOD 2C 164.9 cm??? LV Systolic Volume MOD 2C 94.4 cm??? LV Ejection Fraction MOD 2C 42.8 % LV Cardiac Index MOD 2C 3327.2 cm???/min???m??? LV Diastolic Length 2C 9.6 cm LV Systolic Length 2C 8.4 cm LA Volume 114.5 cm??? 18 - 58 / 22 - 52 cm??? LA Volume Index 51.0 cm???/m??? 16 - 28 cm???/m??? M-MODE Aortic Root Diameter MM 3.2 cm DOPPLER AV Peak Velocity 293.0 cm/s AV Peak Gradient 34.3 mmHg AV Mean Velocity 202.0 cm/s AV Mean Gradient 18.3 mmHg AV Velocity Time Integral 55.9 cm LVOT Peak Velocity 80.0 cm/s LVOT Peak Gradient 2.6 mmHg LVOT Velocity Time Integral 16.3 cm LVOT Stroke Volume 76.3 cm??? LVOT Stroke Volume Index 35.4 ml/m??? LVOT Cardiac Index 3601.8 cm???/min???m??? AV Area Cont Eq vti 1.4 cm??? AV Area Cont Eq pk 1.3 cm??? MV Area PHT 6.4 cm??? MV Deceleration Time 103.0 ms TR Peak Velocity 272.8 cm/s TR Peak Gradient 29.8 mmHg Right Ventricular Systolic Press 34.8 mmHg FINDINGS Left Ventricle Left ventricular ejection fraction is estimated at 20-25 %. Left ventricular cavity size normal. Moderate concentric left ventricular hypertrophy. Severely reduced global left ventricular systolic function. Mildly increased left ventricular diastolic volume. Severely increased left ventricular systolic volume Right Ventricle Mild right ventricular dilatation. Mild pulmonary hypertension. Right Atrium Normal right atrial size. No right atrial thrombus or mass seen. Left Atrium Moderately increased left atrial diameter. Severely increased left atrial volume. Mildly increased left atrial area. No left atrial thrombus or mass present. Mitral Valve Mitral valve thickened. Mild to moderate mitral regurgitation. Aortic Valve Diffuse thickening of the aortic valve cusps with reduced excursion. Mild-to- moderate aortic stenosis with a peak gradient of 34 mmHg and a mean gradient of 18 mmHg. Tricuspid Valve Structurally normal tricuspid valve. Mild tricuspid regurgitation. Pulmonic Valve Structurally normal pulmonic valve. Mild pulmonic regurgitation. Pericardium No pericardial effusion. Aorta Normal size aortic root and proximal ascending aorta. CONCLUSIONS Impaired LV function with EF between 20 to 25% Poorly visualized aortic valve. The aortic valve is sclerotic. Mild to moderate aortic stenosis Mild to moderate mitral regurgitation Previewed by: Dr. Girish Lyles MD (Electronically Signed) Final Date: 25 December 2024 18:05
[2024-12-25] MEDS: DEXTROSE 5% IN WATER 100 ML with AMIODARONE 150 MG IV ONE (19:43)
[2024-12-25] MEDS: AMIODARONE 360 MG in DEXTROSE 5% IN WATER 200 ML IV ONE (19:49)
[2024-12-25 20:42] LABS: Glucose,Whole Blood 174 mg/dL (70-110)
[2024-12-25] MEDS: AZITHROMYCIN 500 MG in SODIUM CHLORIDE 0.9% 250 ML IVPB SCH (23:26)
[2024-12-26] MEDS: PIPERACILLIN-TAZOBACTAM 3.375 GM in SODIUM CHLORIDE 0.9% 100 ML IVPB SCH (01:13)
[2024-12-26] MEDS: AMIODARONE 450 MG in DEXTROSE 5% IN WATER 250 ML IV SCH (01:15)
[2024-12-26] MEDS: CAPSAICIN 0.025% CREAM 60 GM TUBE TOPICAL PRN (03:38)
[2024-12-26] MEDS: ONDANSETRON 4 MG/2 ML VIAL IVP PRN (04:34)
[2024-12-26 05:58] LABS: Glucose,Whole Blood 126 mg/dL (70-110)
--- NOTE | 2024-12-26 08:47 | P.PN ---
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 Beside that the patient does have diabetes and hypertension and dyslipidemia and history of stroke and history of seizure limiting his physical activities and driving as well. He was seen yesterday by his primary care physician where he underwent an EKG and that showed atrial fibrillation/flutter with RVR and the patient subsequently was sent to the hospital. He reports chest discomfort appears to be intermittent and chronic and reports shortness of breath as well as dizziness and lightheadedness and heart racing and fluttering but no presyncope or syncope. He is in atrial fibrillation with RVR which is new to him. Currently he is on Cardizem IV and he is on heparin IV. The EKG showed atrial flutter with RVR. Blood work showed mild elevation in the troponin which could be secondary to sinus tachycardia. The echo from 2023 showed normal LV systolic function with no significant valvular abnormalities. The physical examination is remarkable for regular rhythm with tachycardia and clear breathing sounds bilaterally and no edema was noted in the lower extremities December 26, 2024 The patient was seen and evaluated this morning. He is converted to normal sinus mechanism. The echo showed cardiomyopathy which is new compared to an echo was performed in May 2024. Overall he is feeling better. Hemodynamically he is stable. He was started on Entresto which I would agree on. He is on beta-paras which we will continue. I am going to add Farxiga and also decrease the dose of Aldactone and stop amlodipine in the light of low blood pressure. He need to undergo a coronary angiogram and with that being said I would continue the patient on IV heparin at this point. The physical examination is remarkable for regular rhythm with diminished breathing sounds bilaterally and no edema was noted in the lower extremities Assessment Atrial fibrillation/flutter with RVR which is new to the patient Evidence of myocardial injury with no evidence of ischemia Cardiomyopathy which is new CAD as described above Multiple comorbid conditions including history of stroke and hypertension and dyslipidemia History of seizure Plan Continue the current medical regimen Add Farxiga to the current medical regimen Decrease the dose of Aldactone and DC amlodipine in the light of low blood pressure Consider coronary angiogram to rule out severe CAD Objective - Vital Signs Vital signs: Vital Signs Temp 98.6 F 12/26/24 03:52 Pulse 69 12/26/24 03:52 Resp 18 12/26/24 03:52 BP 100/71 12/26/24 03:52 Pulse Ox 99 12/26/24 03:52 FiO2 Intake & Output 12/25/24 12/26/24 12/26/24 18:59 06:59 18:59 Intake Total 1541.466 30 249.465 Balance 1541.466 30 249.465 Weight 100.6 kg Intake: IV 30 Invasive Line 1 10 Invasive Line 2 10 Invasive Line 3 10 Intake, IV Titration 221.466 249.465 Amount Diltiazem 125 mg In 51.167 Sodium Chloride 0.9% 100 ml @ 5 MG/HR 5 mls/hr IV .Q24H [facility] Rx#:[id number] Heparin Sod,Pork in 0.45% 170.299 249.465 NaCl 25,000 unit In 0.45 % NaCl 1 250ml.bag @ 9. 931 UNITS/KG/HR 10 mls/hr IV .Q24H [facility] Rx#: [id number] Oral 1320 Other: Voiding Method Urinal Toilet Urinal Diaper # Voids 1 # Bowel Movements 1 - Labs CBC & Chem 7: 12/25/24 07:41 12/25/24 07:41 Labs: Abnormal Lab Results - Last 24 Hours (Table) 12/25/24 12/25/24 12/25/24 Range/Units 11:31 16:43 20:03 APTT 46.1 H (22.0-30.0) sec POC Glucose (mg/dL) 211 H 118 H (70-110) mg/dL 12/25/24 12/26/24 12/26/24 Range/Units 20:23 05:42 07:23 APTT 53.2 H (22.0-30.0) sec POC Glucose (mg/dL) 174 H 126 H (70-110) mg/dL
[2024-12-26] MEDS: AMIODARONE 200 MG TAB PO SCH ×2 (09:14→21:25)
[2024-12-26] MEDS: DAPAGLIFLOZIN PROPANEDIOL 10 MG TABLET PO SCH (09:14)
[2024-12-26] MEDS: SPIRONOLACTONE 25 MG TAB PO SCH (09:14)
[2024-12-26 11:57] LABS: Glucose,Whole Blood 171 mg/dL (70-110)
[2024-12-26 16:32] LABS: Glucose,Whole Blood 133 mg/dL (70-110)
[2024-12-26 20:29] LABS: Glucose,Whole Blood 199 mg/dL (70-110)
[2024-12-26] MEDS: METOPROLOL TARTRATE 50 MG TAB PO SCH (21:25)
[2024-12-27] MEDS: MIDODRINE 5 MG TAB PO SCH (03:19)
[2024-12-27 03:33] LABS: Anisocytosis Slight; Basophils % (A) 1 %; Eosinophils % (A) 0 %; HCT 34.1 % (39.0-53.0); HGB 10.7 gm/dL (13.0-17.5); Hypochromasia Slight; Lymphocytes # (A) 0.9 k/uL (1.0-4.8); Lymphocytes % (A) 15 %; MCH 30.2 pg (25.0-35.0); MCHC 31.2 g/dL (31.0-37.0); MCV 96.7 fL (80.0-100.0); Mean Platelet Volume 8.5; Monocytes # (A) 0.4 k/uL (0-1.0); Monocytes % (A) 7 %; Neutrophils # (A) 4.6 k/uL (1.3-7.7); Neutrophils % (A) 76 %; Platelet Count 212 k/uL (150-450); Poikilocytosis Slight; RBC 3.53 m/uL (4.30-5.90); RDW 16.1 % (11.5-15.5)
[2024-12-27 03:41] LABS: ABG Base Excess -5.2 mmol/L; ABG HCO3 21 mmol/L (21-25); ABG Oxygen Saturation 97.6 % (94-97); ABG PCO2 43 mmHg (35-45); ABG PO2 97 mmHg (83-108); ABG TCO2 22 mmol/L (19-24); Allen Test Performed? Yes
--- NOTE | 2024-12-27 04:29 | CT ---
ADDENDUM - Added by Mike Elkins MD on 12/29/2024 6:08 AM (-04:00) EXAM: CT Head Without Intravenous Contrast CLINICAL HISTORY: ITS.REASON CT Reason: Lethargic, change in mental status TECHNIQUE: Axial computed tomography images of the head/brain without intravenous contrast. CTDI is 49.2 mGy and DLP is 1229.4 mGy-cm. This CT exam was performed using one or more of the following dose reduction techniques: automated exposure control, adjustment of the mA and/or kV according to patient size, and/or use of iterative reconstruction technique. COMPARISON: No relevant prior studies available. FINDINGS: No acute intracranial hemorrhage. No midline shift or mass effect. The territorial lópez-white matter differentiation is maintained throughout. The ventricles and sulci are commensurate with age. The visualized orbits appear grossly unremarkable. The calvarium is intact. The visualized paranasal sinuses and mastoid air cells are grossly clear. IMPRESSION: No acute intracranial hemorrhage, midline shift, or mass effect. EXAM: CT Head Without Intravenous Contrast CLINICAL HISTORY: ITS.REASON CT Reason: Lethargic, change in mental status TECHNIQUE: Axial computed tomography images of the head/brain without intravenous contrast. CTDI is 49.2 mGy and DLP is 1229.4 mGy-cm. This CT exam was performed using one or more of the following dose reduction techniques: automated exposure control, adjustment of the mA and/or kV according to patient size, and/or use of iterative reconstruction technique. COMPARISON: No relevant prior studies available. FINDINGS: Brain: Unremarkable. No hemorrhage. No significant white matter disease. No edema. Ventricles: Unremarkable. No ventriculomegaly. Bones/joints: Small RIGHT pleural effusion. Degenerative changes of the spine. No acute fracture. Soft tissues: Unremarkable. Vasculature: Atherosclerotic changes of the aorta. Sinuses: Unremarkable as visualized. No acute sinusitis. Mastoid air cells: Unremarkable as visualized. No mastoid effusion. Tubes, lines and devices: Pacemaker leads. Other findings: Cardiomegaly. Atelectasis at the lung bases. IMPRESSION: Small RIGHT pleural effusion.
--- NOTE | 2024-12-27 04:39 | CT ---
EXAM: CT Chest Without Intravenous Contrast CLINICAL HISTORY: ITS.REASON CT Reason: Shortness of Breath TECHNIQUE: Axial computed tomography images of the chest without intravenous contrast. CTDI is 12.8 mGy and DLP is 533.3 mGy-cm. This CT exam was performed using one or more of the following dose reduction techniques: automated exposure control, adjustment of the mA and/or kV according to patient size, and/or use of iterative reconstruction technique. COMPARISON: No relevant prior studies available. FINDINGS: Lungs: Atelectasis at the lung bases. Pleural space: Small RIGHT pleural effusion. No pneumothorax. Heart: Cardiomegaly. No significant pericardial effusion. No significant coronary artery calcifications. Bones/joints: Degenerative changes of the spine. No acute fracture. No dislocation. Soft tissues: Bilateral gynecomastia. Vasculature: Atherosclerotic changes of the aorta. No thoracic aortic aneurysm. Lymph nodes: Unremarkable. No enlarged lymph nodes. Tubes, lines and devices: Pacemaker leads. IMPRESSION: Small RIGHT pleural effusion.
[2024-12-27 05:31] LABS: ALT 48 U/L (4-49); AST 266 U/L (17-59); African American GFR (CKD) 41 (>60 ml/min/1.73 sqM); Albumin 3.7 g/dL (3.5-5.0); Alkaline Phosphatase 87 U/L (38-126); Anion Gap 11 mmol/L; Blood Urea Nitrogen 35 mg/dL (9-20); Calcium 9.5 mg/dL (8.4-10.2); Carbon Dioxide 21 mmol/L (22-30); Chloride 101 mmol/L (98-107); Glucose 98 mg/dL (74-99); Non-African American GFR(CKD) 35 (>60 ml/min/1.73 sqM); Potassium 5.5 mmol/L (3.5-5.1); Sodium 133 mmol/L (137-145); Total Bilirubin 0.8 mg/dL (0.2-1.3); Total Protein 6.6 g/dL (6.3-8.2)
[2024-12-27 06:16] LABS: Glucose,Whole Blood 84 mg/dL (70-110)
[2024-12-27] MEDS: SODIUM CHLORIDE 0.9% 1,000 ML IV ONE (07:13)
[2024-12-27 07:16] LABS: Basophils % (A) 1 %; Eosinophils % (A) 1 %; HCT 33.4 % (39.0-53.0); HGB 10.7 gm/dL (13.0-17.5); Hypochromasia Moderate; Lymphocytes % (A) 17 %; MCH 30.6 pg (25.0-35.0); MCV 95.4 fL (80.0-100.0); Mean Platelet Volume 7.9; Monocytes # (A) 0.4 k/uL (0-1.0); Monocytes % (A) 7 %; Neutrophils % (A) 73 %; Platelet Count 190 k/uL (150-450); Poikilocytosis Slight; RDW 15.8 % (11.5-15.5); WBC 5.5 k/uL (3.8-10.6)
[2024-12-27 07:31] LABS: ALT 65 U/L (4-49); AST 334 U/L (17-59); African American GFR (CKD) 39 (>60 ml/min/1.73 sqM); Albumin 3.6 g/dL (3.5-5.0); Alkaline Phosphatase 78 U/L (38-126); Anion Gap 9 mmol/L; Blood Urea Nitrogen 36 mg/dL (9-20); Calcium 9.4 mg/dL (8.4-10.2); Carbon Dioxide 23 mmol/L (22-30); Chloride 102 mmol/L (98-107); Glucose 83 mg/dL (74-99); Non-African American GFR(CKD) 34 (>60 ml/min/1.73 sqM); Potassium 5.4 mmol/L (3.5-5.1); Sodium 134 mmol/L (137-145); Total Bilirubin 0.8 mg/dL (0.2-1.3); Total Protein 6.3 g/dL (6.3-8.2)
[2024-12-27] MEDS ORDERED: ALPRAZolam 0.5 MG TAB PO PRN (07:44)
[2024-12-27] MEDS ORDERED: ALPRAZolam 0.25 MG TAB PO PRN (07:44)
[2024-12-27] MEDS: METOPROLOL TARTRATE 50 MG TAB PO SCH (08:35)
--- NOTE | 2024-12-27 11:17 | P.CNPUL ---
History of Present Illness Consult date: 12/27/24 Reason for consult: dyspnea, obstructive sleep apnea Chief complaint: Shortness of breath History of present illness: 59-year-old male seen evaluate examined, presented emergency department with chest pain predominantly on the left side, and shortness of breath, patient is on 4-1/2 L oxygen uses at home, patient has advanced Parkinson's disease and very limited activity. Patient recently has been diagnosed on a home sleep study sleep disordered breathing and sleep apnea has been placed on auto CPAP machine which he is tolerating well and getting more adjusted to it. Patient feels that he is more awake and alert during the day before the CPAP machine and he feels getting benefit out of it patient and I agree for using BiPAP machine in the hospital. Review of data revealed that patient does have coronary artery disease based on a cath in 2023, other active medical problem issues include hypertension dyslipidemia history of CVA and seizure-like DVT patient has has been found to have atrial fibrillation in the primary care's office sent to emergency department for further evaluation, initially placed on IV Cardizem, echo last done a year ago normal systolic function with no valvular abnormality, patient is being considered for cardioversion as well as cardiac cath and cardiovascular service, patient spontaneously converted into sinus rhythm, echo however revealed cardiomyopathy with ejection fraction of 25%, with moderate aortic stenosis and mitral regurgitation. Chest x-ray unremarkable. CT scan of the chest with out contrast interstitial edema noted Review of Systems All systems: negative Past Medical History Past Medical History: COPD, CVA/TIA, Diabetes Mellitus, Fibromyalgia, GERD/Reflux, Hyperlipidemia, Hypertension, Memory Impairment, Seizure Disorder, Skin Disorder, Sleep Apnea/CPAP/BIPAP Additional Past Medical History / Comment(s): uses CPAP machine, on 4L home oxygen, EPILEPTIC, past fall w/ concussion, ambulate with a walker and a wheelchair, Parkinson's History of Any Multi-Drug Resistant Organisms: None Reported Past Surgical History: Hernia Repair, Pacemaker Additional Past Surgical History / Comment(s): left big toe surgery/debridement r/t diabetic ulcer Past Anesthesia/Blood Transfusion Reactions: No Reported Reaction Type of Cardiac Device: Permanent Pacemaker, AICD Device Placement Date:: 2020 Past Psychological History: No Psychological Hx Reported Additional Psychological History / Comment(s): Pt lives alone, has a power chair, straight cane, shower chair, nebulizer, glucometer. Pt no longer drives, has friend that takes him to appts. Smoking Status: Former smoker Past Alcohol Use History: None Reported Past Drug Use History: None Reported - Past Family History Father Family Medical History: Cancer Additional Family Medical History / Comment(s): LUNG Brother(s) History Unknown: Yes Family Medical History: Myocardial Infarction (NM) Additional Family Medical History / Comment(s): Sister(s) History Unknown: Yes Family Medical History: Myocardial Infarction (NM) Additional Family Medical History / Comment(s): Medications and Allergies Home Medications Medication Instructions Recorded Confirmed Type Atorvastatin [Lipitor] 40 mg PO W/SUPPER 08/31/14 12/24/24 History Potassium Chloride [Klor-Con 20] 20 meq PO DAILY 08/10/15 12/24/24 History lamoTRIgine [LaMICtal] 200 mg PO TID-W/MEALS 08/10/15 12/24/24 History Omeprazole 40 mg PO DAILY 05/14/18 12/24/24 History Dulaglutide [Trulicity] 4.5 mg SQ CARD 06/18/21 12/24/24 History Gabapentin 600 mg PO TID 06/18/21 12/24/24 History Insulin Glargine,Hum.rec.anlog 10 unit SQ HS 06/18/21 12/24/24 History [Lantus Solostar Pen] Meloxicam [Mobic] 15 mg PO DAILY 06/18/21 12/24/24 History Aspirin EC [Ecotrin Low Dose] 81 mg PO DAILY 06/21/24 12/24/24 History DULoxetine HCL [Cymbalta] 60 mg PO DAILY 06/21/24 12/24/24 History Ergocalciferol [Vitamin D2 (1250 1,250 mcg PO CARD 06/21/24 12/24/24 History Mcg = 15512 Iu)] Insulin Aspart [NovoLOG Flexpen] 5 units SQ AC-TID 06/21/24 12/24/24 History Insulin Aspart [NovoLOG Flexpen] See Protocol SQ AC-TID 06/21/24 12/24/24 History Ipratropium-Albuterol Nebulize 3 ml INHALATION RT-QID PRN 06/21/24 12/24/24 History [Duoneb 0.5 mg-3 mg/3 ml Soln] Metoprolol Succinate [Toprol XL] 50 mg PO DAILY 06/21/24 12/24/24 History Montelukast [Singulair] 10 mg PO DAILY 06/21/24 12/24/24 History Sacubitril/Valsartan [Entresto 24 1 tab PO BID-W/MEALS 06/21/24 12/24/24 History mg-26 mg Tablet] Sucralfate [Carafate] 1 gm PO TID 06/21/24 12/24/24 History Terbinafine [LamISIL] 250 mg PO W/SUPPER 06/21/24 12/24/24 History Vortioxetine Hydrobromide 20 mg PO W/SUPPER 06/21/24 12/24/24 History [Trintellix] amLODIPine [Norvasc] 5 mg PO DAILY 06/21/24 12/24/24 History Carbidopa-Levodopa 25-100 mg 1 each PO QID 30 Days #120 tab 06/24/24 12/24/24 Rx [Sinemet 25-100 mg] Nitroglycerin Sl Tabs [Nitrostat] 0.4 mg SUBLINGUAL Q5M PRN 180 Days 06/24/24 12/24/24 Rx #100 tab Doxycycline Hyclate 100 mg PO BID 12/24/24 12/24/24 History Spironolactone 50 mg PO DAILY 12/24/24 12/24/24 History metFORMIN HCL 1,000 mg PO BID 12/24/24 12/24/24 History Allergies Allergy/AdvReac Type Severity Reaction Status Date / Time venom-honey bee Allergy Swelling Verified 12/24/24 14:01 [bee venom (honey bee)] Physical Exam Vitals: Vital Signs Temp Pulse Resp BP Pulse Ox 12/27/24 08:11 97.6 F 50 L 16 124/73 100 12/27/24 04:00 98.1 F 50 L 18 113/71 96 12/27/24 03:33 51 L 18 123/82 98 12/27/24 02:56 98.4 F 50 L 18 115/74 96 12/27/24 02:00 52 L 18 12/27/24 01:58 98.2 F 52 L 18 126/81 100 12/27/24 01:37 18 97 12/27/24 01:36 18 80 L 12/26/24 23:55 97.7 F 53 L 18 110/65 97 12/26/24 20:00 97.5 F L 50 L 18 110/65 100 12/26/24 15:45 87 18 108/70 100 12/26/24 12:15 70 16 101/67 100 Intake and Output 12/26/24 12/27/24 12/27/24 22:59 06:59 14:59 Intake Total 130 229.592 Output Total 275 Balance 130 -45.408 Intake: IV 10 0.9 10 Intake, IV Titration 229.592 Amount Heparin Sod,Pork in 0.45% 229.592 NaCl 25,000 unit In 0.45 % NaCl 1 250ml.bag @ 9. 931 UNITS/KG/HR 10 mls/hr IV .Q24H [facility] Rx#: [id number] Oral 120 Output: Urine 275 Other: Voiding Method Toilet Toilet Toilet Urinal Urinal Urinal Diaper Diaper Diaper # Voids 0 1 Weight 99.5 kg - Constitutional General appearance: average body habitus, cooperative, disheveled - EENT Eyes: EOMI, PERRLA ENT: normal oropharynx Ears: bilateral: normal - Neck Carotids: bilateral: upstroke normal Thyroid: bilateral: normal size - Respiratory Respiratory: bilateral: CTA - Cardiovascular Rhythm: regular Heart sounds: normal: S1, S2 - Gastrointestinal General gastrointestinal: normal bowel sounds, soft - Integumentary Integumentary: normal, normal turgor - Neurologic Neurologic: CNII-XII intact - Musculoskeletal Musculoskeletal: generalized weakness, strength equal bilaterally - Psychiatric Psychiatric: A&O x's 3, appropriate affect, intact judgment & insight Results - Laboratory Findings CBC and BMP: 12/27/24 06:31 12/27/24 06:31 ABG ABG pH 7.30 (7.35-7.45) L 12/27/24 03:21 ABG pCO2 43 mmHg (35-45) 12/27/24 03:21 ABG pO2 97 mmHg (83-108) 12/27/24 03:21 ABG O2 Saturation 97.6 % (94-97) H 12/27/24 03:21 PT/INR, D-dimer PT 11.6 sec (10.0-12.5) 12/24/24 16:27 INR 1.1 (<1.2) 12/24/24 16:27 Abnormal lab findings: Abnormal Labs 12/24/24 12/24/24 12/24/24 12:32 12:32 12:32 RBC Hgb Hct RDW 15.7 H Lymphocytes # 0.9 L APTT ABG pH ABG O2 Saturation Hemoglobin Sodium Potassium Carbon Dioxide 21 L BUN Creatinine Glucose 135 H POC Glucose (mg/dL) AST ALT Troponin I 0.074 H* 12/24/24 12/24/24 12/24/24 16:27 20:57 22:15 RBC Hgb Hct RDW Lymphocytes # APTT 31.3 H ABG pH ABG O2 Saturation Hemoglobin Sodium Potassium Carbon Dioxide BUN Creatinine Glucose POC Glucose (mg/dL) AST ALT Troponin I 0.080 H* 0.073 H* 12/25/24 12/25/24 12/25/24 06:35 07:41 07:41 RBC 4.04 L Hgb 12.3 L Hct 37.4 L RDW 15.7 H Lymphocytes # 0.9 L APTT ABG pH ABG O2 Saturation Hemoglobin Sodium 135 L Potassium Carbon Dioxide BUN Creatinine Glucose 131 H POC Glucose (mg/dL) 113 H AST ALT Troponin I 12/25/24 12/25/24 12/25/24 07:41 11:31 16:43 RBC Hgb Hct RDW Lymphocytes # APTT 39.3 H ABG pH ABG O2 Saturation Hemoglobin Sodium Potassium Carbon Dioxide BUN Creatinine Glucose POC Glucose (mg/dL) 211 H 118 H AST ALT Troponin I 12/25/24 12/25/24 12/26/24 20:03 20:23 05:42 RBC Hgb Hct RDW Lymphocytes # APTT 46.1 H ABG pH ABG O2 Saturation Hemoglobin Sodium Potassium Carbon Dioxide BUN Creatinine Glucose POC Glucose (mg/dL) 174 H 126 H AST ALT Troponin I 12/26/24 12/26/24 12/26/24 07:23 11:56 16:31 RBC Hgb Hct RDW Lymphocytes # APTT 53.2 H ABG pH ABG O2 Saturation Hemoglobin Sodium Potassium Carbon Dioxide BUN Creatinine Glucose POC Glucose (mg/dL) 171 H 133 H AST ALT Troponin I 12/26/24 12/27/24 12/27/24 20:23 03:16 03:16 RBC 3.53 L Hgb 10.7 L Hct 34.1 L RDW 16.1 H Lymphocytes # 0.9 L APTT ABG pH ABG O2 Saturation Hemoglobin Sodium 133 L Potassium 5.5 H Carbon Dioxide 21 L BUN 35 H Creatinine 2.03 H Glucose POC Glucose (mg/dL) 199 H AST 266 H ALT Troponin I 12/27/24 12/27/24 12/27/24 03:21 06:31 06:31 RBC 3.50 L Hgb 10.7 L Hct 33.4 L RDW 15.8 H Lymphocytes # APTT 42.9 H ABG pH 7.30 L ABG O2 Saturation 97.6 H Hemoglobin 10.7 L Sodium Potassium Carbon Dioxide BUN Creatinine Glucose POC Glucose (mg/dL) AST ALT Troponin I 12/27/24 06:31 RBC Hgb Hct RDW Lymphocytes # APTT ABG pH ABG O2 Saturation Hemoglobin Sodium 134 L Potassium 5.4 H Carbon Dioxide BUN 36 H Creatinine 2.09 H Glucose POC Glucose (mg/dL) AST 334 H ALT 65 H Troponin I - Diagnostic Findings Chest x-ray: report reviewed, image reviewed CT scan - chest: report reviewed U/S of Legs: image reviewed (Finding as noted above) Assessment and Plan Assessment: Sleep disordered breathing and sleep apnea Obesity hypoventilation syndrome Acute on chronic kidney disease New onset atrial fibrillation with rapid ventricular response Ischemic cardiomyopathy with ejection fraction 25% significantly worsened from echo performed a year ago Mild MR and AR with sclerotic aortic valve Plan: Recommend to continue CPAP at home with previous setting, patient can use BiPAP 10 and 5 each night and as needed during the day with oxygen to keep saturation over 90% Monitor and trend renal functions close Patient will benefit from nephrology evaluation Continue anticoagulation as per cardiovascular services Patient is being planned for cardiac catheter angiogram Time with Patient: Greater than 30
[2024-12-27 11:18] LABS: Glucose,Whole Blood 91 mg/dL (70-110)
--- NOTE | 2024-12-27 14:21 | HP ---
HISTORY AND PHYSICAL HISTORY OF PRESENT ILLNESS: He was admitted with atrial fibrillation with RVR. He has probably bilateral pneumonia, history of systolic CHF, although 1 time he came in with atrial fibrillation RVR, started on Cardizem drip. Cardiology has been consulted. He had cough congestion, near-syncope, ambulating recently. Started him on broad-spectrum antibiotics for bilateral pneumonia seen on CAT scan. Echocardiogram shows 20% to 25% ejection fraction. HOME MEDICATIONS: See chart. REVIEW OF SYSTEMS: A 14-point review of systems as mentioned above, otherwise negative. PHYSICAL EXAMINATION: VITAL SIGNS: His heart rate has been in the 150s to 170s in the ER. Currently, his blood pressure is 80s to 90s systolic, saturating 100% on 4 L to 93% on 4 L. Temperature is 98.4, pulse 70, respiratory rate 16. CARDIOVASCULAR: S1, S2. LUNGS: Scattered wheeze and rhonchi. NEUROLOGIC: Cranial nerves intact. PSYCH: Poor mood and affect. GI: Soft. ASSESSMENT: Atrial fibrillation, rapid ventricular response, on Cardizem drip. Bilateral pneumonia started on azithromycin and Zosyn IV. Chronic obstructive pulmonary disease, sleep apnea, and obesity, gastroesophageal reflux disease, severe degenerative disk disease. Continue current treatment. Get Cardiology and Pulmonary seen. Cardiology is going to assist on acute on chronic systolic CHF, acute on chronic respiratory failure, bilateral pneumonia community-acquired. Please see further orders. Wait for Cardiology and Pulmonology. Continue antibiotics. MMODL / IJN: [id number] /
--- NOTE | 2024-12-27 14:21 | HP ---
HISTORY AND PHYSICAL HISTORY OF PRESENT ILLNESS: A 59-year-old white male, came into the hospital from the office for atrial fibrillation with RVR with heart rate in the 150s with atrial fibrillation, admitted for Cardiology consult and for heart rate control. He is also having chest pain when he ambulates. He has had syncope for the last few weeks when he is walking, feeling of impending doom in November. He was found to have atrial fibrillation with RVR. He has had a history of pacemaker AICD, which he wants checked out. HOME MEDICINES: 1. Lipitor 40 daily. 2. Potassium chloride 20 mEq daily. 3. Lamictal 200 t.i.d. 4. Omeprazole 40 daily. 5. Trulicity 4.5 weekly. 6. Gabapentin 600 t.i.d. 7. Lantus 20 units subcu daily. 8. Mobic 15 daily. 9. Aspirin 81 daily. 10.Cymbalta 60 daily. 11.Vitamin D 57947 units weekly. 12.Dilaudid 5 mg a.c. t.i.d. 13.DuoNeb t.i.d. 14.Metoprolol. 15.Toprol-XL 50 daily. 16.Singulair 10 daily. 17.Entresto 24/26 b.i.d. 18.Carafate 1 g t.i.d. 19.Terbinafine 250 daily. 20.Trintellix 20 mg daily. 21.Norvasc 5 mg daily. 22.Spironolactone 50 daily. 23.Metformin 1000 b.i.d. ALLERGIES: Venom. REVIEW OF SYSTEMS: A 14-point review of systems negative except for mentioned in HPI. PAST MEDICAL HISTORY: COPD, CVA, TIA, diabetes mellitus, fibromyalgia, GERD, hypertension, dyslipidemia, mild memory loss, seizure disorder, sleep apnea, history of syncope when he needs a pacemaker placed in the past. PAST SURGICAL HISTORY: Hernia repair, pacemaker. SOCIAL HISTORY: Current everyday smoker. No alcohol. FAMILY HISTORY: Father with lung cancer. Mother with myocardial infarction. Sister, myocardial infarction. PHYSICAL EXAMINATION: GENERAL: He is alert. He is anxious, obese. BMI is over 30. CARDIOVASCULAR: S1, S2. LUNGS: Transmitted upper sounds. GI: Soft. NEUROLOGIC: Cranial nerves intact. PSYCH: Fair mood and affect. OPHTHALMOLOGIC: Pupils equal, round, reactive to light. PSYCH: Fair mood and affect. NEUROLOGIC: Alert and oriented x3. ASSESSMENT: Altered mental status. Atrial fibrillation, RVR, COPD, coronary artery disease, CHF. Prognosis guarded. Follow up in next 24 to 48 hours. Cardiology consult. MMODL / IJN: [id number] /
--- NOTE | 2024-12-27 14:22 | PN ---
PROGRESS NOTE SUBJECTIVE: He woke out of bed this afternoon by the time they found him. He came in with AFib with RVR. He is on IV Cardizem. Cardiology is following. Chest x-ray, scattered ground-glass opacities in both lungs and some pulmonary nodules. Heart is mildly enlarged. Possibly a pneumonic process in bilateral lungs, started him on IV antibiotics. EKG shows Aflutter. Cardiology added Farxiga. Continue with current medical regimen. Decrease Aldactone and discontinue amlodipine due to the low blood pressure, possibly add Midodrine. PHYSICAL EXAMINATION: VITAL SIGNS: Blood pressure 100/71, temperature 98, pulse 69, respiratory rate 18. LUNGS: Show scattered rhonchi and wheeze. CARDIOVASCULAR: S1 and S2. HEMATOLOGY: Negative for Homans. PSYCHIATRIC: Fair mood and affect. ASSESSMENT: 1. Chronic anemia. 2. Bilateral pneumonia. 3. Acute on chronic systolic congestive heart failure with 20% to 25% ejection fraction. Check for orthostatic changes. Continue IV antibiotics. Prognosis is guarded. MMODL / IJN: [id number] /
[2024-12-27 16:53] LABS: Glucose,Whole Blood 138 mg/dL (70-110)
--- NOTE | 2024-12-28 04:19 | PN ---
PROGRESS NOTE SUBJECTIVE: A 59-year-old white male, who had confusion last night when his oxygen came off at night. He was severely dehydrated, given a fluid bolus. With fluid, he says he is much more alert today. He is not really ambulating well. Trying to figure with Afib, RVR. OBJECTIVE: VITAL SIGNS: Blood pressure is 129/79, pulse 50, temp 97.6, O2 96 on 4 L. LUNGS: Transmitted upper airway sounds. GI: Soft. CARDIOVASCULAR: Irregularly regular rhythm. History of patient vomiting for 2 weeks. We are going to get a consult with surgery. Continue with fluid rehydration. Get PT/OT involved. Workup for chronic vomiting for 2 weeks and progress. Wait for surgical consult. Mostly attributed to his dehydration as he has been vomiting in the hospital also. Prognosis is guarded. Continue current treatment with PT and OT. MMJOHNL / MARIAHN: [id number] /
[2024-12-28 06:09] LABS: Glucose,Whole Blood 119 mg/dL (70-110)
[2024-12-28] MEDS: ASPIRIN 325 MG TAB PO ONE (07:45)
[2024-12-28] MEDS: LIDOCAINE 1% INJ 10MG/ML (20 ML MDV) SQ ONE (07:46)
[2024-12-28] MEDS: fentaNYL (PF) 50 MCG/1 ML VIAL IVP ONE (07:46)
[2024-12-28] MEDS: VERAPAMIL SYRINGE (5 MG/10 ML) INTRAARTER ONE (07:47)
[2024-12-28] MEDS: HEPARIN SODIUM 1,000 UN/ML (10ML VL) IVP ONE (07:50)
[2024-12-28] MEDS: HEPARIN SODIUM,PORCINE (1 ML) 2,500 UNIT in SODIUM CHLORIDE 0.9% 250 ML IRRIGATION PRN (07:58)
[2024-12-28] MEDS: HEPARIN SODIUM,PORCINE 10,000 UNIT in SODIUM CHLORIDE 0.9% 1,000 ML IRRIGATION PRN (07:58)
[2024-12-28] MEDS: SODIUM CHLORIDE 0.9% 1,000 ML IV ONE (07:59)
[2024-12-28 08:05] LABS: Basophils % (A) 0 %; Eosinophils % (A) 1 %; HCT 33.3 % (39.0-53.0); HGB 10.6 gm/dL (13.0-17.5); Hypochromasia Moderate; Lymphocytes # (A) 0.5 k/uL (1.0-4.8); Lymphocytes % (A) 8 %; MCH 30.2 pg (25.0-35.0); MCHC 31.8 g/dL (31.0-37.0); MCV 94.9 fL (80.0-100.0); Mean Platelet Volume 7.8; Monocytes # (A) 0.3 k/uL (0-1.0); Monocytes % (A) 5 %; Neutrophils # (A) 5.8 k/uL (1.3-7.7); Neutrophils % (A) 85 %; Platelet Count 201 k/uL (150-450); Poikilocytosis Slight; RBC 3.51 m/uL (4.30-5.90); RDW 15.8 % (11.5-15.5); WBC 6.8 k/uL (3.8-10.6)
[2024-12-28] MEDS: IOPAMIDOL-370 100ML BTL INJ ONE (08:06)
[2024-12-28] MEDS ORDERED: RX INFO: IV CONTRAST WAS GIVEN 1 EACH MISC MISCELLANE PRN (08:12)
--- NOTE | 2024-12-28 08:17 | P.CARDCATH ---
Date of Procedure: 12/28/24 Description of Procedure: Cardiac Catheterization: The patient is a 59-year-old male with known history of permanent pacemaker implantation, history of CAD who presented with symptoms of dyspnea, atrial fibrillation with rapid ventricular response with worsening of his systolic function and mild troponin elevation. He was evaluated by Dr. Lyles. Recommendations were made regarding cardiac catheterization, the risks and the complications were discussed with the patient who is in full understanding and a greement. Procedure Description: Patient was brought to catheterization laboratory technician in fasting semi-sedated state after receiving Fentanyl and Benadryl achieiving moderate conscious sedated state. Using Xylocaine Anesthesia and modified Seldinger technique, a 6-[place] sheath was introduced in the right radial artery . Subsequently, selective coronary angiography was performed using a 5-[place] 3.5 bend Shayy catheter. Multiple views of the coronary artery including hemiaxial views were obtained. The 5 [place] pigtail catheter was used to cross the aortic valve and LVEDP was calculated. Following that, catheter and sheath were removed. Hemostasis was obtained with deployment of vascular band . There was no immediate complication. Patient was returned to room in stable condition. Of note, the patient received a total of 4000 units of intravenous heparin as well as intra-arterial verapamil. Findings: Left main: This is a large size vessel, bifurcating into LAD and left circumflex, left main has no high-grade stenosis LAD: This is a large size vessel, reaching to the apex with a wraparound apex segment, giving rise to 2 diagonal branch of moderate caliber. At the takeoff of the second diagonal branch there is a 20% plaque, the rest of the vessel has no high-grade stenosis Left circumflex: This is a large nondominant vessel giving rise to 2 obtuse marginal branch. The left circumflex has mild intimal disease of 10 to 20% without any high-grade stenosis RCA: This is a large dominant vessel, bifurcating into PDA and PLV. The mid PDA is chronically occluded with no antegrade flow. Left Ventriculogram: Not performed Hemodynamics: There was no gradient across the aortic valve, LVEDP was 32-36 mmHg Conclusion: 1. Chronically occluded mid PDA 2. Mild disease in the LAD and left circumflex 3. Right dominance 4. Elevated LVEDP Recommendations: I have recommended to continue medical therapy with aggressive treatment for his cardiomyopathy. I am hopeful with methodist of sinus mechanism we will see improvement in his systolic function. Anticoagulation will be initiated.. The findings and the recommendations were discussed with the patient and he is in full understanding and agreement. Duration of sedation is 18 minutes.
[2024-12-28 08:30] LABS: ALT 160 U/L (4-49); AST 230 U/L (17-59); African American GFR (CKD) 62 (>60 ml/min/1.73 sqM); Albumin 3.7 g/dL (3.5-5.0); Alkaline Phosphatase 91 U/L (38-126); Anion Gap 11 mmol/L; Blood Urea Nitrogen 27 mg/dL (9-20); Calcium 9.4 mg/dL (8.4-10.2); Carbon Dioxide 18 mmol/L (22-30); Chloride 106 mmol/L (98-107); Glucose 110 mg/dL (74-99); Non-African American GFR(CKD) 54 (>60 ml/min/1.73 sqM); Potassium 4.8 mmol/L (3.5-5.1); Sodium 135 mmol/L (137-145); Total Bilirubin 0.8 mg/dL (0.2-1.3); Total Protein 6.5 g/dL (6.3-8.2)
[2024-12-28] MEDS: SODIUM CHLORIDE 0.9% 1,000 ML IV SCH (09:03)
[2024-12-28 11:16] LABS: Glucose,Whole Blood 103 mg/dL (70-110)
[2024-12-28 11:29] LABS: African American GFR (CKD) 55 (>60 ml/min/1.73 sqM); Anion Gap 10 mmol/L; Blood Urea Nitrogen 26 mg/dL (9-20); Calcium 9.5 mg/dL (8.4-10.2); Carbon Dioxide 22 mmol/L (22-30); Chloride 104 mmol/L (98-107); Glucose 99 mg/dL (74-99); Non-African American GFR(CKD) 48 (>60 ml/min/1.73 sqM); Potassium 4.9 mmol/L (3.5-5.1); Sodium 136 mmol/L (137-145)
--- NOTE | 2024-12-28 12:23 | P.GSCN ---
History of Present Illness Consult date: 12/28/24 History of present illness: CHIEF COMPLAINT: Chest pain HISTORY OF PRESENT ILLNESS: This is a 59-year-old male who present to the hospital with complaints of chest pain. He was found to have A-fib RVR. He was seen by cardiology and underwent heart cath today and they are recommending medical therapy for his coronary artery disease. Surgical service has been consulted in regards to patient's continuous vomiting for about 2 weeks. Patient reports that he vomits after belching. Also noted that he has no teeth. But he reports that he is able to chew up his food just fine. He reports his last EGD was several years ago and was unremarkable. He denies any abdominal pain. He is having bowel movements. He does have a history of diabetes and reports that his sugars have been controlled. He does report a sticking sensation while trying to swallow his food. Patient has a CT scan abdomen pelvis ordered awaiting those results. His echo did show an EF of 25%. PAST MEDICAL HISTORY: See below PAST SURGICAL HISTORY: See below MEDICATIONS: See below ALLERGIES: See below SOCIAL HISTORY: No illicit drug use. REVIEW OF SYSTEMS: CONSTITUTIONAL: Denies fever or chills. HEENT: Denies blurred vision, vision changes, or eye pain. Denies hemoptysis CARDIOVASCULAR: Denies chest pain or pressure. RESPIRATORY: No shortness of breath. GASTROINTESTINAL: See HPI for pertinent findings HEMATOLOGIC: Denies bleeding disorders. GENITOURINARY: Denies any blood in urine or increased urinary frequency. SKIN: Denies pruitis. Denies rash. PHYSICAL EXAM: VITAL SIGNS: Reviewed GENERAL: Well-developed in no acute distress. HEENT: No sclera icterus. Extraocular movements grossly intact. Moist buccal mucosa. Head is atraumatic, normocephalic. No nasal drainage. ABDOMEN: Soft. Nondistended. Nontender. No rebound or guarding noted. NEUROLOGIC: Alert and oriented. Cranial nerves II through XII grossly intact. LABORATORY DATA: WBC is 6.8 Hgb 10.6 platelets 201 Sodium is 136 potassium 4.9 creatinine 1.58 Total bilirubin 0.8 AST 230 ALT 160 alk phos 91 IMAGING: Echo EF between 20 to 25%. Mild to moderate aortic stenosis. Mild-moderate mitral regurgitation ASSESSMENT: 1. Vomiting 2. Elevated LFTs 3. Chest pain 4. A-fib RVR PLAN: -Follow-up on CT scan abdomen pelvis results -Continue antiemetics -Further recommendations forthcoming per surgeon Physician Projection Camera Operator note has been reviewed by physician. Signing provider agrees with the documented findings, assessment, and plan of care. I have personally seen and examined the patient, reviewed the CORPORATE AFFAIRS MANAGER /PAs history, exam and MDM and agree with the assessment and plan as written. Based on total visit time, I have performed more than 50% of the visit. As above: Patient with frequent vomiting over the last several weeks or longer. Patient states this has worsened gradually as his Parkinson's symptoms have worsened. Patient says he has difficult time chewing and swallowing because of the Parkinson's. He has not had any upper endoscopy recently. Patient had a CAT scan of the abdomen ordered. Those results are pending. Cardiac workup noted. Past Medical History Past Medical History: COPD, CVA/TIA, Diabetes Mellitus, Fibromyalgia, GERD/Reflux, Hyperlipidemia, Hypertension, Memory Impairment, Seizure Disorder, Skin Disorder, Sleep Apnea/CPAP/BIPAP Additional Past Medical History / Comment(s): uses CPAP machine, on 4L home oxygen, EPILEPTIC, past fall w/ concussion, ambulate with a walker and a whee lchair, Parkinson's History of Any Multi-Drug Resistant Organisms: None Reported Past Surgical History: Hernia Repair, Pacemaker Additional Past Surgical History / Comment(s): left big toe surgery/debridement r/t diabetic ulcer Past Anesthesia/Blood Transfusion Reactions: No Reported Reaction Type of Cardiac Device: Permanent Pacemaker, AICD Device Placement Date:: 2020 Past Psychological History: No Psychological Hx Reported Additional Psychological History / Comment(s): Pt lives alone, has a power chair, straight cane, shower chair, nebulizer, glucometer. Pt no longer drives, has friend that takes him to appts. Smoking Status: Former smoker Past Alcohol Use History: None Reported Past Drug Use History: None Reported - Past Family History Father Family Medical History: Cancer Additional Family Medical History / Comment(s): LUNG Brother(s) History Unknown: Yes Family Medical History: Myocardial Infarction ([place]) Additional Family Medical History / Comment(s): Sister(s) History Unknown: Yes Family Medical History: Myocardial Infarction ([place]) Additional Family Medical History / Comment(s): Medications and Allergies Home Medications Medication Instructions Recorded Confirmed Type Atorvastatin [Lipitor] 40 mg PO W/SUPPER 08/31/14 12/24/24 History Potassium Chloride [Klor-Con 20] 20 meq PO DAILY 08/10/15 12/24/24 History lamoTRIgine [LaMICtal] 200 mg PO TID-W/MEALS 08/10/15 12/24/24 History Omeprazole 40 mg PO DAILY 05/14/18 12/24/24 History Dulaglutide [Trulicity] 4.5 mg SQ CARD 06/18/21 12/24/24 History Gabapentin 600 mg PO TID 06/18/21 12/24/24 History Insulin Glargine,Hum.rec.anlog 10 unit SQ HS 06/18/21 12/24/24 History [Lantus Solostar Pen] Meloxicam [Mobic] 15 mg PO DAILY 06/18/21 12/24/24 History Aspirin EC [Ecotrin Low Dose] 81 mg PO DAILY 06/21/24 12/24/24 History DULoxetine HCL [Cymbalta] 60 mg PO DAILY 06/21/24 12/24/24 History Ergocalciferol [Vitamin D2 (1250 1,250 mcg PO CARD 06/21/24 12/24/24 History Mcg = 47898 Iu)] Insulin Aspart [NovoLOG Flexpen] 5 units SQ AC-TID 06/21/24 12/24/24 History Insulin Aspart [NovoLOG Flexpen] See Protocol SQ AC-TID 06/21/24 12/24/24 History Ipratropium-Albuterol Nebulize 3 ml INHALATION RT-QID PRN 06/21/24 12/24/24 History [Duoneb 0.5 mg-3 mg/3 ml Soln] Metoprolol Succinate [Toprol XL] 50 mg PO DAILY 06/21/24 12/24/24 History Montelukast [Singulair] 10 mg PO DAILY 06/21/24 12/24/24 History Sacubitril/Valsartan [Entresto 24 1 tab PO BID-W/MEALS 06/21/24 12/24/24 History mg-26 mg Tablet] Sucralfate [Carafate] 1 gm PO TID 06/21/24 12/24/24 History Terbinafine [LamISIL] 250 mg PO W/SUPPER 06/21/24 12/24/24 History Vortioxetine Hydrobromide 20 mg PO W/SUPPER 06/21/24 12/24/24 History [Trintellix] amLODIPine [Norvasc] 5 mg PO DAILY 06/21/24 12/24/24 History Carbidopa-Levodopa 25-100 mg 1 each PO QID 30 Days #120 tab 06/24/24 12/24/24 Rx [Sinemet 25-100 mg] Nitroglycerin Sl Tabs [Nitrostat] 0.4 mg SUBLINGUAL Q5M PRN 180 Days 06/24/24 12/24/24 Rx #100 tab Doxycycline Hyclate 100 mg PO BID 12/24/24 12/24/24 History Spironolactone 50 mg PO DAILY 12/24/24 12/24/24 History metFORMIN HCL 1,000 mg PO BID 12/24/24 12/24/24 History Allergies Allergy/AdvReac Type Severity Reaction Status Date / Time venom-honey bee Allergy Swelling Verified 12/24/24 14:01 [bee venom (honey bee)] Surgical - Exam Vital Signs Temp Pulse Resp BP Pulse Ox 97.9 F 145 H 20 183/103 99 12/24/24 12:05 12/24/24 12:05 12/24/24 12:05 12/24/24 12:05 12/24/24 12:05 Results - Labs 12/28/24 07:45 12/28/24 10:30 Abnormal Lab Results - Last 24 Hours (Table) 12/27/24 12/28/24 12/28/24 Range/Units 16:51 06:07 07:45 RBC (4.30-5.90) m/uL Hgb (13.0-17.5) gm/dL Hct (39.0-53.0) % RDW (11.5-15.5) % Lymphocytes # (1.0-4.8) k/uL APTT (22.0-30.0) sec Sodium 135 L (137-145) mmol/L Carbon Dioxide 18 L (22-30) mmol/L BUN 27 H (9-20) mg/dL Creatinine 1.43 H (0.66-1.25) mg/dL Glucose 110 H (74-99) mg/dL POC Glucose (mg/dL) 138 H 119 H (70-110) mg/dL AST 230 H (17-59) U/L ALT 160 H (4-49) U/L 12/28/24 12/28/24 12/28/24 Range/Units 07:45 07:45 10:30 RBC 3.51 L (4.30-5.90) m/uL Hgb 10.6 L (13.0-17.5) gm/dL Hct 33.3 L (39.0-53.0) % RDW 15.8 H (11.5-15.5) % Lymphocytes # 0.5 L (1.0-4.8) k/uL APTT 38.8 H (22.0-30.0) sec Sodium 136 L (137-145) mmol/L Carbon Dioxide (22-30) mmol/L BUN 26 H (9-20) mg/dL Creatinine 1.58 H (0.66-1.25) mg/dL Glucose (74-99) mg/dL POC Glucose (mg/dL) (70-110) mg/dL AST (17-59) U/L ALT (4-49) U/L Diabetes panel 12/28/24 12/28/24 Range/Units 07:45 10:30 Sodium 135 L 136 L (137-145) mmol/L Potassium 4.8 4.9 (3.5-5.1) mmol/L Chloride 106 104 (98-107) mmol/L Carbon Dioxide 18 L 22 (22-30) mmol/L BUN 27 H 26 H (9-20) mg/dL Creatinine 1.43 H 1.58 H (0.66-1.25) mg/dL Glucose 110 H 99 (74-99) mg/dL Calcium 9.4 9.5 (8.4-10.2) mg/dL AST 230 H (17-59) U/L ALT 160 H (4-49) U/L Alkaline Phosphatase 91 (38-126) U/L Total Protein 6.5 (6.3-8.2) g/dL Albumin 3.7 (3.5-5.0) g/dL Calcium panel 12/28/24 12/28/24 Range/Units 07:45 10:30 Calcium 9.4 9.5 (8.4-10.2) mg/dL Albumin 3.7 (3.5-5.0) g/dL Pituitary panel 12/28/24 12/28/24 Range/Units 07:45 10:30 Sodium 135 L 136 L (137-145) mmol/L Potassium 4.8 4.9 (3.5-5.1) mmol/L Chloride 106 104 (98-107) mmol/L Carbon Dioxide 18 L 22 (22-30) mmol/L BUN 27 H 26 H (9-20) mg/dL Creatinine 1.43 H 1.58 H (0.66-1.25) mg/dL Glucose 110 H 99 (74-99) mg/dL Calcium 9.4 9.5 (8.4-10.2) mg/dL Adrenal panel 12/28/24 12/28/24 Range/Units 07:45 10:30 Sodium 135 L 136 L (137-145) mmol/L Potassium 4.8 4.9 (3.5-5.1) mmol/L Chloride 106 104 (98-107) mmol/L Carbon Dioxide 18 L 22 (22-30) mmol/L BUN 27 H 26 H (9-20) mg/dL Creatinine 1.43 H 1.58 H (0.66-1.25) mg/dL Glucose 110 H 99 (74-99) mg/dL Calcium 9.4 9.5 (8.4-10.2) mg/dL Total Bilirubin 0.8 (0.2-1.3) mg/dL AST 230 H (17-59) U/L ALT 160 H (4-49) U/L Alkaline Phosphatase 91 (38-126) U/L Total Protein 6.5 (6.3-8.2) g/dL Albumin 3.7 (3.5-5.0) g/dL
--- NOTE | 2024-12-28 14:57 | P.PN ---
Subjective Progress Note Date: 12/27/24 The patient is a pleasant 59-year-old gentleman who is known to our service from before was seen in May 2024 after he presented with a chest discomfort and mildly abnormal cardiac enzymes and at that point he underwent a heart catheterization which revealed occluded PDA of the RCA which was chronic occlusion with [id number] collateral. Beside that the patient does have diabetes and hypertension and dyslipidemia and history of stroke and history of seizure limiting his physical activities and driving as well. He was seen yesterday by his primary care physician where he underwent an EKG and that showed atrial fibrillation/flutter with RVR and the patient subsequently was sent to the hospital. He reports chest discomfort appears to be intermittent and chronic and reports shortness of breath as well as dizziness and lightheadedness and heart racing and fluttering but no presyncope or syncope. He is in atrial fibrillation with RVR which is new to him. Currently he is on Cardizem IV and he is on heparin IV. The EKG showed atrial flutter with RVR. Blood work showed mild elevation in the troponin which could be secondary to sinus tachycardia. The echo from 2023 showed normal LV systolic function with no significant valvular abnormalities. The physical examination is remarkable for regular rhythm with tachycardia and clear breathing sounds bilaterally and no edema was noted in the lower extremities December 26, 2024 The patient was seen and evaluated this morning. He is converted to normal sinus mechanism. The echo showed cardiomyopathy which is new compared to an echo was performed in May 2024. Overall he is feeling better. Hemodynamically he is stable. He was started on Entresto which I would agree on. He is on beta-paras which we will continue. I am going to add Farxiga and also decrease the dose of Aldactone and stop amlodipine in the light of low blood pressure. He need to undergo a coronary angiogram and with that being said I would continue the patient on IV heparin at this point. The physical examination is remarkable for regular rhythm with diminished breathing sounds bilaterally and no edema was noted in the lower extremities 12/27/2024 Atrial paced V sensed rhythm, currently in sinus rhythm BUN 36, creatinine 2.09, potassium 5.4, Hb 10.7 BP 126/81, heart rate 55 bpm Assessment New onset atrial flutter with RVR on admission, currently in atrial paced V sensed rhythm Type II NSTEMI due to above New worsening cardiomyopathy with a EF of 20 to 25% Mild HFrEF exacerbation CAD as described above LESLEY CKD Prior history of CVA Hypertension Dyslipidemia History of seizure Plan Plan for carotid catheterization tomorrow with Dr. Varghese Aspirin, Lipitor, Farxiga 10 mg daily, metoprolol 50 mg twice daily Xarelto 15 mg daily Once kidney function improves back to baseline, consider adding ARNI, MRA, Consider outpatient atrial flutter ablation after obtaining atrial flutter burden from PPM interrogation. Objective - Vital Signs Vital signs: Vital Signs Temp 97.4 F L 12/28/24 11:46 Pulse 50 L 12/28/24 11:46 Resp 16 12/28/24 11:46 BP 130/65 12/28/24 11:46 Pulse Ox 91 L 12/28/24 11:46 FiO2 Intake & Output 12/27/24 12/28/24 12/28/24 18:59 06:59 18:59 Intake Total 130 905.643 420 Output Total 250 400 Balance -120 505.643 420 Weight 102 kg Intake: IV 10 10 240 Invasive Line 3 10 10 10 Intake, IV Titration 405.643 Amount Heparin Sod,Pork in 0.45% 405.643 NaCl 25,000 unit In 0.45 % NaCl 1 250ml.bag @ 9. 931 UNITS/KG/HR 10 mls/hr IV .Q24H [facility] Rx#: [id number] Oral 120 490 180 Output: Urine 250 400 Other: Voiding Method Toilet Toilet Toilet Urinal Urinal Urinal Diaper Diaper Diaper # Voids 1 2 1 # Bowel Movements 1 1 - Labs CBC & Chem 7: 12/28/24 07:45 12/28/24 10:30 Labs: Abnormal Lab Results - Last 24 Hours (Table) 12/27/24 12/28/24 12/28/24 Range/Units 16:51 06:07 07:45 RBC (4.30-5.90) m/uL Hgb (13.0-17.5) gm/dL Hct (39.0-53.0) % RDW (11.5-15.5) % Lymphocytes # (1.0-4.8) k/uL APTT (22.0-30.0) sec Sodium 135 L (137-145) mmol/L Carbon Dioxide 18 L (22-30) mmol/L BUN 27 H (9-20) mg/dL Creatinine 1.43 H (0.66-1.25) mg/dL Glucose 110 H (74-99) mg/dL POC Glucose (mg/dL) 138 H 119 H (70-110) mg/dL AST 230 H (17-59) U/L ALT 160 H (4-49) U/L 12/28/24 12/28/24 12/28/24 Range/Units 07:45 07:45 10:30 RBC 3.51 L (4.30-5.90) m/uL Hgb 10.6 L (13.0-17.5) gm/dL Hct 33.3 L (39.0-53.0) % RDW 15.8 H (11.5-15.5) % Lymphocytes # 0.5 L (1.0-4.8) k/uL APTT 38.8 H (22.0-30.0) sec Sodium 136 L (137-145) mmol/L Carbon Dioxide (22-30) mmol/L BUN 26 H (9-20) mg/dL Creatinine 1.58 H (0.66-1.25) mg/dL Glucose (74-99) mg/dL POC Glucose (mg/dL) (70-110) mg/dL AST (17-59) U/L ALT (4-49) U/L
[2024-12-28 16:12] LABS: Glucose,Whole Blood 116 mg/dL (70-110)
[2024-12-28] MEDS: RIVAROXABAN 15 MG TAB PO SCH (17:05)
[2024-12-28 19:33] LABS: Glucose,Whole Blood 125 mg/dL (70-110)
[2024-12-28] MEDS: FUROSEMIDE 10 MG/ML 4 ML VIAL IV STA (19:50)
--- NOTE | 2024-12-28 20:27 | XR ---
EXAMINATION TYPE: XR chest 1V portable DATE OF EXAM: 12/28/2024 7:58 PM COMPARISON: Chest radiographs from 12/16/2024. CLINICAL INDICATION: Male, 59 years old with history of Resp distress; TECHNIQUE: XR chest 1V portable Frontal view of the chest. FINDINGS: Lungs/Pleura: There is no evidence of pleural effusion, focal consolidation, or pneumothorax. Pulmonary vascularity: Pulmonary vascular congestion. Heart/mediastinum: Cardiomediastinal silhouette is enlarged. Two lead cardiac conduction device overl sinan the left hemithorax with lead tips projecting over the right ventricle and right atrium. Musculoskeletal: No acute osseous pathology. IMPRESSION: Cardiomegaly and mild pulmonary vascular congestion. Correlate with BNP for congestive heart failure. [facility], , 12/28/2024 8:25 PM
[2024-12-28 21:03] LABS: ALT 78 U/L (4-49); AST 154 U/L (17-59); African American GFR (CKD) 63 (>60 ml/min/1.73 sqM); Albumin 4.1 g/dL (3.5-5.0); Alkaline Phosphatase 106 U/L (38-126); Anion Gap 12 mmol/L; Blood Urea Nitrogen 24 mg/dL (9-20); Calcium 9.7 mg/dL (8.4-10.2); Carbon Dioxide 17 mmol/L (22-30); Chloride 105 mmol/L (98-107); Glucose 132 mg/dL (74-99); Magnesium 2.1 mg/dL (1.6-2.3); Non-African American GFR(CKD) 54 (>60 ml/min/1.73 sqM); Potassium 4.6 mmol/L (3.5-5.1); Sodium 134 mmol/L (137-145); Total Bilirubin 0.9 mg/dL (0.2-1.3); Total Protein 7.2 g/dL (6.3-8.2)
[2024-12-28 21:11] LABS: Anisocytosis Slight; Basophils % (A) 0 %; Eosinophils # (A) 0.1 k/uL (0-0.7); Eosinophils % (A) 1 %; HCT 36.3 % (39.0-53.0); HGB 11.5 gm/dL (13.0-17.5); Hypochromasia Moderate; Lymphocytes # (A) 0.5 k/uL (1.0-4.8); Lymphocytes % (A) 6 %; MCH 30.8 pg (25.0-35.0); MCHC 31.6 g/dL (31.0-37.0); MCV 97.7 fL (80.0-100.0); Mean Platelet Volume 8.5; Monocytes # (A) 0.4 k/uL (0-1.0); Monocytes % (A) 6 %; Neutrophils # (A) 6.3 k/uL (1.3-7.7); Neutrophils % (A) 86 %; Platelet Count 211 k/uL (150-450); Poikilocytosis Slight; RBC 3.71 m/uL (4.30-5.90); RDW 16.2 % (11.5-15.5); WBC 7.4 k/uL (3.8-10.6)
[2024-12-28] MEDS: methylPREDNISolone SOD SUCCI 40 MG/ML 1 ML VIAL IV SCH (21:45)
[2024-12-28] MEDS: HEPARIN SODIUM,PORCINE 5,000 UNIT/ML 1 ML VIAL SQ SCH (23:34)
--- NOTE | 2024-12-29 00:40 | PN ---
PROGRESS NOTE Sajan Sullivan is a 59-year-old with AFib RVR. Cardiac cath shows negative for any blockage and difficulty walking. He has severe lumbar stenosis and degenerative disk disease. We are going to get a CAT scan, try to get an epidural, so he can walk better. Heart catheterization, as mentioned, showed no obstruction. OBJECTIVE: VITAL SIGNS: Pulse is 50 to 58, blood pressure of 149 to 169, heart rate of 80 to 83, temp 98. CARDIOVASCULAR: S1 and S2. HEMATOLOGY: Negative for Homans. PSYCH: Fair mood and affect. He had a CAT scan of the cervical spine, epidural shot, take him off his Xarelto, put him on subcu heparin. Continue steroids. Continue with PT and OT. Await for to see him for possible epidural shot. Prognosis is guarded. MMODL / IJN: [id number] /
[2024-12-29 05:52] LABS: Glucose,Whole Blood 138 mg/dL (70-110)
[2024-12-29 08:37] LABS: Anisocytosis Slight; Basophils % (A) 0 %; Eosinophils % (A) 0 %; HCT 37.8 % (39.0-53.0); HGB 11.7 gm/dL (13.0-17.5); Hypochromasia Moderate; Lymphocytes # (A) 0.2 k/uL (1.0-4.8); Lymphocytes % (A) 5 %; MCHC 30.8 g/dL (31.0-37.0); MCV 97.5 fL (80.0-100.0); Monocytes # (A) 0.1 k/uL (0-1.0); Monocytes % (A) 3 %; Neutrophils # (A) 3.9 k/uL (1.3-7.7); Neutrophils % (A) 91 %; Platelet Count 227 k/uL (150-450); Poikilocytosis Slight; RBC 3.88 m/uL (4.30-5.90); WBC 4.3 k/uL (3.8-10.6)
[2024-12-29 08:50] LABS: ALT 93 U/L (4-49); AST 109 U/L (17-59); African American GFR (CKD) 59 (>60 ml/min/1.73 sqM); Alkaline Phosphatase 97 U/L (38-126); Anion Gap 13 mmol/L; Blood Urea Nitrogen 23 mg/dL (9-20); Carbon Dioxide 23 mmol/L (22-30); Chloride 101 mmol/L (98-107); Glucose 128 mg/dL (74-99); Non-African American GFR(CKD) 51 (>60 ml/min/1.73 sqM); Potassium 5.5 mmol/L (3.5-5.1); Sodium 137 mmol/L (137-145); Total Bilirubin 0.8 mg/dL (0.2-1.3)
[2024-12-29] MEDS: hydrALAZINE HCL 25 MG TAB PO SCH ×2 (09:46→17:03)
--- NOTE | 2024-12-29 09:58 | P.PN ---
Subjective Progress Note Date: 12/29/24 Principal diagnosis: Hemoptysis Acute on chronic hypoxic respiratory failure Chronic coronary artery disease Sleep disordered breathing and sleep apnea Obesity hypoventilation syndrome Acute on chronic kidney disease New onset atrial fibrillation with rapid ventricular response Ischemic cardiomyopathy with ejection fraction 25% significantly worsened from echo performed a year ago Mild MR and AR with sclerotic aortic valve December 29, 2024, patient seen evaluate examined during rounds labs reviewed medications reviewed care plan discussed, patient is s/p cardiac catheter angiogram chronic coronary artery disease seen no intervention performed, patient has chronic obstruction of PDA branch. Cardiovascular services recommended maximal medical therapy. Postprocedure patient developed acute respiratory failure significant hypoxia along with cough with streaks of blood likely suggestive of transient pulmonary edema patient required BiPAP support 10 over 5 to 50% oxygen, patient was confused restless and agitated however currently resting sats are 100% now on BiPAP. His chest x-ray postcardiac cath cardiomegaly interstitial edema consistent with CHF, CT of the head no acute changes identified. Labs are significant WBC count 4.3 hemoglobin hematocrit 11/37 not much change from baseline platelet count of 227 PTT within normal range, ABG 7 point sodium is 137 potassium 5.5 BUN/creatinine stable 23/1.49 potassium is 5.4. Currently patient is on bronchodilator, amiodarone, Lipitor, IV Rocephin with Sinemet and IV steroids which seems to be helping cough congestion and wheezing 59-year-old male seen evaluate examined, presented emergency department with chest pain predominantly on the left side, and shortness of breath, patient is on 4-1/2 L oxygen uses at home, patient has advanced Parkinson's disease and very limited activity. Patient recently has been diagnosed on a home sleep study sleep disordered breathing and sleep apnea has been placed on auto CPAP machine which he is tolerating well and getting more adjusted to it. Patient fe els that he is more awake and alert during the day before the CPAP machine and he feels getting benefit out of it patient and I agree for using BiPAP machine in the hospital. Review of data revealed that patient does have coronary artery disease based on a cath in 2023, other active medical problem issues include hypertension dyslipidemia history of CVA and seizure-like DVT patient has has been found to have atrial fibrillation in the primary care's office sent to emergency department for further evaluation, initially placed on IV Cardizem, echo last done a year ago normal systolic function with no valvular abnormality, patient is being considered for cardioversion as well as cardiac cath and cardiovascular service, patient spontaneously converted into sinus rhythm, echo however revealed cardiomyopathy with ejection fraction of 25%, with moderate aortic stenosis and mitral regurgitation. Chest x-ray unremarkable. CT scan of the chest with out contrast interstitial edema noted Objective - Vital Signs Vital signs: Vital Signs Temp 97.5 F L 12/29/24 07:43 Pulse 53 L 12/29/24 07:45 Resp 24 12/29/24 07:45 BP 202/83 12/29/24 07:43 Pulse Ox 100 12/29/24 07:43 FiO2 50 12/29/24 07:43 Intake & Output 12/28/24 12/29/24 12/29/24 18:59 06:59 18:59 Intake Total 538 Output Total 650 1600 Balance -112 -1600 Weight 99 kg Intake: IV 240 Invasive Line 3 10 Oral 298 Output: Urine 325 1600 Straight 600 Post Void Residual 325 Other: Voiding Method Toilet Toilet Toilet Urinal Urinal Urinal Diaper Diaper Diaper # Voids 1 # Bowel Movements 1 - Exam - Constitutional General appearance: average body habitus, cooperative, disheveled - EENT Eyes: EOMI, PERRLA ENT: normal oropharynx Ears: bilateral: normal - Neck Carotids: bilateral: upstroke normal Thyroid: bilateral: normal size - Respiratory Respiratory: bilateral: CTA - Cardiovascular Rhythm: regular Heart sounds: normal: S1, S2 - Gastrointestinal General gastrointestinal: normal bowel sounds, soft - Integumentary Integumentary: normal, normal turgor - Neurologic Neurologic: CNII-XII intact - Musculoskeletal Musculoskeletal: generalized weakness, strength equal bilaterally - Psychiatric Psychiatric: A&O x's 3, appropriate affect, intact judgment & insight - Labs CBC & Chem 7: 12/29/24 07:17 12/29/24 07:17 Labs: Abnormal Lab Results - Last 24 Hours (Table) 12/28/24 12/28/24 12/28/24 Range/Units 10:30 16:10 19:30 RBC (4.30-5.90) m/uL Hgb (13.0-17.5) gm/dL Hct (39.0-53.0) % MCHC (31.0-37.0) g/dL RDW (11.5-15.5) % Lymphocytes # (1.0-4.8) k/uL APTT (22.0-30.0) sec Sodium 136 L (137-145) mmol/L Potassium (3.5-5.1) mmol/L Carbon Dioxide (22-30) mmol/L BUN 26 H (9-20) mg/dL Creatinine 1.58 H (0.66-1.25) mg/dL Glucose (74-99) mg/dL POC Glucose (mg/dL) 116 H 125 H (70-110) mg/dL AST (17-59) U/L ALT (4-49) U/L 12/28/24 12/28/24 12/28/24 Range/Units 20:15 20:15 20:15 RBC 3.71 L (4.30-5.90) m/uL Hgb 11.5 L (13.0-17.5) gm/dL Hct 36.3 L (39.0-53.0) % MCHC (31.0-37.0) g/dL RDW 16.2 H (11.5-15.5) % Lymphocytes # 0.5 L (1.0-4.8) k/uL APTT 30.5 H (22.0-30.0) sec Sodium 134 L (137-145) mmol/L Potassium (3.5-5.1) mmol/L Carbon Dioxide 17 L (22-30) mmol/L BUN 24 H (9-20) mg/dL Creatinine 1.42 H (0.66-1.25) mg/dL Glucose 132 H (74-99) mg/dL POC Glucose (mg/dL) (70-110) mg/dL AST 154 H (17-59) U/L ALT 78 H (4-49) U/L 12/29/24 12/29/24 12/29/24 Range/Units 05:51 07:17 07:17 RBC 3.88 L (4.30-5.90) m/uL Hgb 11.7 L (13.0-17.5) gm/dL Hct 37.8 L (39.0-53.0) % MCHC 30.8 L (31.0-37.0) g/dL RDW 16.0 H (11.5-15.5) % Lymphocytes # 0.2 L (1.0-4.8) k/uL APTT (22.0-30.0) sec Sodium (137-145) mmol/L Potassium 5.5 H (3.5-5.1) mmol/L Carbon Dioxide (22-30) mmol/L BUN 23 H (9-20) mg/dL Creatinine 1.49 H (0.66-1.25) mg/dL Glucose 128 H (74-99) mg/dL POC Glucose (mg/dL) 138 H (70-110) mg/dL AST 109 H (17-59) U/L ALT 93 H (4-49) U/L Assessment and Plan Assessment: Hemoptysis Acute on chronic hypoxic respiratory failure Chronic coronary artery disease Sleep disordered breathing and sleep apnea Obesity hypoventilation syndrome Acute on chronic kidney disease New onset atrial fibrillation with rapid ventricular response Ischemic cardiomyopathy with ejection fraction 25% significantly worsened from echo performed a year ago Mild MR and AR with sclerotic aortic valve Plan: Continue broad-spectrum antibiotics along with IV steroids, likely hemoptysis due to airway inflammation and pulmonary edema Recommend gentle diuresis Monitor and trend renal function and urine output and potassium level Recommend to continue CPAP at home with previous setting, patient can use BiPAP 10 and 5 each night and as needed during the day with oxygen to keep saturation over 90% Continue broad-spectrum antibiotics Patient will benefit from nephrology evaluation Continue anticoagulation as per cardiovascular services Findings reviewed of cardiac catheter angiogram Time with Patient: Greater than 30
[2024-12-29 11:30] LABS: Glucose,Whole Blood 114 mg/dL (70-110)
[2024-12-29] MEDS: ISOSORBIDE MONONITRATE ER 30 MG TAB.ER.24H PO SCH (11:46)
[2024-12-29] MEDS: FUROSEMIDE 40 MG TAB PO SCH (11:46)
--- NOTE | 2024-12-29 12:15 | P.CNOR ---
History of Present Illness - [facility] Consult date: 12/29/24 Consult reason: low back pain History of present illness: Patient is a 59-year-old male who presented initially to [facility] emergency room on 12/24/2024 with regards to chest pain. Since being admitted to the hospital on that day, he has been evaluated by cardiology, pulmonology and general surgery. Patient has multiple medical comorbidities, this including coronary artery disease, COPD, obstructive sleep apnea. Patient underwent a cardiac cath during his hospital stay, no surgical intervention was done, they are recommending maximal medical optimization. Patient is currently on BiPAP, he is scheduled later on this afternoon hopefully for a abdominal/pelvis CT scan with and without contrast along with a lumbar CT scan that was ordered by his primary care doctor. They have had a hard time getting the patient off BiPAP with his current issues. Discussed with nursing prior to ending the room, he has been quite agitated and confused today. At bedside today, he is resting comfortably with BiPAP in place. Mild confusion is noted, he is able to answer most of my questions. He states he has had low back pain for many years. He has been dealing with he states lower extremity weakness for a while also. He denies being ever evaluated by an orthopedic spine surgeon or undergoing any orthopedic surgery on his back. Patient states his bowel and bladder function has been quite normal. He denies any genital or perineal numbness or tingling at this time. He admits to pain that radiates to the bilateral legs along with occasional numbness and tingling. He feels that his left lower extremity is a little bit weaker. Patient normally utilizes a walker for ambulation. He does live alone, he does not drive. He admits to a history of Parkinson's disease. Patient denies any pain or claudia loss of motion of the bilateral upper extremities. He has no other orthopedic complaints at this time. Review of Systems Constitutional: Reports as per HPI Past Medical History Past Medical History: COPD, CVA/TIA, Diabetes Mellitus, Fibromyalgia, GERD/Reflux, Hyperlipidemia, Hypertension, Memory Impairment, Seizure Disorder, Skin Disorder, Sleep Apnea/CPAP/BIPAP Additional Past Medical History / Comment(s): uses CPAP machine, on 4L home oxygen, EPILEPTIC, past fall w/ concussion, ambulate with a walker and a wheelchair, Parkinson's History of Any Multi-Drug Resistant Organisms: None Reported Past Surgical History: Hernia Repair, Pacemaker Additional Past Surgical History / Comment(s): left big toe surgery/debridement r/t diabetic ulcer Past Anesthesia/Blood Transfusion Reactions: No Reported Reaction Type of Cardiac Device: Permanent Pacemaker, AICD Device Placement Date:: 2020 Past Psychological History: No Psychological Hx Reported Additional Psychological History / Comment(s): Pt lives alone, has a power chair, straight cane, shower chair, nebulizer, glucometer. Pt no longer drives, has friend that takes him to [facility]. Smoking Status: Former smoker Past Alcohol Use History: None Reported Past Drug Use History: None Reported - Past Family History Father Family Medical History: Cancer Additional Family Medical History / Comment(s): LUNG Brother(s) History Unknown: Yes Family Medical History: Myocardial Infarction (MD) Additional Family Medical History / Comment(s): Sister(s) History Unknown: Yes Family Medical History: Myocardial Infarction (MD) Additional Family Medical History / Comment(s): Medications and Allergies Home Medications Medication Instructions Recorded Confirmed Type Atorvastatin [Lipitor] 40 mg PO W/SUPPER 08/31/14 12/24/24 History Potassium Chloride [Klor-Con 20] 20 meq PO DAILY 08/10/15 12/24/24 History lamoTRIgine [LaMICtal] 200 mg PO TID-W/MEALS 08/10/15 12/24/24 History Omeprazole 40 mg PO DAILY 05/14/18 12/24/24 History Dulaglutide [Trulicity] 4.5 mg SQ CARD 06/18/21 12/24/24 History Gabapentin 600 mg PO TID 06/18/21 12/24/24 History Insulin Glargine,Hum.rec.anlog 10 unit SQ HS 06/18/21 12/24/24 History [Lantus Solostar Pen] Meloxicam [Mobic] 15 mg PO DAILY 06/18/21 12/24/24 History Aspirin EC [Ecotrin Low Dose] 81 mg PO DAILY 06/21/24 12/24/24 History DULoxetine HCL [Cymbalta] 60 mg PO DAILY 06/21/24 12/24/24 History Ergocalciferol [Vitamin D2 (1250 1,250 mcg PO CARD 06/21/24 12/24/24 History Mcg = 53562 Iu)] Insulin Aspart [NovoLOG Flexpen] 5 units SQ AC-TID 06/21/24 12/24/24 History Insulin Aspart [NovoLOG Flexpen] See Protocol SQ AC-TID 06/21/24 12/24/24 History Ipratropium-Albuterol Nebulize 3 ml INHALATION RT-QID PRN 06/21/24 12/24/24 History [Duoneb 0.5 mg-3 mg/3 ml Soln] Metoprolol Succinate [Toprol XL] 50 mg PO DAILY 06/21/24 12/24/24 History Montelukast [Singulair] 10 mg PO DAILY 06/21/24 12/24/24 History Sacubitril/Valsartan [Entresto 24 1 tab PO BID-W/MEALS 06/21/24 12/24/24 History mg-26 mg Tablet] Sucralfate [Carafate] 1 gm PO TID 06/21/24 12/24/24 History Terbinafine [LamISIL] 250 mg PO W/SUPPER 06/21/24 12/24/24 History Vortioxetine Hydrobromide 20 mg PO W/SUPPER 06/21/24 12/24/24 History [Trintellix] amLODIPine [Norvasc] 5 mg PO DAILY 06/21/24 12/24/24 History Carbidopa-Levodopa 25-100 mg 1 each PO QID 30 Days #120 tab 06/24/24 12/24/24 Rx [Sinemet 25-100 mg] Nitroglycerin Sl Tabs [Nitrostat] 0.4 mg SUBLINGUAL Q5M PRN 180 Days 06/24/24 12/24/24 Rx #100 tab Doxycycline Hyclate 100 mg PO BID 12/24/24 12/24/24 History Spironolactone 50 mg PO DAILY 12/24/24 12/24/24 History metFORMIN HCL 1,000 mg PO BID 12/24/24 12/24/24 History Allergies Allergy/AdvReac Type Severity Reaction Status Date / Time venom-honey bee Allergy Swelling Verified 12/24/24 14:01 [bee venom (honey bee)] Physical Examination Gen: AOx3, NAD VSS stable at this time Integument: No open lesions, sores, areas of erythema or soft tissue swelling present in the cervical, thoracic or lumbar region Palpation: No significant tenderness appreciated throughout the cervical, thoracic or lumbar midline or paravertebral area ROM: Range of motion intact to the bilateral upper and lower extremities, there is no focal deficits. He does demonstrate spontaneous movements and a tremor to the bilateral upper extremities Sensory Exam: Senory exam to light touch is intact C5-T1 Senosry exam to light touch is intact L2-S1 Motor: 4/5 strength appreciate the bilateral upper extremities with shoulder elevation, shoulder abduction, elbow extension, elbow flexion, wrist flexion, wrist flexion, peace officer 4/5 strength appreciate the right lower extremity with hip flexion, knee exten enid, knee flexion, plantarflexion, dorsiflexion, EHL, FHL 4-/5 strength appreciated in the left lower extremity with hip flexion, knee extension, knee flexion, 4/5 plantarflexion, dorsiflexion, EHL, FHL Reflexes: 2/4 in all UE and LE Negative clonus bilaterally Special Test: Negative logroll maneuver bilateral lower extremities Negative straight leg raise bilateral lower extremities Results - Labs Labs: Abnormal Lab Results - Last 24 Hours (Table) 12/28/24 12/28/24 12/28/24 Range/Units 16:10 19:30 20:15 RBC 3.71 L (4.30-5.90) m/uL Hgb 11.5 L (13.0-17.5) gm/dL Hct 36.3 L (39.0-53.0) % MCHC (31.0-37.0) g/dL RDW 16.2 H (11.5-15.5) % Lymphocytes # 0.5 L (1.0-4.8) k/uL APTT (22.0-30.0) sec Sodium (137-145) mmol/L Potassium (3.5-5.1) mmol/L Carbon Dioxide (22-30) mmol/L BUN (9-20) mg/dL Creatinine (0.66-1.25) mg/dL Glucose (74-99) mg/dL POC Glucose (mg/dL) 116 H 125 H (70-110) mg/dL AST (17-59) U/L ALT (4-49) U/L 12/28/24 12/28/24 12/29/24 Range/Units 20:15 20:15 05:51 RBC (4.30-5.90) m/uL Hgb (13.0-17.5) gm/dL Hct (39.0-53.0) % MCHC (31.0-37.0) g/dL RDW (11.5-15.5) % Lymphocytes # (1.0-4.8) k/uL APTT 30.5 H (22.0-30.0) sec Sodium 134 L (137-145) mmol/L Potassium (3.5-5.1) mmol/L Carbon Dioxide 17 L (22-30) mmol/L BUN 24 H (9-20) mg/dL Creatinine 1.42 H (0.66-1.25) mg/dL Glucose 132 H (74-99) mg/dL POC Glucose (mg/dL) 138 H (70-110) mg/dL AST 154 H (17-59) U/L ALT 78 H (4-49) U/L 12/29/24 12/29/24 12/29/24 Range/Units 07:17 07:17 11:28 RBC 3.88 L (4.30-5.90) m/uL Hgb 11.7 L (13.0-17.5) gm/dL Hct 37.8 L (39.0-53.0) % MCHC 30.8 L (31.0-37.0) g/dL RDW 16.0 H (11.5-15.5) % Lymphocytes # 0.2 L (1.0-4.8) k/uL APTT (22.0-30.0) sec Sodium (137-145) mmol/L Potassium 5.5 H (3.5-5.1) mmol/L Carbon Dioxide (22-30) mmol/L BUN 23 H (9-20) mg/dL Creatinine 1.49 H (0.66-1.25) mg/dL Glucose 128 H (74-99) mg/dL POC Glucose (mg/dL) 114 H (70-110) mg/dL AST 109 H (17-59) U/L ALT 93 H (4-49) U/L H & H 12/24/24 12/25/24 12/27/24 Range/Units 12:32 07:41 03:16 Hgb 13.3 12.3 L 10.7 L (13.0-17.5) gm/dL Hct 40.3 37.4 L 34.1 L (39.0-53.0) % 12/27/24 12/28/24 12/28/24 Range/Units 06:31 07:45 20:15 Hgb 10.7 L 10.6 L 11.5 L (13.0-17.5) gm/dL Hct 33.4 L 33.3 L 36.3 L (39.0-53.0) % 12/29/24 Range/Units 07:17 Hgb 11.7 L (13.0-17.5) gm/dL Hct 37.8 L (39.0-53.0) % Coagulation 12/24/24 12/24/24 Range/Units 12:32 16:27 INR 1.0 1.1 (<1.2) Result Diagrams: 12/29/24 07:17 12/29/24 07:17 Assessment and Plan Assessment: Chronic low back pain Bilateral lower extremity weakness Parkinson's disease Multiple medical comorbidities Plan: I was able to discuss the case, this to include physical exam findings with my attending Dr. Andrade. No emergent orthopedic spine surgery recommended at this time Await results of the lumbar CT scan Pain control via primary medical service GI DVT prophylaxis per primary medical service Recommend evaluation by Physical Therapy and Occupational Therapy Other medical specialty recommendations appreciated Will continue to follow patient and recommendations pending his CT scan Time with Patient: Less than 30
--- NOTE | 2024-12-29 12:26 | P.PN ---
Subjective Progress Note Date: 12/29/24 SURGICAL PROGRESS NOTE CHIEF COMPLAINT: chest pain HISTORY OF PRESENT ILLNESS: Patient remains on cardiac floor. He had flash pulmonary edema this morning he is currently on BiPAP. [facility] was called. He has received IV Lasix. Patient reports he vomited yesterday. But per nursing staff he is confused and they are reporting no vomiting. Patient scheduled for CT scan abdomen pelvis this afternoon. Cardiology is starting Xarelto for anticoagulation for his A-fib. Patient denies any abdominal pain. Afebrile. WBC 4.3 Hgb 11.7 AST 109 ALT 93 total bili 0.8 PHYSICAL EXAM: VITAL SIGNS: Reviewed. GENERAL: Well-developed in no acute distress. HEENT: No sclera icterus. Extraocular movements grossly intact. Moist buccal mucosa. Head is atraumatic, normocephalic. ABDOMEN: Soft. Nondistended. Nontender. NEUROLOGIC: Alert and oriented. Cranial nerves II through XII grossly intact. ASSESSMENT: 1. Vomiting 2. Elevated LFTs 3. Chest pain 4. A-fib RVR 5. Parkinson's history 6. Diabetes mellitus PLAN: -CT scan abdomen pelvis hopefully to be completed today. Will follow-up on results. -Continue supportive care Physician Director Of Manufacturing Operations note has been reviewed by physician. Signing provider agrees with the documented findings, assessment, and plan of care. Objective - Vital Signs Vital signs: Vital Signs Temp 97.8 F 12/29/24 11:54 Pulse 62 12/29/24 12:01 Resp 20 12/29/24 12:01 BP 149/76 12/29/24 11:54 Pulse Ox 97 12/29/24 11:54 FiO2 50 12/29/24 11:54 Intake & Output 12/28/24 12/29/24 12/29/24 18:59 06:59 18:59 Intake Total 538 Output Total 650 1600 Balance -112 -1600 Weight 99 kg Intake: IV 240 Invasive Line 3 10 Oral 298 Output: Urine 325 1600 Straight 600 Post Void Residual 325 Other: Voiding Method Toilet Toilet Toilet Urinal Urinal Urinal Diaper Diaper Diaper # Voids 1 # Bowel Movements 1 - Labs CBC & Chem 7: 12/29/24 07:17 12/29/24 07:17 Labs: Abnormal Lab Results - Last 24 Hours (Table) 12/28/24 12/28/2412/28/25 Range/Units 16:10 19:30 20:15 RBC 3.71 L (4.30-5.90) m/uL Hgb 11.5 L (13.0-17.5) gm/dL Hct 36.3 L (39.0-53.0) % MCHC (31.0-37.0) g/dL RDW 16.2 H (11.5-15.5) % Lymphocytes # 0.5 L (1.0-4.8) k/uL APTT (22.0-30.0) sec Sodium (137-145) mmol/L Potassium (3.5-5.1) mmol/L Carbon Dioxide (22-30) mmol/L BUN (9-20) mg/dL Creatinine (0.66-1.25) mg/dL Glucose (74-99) mg/dL POC Glucose (mg/dL) 116 H 125 H (70-110) mg/dL AST (17-59) U/L ALT (4-49) U/L 12/28/24 12/28/24 12/29/24 Range/Units 20:15 20:15 05:51 RBC (4.30-5.90) m/uL Hgb (13.0-17.5) gm/dL Hct (39.0-53.0) % MCHC (31.0-37.0) g/dL RDW (11.5-15.5) % Lymphocytes # (1.0-4.8) k/uL APTT 30.5 H (22.0-30.0) sec Sodium 134 L (137-145) mmol/L Potassium (3.5-5.1) mmol/L Carbon Dioxide 17 L (22-30) mmol/L BUN 24 H (9-20) mg/dL Creatinine 1.42 H (0.66-1.25) mg/dL Glucose 132 H (74-99) mg/dL POC Glucose (mg/dL) 138 H (70-110) mg/dL AST 154 H (17-59) U/L ALT 78 H (4-49) U/L 12/29/24 12/29/24 12/29/24 Range/Units 07:17 07:17 11:28 RBC 3.88 L (4.30-5.90) m/uL Hgb 11.7 L (13.0-17.5) gm/dL Hct 37.8 L (39.0-53.0) % MCHC 30.8 L (31.0-37.0) g/dL RDW 16.0 H (11.5-15.5) % Lymphocytes # 0.2 L (1.0-4.8) k/uL APTT (22.0-30.0) sec Sodium (137-145) mmol/L Potassium 5.5 H (3.5-5.1) mmol/L Carbon Dioxide (22-30) mmol/L BUN 23 H (9-20) mg/dL Creatinine 1.49 H (0.66-1.25) mg/dL Glucose 128 H (74-99) mg/dL POC Glucose (mg/dL) 114 H (70-110) mg/dL AST 109 H (17-59) U/L ALT 93 H (4-49) U/L
--- NOTE | 2024-12-29 13:07 | CT ---
EXAMINATION TYPE: CT lumbar spine wo con DATE OF EXAM: 12/29/2024 1:04 PM COMPARISON: None. CLINICAL INDICATION: Male, 59 years old with history of lumbar ddd severe,leg weakness bilaterally; P HH, BACK PAIN TECHNIQUE: Multiple axial images were obtained from the midportion of T11 through the sacroiliac thalia nts. Soft tissue and bone windows in coronal and sagittal planes were obtained and reviewed. Contrast used: mL of , (None, if empty). Oral contrast used: (None, if empty). CT DLP: 2025.4 mGycm, Automated exposure control for dose reduction was used. FINDINGS: Alignment: There are 5 lumbar type vertebral bodies within normal alignment. Bone: Degeneration changes of the spine with superior endplate Schmorl's node at L1. Vacuum disc phen omenon present. Spondylolysis of the bilateral pars interarticularis at L5. Discs: T12-L1: No spinal canal or neural foraminal stenosis is identified. L1-L2: No spinal canal or neural foraminal stenosis is identified. L2-L3: No spinal canal or neural foraminal stenosis is identified. L3-L4: No spinal canal or neural foraminal stenosis is identified. L4-L5: No spinal canal or neural foraminal stenosis is identified. L5-S1: No spinal canal or neural foraminal stenosis is identified. Other: Left adrenal nodule measuring 19 Hounsfield units and 23 mm IMPRESSION: 1. No evidence for spinal fracture. 2. Mild degeneration changes worse at the L1 with Schmorl's node present. No evidence for significant spinal canal or neural foraminal stenosis. These findings are new at this level. Consider MRI for fu rther evaluation for acute Schmorl's node. 3. Bilateral spondylolysis of L5 stable back to 05/01/2021. 4. No significant spinal canal neural foraminal stenosis. [facility], , 12/29/2024 1:05 PM
--- NOTE | 2024-12-29 13:13 | CT ---
EXAMINATION TYPE: CT abdomen pelvis wo/w con DATE OF EXAM: 12/29/2024 COMPARISON: 11/22/2013 CLINICAL INDICATION: Male, 59 years old with history of emesi/abdomin al pain; PHH, ABD PAIN TECHNIQUE: Performed without Oral Contrast and with IV Contrast, patient injected with 100 mL of Isovue 300. CT DLP: [address] CTDI: mGy Automated exposure control for dose reduction was used. Findings: There are partially consolidative bibasal infiltrates with small pleural effusions consistent with an acute cardiopulmonary process such as pneumonia consider aspiration pneumonia. There are multiple small gallstones but no gallbladder distention, wall thickening or pericholecystic fluid.. There is no biliary ductal dilatation. There is no focal mass or organomegaly involving the liver, pancreas, spleen. There is a stable 2.6 c m left adrenal nodule statistically most likely representing an adenoma. There is no solid renal mass or hydronephrosis and there is homogeneous contrast enhancement of the r enal parenchyma. The caliber the abdominal aorta is normal is no retroperitoneal adenopathy or hemorr suma. The bowel loops are normal in caliber and there is no evidence of dilatation or obstruction. No infla mmatory changes are identified in the bowel wall or mesentery. There is a small amount of free fluid adjacent to the liver. No pelvic mass, free fluid, abscess or adenopathy. The osseous structures and soft tissues are intact. IMPRESSION: 1. Bibasilar lung infiltrates and small pleural effusions likely pneumonia. 2. Small amount of free intraperitoneal fluid adjacent to the liver. 3. Cholelithiasis [facility], Workstation: CARLEY 12/29/2024 1:11 PM
--- NOTE | 2024-12-29 13:38 | P.PN ---
Subjective HISTORY OF PRESENT ILLNESS: The patient is a pleasant 59-year-old gentleman who is known to our service from before was seen in May 2024 after he presented with a chest discomfort and mildly abnormal cardiac enzymes and at that point he underwent a heart catheterization which revealed occluded PDA of the RCA which was chronic occlusion with [id number] collateral. Beside that the patient does have diabetes and hypertension and dyslipidemia and history of stroke and history of seizure limiting his physical activities and driving as well. He was seen yesterday by his primary care physician where he underwent an EKG and that showed atrial fibrillation/flutter with RVR and the patient subsequently was sent to the hospital. He reports chest discomfort appears to be intermittent and chronic and reports shortness of breath as well as dizziness and lightheadedness and heart racing and fluttering but no presyncope or syncope. He is in atrial fibrillation with RVR which is new to him. Currently he is on Cardizem IV and he is on heparin IV. The EKG showed atrial flutter with RVR. Blood work showed mild elevation in the troponin which could be secondary to sinus tachycardia. The echo from 2023 showed normal LV systolic function with no significant valvular abnormalities. The physical examination is remarkable for regular rhythm with tachycardia and clear breathing sounds bilaterally and no edema was noted in the lower extremities December 26, 2024 The patient was seen and evaluated this morning. He is converted to normal sinus mechanism. The echo showed cardiomyopathy which is new compared to an echo was performed in May 2024. Overall he is feeling better. Hemodynamically he is stable. He was started on Entresto which I would agree on. He is on beta-paras which we will continue. I am going to add Farxiga and also decrease the dose of Aldactone and stop amlodipine in the light of low blood pressure. He need to undergo a coronary angiogram and with that being said I would continue the patient on IV heparin at this point. The physical examination is remarkable for regular rhythm with diminished breathing sounds bilaterally and no edema was noted in the lower extremities 12/27/2024 Atrial paced V sensed rhythm, currently in sinus rhythm BUN 36, creatinine 2.09, potassium 5.4, Hb 10.7 BP 126/81, heart rate 55 bpm 12/29/2024 Patient examined this morning at the bedside. Patient underwent cardiac catheterization yesterday with Dr. Varghese revealing chronically occluded mid PDA, mild disease in the LAD and left circumflex, right dominant system, and elevated LVEDP. Medical management was recommended. Patient currently denies chest pain or pressure. He denies shortness of breath. Telemetry reveals atrial fibrillation/paced rhythm. General surgery has been consulted for nausea and vomiting. His Xarelto has been placed on hold and he is scheduled for EGD tomorrow. Patients blood pressures remain elevated with a systolic near 200. PHYSICAL EXAM: VITAL SIGNS: Reviewed. GENERAL: Well-developed in no acute distress. NECK: Supple. No JVD or thyromegaly LUNGS: Respirations even and unlabored. Lungs essentially clear to auscultation bilaterally. HEART: Regular rate and rhythm. S1 and S2 heard. EXTREMITIES: Normal range of motion. No clubbing or cyanosis. Peripheral pulses intact. No lower extremity edema ASSESSMENT: New onset atrial flutter with RVR on admission, currently in atrial paced V sensed rhythm Type II NSTEMI due to above New worsening cardiomyopathy with a EF of 20 to 25%, likely nonischemic secondary to atrial fibrillation Acute on chronic heart failure with reduced EF CAD as described above LESLEY CKD Prior history of CVA Hypertension Dyslipidemia History of seizure PLAN: General surgery consulted for nausea and vomiting. Xarelto has been placed on hold. Patient is scheduled for EGD tomorrow. Increase hydralazine to 25 mg 3 times daily Add Imdur 30 mg daily Add oral Lasix 40 mg daily Continue to monitor blood pressure Repeat BMP in AM. If creatinine improves, will consider addition of Entresto tomorrow Dr. Carodso recommends further outpatient evaluation for pacemaker induced cardiomyopathy with possibility of upgrade to BiV device Further recommendations pending patient course Nurse practitioner note has been reviewed by physician. Signing provider agrees with the documented findings, assessment, and plan of care documented by ROBOT TECHNICIAN as a scribe. Objective - Vital Signs Vital signs: Vital Signs Temp 97.8 F 12/29/24 11:54 Pulse 62 12/29/24 12:01 Resp 20 12/29/24 12:01 BP 149/76 12/29/24 11:54 Pulse Ox 97 12/29/24 11:54 FiO2 50 12/29/24 11:54 Intake & Output 12/28/24 12/29/24 12/29/24 18:59 06:59 18:59 Intake Total 538 Output Total 650 1600 Balance -112 -1600 Weight 99 kg Intake: IV 240 Invasive Line 3 10 Oral 298 Output: Urine 325 1600 Straight 600 Post Void Residual 325 Other: Voiding Method Toilet Toilet Toilet Urinal Urinal Urinal Diaper Diaper Diaper # Voids 1 # Bowel Movements 1 - Labs CBC & Chem 7: 12/29/24 07:17 12/29/24 07:17 Labs: Abnormal Lab Results - Last 24 Hours (Table) 12/28/24 12/28/24 12/28/24 Range/Units 16:10 19:30 20:15 RBC 3.71 L (4.30-5.90) m/uL Hgb 11.5 L (13.0-17.5) gm/dL Hct 36.3 L (39.0-53.0) % MCHC (31.0-37.0) g/dL RDW 16.2 H (11.5-15.5) % Lymphocytes # 0.5 L (1.0-4.8) k/uL APTT (22.0-30.0) sec Sodium (137-145) mmol/L Potassium (3.5-5.1) mmol/L Carbon Dioxide (22-30) mmol/L BUN (9-20) mg/dL Creatinine (0.66-1.25) mg/dL Glucose (74-99) mg/dL POC Glucose (mg/dL) 116 H 125 H (70-110) mg/dL AST (17-59) U/L ALT (4-49) U/L 12/28/24 12/28/24 12/29/24 Range/Units 20:15 20:15 05:51 RBC (4.30-5.90) m/uL Hgb (13.0-17.5) gm/dL Hct (39.0-53.0) % MCHC (31.0-37.0) g/dL RDW (11.5-15.5) % Lymphocytes # (1.0-4.8) k/uL APTT 30.5 H (22.0-30.0) sec Sodium 134 L (137-145) mmol/L Potassium (3.5-5.1) mmol/L Carbon Dioxide 17 L (22-30) mmol/L BUN 24 H (9-20) mg/dL Creatinine 1.42 H (0.66-1.25) mg/dL Glucose 132 H (74-99) mg/dL POC Glucose (mg/dL) 138 H (70-110) mg/dL AST 154 H (17-59) U/L ALT 78 H (4-49) U/L 12/29/24 12/29/24 12/29/24 Range/Units 07:17 07:17 11:28 RBC 3.88 L (4.30-5.90) m/uL Hgb 11.7 L (13.0-17.5) gm/dL Hct 37.8 L (39.0-53.0) % MCHC 30.8 L (31.0-37.0) g/dL RDW 16.0 H (11.5-15.5) % Lymphocytes # 0.2 L (1.0-4.8) k/uL APTT (22.0-30.0) sec Sodium (137-145) mmol/L Potassium 5.5 H (3.5-5.1) mmol/L Carbon Dioxide (22-30) mmol/L BUN 23 H (9-20) mg/dL Creatinine 1.49 H (0.66-1.25) mg/dL Glucose 128 H (74-99) mg/dL POC Glucose (mg/dL) 114 H (70-110) mg/dL AST 109 H (17-59) U/L ALT 93 H (4-49) U/L
[2024-12-29 14:52] LABS: Appearance,Urine Clear (Clear); Bilirubin,Urine Negative (Negative); Blood,Urine Negative (Negative); Color,Urine Yellow; Glucose,Urine (UA) 4+ (Negative); Ketones,Urine 1+ (Negative); Leukocyte Esterase,Urine Negative (Negative); Nitrite,Urine Negative (Negative); PH, Urine 5.5 (5.0-8.0); Protein,Urine Trace (Negative); Specific Gravity,Urine 1.019 (1.001-1.035); Urobilinogen,Urine <2.0 mg/dL (<2.0)
--- NOTE | 2024-12-29 16:39 | XR ---
EXAMINATION TYPE: XR knee complete bilateral DATE OF EXAM: 12/29/2024 4:30 PM COMPARISON: None CLINICAL INDICATION: Male, 59 years old with history of knee oa; PHH, pain TECHNIQUE: XR knee complete bilateral 3 views submitted. FINDINGS: Right: No evidence of any acute osseous pathology, soft tissue swelling, or joint effusion is noted. Tricompartmental osteophyte formation involving the femoral condyles, tibial plateau and patella. Mil d joint space narrowing. Atherosclerosis of the arterial vasculature. Left: No evidence of any acute osseous pathology, soft tissue swelling, or joint effusion is noted. T ricompartmental osteophyte formation involving the femoral condyles, tibial plateau and patella. Mild joint space narrowing. Atherosclerosis of the arterial vasculature. IMPRESSION: 1. No acute osseous pathology. 2. Mild bilateral tricompartmental osteoarthritic changes. [facility], , 12/29/2024 4:36 PM
[2024-12-29 16:42] LABS: Glucose,Whole Blood 135 mg/dL (70-110)
[2024-12-29] MEDS ORDERED: RIVAROXABAN 20 MG TAB PO SCH ×2 (17:30)
[2024-12-29 20:05] LABS: Glucose,Whole Blood 144 mg/dL (70-110)
--- NOTE | 2024-12-30 03:04 | PN ---
PROGRESS NOTE SUBJECTIVE: A 59-year-old white male, new onset atrial fibrillation with RVR, leg weakness bilaterally. We are checking vitamin levels, going to get Neurology to see him. Lumbar CT scans did not show anything severe enough to cause his legs not to move. He does not walk out in 3 months, he says. OBJECTIVE: VITAL SIGNS: Temp 98.4, pulse 60, respiratory rate 16 to 18, blood pressure 135/77. LUNGS: Clear. CARDIOVASCULAR: S1, S2. EXTREMITIES: He can bend his knees to 90 degrees, but slow and stiff. He can move his feet. LABORATORY DATA: Sugars had been in 100s. Vitamin D is 28.6, procalcitonin is 0.12. B12 is 458. PLAN: Continue current treatments. Await for Neurologist to work him up for leg weakness. X- rays of knees with possible osteoarthritis making his knee stiff. Otherwise, he is getting better from a physical standpoint. He has negative heart cath. Orthopedics cannot find anything seriously wrong with him. Prognosis is guarded. MMODL / IJN: [id number] /
[2024-12-30 06:17] LABS: Glucose,Whole Blood 131 mg/dL (70-110)
[2024-12-30 07:11] LABS: African American GFR (CKD) 70 (>60 ml/min/1.73 sqM); Anion Gap 14 mmol/L; Blood Urea Nitrogen 26 mg/dL (9-20); Calcium 10.4 mg/dL (8.4-10.2); Carbon Dioxide 22 mmol/L (22-30); Chloride 101 mmol/L (98-107); Glucose 142 mg/dL (74-99); Non-African American GFR(CKD) 61 (>60 ml/min/1.73 sqM); Potassium 5.3 mmol/L (3.5-5.1); Sodium 137 mmol/L (137-145)
--- NOTE | 2024-12-30 07:18 | XR ---
EXAMINATION TYPE: XR chest 1V portable DATE OF EXAM: 12/30/2024 7:00 AM COMPARISON: 12/28/2024 CLINICAL INDICATION: Male, 59 years old with history of shortness of breath, Pulmonary edema, , FINDINGS: Left anterior chest wall pacemaker generator with right atrial and right ventricular leads. Heart rem ains mild to moderately enlarged. Diffuse interstitial and vascular density persists but with slight improvement. Patchy opacity has developed at the lower lungs with suggestion of a small right pleural effusion. IMPRESSION: CHF with pulmonary vascular congestion. Some interval improvement in the previous interstitial pulmon alexis edema. Small right pleural effusion has developed. [facility], Workstation: [facility], 12/30/2024 7:16 AM
--- NOTE | 2024-12-30 07:29 | P.PN ---
Progress Note - Text Progress Note Date: 12/30/24 CT REVIEWED. PT NEEDS MRI THERE IS FRACTURE AT L1 WITH DISC DISRUPTION AT T12-L1. THIS IS ACUTE ON CHRONIC OR ACUTE. THERE IS ALSO B/L SPONDYLOLYSIS OF L5. PT NEEDS FLEXION/EXTENSION FILMS TO DENOTE STABILITY AT THIS LEVEL AND THE L1 LEVEL. WOULD WAIT ON EPIDURAL TILL THESE TESTS THERE IS NO CLEAR AREA FOR INJECTION.
--- NOTE | 2024-12-30 09:54 | P.PN ---
Subjective Progress Note Date: 12/30/24 Principal diagnosis: Hemoptysis Acute on chronic hypoxic respiratory failure Chronic coronary artery disease Sleep disordered breathing and sleep apnea Obesity hypoventilation syndrome Acute on chronic kidney disease New onset atrial fibrillation with rapid ventricular response Ischemic cardiomyopathy with ejection fraction 25% significantly worsened from echo performed a year ago Mild MR and AR with sclerotic aortic valve December 30, 2024, patient seen eval examined during rounds labs reviewed medication care plan discussed patient has been weaned down to nasal cannula 4 L, oxygen saturation remained stable 95%, currently patient resting on BiPAP 40% oxygen, chest x-ray performed today reviewed interstitial edema however slightly improved compared to prior x-ray patient also has small trace pleural effusion. Dr. Schreiber sent from spine surgery have evaluated the patient CT noted to have fracture L1 with disc disruption at T12-L1 level likely acute on chronic, recommended MRI also there is not enough space for injection. Labs reviewed potassium down to 5.3 from 5.5, BUN/creatinine 26/1.29 also improved, glucose is 131 December 29, 2024, patient seen evaluate examined during rounds labs reviewed medications reviewed care plan discussed, patient is s/p cardiac catheter angiogram chronic coronary artery disease seen no intervention performed, patient has chronic obstruction of PDA branch. Cardiovascular services recommended maximal medical therapy. Postprocedure patient developed acute respiratory failure significant hypoxia along with cough with streaks of blood likely suggestive of transient pulmonary edema patient required BiPAP support 10 over 5 to 50% oxygen, patient was confused restless and agitated however currently resting sats are 100% now on BiPAP. His chest x-ray postcardiac cath cardiomegaly interstitial edema consistent with CHF, CT of the head no acute changes identified. Labs are significant WBC count 4.3 hemoglobin hematocrit 11/37 not much change from baseline platelet count of 227 PTT within normal range, ABG 7 point sodium is 137 potassium 5.5 BUN/creatinine stable 23/1.49 potassium is 5.4. Currently patient is on bronchodilator, amiodarone, Lipitor, IV Rocephin with Sinemet and IV steroids which seems to be helping cough congestion and wheezing 59-year-old male seen evaluate examined, presented emergency department with chest pain predominantly on the left side, and shortness of breath, patient is on 4-1/2 L oxygen uses at home, patient has advanced Parkinson's disease and very limited activity. Patient recently has been diagnosed on a home sleep study sleep disordered breathing and sleep apnea has been placed on auto CPAP machine which he is tolerating well and getting more adjusted to it. Patient feels that he is more awake and alert during the day before the CPAP machine and he feels getting benefit out of it patient and I agree for using BiPAP machine in the hospital. Review of data revealed that patient does have coronary artery disease based on a cath in 2023, other active medical problem issues include hypertension dyslipidemia history of CVA and seizure-like DVT patient has has been found to have atrial fibrillation in the primary care's office sent to emergency department for further evaluation, initially placed on IV Cardizem, echo last done a year ago normal systolic function with no valvular abnormality, patient is being considered for cardioversion as well as cardiac cath and cardiovascular service, patient spontaneously converted into sinus rhythm, echo however revealed cardiomyopathy with ejection fraction of 25%, with moderate aortic stenosis and mitral regurgitation. Chest x-ray unremarkable. CT scan of the chest with out contrast interstitial edema noted Objective - Vital Signs Vital signs: Vital Signs Temp 98.4 F 12/30/24 04:00 Pulse 50 L 12/30/24 04:00 Resp 18 12/30/24 04:00 BP 135/73 12/30/24 04:00 Pulse Ox 99 12/30/24 04:00 FiO2 40 12/30/24 04:00 Intake & Output 12/29/24 12/30/24 12/30/24 18:59 06:59 18:59 Output Total 700 450 Balance -700 -450 Weight 100 kg Output: Urine 700 450 Other: Voiding Method Toilet External Catheter Urinal Diaper - Exam - Constitutional General appearance: average body habitus, cooperative, disheveled - EENT Eyes: EOMI, PERRLA ENT: normal oropharynx Ears: bilateral: normal - Neck Carotids: bilateral: upstroke normal Thyroid: bilateral: normal size - Respiratory Respiratory: bilateral: CTA - Cardiovascular Rhythm: regular Heart sounds: normal: S1, S2 - Gastrointestinal General gastrointestinal: normal bowel sounds, soft - Integumentary Integumentary: normal, normal turgor - Neurologic Neurologic: CNII-XII intact - Musculoskeletal Musculoskeletal: generalized weakness, strength equal bilaterally - Psychiatric Psychiatric: A&O x's 3, appropriate affect, intact judgment & insight - Labs CBC & Chem 7: 12/29/24 07:17 04/03/25 06:30 Labs: Abnormal Lab Results - Last 24 Hours (Table) 12/29/24 12/29/24 12/29/24 Range/Units 11:28 12:10 14:59 Potassium (3.5-5.1) mmol/L BUN (9-20) mg/dL Creatinine (0.66-1.25) mg/dL Glucose (74-99) mg/dL POC Glucose (mg/dL) 114 H (70-110) mg/dL Calcium (8.4-10.2) mg/dL Vitamin D 25-Hydroxy 28.6 L (30.0-100.0) ng/mL Urine Protein Trace H (Negative) Urine Glucose (UA) 4+ H (Negative) Urine Ketones 1+ H (Negative) 12/29/24 12/29/24 12/30/24 Range/Units 16:40 20:01 06:16 Potassium (3.5-5.1) mmol/L BUN (9-20) mg/dL Creatinine (0.66-1.25) mg/dL Glucose (74-99) mg/dL POC Glucose (mg/dL) 135 H 144 H 131 H (70-110) mg/dL Calcium (8.4-10.2) mg/dL Vitamin D 25-Hydroxy (30.0-100.0) ng/mL Urine Protein (Negative) Urine Glucose (UA) (Negative) Urine Ketones (Negative) 12/30/24 Range/Units 06:30 Potassium 5.3 H (3.5-5.1) mmol/L BUN 26 H (9-20) mg/dL Creatinine 1.29 H (0.66-1.25) mg/dL Glucose 142 H (74-99) mg/dL POC Glucose (mg/dL) (70-110) mg/dL Calcium 10.4 H (8.4-10.2) mg/dL Vitamin D 25-Hydroxy (30.0-100.0) ng/mL Urine Protein (Negative) Urine Glucose (UA) (Negative) Urine Ketones (Negative) Assessment and Plan Assessment: Hemoptysis, improved, likely related to pulmonary edema and inflammatory process Acute on chronic hypoxic respiratory failure Chronic coronary artery disease Sleep disordered breathing and sleep apnea Obesity hypoventilation syndrome Acute on chronic kidney disease New onset atrial fibrillation with rapid ventricular response Ischemic cardiomyopathy with ejection fraction 25% significantly worsened from echo performed a year ago Mild MR and AR with sclerotic aortic valve Chronic back pain, spine surgery evaluated Plan: Continue broad-spectrum antibiotics along with IV steroids, likely hemoptysis due to airway inflammation and pulmonary edema, improved now x-ray showed improvement as well Recommend gentle diuresis Monitor and trend renal function and urine output and potassium level Recommend to continue CPAP at home with previous setting, patient can use BiPAP 10 and 5 each night and as needed during the day with oxygen to keep saturation over 90% Continue broad-spectrum antibiotics Patient will benefit from nephrology evaluation Continue anticoagulation as per cardiovascular services Findings reviewed of cardiac catheter angiogram Time with Patient: Greater than 30
--- NOTE | 2024-12-30 11:33 | XR ---
EXAMINATION TYPE: XR lumbar spine with bend/flex, 5 views DATE OF EXAM: 12/30/2024 11:19 AM COMPARISON: CT 12/29/2024 CLINICAL INDICATION: Male, 59 years old with history of L5-S1 SPONDYLOLYSIS, ?STABILITY; PHH, pain FINDINGS: 5 lumbar type vertebral bodies. Mild to moderate endplate spondylosis lower thoracic spine. Minimal s uperior endplate deformity L1 is age indeterminate. Mild endplate spondylosis such mild degenerative disc disease upper to mid lumbar spine. Vertebral body heights are preserved. No malalignment or mendel elver subluxation seen. Obliquely oriented lucencies along the posterior elements of L5 may reflect und erlying pars defects. IMPRESSION: 1. Mild superior endplate deformity/Schmorl's node of L1 as seen on CT from yesterday. 2. Moderate degenerative disc disease lower thoracic spine and mild within the upper lumbar spine. 3. Bilateral L5 pars defects without malalignment or dynamic subluxation. [facility], , 12/30/2024 11:30 AM
[2024-12-30 11:55] LABS: Glucose,Whole Blood 139 mg/dL (70-110)
--- NOTE | 2024-12-30 12:27 | P.PN ---
Subjective HISTORY OF PRESENT ILLNESS: The patient is a pleasant 59-year-old gentleman who is known to our service from before was seen in May 2024 after he presented with a chest discomfort and mildly abnormal cardiac enzymes and at that point he underwent a heart catheterization which revealed occluded PDA of the RCA which was chronic occlusion with [id number] collateral. Beside that the patient does have diabetes and hypertension and dyslipidemia and history of stroke and history of seizure limiting his physical activities and driving as well. He was seen yesterday by his primary care physician where he underwent an EKG and that showed atrial fibrillation/flutter with RVR and the patient subsequently was sent to the hospital. He reports chest discomfort appears to be intermittent and chronic and reports shortness of breath as well as dizziness and lightheadedness and heart racing and fluttering but no presyncope or syncope. He is in atrial fibrillation with RVR which is new to him. Currently he is on Cardizem IV and he is on heparin IV. The EKG showed atrial flutter with RVR. Blood work showed mild elevation in the troponin which could be secondary to sinus tachycardia. The echo from 2023 showed normal LV systolic function with no significant valvular abnormalities. The physical examination is remarkable for regular rhythm with tachycardia and clear breathing sounds bilaterally and no edema was noted in the lower extremities December 26, 2024 The patient was seen and evaluated this morning. He is converted to normal sinus mechanism. The echo showed cardiomyopathy which is new compared to an echo was performed in May 2024. Overall he is feeling better. Hemodynamically he is stable. He was started on Entresto which I would agree on. He is on beta-paras which we will continue. I am going to add Farxiga and also decrease the dose of Aldactone and stop amlodipine in the light of low blood pressure. He need to undergo a coronary angiogram and with that being said I would continue the patient on IV heparin at this point. The physical examination is remarkable for regular rhythm with diminished breathing sounds bilaterally and no edema was noted in the lower extremities 12/27/2024 Atrial paced V sensed rhythm, currently in sinus rhythm BUN 36, creatinine 2.09, potassium 5.4, Hb 10.7 BP 126/81, heart rate 55 bpm 12/29/2024 Patient examined this morning at the bedside. Patient underwent cardiac catheterization yesterday with Dr. Varghese revealing chronically occluded mid PDA, mild disease in the LAD and left circumflex, right dominant system, and elevated LVEDP. Medical management was recommended. Patient currently denies chest pain or pressure. He denies shortness of breath. Telemetry reveals atrial fibrillation/paced rhythm. General surgery has been consulted for nausea and vomiting. His Xarelto has been placed on hold and he is scheduled for EGD tomorrow. Patients blood pressures remain elevated with a systolic near 200. 12/30/2024 Patient examined this morning at the bedside. Patient currently denies chest pain or pressure. He denies shortness of breath. He has been on and off BiPAP per nursing. Chest x-ray today reveals CHF with pulmonary vascular congestion. Some interval improvement in the previous interstitial pulmonary edema. Small right pleural effusion has developed. EGD cancelled for today by general surgery. PHYSICAL EXAM: VITAL SIGNS: Reviewed. GENERAL: Well-developed in no acute distress. NECK: Supple. No JVD or thyromegaly LUNGS: Respirations even and unlabored. Lungs essentially clear to auscultation bilaterally. HEART: Regular rate and rhythm. S1 and S2 heard. EXTREMITIES: Normal range of motion. No clubbing or cyanosis. Peripheral pulses intact. No lower extremity edema ASSESSMENT: New onset atrial flutter with RVR on admission, currently in atrial paced V sensed rhythm Type II NSTEMI due to above New worsening cardiomyopathy with a EF of 20 to 25%, likely nonischemic secondary to atrial fibrillation Acute on chronic heart failure with reduced EF CAD as described above LESLEY CKD Prior history of CVA Hypertension Dyslipidemia History of seizure PLAN: General surgery consulted for nausea and vomiting. Xarelto has been placed on hold. EGD cancelled for today and tentatively rescheduled for tomorrow Continue amiodarone, Lipitor, Farxiga, Lasix, hydralazine, and Imdur Recommend adding Entresto. However patient remains hyperkalemic. Will add small dose of Losartan 25mg daily Give one dose of IV lasix 40mg Give Lokelma [address] Cardoso. Add Senokot-S BID. Repeat BMP in a.m. Continue to monitor blood pressure Dr. Cardoso recommends further outpatient evaluation for pacemaker induced cardiomyopathy with possibility of upgrade to BiV device Further recommendations pending patient course Nurse practitioner note has been reviewed by physician. Signing provider agrees with the documented findings, assessment, and plan of care documented by ARCHITECTURAL WOOD MODEL MAKER as a scribe. Objective - Vital Signs Vital signs: Vital Signs Temp 97.6 F 12/30/24 08:00 Pulse 50 L 12/30/24 08:00 Resp 18 12/30/24 08:00 BP 162/82 12/30/24 08:00 Pulse Ox 98 12/30/24 08:00 FiO2 40 12/30/24 08:00 Intake & Output 12/29/24 12/30/24 12/30/24 18:59 06:59 18:59 Output Total 700 450 Balance -700 -450 Weight 100 kg Output: Urine 700 450 Other: Voiding Method Toilet External Catheter External Catheter Urinal Diaper # Voids 2 - Labs CBC & Chem 7: 12/29/24 07:17 12/30/24 06:30 Labs: Abnormal Lab Results - Last 24 Hours (Table) 12/29/24 12/29/24 12/29/24 Range/Units 12:10 14:59 16:40 Potassium (3.5-5.1) mmol/L BUN (9-20) mg/dL Creatinine (0.66-1.25) mg/dL Glucose (74-99) mg/dL POC Glucose (mg/dL) 135 H (70-110) mg/dL Calcium (8.4-10.2) mg/dL Vitamin D 25-Hydroxy 28.6 L (30.0-100.0) ng/mL Urine Protein Trace H (Negative) Urine Glucose (UA) 4+ H (Negative) Urine Ketones 1+ H (Negative) 12/29/24 12/30/24 12/30/24 Range/Units 20:01 06:16 06:30 Potassium 5.3 H (3.5-5.1) mmol/L BUN 26 H (9-20) mg/dL Creatinine 1.29 H (0.66-1.25) mg/dL Glucose 142 H (74-99) mg/dL POC Glucose (mg/dL) 144 H 131 H (70-110) mg/dL Calcium 10.4 H (8.4-10.2) mg/dL Vitamin D 25-Hydroxy (30.0-100.0) ng/mL Urine Protein (Negative) Urine Glucose (UA) (Negative) Urine Ketones (Negative)
[2024-12-30] MEDS: FUROSEMIDE 10 MG/ML 4 ML VIAL IV STA (13:15)
[2024-12-30] MEDS: LOSARTAN 25 MG TAB PO SCH (13:15)
[2024-12-30] MEDS: SODIUM ZIRCONIUM CYCLOSILICATE 10 GM PACKET PO SCH (13:15)
[2024-12-30] MEDS: SENNOSIDES-DOCUSATE SODIUM 1 EACH TAB PO SCH (13:15)
[2024-12-30] MEDS: FUROSEMIDE 10 MG/ML 4 ML VIAL IV SCH (13:56)
--- NOTE | 2024-12-30 14:30 | P.PN ---
Subjective Progress Note Date: 12/30/24 SURGICAL PROGRESS NOTE CHIEF COMPLAINT: chest pain HISTORY OF PRESENT ILLNESS: Patient remains on cardiac floor. Patient has still required the BiPAP through the night. Chest x-ray had shown findings of CHF with some improvement. Per nursing staff patient did have cough with pinkish sputum. He did have a CT scan abdomen and pelvis which had reported pneumonia gallstones and small fluid adjacent to the liver. No vomiting reported per nursing staff. Afebrile. PHYSICAL EXAM: VITAL SIGNS: Reviewed. GENERAL: no acute distress. ABDOMEN: Soft. Nondistended. Nontender. NEUROLOGIC: Awake and alert ASSESSMENT: 1. Vomiting 2. Elevated LFTs 3. Chest pain 4. A-fib RVR 5. Parkinson's history 6. Diabetes mellitus PLAN: -EGD rescheduled for tomorrow due to patient's respiratory status -Continue to medically optimize patient -N.p.o. after midnight -Continue supportive care Physician Welding Machine Operator Thermit note has been reviewed by physician. Signing provider agrees with the documented findings, assessment, and plan of care. Objective - Vital Signs Vital signs: Vital Signs Temp 97.5 F L 12/30/24 12:00 Pulse 54 L 12/30/24 12:00 Resp 18 12/30/24 12:00 BP 167/78 12/30/24 12:00 Pulse Ox 100 12/30/24 12:00 FiO2 40 12/30/24 08:57 Intake & Output 12/29/24 12/30/24 12/30/24 18:59 06:59 18:59 Intake Total 240 Output Total 700 450 Balance -700 -450 240 Weight 100 kg Intake: Oral 240 Output: Urine 700 450 Other: Voiding Method Toilet External Catheter External Catheter Urinal Diaper # Voids 2 - Labs CBC & Chem 7: 12/29/24 07:17 12/30/24 06:30 Labs: Abnormal Lab Results - Last 24 Hours (Table) 12/29/24 12/29/24 12/29/24 Range/Units 12:10 14:59 16:40 Potassium (3.5-5.1) mmol/L BUN (9-20) mg/dL Creatinine (0.66-1.25) mg/dL Glucose (74-99) mg/dL POC Glucose (mg/dL) 135 H (70-110) mg/dL Calcium (8.4-10.2) mg/dL Vitamin D 25-Hydroxy 28.6 L (30.0-100.0) ng/mL Urine Protein Trace H (Negative) Urine Glucose (UA) 4+ H (Negative) Urine Ketones 1+ H (Negative) 12/29/24 12/30/24 12/30/24 Range/Units 20:01 06:16 06:30 Potassium 5.3 H (3.5-5.1) mmol/L BUN 26 H (9-20) mg/dL Creatinine 1.29 H (0.66-1.25) mg/dL Glucose 142 H (74-99) mg/dL POC Glucose (mg/dL) 144 H 131 H (70-110) mg/dL Calcium 10.4 H (8.4-10.2) mg/dL Vitamin D 25-Hydroxy (30.0-100.0) ng/mL Urine Protein (Negative) Urine Glucose (UA) (Negative) Urine Ketones (Negative) 12/30/24 Range/Units 11:53 Potassium (3.5-5.1) mmol/L BUN (9-20) mg/dL Creatinine (0.66-1.25) mg/dL Glucose (74-99) mg/dL POC Glucose (mg/dL) 139 H (70-110) mg/dL Calcium (8.4-10.2) mg/dL Vitamin D 25-Hydroxy (30.0-100.0) ng/mL Urine Protein (Negative) Urine Glucose (UA) (Negative) Urine Ketones (Negative)
[2024-12-30 16:45] LABS: Glucose,Whole Blood 175 mg/dL (70-110)
[2024-12-30 20:07] LABS: Glucose,Whole Blood 183 mg/dL (70-110)
--- NOTE | 2024-12-31 01:01 | PN ---
PROGRESS NOTE SUBJECTIVE: He has walked a little bit today with assistance up to the chair. The leg strength is somewhat improved. He had a lumbar x-ray by Dr. Chambers. Pars defects in the L5. Mild superior endplate deformity, Schmorl's node at L1, moderate degenerative disk disease in the thoracic spine and in the upper lumbar spine. Possibly get a brace versus a shot in his back. OBJECTIVE: VITAL SIGNS: Temperature 98.1, blood pressure 133/66, pulse 54, O2 is 97% on 4 L nasal cannula. CARDIOVASCULAR: S1, S2. LUNGS: Scattered rhonchi and wheeze. HEMATOLOGY: Negative Homans. PSYCH: Fair mood and affect. ASSESSMENT: Lumbar degenerative disk disease, pars defect in the lumbar spine, acute on chronic respiratory failure, pneumonia, atrial fibrillation, RVR, hemoptysis, coronary artery disease, sleep apnea, chronic kidney disease, new onset atrial fibrillation, cardiomyopathy on MRI in the ER. He gets his BiPAP at night. He has some oxygen during the day. Fracture at L1, just T12-L1. Recommended MRI also, there was not enough space for injection. Continue current treatment. He is going to get EGD for progressive vomiting tomorrow. Consider broad-spectrum antibiotics, steroids, diuresis. Monitor renal function, CPAP, antibiotics, PT, OT, anticoagulation. Prognosis guarded. MMODL / IJN: [id number] /
[2024-12-31 06:20] LABS: Glucose,Whole Blood 154 mg/dL (70-110)
[2024-12-31 07:09] LABS: African American GFR (CKD) 69 (>60 ml/min/1.73 sqM); Anion Gap 9 mmol/L; Blood Urea Nitrogen 30 mg/dL (9-20); Calcium 10.9 mg/dL (8.4-10.2); Carbon Dioxide 29 mmol/L (22-30); Chloride 98 mmol/L (98-107); Glucose 153 mg/dL (74-99); Non-African American GFR(CKD) 59 (>60 ml/min/1.73 sqM); Potassium 4.7 mmol/L (3.5-5.1); Sodium 136 mmol/L (137-145)
[2024-12-31 08:07] VITALS: TEMP 98.2
[2024-12-31 08:45] VITALS: PULSE 49
--- NOTE | 2024-12-31 09:19 | P.PN ---
Subjective Progress Note Date: 12/30/24 Principal diagnosis: Low back pain, generalized weakness, other medical comorbidities Patient was examined today at bedside, he was up resting in his hospital chair. Patient was unable to undergo MRI of the thoracic and lumbar spine at this facility due to his pacemaker. He did undergo flexion and extension films. I was able to review those images with my attending Dr. Andrade. Patient was scheduled for an EGD today, due to his current respiratory status this was resc heduled for 12/31/2024. Objective - Vital Signs Vital signs: Vital Signs Temp 97.5 F L 12/30/24 12:00 Pulse 54 L 12/30/24 14:00 Resp 18 12/30/24 14:00 BP 167/78 12/30/24 12:00 Pulse Ox 100 12/30/24 12:00 FiO2 40 12/30/24 08:57 Intake & Output 12/29/24 12/30/24 12/30/24 18:59 06:59 18:59 Intake Total 240 Output Total 700 450 Balance -700 -450 240 Weight 100 kg Intake: Oral 240 Output: Urine 700 450 Other: Voiding Method Toilet External Catheter External Catheter Urinal Diaper # Voids 2 - Exam Gen: AOx3, NAD VSS stable at this time Integument: No open lesions, sores, areas of erythema or soft tissue swelling present in the cervical, thoracic or lumbar region Palpation: No significant tenderness appreciated throughout the cervical, thoracic or lumbar midline or paravertebral area ROM: Range of motion intact to the bilateral upper and lower extremities, there is no focal deficits. He does demonstrate spontaneous movements and a tremor to the bilateral upper extremities Sensory Exam: Senory exam to light touch is intact C5-T1 Senosry exam to light touch is intact L2-S1 Motor: 4/5 strength appreciate the bilateral upper extremities with shoulder elevation, shoulder abduction, elbow extension, elbow flexion, wrist flexion, wrist flexion, medical collections specialist 4/5 strength appreciate the right lower extremity with hip flexion, knee extension, knee flexion, plantarflexion, dorsiflexion, EHL, FHL 4-/5 strength appreciated in the left lower extremity with hip flexion, knee extension, knee flexion, 4/5 plantarflexion, dorsiflexion, EHL, FHL Reflexes: 2/4 in all UE and LE Negative clonus bilaterally Special Test: Negative logroll maneuver bilateral lower extremities Negative straight leg raise bilateral lower extremities - Labs CBC & Chem 7: 12/29/24 07:17 12/30/24 06:30 Labs: Abnormal Lab Results - Last 24 Hours (Table) 12/29/24 12/29/24 12/29/24 Range/Units 14:59 16:40 20:01 Potassium (3.5-5.1) mmol/L BUN (9-20) mg/dL Creatinine (0.66-1.25) mg/dL Glucose (74-99) mg/dL POC Glucose (mg/dL) 135 H 144 H (70-110) mg/dL Calcium (8.4-10.2) mg/dL Vitamin D 25-Hydroxy 28.6 L (30.0-100.0) ng/mL 12/30/24 12/30/24 12/30/24 Range/Units 06:16 06:30 11:53 Potassium 5.3 H (3.5-5.1) mmol/L BUN 26 H (9-20) mg/dL Creatinine 1.29 H (0.66-1.25) mg/dL Glucose 142 H (74-99) mg/dL POC Glucose (mg/dL) 131 H 139 H (70-110) mg/dL Calcium 10.4 H (8.4-10.2) mg/dL Vitamin D 25-Hydroxy (30.0-100.0) ng/mL Assessment and Plan Assessment: Acute on chronic L1 vertebral body fracture with disc protrusion T12-L1 L5 pars defect Chronic low back pain Bilateral lower extremity weakness Parkinson's disease Multiple medical comorbidities Plan: No emergent orthopedic surgical intervention is recommended at this time LSO brace will be brace ordered, did discuss with case management Pain control via primary medical service GI DVT prophylaxis per primary medical service Recommend evaluation by Physical Therapy and Occupational Therapy Other medical specialty recommendations appreciated Recommend maximizing his conservative measures at this time, would recommend subacute rehab placement for improvement of ADLs Time with Patient: Less than 30
--- NOTE | 2024-12-31 09:40 | P.PN ---
Subjective Progress Note Date: 12/31/24 Principal diagnosis: Hemoptysis Acute on chronic hypoxic respiratory failure Chronic coronary artery disease Sleep disordered breathing and sleep apnea Obesity hypoventilation syndrome Acute on chronic kidney disease New onset atrial fibrillation with rapid ventricular response Ischemic cardiomyopathy with ejection fraction 25% significantly worsened from echo performed a year ago Mild MR and AR with sclerotic aortic valve December 31, 2024, patient sitting upright in chair breathing comfortably, no cough congestion is present, denies any chest pain, no more hemoptysis seen, patient remains on bronchodilator, on amiodarone along with broad-spectrum antibiotics, patient remains on Solu-Medrol will taper down to 2 times a day. Labs reviewed sodium 136 potassium 4.7 improved from 5 with 3 yesterday BUN/creatinine 30/1.32 overall remains stable sugars 153. Noted ionized calcium is elevated would recommend to repeat the calcium level to confirm mid if remains elevated then consider checking parathyroid hormone level December 30, 2024, patient seen eval examined during rounds labs reviewed medication care plan discussed patient has been weaned down to nasal cannula 4 L, oxygen saturation remained stable 95%, currently patient resting on BiPAP 40% oxygen, chest x-ray performed today reviewed interstitial edema however slightly improved compared to prior x-ray patient also has small trace pleural effusion. Dr. Schreiber sent from spine surgery have evaluated the patient CT noted to have fracture L1 with disc disruption at T12-L1 level likely acute on chronic, recommended MRI also there is not enough space for injection. Labs reviewed potassium down to 5.3 from 5.5, BUN/creatinine 26/1.29 also improved, glucose is 131 December 29, 2024, patient seen evaluate examined during rounds labs reviewed medications reviewed care plan discussed, patient is s/p cardiac catheter angiogram chronic coronary artery disease seen no intervention performed, patient has chronic obstruction of PDA branch. Cardiovascular services recommended maximal medical therapy. Postprocedure patient developed acute respiratory failure significant hypoxia along with cough with streaks of blood likely suggestive of transient pulmonary edema patient required BiPAP support 10 over 5 to 50% oxygen, patient was confused restless and agitated however currently resting sats are 100% now on BiPAP. His chest x-ray postcardiac cath cardiomegaly interstitial edema consistent with CHF, CT of the head no acute changes identified. Labs are significant WBC count 4.3 hemoglobin hematocrit 11/37 not much change from baseline platelet count of 227 PTT within normal range, ABG 7 point sodium is 137 potassium 5.5 BUN/creatinine stable /.49 potassium is 5.4. Currently patient is on bronchodilator, amiodarone, Lipitor, IV Rocephin with Sinemet and IV steroids which seems to be helping cough congestion and wheezing 59-year-old male seen evaluate examined, presented emergency department with chest pain predominantly on the left side, and shortness of breath, patient is on 4-1/2 L oxygen uses at home, patient has advanced Parkinson's disease and very limited activity. Patient recently has been diagnosed on a home sleep study sleep disordered breathing and sleep apnea has been placed on auto CPAP machine which he is tolerating well and getting more adjusted to it. Patient feels that he is more awake and alert during the day before the CPAP machine and he feels getting benefit out of it patient and I agree for using BiPAP machine in the hospital. Review of data revealed that patient does have coronary artery disease based on a cath in 2023, other active medical problem issues include hypertension dyslipidemia history of CVA and seizure-like DVT patient has has been found to have atrial fibrillation in the primary care's office sent to emergency department for further evaluation, initially placed on IV Cardizem, echo last done a year ago normal systolic function with no valvular abnormality, patient is being considered for cardioversion as well as cardiac cath and cardiovascular service, patient spontaneously converted into sinus rhythm, echo however revealed cardiomyopathy with ejection fraction of 25%, with moderate aortic stenosis and mitral regurgitation. Chest x-ray unremarkable. CT scan of the chest with out contrast interstitial edema noted Objective - Vital Signs Vital signs: Vital Signs Temp 98.2 F 12/31/24 08:00 Pulse 49 L 12/31/24 08:00 Resp 16 12/31/24 08:00 BP 133/75 12/31/24 08:00 Pulse Ox 98 12/31/24 08:00 FiO2 40 12/31/24 04:22 Intake & Output 12/30/24 12/31/24 12/31/24 18:59 06:59 18:59 Intake Total 240 Output Total 200 1125 Balance 40 -1125 Weight 96 kg Intake: Oral 240 Output: Urine 200 1125 Other: Voiding Method External Catheter Urinal Urinal # Voids 2 2 - Exam - Constitutional General appearance: average body habitus, cooperative, disheveled - EENT Eyes: EOMI, PERRLA ENT: normal oropharynx Ears: bilateral: normal - Neck Carotids: bilateral: upstroke normal Thyroid: bilateral: normal size - Respiratory Respiratory: bilateral: CTA - Cardiovascular Rhythm: regular Heart sounds: normal: S1, S2 - Gastrointestinal General gastrointestinal: normal bowel sounds, soft - Integumentary Integumentary: normal, normal turgor - Neurologic Neurologic: CNII-XII intact - Musculoskeletal Musculoskeletal: generalized weakness, strength equal bilaterally - Psychiatric Psychiatric: A&O x's 3, appropriate affect, intact judgment & insight - Labs CBC & Chem 7: 12/29/24 07:17 12/31/24 06:35 Labs: Abnormal Lab Results - Last 24 Hours (Table) 12/30/24 12/30/24 12/30/24 Range/Units 11:53 16:34 17:06 Sodium (137-145) mmol/L BUN (9-20) mg/dL Creatinine (0.66-1.25) mg/dL Glucose (74-99) mg/dL POC Glucose (mg/dL) 139 H 175 H (70-110) mg/dL Calcium (8.4-10.2) mg/dL Ionized Calcium Beth 5.4 H (4.5-5.3) mg/dL 12/30/24 12/31/24 12/31/24 Range/Units 20:03 06:18 06:35 Sodium 136 L (137-145) mmol/L BUN 30 H (9-20) mg/dL Creatinine 1.32 H (0.66-1.25) mg/dL Glucose 153 H (74-99) mg/dL POC Glucose (mg/dL) 183 H 154 H (70-110) mg/dL Calcium 10.9 H (8.4-10.2) mg/dL Ionized Calcium Beth (4.5-5.3) mg/dL Assessment and Plan Assessment: Hemoptysis, resolved, likely related to inflammatory prior Hypercalcemia, recommend confirmation with repeat calcium level if remains elevated will consider checking parathyroid hormone level l Acute on chronic hypoxic respiratory failure Chronic coronary artery disease Sleep disordered breathing and sleep apnea Obesity hypoventilation syndrome Acute on chronic kidney disease New onset atrial fibrillation with rapid ventricular response Ischemic cardiomyopathy with ejection fraction 25% significantly worsened from echo performed a year ago Mild MR and AR with sclerotic aortic valve Chronic back pain, spine surgery evaluated Plan: Continue broad-spectrum antibiotics along with IV steroids, likely hemoptysis due to airway inflammation and pulmonary edema, improved now x-ray showed improvement as well, lowered down the steroids hopefully next 24 to 48 hours can change to oral Recommend gentle diuresis Monitor and trend renal function and urine output and potassium level Recommend to continue CPAP at home with previous setting, patient can use BiPAP 10 and 5 each night and as needed during the day with oxygen to keep saturation over 90% Continue broad-spectrum antibiotics Patient will benefit from nephrology evaluation Continue anticoagulation as per cardiovascular services Findings reviewed of cardiac catheter angiogram Time with Patient: Greater than 30
--- NOTE | 2024-12-31 09:59 | P.CNNES ---
History of Present Illness Consult date: 12/30/24 Requesting physician: Liam Acosta Reason for Consult: Leg weakness History of Present Illness: Patient is a 59-year-old male, with history of diabetes, B12 deficiency, seizure disorder came to the hospital on 12/24/2024 for chest pain. Patient was found to have new onset atrial fibrillation with rapid ventricular rate. Patient was also found to have type II non-STEMI, new worsening cardiomyopathy with EF of 20 to 25% likely nonischemic secondary to atrial fibrillation, acute on chronic heart failure with reduced EF, CAD, LESLEY and prior history of CVA, hypertension diabetes. Neurology was consulted for leg weakness. Patient states that his left leg has been numb for 2-3 years but now the right leg has gone numb. He has diabetes for about 5 years. He has been falling for last 1 year. He falls out of nowhere. No warning and is not tripping or slipping. Does not pass out. Nurse reports that just to go from bed to the bedside commode was 3 people assist. He lives by himself with a little dog. Patient also has history of epilepsy for last 8 years. He states he gets grand mal seizures as well as petit mal seizures which consist of staring spells. The grand mal seizures are occurring about twice a year and the last one was 7-8 months ago. The petit mal seizures are about 4-5 times a year and the last one was 6-7 months ago. Patient also claims that he has been diagnosed with Parkinson's disease. He has peripheral neuropathy. He states his leg problem has been severe for last 2-3 years. He admits to neck hurting and low back hurting. Patient has been seen by myself in May 2021 for vitamin B12 deficiency, syncopal spell versus seizure diabetes hypertension. He was started on B12 injections. Folic acid was also low. 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 His B6 and folate were also low. Patient is hard of hearing. CT of the lumbar spine showed no evidence of spinal fracture, mild degenerative changes worst at the L1 with Schmorl's node present. No evidence for significant spinal canal or neural foraminal stenosis. Bilateral spondylosis of L5 stable back to 05/01/2021. No significant spinal canal or neural foraminal stenosis. Patient smoked 2 packs per day for 40 years, quit 6-7 years ago. Review of Systems All pertinent positive and negative review of systems mentioned in the HPI. Otherwise unremarkable. Past Medical History Past Medical History: COPD, CVA/TIA, Diabetes Mellitus, Fibromyalgia, GERD/Reflux, Hyperlipidemia, Hypertension, Memory Impairment, Seizure Disorder, Skin Disorder, Sleep Apnea/CPAP/BIPAP Additional Past Medical History / Comment(s): uses CPAP machine, on 4L home oxygen, EPILEPTIC, past fall w/ concussion, ambulate with a walker and a wheelchair, Parkinson's History of Any Multi-Drug Resistant Organisms: None Reported Past Surgical History: Hernia Repair, Pacemaker Additional Past Surgical History / Comment(s): left big toe surgery/debridement r/t diabetic ulcer Past Anesthesia/Blood Transfusion Reactions: No Reported Reaction Type of Cardiac Device: Permanent Pacemaker, AICD Device Placement Date:: 2020 Past Psychological History: No Psychological Hx Reported Additional Psychological History / Comment(s): Pt lives alone, has a power chair, straight cane, shower chair, nebulizer, glucometer. Pt no longer drives, has friend that takes him to [employer]. Smoking Status: Former smoker Past Alcohol Use History: None Reported Past Drug Use History: None Reported - Past Family History Father Family Medical History: Cancer Additional Family Medical History / Comment(s): LUNG Brother(s) History Unknown: Yes Family Medical History: Myocardial Infarction ([place]) Additional Family Medical History / Comment(s): Sister(s) History Unknown: Yes Family Medical History: Myocardial Infarction ([place]) Additional Family Medical History / Comment(s): Medications and Allergies Home Medications Medication Instructions Recorded Confirmed Type Atorvastatin [Lipitor] 40 mg PO W/SUPPER 08/31/14 12/24/24 History Potassium Chloride [Klor-Con 20] 20 meq PO DAILY 08/10/15 12/24/24 History lamoTRIgine [LaMICtal] 200 mg PO TID-W/MEALS 08/10/15 12/24/24 History Omeprazole 40 mg PO DAILY 05/14/18 12/24/24 History Dulaglutide [Trulicity] 4.5 mg SQ CARD 06/18/21 12/24/24 History Gabapentin 600 mg PO TID 06/18/21 12/24/24 History Insulin Glargine,Hum.rec.anlog 10 unit SQ HS 06/18/21 12/24/24 History [Lantus Solostar Pen] Meloxicam [Mobic] 15 mg PO DAILY 06/18/21 12/24/24 History Aspirin EC [Ecotrin Low Dose] 81 mg PO DAILY 06/21/24 12/24/24 History DULoxetine HCL [Cymbalta] 60 mg PO DAILY 06/21/24 12/24/24 History Ergocalciferol [Vitamin D2 (1250 1,250 mcg PO CARD 06/21/24 12/24/24 History Mcg = [id number] Iu)] Insulin Aspart [NovoLOG Flexpen] 5 units SQ AC-TID 06/21/24 12/24/24 History Insulin Aspart [NovoLOG Flexpen] See Protocol SQ AC-TID 06/21/24 12/24/24 History Ipratropium-Albuterol Nebulize 3 ml INHALATION RT-QID PRN 06/21/24 12/24/24 History [Duoneb 0.5 mg-3 mg/3 ml Soln] Metoprolol Succinate [Toprol XL] 50 mg PO DAILY 06/21/24 12/24/24 History Montelukast [Singulair] 10 mg PO DAILY 06/21/24 12/24/24 History Sacubitril/Valsartan [Entresto 24 1 tab PO BID-W/MEALS 06/21/24 12/24/24 History mg-26 mg Tablet] Sucralfate [Carafate] 1 gm PO TID 06/21/24 12/24/24 History Terbinafine [LamISIL] 250 mg PO W/SUPPER 06/21/24 12/24/24 History Vortioxetine Hydrobromide 20 mg PO W/SUPPER 06/21/24 12/24/24 History [Trintellix] amLODIPine [Norvasc] 5 mg PO DAILY 06/21/24 12/24/24 History Carbidopa-Levodopa 25-100 mg 1 each PO QID 30 Days #120 tab 06/24/24 12/24/24 Rx [Sinemet 25-100 mg] Nitroglycerin Sl Tabs [Nitrostat] 0.4 mg SUBLINGUAL Q5M PRN 180 Days 06/24/24 12/24/24 Rx #100 tab Doxycycline Hyclate 100 mg PO BID 12/24/24 12/24/24 History Spironolactone 50 mg PO DAILY 12/24/24 12/24/24 History metFORMIN HCL 1,000 mg PO BID 12/24/24 12/24/24 History Allergies Allergy/AdvReac Type Severity Reaction Status Date / Time venom-honey bee Allergy Swelling Verified 12/24/24 14:01 [bee venom (honey bee)] Physical Examination - Vital Signs Vital Signs: Vital Signs Temp Pulse Resp BP BP Pulse Ox FiO2 12/30/24 16:00 97.6 F 46 L 18 132/56 98 12/30/24 14:00 54 L 18 12/30/24 12:00 97.5 F L 54 L 18 167/78 100 12/30/24 08:57 40 12/30/24 08:00 97.6 F 50 L 18 162/82 98 40 12/30/24 04:00 98.4 F 50 L 18 135/73 99 40 12/30/24 03:52 40 12/30/24 00:12 40 12/29/24 23:47 98.1 F 50 L 18 122/68 97 50 12/29/24 20:21 40 12/29/24 20:00 98.4 F 60 19 135/77 95 Intake and Output 12/30/24 12/30/24 12/30/24 06:59 14:59 22:59 Intake Total 240 Output Total 450 200 Balance -450 240 -200 Intake: Oral 240 Output: Urine 450 200 Other: Voiding Method External Catheter External Catheter # Voids 2 Weight 100 kg Patient is a middle aged male, appears older than his stated age. Patient was using BiPAP. Patient to BiPAP often has to be on oxygen by nasal cannula. Patient is alert awake oriented to time place and person. Speech and language functions are normal. Patient can name and repeat very well. No aphasia or dysarthria. Attention, concentration and fund of knowledge is adequate. On cranial nerve examination, pupils are equal, round and reacting to light, visual gutierrez are full on confrontation, with no neglect on double simultaneous stimulation. Extraocular muscles are intact, and he has mild nystagmus in the end gaze bilaterally. Face is symmetric, tongue protrudes to the midline. Palatal elevation and sensation normal, hearing and shoulder shrug normal, facial sensation normal. On muscle strength testing, there is no pronator drift and the strength is normal in arms and legs distally and proximally. Deep tendon reflexes are symmetric and trace at the biceps, 0 brachioradialis, 1 at the knees, absent ankles and plantars are flat. Sensory to touch is equal with no neglect on double simultaneous stimulation. Cerebellar function showed mild ataxia for zceswy-ix-mpko testing bilaterally. No dysdiadochokinesia. Patient has mild to moderate ataxia for ihvc-xu-kwos testing on either side. Tone and bulk of muscles normal. Gait deferred.. On general examination, there is no carotid bruit or murmur, S1-S2 audible. Chest is clear on consultation. Abdomen is soft nontender. No organomegaly, bowel sounds present. Peripheral pulses are present. No peripheral edema. Results - Laboratory Findings CBC and BMP: 12/29/24 07:17 12/31/24 06:35 Abnormal Lab Findings: Abnormal Labs 12/24/24 12/24/24 12/24/24 12:32 12:32 12:32 RBC Hgb Hct MCHC RDW 15.7 H Lymphocytes # 0.9 L APTT ABG pH ABG O2 Saturation Hemoglobin Sodium Potassium Carbon Dioxide 21 L BUN Creatinine Glucose 135 H POC Glucose (mg/dL) Calcium Ionized Calcium Beth AST ALT Troponin I 0.074 H* Vitamin D 25-Hydroxy Urine Protein Urine Glucose (UA) Urine Ketones 12/24/24 12/24/24 12/24/24 16:27 20:57 22:15 RBC Hgb Hct MCHC RDW Lymphocytes # APTT 31.3 H ABG pH ABG O2 Saturation Hemoglobin Sodium Potassium Carbon Dioxide BUN Creatinine Glucose POC Glucose (mg/dL) Calcium Ionized Calcium Beth AST ALT Troponin I 0.080 H* 0.073 H* Vitamin D 25-Hydroxy Urine Protein Urine Glucose (UA) Urine Ketones 12/25/24 12/25/24 12/25/24 06:35 07:41 07:41 RBC 4.04 L Hgb 12.3 L Hct 37.4 L MCHC RDW 15.7 H Lymphocytes # 0.9 L APTT ABG pH ABG O2 Saturation Hemoglobin Sodium 135 L Potassium Carbon Dioxide BUN Creatinine Glucose 131 H POC Glucose (mg/dL) 113 H Calcium Ionized Calcium Beth AST ALT Troponin I Vitamin D 25-Hydroxy Urine Protein Urine Glucose (UA) Urine Ketones 12/25/24 12/25/24 12/25/24 07:41 11:31 16:43 RBC Hgb Hct MCHC RDW Lymphocytes # APTT 39.3 H ABG pH ABG O2 Saturation Hemoglobin Sodium Potassium Carbon Dioxide BUN Creatinine Glucose POC Glucose (mg/dL) 211 H 118 H Calcium Ionized Calcium Beth AST ALT Troponin I Vitamin D 25-Hydroxy Urine Protein Urine Glucose (UA) Urine Ketones 12/25/24 12/25/24 12/26/24 20:03 20:23 05:42 RBC Hgb Hct MCHC RDW Lymphocytes # APTT 46.1 H ABG pH ABG O2 Saturation Hemoglobin Sodium Potassium Carbon Dioxide BUN Creatinine Glucose POC Glucose (mg/dL) 174 H 126 H Calcium Ionized Calcium Beth AST ALT Troponin I Vitamin D 25-Hydroxy Urine Protein Urine Glucose (UA) Urine Ketones 12/26/24 12/26/24 12/26/24 07:23 11:56 16:31 RBC Hgb Hct MCHC RDW Lymphocytes # APTT 53.2 H ABG pH ABG O2 Saturation Hemoglobin Sodium Potassium Carbon Dioxide BUN Creatinine Glucose POC Glucose (mg/dL) 171 H 133 H Calcium Ionized Calcium Beth AST ALT Troponin I Vitamin D 25-Hydroxy Urine Protein Urine Glucose (UA) Urine Ketones 12/26/24 12/27/24 12/27/24 20:23 03:16 03:16 RBC 3.53 L Hgb 10.7 L Hct 34.1 L MCHC RDW 16.1 H Lymphocytes # 0.9 L APTT ABG pH ABG O2 Saturation Hemoglobin Sodium 133 L Potassium 5.5 H Carbon Dioxide 21 L BUN 35 H Creatinine 2.03 H Glucose POC Glucose (mg/dL) 199 H Calcium Ionized Calcium Beth AST 266 H ALT Troponin I Vitamin D 25-Hydroxy Urine Protein Urine Glucose (UA) Urine Ketones 12/27/24 12/27/24 12/27/24 03:21 06:31 06:31 RBC 3.50 L Hgb 10.7 L Hct 33.4 L MCHC RDW 15.8 H Lymphocytes # APTT 42.9 H ABG pH 7.30 L ABG O2 Saturation 97.6 H Hemoglobin 10.7 L Sodium Potassium Carbon Dioxide BUN Creatinine Glucose POC Glucose (mg/dL) Calcium Ionized Calcium Beth AST ALT Troponin I Vitamin D 25-Hydroxy Urine Protein Urine Glucose (UA) Urine Ketones 12/27/24 12/27/24 12/28/24 06:31 16:51 06:07 RBC Hgb Hct MCHC RDW Lymphocytes # APTT ABG pH ABG O2 Saturation Hemoglobin Sodium 134 L Potassium 5.4 H Carbon Dioxide BUN 36 H Creatinine 2.09 H Glucose POC Glucose (mg/dL) 138 H 119 H Calcium Ionized Calcium Beth AST 334 H ALT 65 H Troponin I Vitamin D 25-Hydroxy Urine Protein Urine Glucose (UA) Urine Ketones 12/28/24 12/28/24 12/28/24 07:45 07:45 07:45 RBC 3.51 L Hgb 10.6 L Hct 33.3 L MCHC RDW 15.8 H Lymphocytes # 0.5 L APTT 38.8 H ABG pH ABG O2 Saturation Hemoglobin Sodium 135 L Potassium Carbon Dioxide 18 L BUN 27 H Creatinine 1.43 H Glucose 110 H POC Glucose (mg/dL) Calcium Ionized Calcium Beth AST 230 H ALT 160 H Troponin I Vitamin D 25-Hydroxy Urine Protein Urine Glucose (UA) Urine Ketones 12/28/24 12/28/24 12/28/24 10:30 16:10 19:30 RBC Hgb Hct MCHC RDW Lymphocytes # APTT ABG pH ABG O2 Saturation Hemoglobin Sodium 136 L Potassium Carbon Dioxide BUN 26 H Creatinine 1.58 H Glucose POC Glucose (mg/dL) 116 H 125 H Calcium Ionized Calcium Beth AST ALT Troponin I Vitamin D 25-Hydroxy Urine Protein Urine Glucose (UA) Urine Ketones 12/28/24 12/28/24 12/28/24 20:15 20:15 20:15 RBC 3.71 L Hgb 11.5 L Hct 36.3 L MCHC RDW 16.2 H Lymphocytes # 0.5 L APTT 30.5 H ABG pH ABG O2 Saturation Hemoglobin Sodium 134 L Potassium Carbon Dioxide 17 L BUN 24 H Creatinine 1.42 H Glucose 132 H POC Glucose (mg/dL) Calcium Ionized Calcium Beth AST 154 H ALT 78 H Troponin I Vitamin D 25-Hydroxy Urine Protein Urine Glucose (UA) Urine Ketones 12/29/24 12/29/24 12/29/24 05:51 07:17 07:17 RBC 3.88 L Hgb 11.7 L Hct 37.8 L MCHC 30.8 L RDW 16.0 H Lymphocytes # 0.2 L APTT ABG pH ABG O2 Saturation Hemoglobin Sodium Potassium 5.5 H Carbon Dioxide BUN 23 H Creatinine 1.49 H Glucose 128 H POC Glucose (mg/dL) 138 H Calcium Ionized Calcium Beth AST 109 H ALT 93 H Troponin I Vitamin D 25-Hydroxy Urine Protein Urine Glucose (UA) Urine Ketones 12/29/24 12/29/24 12/29/24 11:28 12:10 14:59 RBC Hgb Hct MCHC RDW Lymphocytes # APTT ABG pH ABG O2 Saturation Hemoglobin Sodium Potassium Carbon Dioxide BUN Creatinine Glucose POC Glucose (mg/dL) 114 H Calcium Ionized Calcium Beth AST ALT Troponin I Vitamin D 25-Hydroxy 28.6 L Urine Protein Trace H Urine Glucose (UA) 4+ H Urine Ketones 1+ H 12/29/24 12/29/24 12/30/24 16:40 20:01 06:16 RBC Hgb Hct MCHC RDW Lymphocytes # APTT ABG pH ABG O2 Saturation Hemoglobin Sodium Potassium Carbon Dioxide BUN Creatinine Glucose POC Glucose (mg/dL) 135 H 144 H 131 H Calcium Ionized Calcium Beth AST ALT Troponin I Vitamin D 25-Hydroxy Urine Protein Urine Glucose (UA) Urine Ketones 12/30/24 12/30/24 12/30/24 06:30 11:53 16:34 RBC Hgb Hct MCHC RDW Lymphocytes # APTT ABG pH ABG O2 Saturation Hemoglobin Sodium Potassium 5.3 H Carbon Dioxide BUN 26 H Creatinine 1.29 H Glucose 142 H POC Glucose (mg/dL) 139 H 175 H Calcium 10.4 H Ionized Calcium Beth AST ALT Troponin I Vitamin D 25-Hydroxy Urine Protein Urine Glucose (UA) Urine Ketones 12/30/24 17:06 RBC Hgb Hct MCHC RDW Lymphocytes # APTT ABG pH ABG O2 Saturation Hemoglobin Sodium Potassium Carbon Dioxide BUN Creatinine Glucose POC Glucose (mg/dL) Calcium Ionized Calcium Beth 5.4 H AST ALT Troponin I Vitamin D 25-Hydroxy Urine Protein Urine Glucose (UA) Urine Ketones Assessment and Plan Assessment: * Gait imbalance, with frequent falls, likely multifactorial. * History of severe vitamin B12 deficiency due to pernicious anemia * History of folate and B6 deficiency * Diabetes with peripheral neuropathy * Zinc deficiency * Acute on chronic L1 vertebral body fracture with disc protrusion T12-L1 * Hypertension * Obesity * COPD * Depression * Seizure disorder * Reported history of Parkinson's * Sleep apnea * Chronic low back pain * X-tobacco use Plan: * B12 is normal 458. We will check an MMA, vitamin B6, folic acid, zinc, copper. * Check Lamictal level, to rule out Lamictal toxicity * 2-D echo revealed impaired LV function with EF between 20-25%. Moderately increased left atrial diameter. Mild to moderate aortic stenosis. Mild to moderate MR. * Check MRI of the lumbar and cervical spine because of significant gait ataxia. * PT OT, evaluate gait. * Patient may benefit from subacute rehab. * Neurology will follow. Thank you for the consult. Time with Patient: Greater than 30
[2024-12-31] MEDS ORDERED: ETOMIDATE 2 MG/ML 10 ML VIAL ONE (10:32)
[2024-12-31] MEDS ORDERED: LIDOCAINE 2% (PF) 20 MG/ML 5 ML VIAL ONE (10:32)
[2024-12-31] MEDS: LACTATED RINGERS 1,000 ML IV ONE (10:37)
--- NOTE | 2024-12-31 10:41 | P.PN ---
Progress Note - Text Progress Note Date: 12/31/24 Acute on chronic L1 vertebral body fracture with disc protrusion T12-L1 L5 pars defect Chronic low back pain Bilateral lower extremity weakness Parkinson's disease Multiple medical comorbidities Patient not present in room this morning. Going down to endo for EGD. LSO brace prescription given to immigration case manager. Case management working on this. Patient to weight-bear as tolerated with walker and LSO brace on once received. Orthopedics is signing off at this time. Please do not hesitate to contact me for any further questions. Follow-up in the outpatient setting with Dr. Andrade as needed.
--- NOTE | 2024-12-31 10:47 | P.PCN ---
Date of Procedure: 12/31/24 Procedure(s) Performed: Preoperative Dx: Intractable nausea and vomiting Postoperative Dx: Diffuse gastritis with a few small gastric polyps Procedure: EGD with Bx Anesthesia: Sedation Endoscopist: Dr. Walters Specimens: Antrum, gastric polyp Endoscopic Procedure: The patient was on the endoscopy table in the left decubitus position. The Olympus gastroscope was inserted into the oropharynx and passed under direct visualization to the region of the third portion of the duodenum. From that point the scope was slowly withdrawn inspecting all surfaces carefully. There were no neoplastic inflammatory or polypoid lesions throughout the duodenum. The pylorus was widely patent. The stomach was carefully inspected. There was diffuse gastritis present without erosions or ulcerations. A biopsy of the antrum took place to rule out H. pylori. The patient had a few small polyps in the stomach. The largest was biopsied using the cold biopsy forceps. Retroflexion revealed a normal hiatus. The esophagus was then carefully examined. There were no neoplastic inflammatory or polypoid lesions throughout the visualized esophagus. The patient was then taken to the recovery room in stable condition per anesthesia guidelines. Recommendations: Resume diet. Continue antiacids. Add Carafate.
--- NOTE | 2024-12-31 11:16 | P.PN ---
Subjective HISTORY OF PRESENT ILLNESS: The patient is a pleasant 59-year-old gentleman who is known to our service from before was seen in May 2024 after he presented with a chest discomfort and mildly abnormal cardiac enzymes and at that point he underwent a heart catheterization which revealed occluded PDA of the RCA which was chronic occlusion with [id number]-da-[id number] collateral. Beside that the patient does have diabetes and hypertension and dyslipidemia and history of stroke and history of seizure limiting his physical activities and driving as well. He was seen yesterday by his primary care physician where he underwent an EKG and that showed atrial fibrillation/flutter with RVR and the patient subsequently was sent to the hospital. He reports chest discomfort appears to be intermittent and chronic and reports shortness of breath as well as dizziness and lightheadedness and heart racing and fluttering but no presyncope or syncope. He is in atrial fibrillation with RVR which is new to him. Currently he is on Cardizem IV and he is on heparin IV. The EKG showed atrial flutter with RVR. Blood work showed mild elevation in the troponin which could be secondary to sinus tachycardia. The echo from 2023 showed normal LV systolic function with no significant valvular abnormalities. The physical examination is remarkable for regular rhythm with tachycardia and clear breathing sounds bilaterally and no edema was noted in the lower extremities December 26, 2024 The patient was seen and evaluated this morning. He is converted to normal sinus mechanism. The echo showed cardiomyopathy which is new compared to an echo was performed in May 2024. Overall he is feeling better. Hemodynamically he is stable. He was started on Entresto which I would agree on. He is on beta-paras which we will continue. I am going to add Farxiga and also decrease the dose of Aldactone and stop amlodipine in the light of low blood pressure. He need to undergo a coronary angiogram and with that being said I would continue the patient on IV heparin at this point. The physical examination is remarkable for regular rhythm with diminished breathing sounds bilaterally and no edema was noted in the lower extremities 12/27/2024 Atrial paced V sensed rhythm, currently in sinus rhythm BUN 36, creatinine 2.09, potassium 5.4, Hb 10.7 BP 126/81, heart rate 55 bpm 12/29/2024 Patient examined this morning at the bedside. Patient underwent cardiac catheterization yesterday with Dr. Varghese revealing chronically occluded mid PDA, mild disease in the LAD and left circumflex, right dominant system, and elevated LVEDP. Medical management was recommended. Patient currently denies chest pain or pressure. He denies shortness of breath. Telemetry reveals atrial fibrillation/paced rhythm. General surgery has been consulted for nausea and vomiting. His Xarelto has been placed on hold and he is scheduled for EGD tomorrow. Patients blood pressures remain elevated with a systolic near 200. 12/30/2024 Patient examined this morning at the bedside. Patient currently denies chest pain or pressure. He denies shortness of breath. He has been on and off BiPAP per nursing. Chest x-ray today reveals CHF with pulmonary vascular congestion. Some interval improvement in the previous interstitial pulmonary edema. Small right pleural effusion has developed. EGD cancelled for today by general surgery. 12/31/2024 Patient examined this morning at the bedside. Patient currently denies chest pain or pressure. He denies shortness of breath. His Xarelto remains on hold. He is tentatively scheduled for EGD today with general surgery. He is on 4 L nasal cannula. Blood pressure 133/75. PHYSICAL EXAM: VITAL SIGNS: Reviewed. GENERAL: Well-developed in no acute distress. NECK: Supple. No JVD or thyromegaly LUNGS: Respirations even and unlabored. Lungs essentially clear to auscultation bilaterally. HEART: Regular rate and rhythm. S1 and S2 heard. EXTREMITIES: Normal range of motion. No clubbing or cyanosis. Peripheral pulses intact. No lower extremity edema ASSESSMENT: New onset atrial flutter with RVR on admission, currently in atrial paced V sensed rhythm Type II NSTEMI due to above New worsening cardiomyopathy with a EF of 20 to 25%, likely nonischemic secondary to atrial fibrillation Acute on chronic heart failure with reduced EF CAD as described above LESLEY CKD Prior history of CVA Hypertension Dyslipidemia History of seizure PLAN: General surgery consulted for nausea and vomiting. Xarelto has been placed on hold. Patient scheduled for EGD today. Continue amiodarone, Lipitor, Farxiga, Lasix, hydralazine, Imdur Dr. Cardoso recommends 2 additional doses of Lokelma today Discontinue Losartan. Begin Entresto. Continue to monitor blood pressure Dr. Cardoso recommends further outpatient evaluation for pacemaker induced cardiomyopathy with possibility of upgrade to BiV device Further recommendations pending patient course Nurse practitioner note has been reviewed by physician. Signing provider agrees with the documented findings, assessment, and plan of care documented by BILLING SUPERVISOR as a scribe. Objective - Vital Signs Vital signs: Vital Signs Temp 98.2 F 12/31/24 08:00 Pulse 50 L 12/31/24 08:00 Resp 16 12/31/24 08:00 BP 133/75 12/31/24 08:00 Pulse Ox 98 12/31/24 08:00 FiO2 40 12/31/24 04:22 Intake & Output 12/30/24 12/31/24 12/31/24 18:59 06:59 18:59 Intake Total 240 Output Total 200 1125 Balance 40 -1125 Weight 96 kg Intake: Oral 240 Output: Urine 200 1125 Other: Voiding Method External Catheter Urinal # Voids 2 2 - Labs CBC & Chem 7: 12/29/24 07:17 12/31/24 06:35 Labs: Abnormal Lab Results - Last 24 Hours (Table) 12/30/24 12/30/24 12/30/24 Range/Units 11:53 16:34 17:06 Sodium (137-145) mmol/L BUN (9-20) mg/dL Creatinine (0.66-1.25) mg/dL Glucose (74-99) mg/dL POC Glucose (mg/dL) 139 H 175 H (70-110) mg/dL Calcium (8.4-10.2) mg/dL Ionized Calcium Beth 5.4 H (4.5-5.3) mg/dL 12/30/24 12/31/24 12/31/24 Range/Units 20:03 06:18 06:35 Sodium 136 L (137-145) mmol/L BUN 30 H (9-20) mg/dL Creatinine 1.32 H (0.66-1.25) mg/dL Glucose 153 H (74-99) mg/dL POC Glucose (mg/dL) 183 H 154 H (70-110) mg/dL Calcium 10.9 H (8.4-10.2) mg/dL Ionized Calcium Beth (4.5-5.3) mg/dL
[2024-12-31 11:56] LABS: Glucose,Whole Blood 142 mg/dL (70-110)
[2024-12-31 14:02] VITALS: BP 130/79; RESP 20
[2024-12-31 14:03] VITALS: BMI 31.2
[2024-12-31] MEDS ORDERED: SODIUM ZIRCONIUM CYCLOSILICATE 10 GM PACKET PO SCH (16:00)
--- NOTE | 2024-12-31 16:03 | XR ---
EXAMINATION TYPE: XR ankle complete RT DATE OF EXAM: 12/31/2024 CLINICAL INDICATION: Male, 59 years old with history of Right lateral malleolar ulcer/osteo, pain TECHNIQUE: Frontal, lateral and oblique images of the right ankle are obtained. COMPARISON: None. FINDINGS: Focal severe soft tissue swelling over the lateral malleolus. No adjacent osseous destructi on to suggest acute osteomyelitis. There is no acute fracture/dislocation evident in the right ankle. The ankle mortise appears within normal limits. IMPRESSION: As above [facility], , 12/31/2024 4:01 PM
[2024-12-31] MEDS ORDERED: FOLIC ACID 1 MG TAB PO SCH (16:45)
[2024-12-31] MEDS ORDERED: CYANOCOBALAMIN 1,000 MCG/ML 1 ML VIAL IM ONE (16:46)
[2024-12-31] MEDS ORDERED: PYRIDOXINE 50 MG TAB PO SCH (17:00)
[2024-12-31] MEDS ORDERED: RIVAROXABAN 20 MG TAB PO SCH (17:30)
[2024-12-31] MEDS ORDERED: methylPREDNISolone SOD SUCCI 40 MG/ML 1 ML VIAL IV SCH (21:00)
--- NOTE | 2024-12-31 21:36 | P.CONS ---
History of Present Illness - Reason for Consult Consult date: 12/31/24 Right foot infected bursitis Requesting physician: Liam Acosta - Chief Complaint Pain and swelling to the right lateral malleolar x months - History of Present Illness Patient is a 59-year-old male with a past medical history significant for COPD, CVA/TIA, Diabetes Mellitus, Fibromyalgia, GERD/Reflux, Hyperlipidemia, Hypertension, Memory Impairment, Seizure Disorder, Skin Disorder, Sleep Apnea/CPAP/BIPAP presenting to the hospital about a week ago for evaluation of chest pain and this patient has been evaluated and treated by pulmonary cardiology and general surgery services as well as orthopedic surgery patient also have a chronic wound to the right lateral malleolar area with the patient has 4 many months to years and the patient mention has been previously operated on but he is not very clear with the surgery was done at this facility or an outside facility or there was any culture done has been complaining of pain to the right lateral malleoli to be mostly dull aching to sharp moderate intensity without radiation it is currently covered with a scab and there is no drainage patient will presentation to the hospital was afebrile and no fever have been called subsequently patient is not tachycardic or hypotensive currently on 4 L nasal cannula oxygen he did have white count of 4.3 creatinine is 1.32 Pro-Jay 0.12 UA has been negative patient is currently on ceftriaxone infectious disease was consulted regarding right foot lateral infected bursitis Review of Systems Positive point and negatives has been mentioned in the HPI, complete review of systems was performed and all other systems are negative Past Medical History Past Medical History: COPD, CVA/TIA, Diabetes Mellitus, Fibromyalgia, GERD/Reflux, Hyperlipidemia, Hypertension, Memory Impairment, Seizure Disorder, Skin Disorder, Sleep Apnea/CPAP/BIPAP Additional Past Medical History / Comment(s): uses CPAP machine, on 4L home oxygen, EPILEPTIC, past fall w/ concussion, ambulate with a walker and a wheelchair, Parkinson's History of Any Multi-Drug Resistant Organisms: None Reported Past Surgical History: Hernia Repair, Pacemaker Additional Past Surgical History / Comment(s): left big toe surgery/debridement r/t diabetic ulcer Past Anesthesia/Blood Transfusion Reactions: No Reported Reaction Type of Cardiac Device: Permanent Pacemaker, AICD Device Placement Date:: 2020 Past Psychological History: No Psychological Hx Reported Additional Psychological History / Comment(s): Pt lives alone, has a power chair, straight cane, shower chair, nebulizer, glucometer. Pt no longer drives, has friend that takes him to appts. Smoking Status: Former smoker Past Alcohol Use History: None Reported Past Drug Use History: None Reported - Past Family History Father Family Medical History: Cancer Additional Family Medical History / Comment(s): LUNG Brother(s) History Unknown: Yes Family Medical History: Myocardial Infarction ([place]) Additional Family Medical History / Comment(s): Sister(s) History Unknown: Yes Family Medical History: Myocardial Infarction ([place]) Additional Family Medical History / Comment(s): Medications and Allergies Home Medications Medication Instructions Recorded Confirmed Type Atorvastatin [Lipitor] 40 mg PO W/SUPPER 08/31/14 12/24/24 History lamoTRIgine [LaMICtal] 200 mg PO TID-W/MEALS 08/10/15 12/24/24 History Omeprazole 40 mg PO DAILY 05/14/18 12/24/24 History Gabapentin 600 mg PO TID 06/18/21 12/24/24 History Aspirin EC [Ecotrin Low Dose] 81 mg PO DAILY 06/21/24 12/24/24 History DULoxetine HCL [Cymbalta] 60 mg PO DAILY 06/21/24 12/24/24 History Ergocalciferol [Vitamin D2 (1250 1,250 mcg PO CARD 06/21/24 12/24/24 History Mcg = 17479 Iu)] Ipratropium-Albuterol Nebulize 3 ml INHALATION RT-QID PRN 06/21/24 12/24/24 History [Duoneb 0.5 mg-3 mg/3 ml Soln] Metoprolol Succinate [Toprol XL] 50 mg PO DAILY 06/21/24 12/24/24 History Montelukast [Singulair] 10 mg PO DAILY 06/21/24 12/24/24 History Sacubitril/Valsartan [Entresto 24 1 tab PO BID-W/MEALS 06/21/24 12/24/24 History mg-26 mg Tablet] Sucralfate [Carafate] 1 gm PO TID 06/21/24 12/24/24 History Terbinafine [LamISIL] 250 mg PO W/SUPPER 06/21/24 12/24/24 History Vortioxetine Hydrobromide 20 mg PO W/SUPPER 06/21/24 12/24/24 History [Trintellix] Carbidopa-Levodopa 25-100 mg 1 each PO QID 30 Days #120 tab 06/24/24 12/24/24 Rx [Sinemet 25-100 mg] Doxycycline Hyclate 100 mg PO BID 12/24/24 12/24/24 History Amiodarone [Cordarone] 200 mg PO BID 30 Days #60 tab 12/31/24 Rx Capsaicin Cream [Trixaicin Cream] 1 applic TOPICAL TID PRN each 12/31/24 Rx Dapagliflozin Propanediol [Farxiga] 10 mg PO DAILY 30 Days #30 tab 12/31/24 Rx Isosorbide Mononitrate ER [Imdur] 30 mg PO DAILY 30 Days #30 tab 12/31/24 Rx Rivaroxaban [Xarelto] 20 mg PO W/SUPPER 30 Days #30 tab 12/31/24 Rx Sennosides-Docusate Sodium 1 each PO BID tab 12/31/24 Rx [Senokot-S] Sodium Zirconium Cyclosilicate 10 gm PO TID 30 Days #90 packet 12/31/24 Rx [Lokelma] hydrALAZINE HCL [Apresoline] 25 mg PO TID 30 Days #60 tab 12/31/24 Rx Allergies Allergy/AdvReac Type Severity Reaction Status Date / Time venom-honey bee Allergy Swelling Verified 12/24/24 14:01 [bee venom (honey bee)] Physical Exam Vitals: Vital Signs Temp Pulse Pulse Resp BP BP Pulse Ox 12/31/24 08:00 98.2 F 50 L 49 L 16 133/75 98 12/31/24 04:22 12/31/24 04:00 98.4 F 49 L 18 159/82 100 12/31/24 00:33 12/30/24 23:50 98.4 F 50 L 17 148/77 97 12/30/24 21:05 12/30/24 20:00 98.1 F 54 L 18 133/66 97 12/30/24 16:00 97.6 F 46 L 18 132/56 98 12/30/24 14:00 54 L 18 12/30/24 12:00 97.5 F L 54 L 18 167/78 100 FiO2 12/31/24 08:00 04/04/25 04:22 40 12/31/24 04:00 40 12/31/24 00:33 40 12/30/24 23:50 40 12/30/24 21:05 40 12/30/24 20:00 12/30/24 16:00 12/30/24 14:00 12/30/24 12:00 Intake and Output 12/30/24 12/31/24 12/31/24 22:59 06:59 14:59 Intake Total 200 Output Total 875 450 Balance -875 -450 200 Intake: IV 200 Output: Urine 875 450 Other: Voiding Method Urinal Urinal Urinal # Voids 2 Weight 96 kg GENERAL DESCRIPTION: Middle-age male lying in bed, no distress. No tachypnea or accessory muscle of respiration use. HEENT: Shows Pallor , no scleral icterus. Oral mucous membrane is dry. NECK: Trachea central, no thyromegaly. LUNGS: Unlabored breathing. Clear to auscultation anteriorly. No wheeze or crackle. HEART: S1, S2, regular rate and rhythm. No loud murmur ABDOMEN: Soft, no tenderness , guarding or rigidity, no organomegaly EXTREMITIES: Right lateral malleolar area did have some swelling redness and a scab which is tender to touch SKIN: No rash, no masses palpable. NEUROLOGICAL: The patient is awake, alert, oriented x3, mood and affect normal. Results CBC & Chem 7: 12/29/24 07:17 12/31/24 06:35 Labs: Abnormal Lab Results - Last 24 Hours (Table) 12/30/24 12/30/24 12/30/24 Range/Units 11:53 16:34 17:06 Sodium (137-145) mmol/L BUN (9-20) mg/dL Creatinine (0.66-1.25) mg/dL Glucose (74-99) mg/dL POC Glucose (mg/dL) 139 H 175 H (70-110) mg/dL Calcium (8.4-10.2) mg/dL Ionized Calcium Beth 5.4 H (4.5-5.3) mg/dL 12/30/24 12/31/24 12/31/24 Range/Units 20:03 06:18 06:35 Sodium 136 L (137-145) mmol/L BUN 30 H (9-20) mg/dL Creatinine 1.32 H (0.66-1.25) mg/dL Glucose 153 H (74-99) mg/dL POC Glucose (mg/dL) 183 H 154 H (70-110) mg/dL Calcium 10.9 H (8.4-10.2) mg/dL Ionized Calcium Beth (4.5-5.3) mg/dL Assessment and Plan (1) Cellulitis of right ankle Status: Acute Code(s): L03.115 - CELLULITIS OF RIGHT LOWER LIMB SNOMED Code(s): 03201654682366144 Plan: 1patient did have chronic swelling and pain to the right lateral malleolar area which is currently swollen minimal redness did have a scab and tenderness to touch concerning for cellulitis/septic bursitis keeping in mind chronicity of this condition will need to rule out underlying bony abnormality such as osteomyelitis 2-we will start with plain x-ray of the right ankle area to make sure no evidence of any bony changes to the right lateral malleolar area 3-check inflammatory markers 4-continue with Rocephin while waiting for the workup to be completed We will follow on clinical condition and cultures to further adjust medication if needed Thank you for this consultation we will follow the patient along with you Dictation was produced using [employer] dictation software. please excuse any grammatical, word or spelling errors. Time with Patient: Greater than 30
[2025-01-01] MEDS ORDERED: SACUBITRIL/VALSARTAN 24 MG-26 MG TABLET PO SCH (09:00)
[2025-01-01 11:36] LABS: Lamotrigine (Lamictal) 12.7 ug/mL (2.0-15.0)
--- NOTE | 2025-01-01 14:28 | P.PN ---
Subjective Progress Note Date: 12/31/24 Patient was seen for follow-up. Patient is sitting comfortably in the recliner, ready to go home. He is fully dressed. Primary has discharged the patient. Patient states that he does not use any cane or walker. No new concerns. Objective - Vital Signs Vital signs: Vital Signs Temp 98.2 F 12/31/24 08:00 Pulse 49 L 12/31/24 12:39 Resp 20 12/31/24 12:39 BP 130/79 12/31/24 12:00 Pulse Ox 97 12/31/24 12:00 FiO2 40 12/31/24 04:22 Intake & Output 12/30/24 12/31/24 12/31/24 18:59 06:59 18:59 Intake Total 240 200 Output Total 200 1125 Balance 40 -1125 200 Weight 96 kg 96 kg Intake: IV 200 Oral 240 Output: Urine 200 1125 Other: Voiding Method External Catheter Urinal Urinal # Voids 2 2 - Exam Patient's mentation is normal. Examination has improved. Strength is normal. Ataxia has improved. - Labs CBC & Chem 7: 12/29/24 07:17 12/31/24 06:35 Labs: Abnormal Lab Results - Last 24 Hours (Table) 12/30/24 12/30/24 12/30/24 Range/Units 16:34 17:06 20:03 Sodium (137-145) mmol/L BUN (9-20) mg/dL Creatinine (0.66-1.25) mg/dL Glucose (74-99) mg/dL POC Glucose (mg/dL) 175 H 183 H (70-110) mg/dL Calcium (8.4-10.2) mg/dL Ionized Calcium Beth 5.4 H (4.5-5.3) mg/dL 12/31/24 12/31/24 12/31/24 Range/Units 06:18 06:35 11:54 Sodium 136 L (137-145) mmol/L BUN 30 H (9-20) mg/dL Creatinine 1.32 H (0.66-1.25) mg/dL Glucose 153 H (74-99) mg/dL POC Glucose (mg/dL) 154 H 142 H (70-110) mg/dL Calcium 10.9 H (8.4-10.2) mg/dL Ionized Calcium Beth (4.5-5.3) mg/dL Assessment and Plan Assessment: * Gait imbalance, with frequent falls, likely multifactorial. * History of severe vitamin B12 deficiency due to pernicious anemia * History of folate and B6 deficiency * Diabetes with peripheral neuropathy * Zinc deficiency * Acute on chronic L1 vertebral body fracture with disc protrusion T12-L1 * Hypertension * Obesity * COPD * Depression * Seizure disorder * Reported history of Parkinson's * Sleep apnea * Chronic low back pain * X-tobacco use Plan: * B12 is normal 458. Folate 8.10. Await MMA, vitamin B6, zinc, copper. * Patient already has been given a paper prescriptions of folic acid 1 mg, vitamin B6 50 mg and vitamin B12 injections 1000 mcg IM monthly. * Lamictal level 12.7 (2-15). Some of the symptoms could be related to signific antly elevated Lamictal level, although within therapeutic range. * Patient had undergone EGD, and biopsy has been taken. Results pending. * 2-D echo revealed impaired LV function with EF between 20-25%. Moderately increased left atrial diameter. Mild to moderate aortic stenosis. Mild to moderate MR. * MRI of the lumbar and cervical spine canceled because patient has a pacemaker. * PT OT, evaluate gait. * Neurologically clear for discharge, as recommended by PT OT and adult protective caseworker. Addendum 01/17/2025: Methylmalonic acid 0.59, which is elevated Vitamin B6 < 2 Zinc 49(60 to 130). Copper 1077 Lamictal level 12.7 (2-15) Gastric biopsy revealed mild chronic gastritis with focal mucosal erosion and reactive changes. HP negative. Tried to call patient's home, as well as his daughter's cell phone number but no one picked up the phone about low zinc level. I did leave message with patient's daughter cell phone voicemail to have patient discuss with his primary physician to start zinc replacement.
[2025-01-03 06:37] LABS: Methylmalonic Acid 0.59 umol/L (<0.40)
--- NOTE | 2025-01-16 08:18 | DS ---
DISCHARGE SUMMARY DISCHARGE MEDICATIONS: 1. Lipitor 40 daily. 2. Lamictal 200 t.i.d. 3. Omeprazole 40 daily. 4. Gabapentin 600 t.i.d. 5. Cymbalta 60 mg daily. 6. Toprol-XL 50 daily. 7. Montelukast 10 mg 1 daily. 8. Trintellix 20 mg 1 tablet daily. 9. Vitamin D weekly 50,000 units.. 10.Aspirin 81 mg daily. 11. . 12.Entresto 24/26 b.i.d. 13.Carafate 1 g t.i.d. 14.Lamisil 250 one daily. 15.Sinemet 25/100 one tablet q.i.d. 16. 100 mg b.i.d. 17.Lokelma 10 mg t.i.d. 18.Senna 1 tablet daily. 19. topically daily. 20.Hydralazine 25 mg t.i.d. 21.Cordarone 200 b.i.d. 22.Farxiga 10 mg daily. 23.Imdur 30 mg daily. 24.Xarelto 20 mg daily. PROGNOSIS: Guarded. Ambulate as tolerated. HOSPITAL COURSE AND EVENTS: White male came with syncope pneumonia, COPD, orthostatic hypotension, Parkinson's new onset, generalized weakness, fatigue, unable to walk for few days. His infection corrected with the patient with IV antibiotics and breathing treatments and treatment for CHF the patient was able to ambulate. His orthostatic hypotension was treated with midodrine. The patient was able to stand and ambulate without falling and was sent home in stable condition with followup as an outpatient. Prognosis is guarded. He also had severe dehydration, was given severe amounts of fluids for 2 to 3 days to get him back from being severely dehydrated with prerenal azotemia. Diet as tolerated. Condition stable. MMODL / IJN: [id number] /
== END 2024-12-31 18:40 | disposition home or self-care (01) | DRG 280 ==
LOC: EC 11:55 → 3SCARD 16:03
PROVIDERS: ADMIT Family Medicine; ATTEND Family Medicine
PROC: 3E033RZ Introduction of Antiarrhythmic into Peripheral Vein, Percutaneous Approach (ICD-10-PCS; 2024-12-24)
PROC: B2111ZZ Fluoroscopy of Multiple Coronary Arteries using Low Osmolar Contrast (ICD-10-PCS; 2024-12-28)
PROC: 4A023N7 Measurement of Cardiac Sampling and Pressure, Left Heart, Percutaneous Approach (ICD-10-PCS; principal; 2024-12-28 07:30)
PROC: 5A09357 Assistance with Respiratory Ventilation, Less than 24 Consecutive Hours, Continuous Positive Airway Pressure (ICD-10-PCS; 2024-12-30)
PROC: 0DB78ZX Excision of Stomach, Pylorus, Via Natural or Artificial Opening Endoscopic, Diagnostic (ICD-10-PCS; 2024-12-31)
DX: I48.91 Unspecified atrial fibrillation (principal); I50.23 Acute on chronic systolic (congestive) heart failure; I21.A1 Myocardial infarction type 2; J18.9 Pneumonia, unspecified organism; J96.20 Acute and chronic respiratory failure, unspecified whether with hypoxia or hypercapnia; J96.21 Acute and chronic respiratory failure with hypoxia; E66.2 Morbid (severe) obesity with alveolar hypoventilation; G20.A1 Parkinson's disease without dyskinesia, without mention of fluctuations; D63.1 Anemia in chronic kidney disease; G40.409 Other generalized epilepsy and epileptic syndromes, not intractable, without status epilepticus; S32.019A Unspecified fracture of first lumbar vertebra, initial encounter for closed fracture; J44.0 Chronic obstructive pulmonary disease with (acute) lower respiratory infection; I13.0 Hypertensive heart and chronic kidney disease with heart failure and stage 1 through stage 4 chronic kidney disease, or unspecified chronic kidney disease; E11.22 Type 2 diabetes mellitus with diabetic chronic kidney disease; F32.A Depression, unspecified; I08.0 Rheumatic disorders of both mitral and aortic valves; N18.9 Chronic kidney disease, unspecified; L03.115 Cellulitis of right lower limb; N17.9 Acute kidney failure, unspecified; E11.42 Type 2 diabetes mellitus with diabetic polyneuropathy; G40.A09 Absence epileptic syndrome, not intractable, without status epilepticus; Z79.4 Long term (current) use of insulin; I48.92 Unspecified atrial flutter; R00.0 Tachycardia, unspecified; M51.25 Other intervertebral disc displacement, thoracolumbar region; I25.5 Ischemic cardiomyopathy; K21.9 Gastro-esophageal reflux disease without esophagitis; M79.7 Fibromyalgia; F17.210 Nicotine dependence, cigarettes, uncomplicated; E60 Dietary zinc deficiency; E78.5 Hyperlipidemia, unspecified; E83.52 Hypercalcemia; E86.0 Dehydration; G89.29 Other chronic pain; I25.10 Atherosclerotic heart disease of native coronary artery without angina pectoris; K80.20 Calculus of gallbladder without cholecystitis without obstruction; K31.7 Polyp of stomach and duodenum; M48.061 Spinal stenosis, lumbar region without neurogenic claudication; M43.06 Spondylolysis, lumbar region; D51.0 Vitamin B12 deficiency anemia due to intrinsic factor deficiency; M51.34 Other intervertebral disc degeneration, thoracic region; R29.6 Repeated falls; M71.171 Other infective bursitis, right ankle and foot; M51.46 Schmorl's nodes, lumbar region; Z79.01 Long term (current) use of anticoagulants; Z79.1 Long term (current) use of non-steroidal anti-inflammatories (NSAID); Z79.82 Long term (current) use of aspirin; Z79.84 Long term (current) use of oral hypoglycemic drugs; Z79.899 Other long term (current) drug therapy; Z82.49 Family history of ischemic heart disease and other diseases of the circulatory system; Z86.73 Personal history of transient ischemic attack (TIA), and cerebral infarction without residual deficits; Z95.0 Presence of cardiac pacemaker; Z87.19 Personal history of other diseases of the digestive system; Z91.030 Bee allergy status; K29.50 Unspecified chronic gastritis without bleeding
CPT/HCPCS: 36415; 36600; 43239; 70450; 71045; 71046; 71250; 72114; 72131; 74178; 80048; 80053; 80175; 81003; 82140; 82306; 82330; 82525; 82607; 82746; 82805; 83036; 83735; 83880; 83921; 84100; 84145; 84207; 84443; 84484; 84630; 85025; 85610; 85730; 88305; 93005; 93306; 93458; 94640; 94660; 94760; 96365; 96366; 96368; 96375; 99291

== ENCOUNTER 2025-01-24 14:57 | Inpatient (IN) | payer MEDICARE ==
[2025-01-24] MEDS: LORazepam 2 MG/ML INJ IV STA (15:17)
--- NOTE | 2025-01-24 15:17 | ED ---
General Adult HPI - General Chief complaint: Altered Mental Status Stated complaint: agitation Time Seen by Provider: 01/24/25 15:04 Source: patient, EMS, RN notes reviewed Mode of arrival: EMS Limitations: no limitations - History of Present Illness Initial comments: Patient is a 59-year-old male present to the emergency department from prison with concern for agitation. Patient was found out of his wheelchair earlier. Unclear if patient fell. Unclear if patient could have struck his head. Patient does have seizure history, unclear if patient may have had a seizure. Patient is somewhat agitated. Patient request Mountain Dew and states otherwise he does not care. Patient refused to answer many questions. - Related Data Home Medications Medication Instructions Recorded Confirmed Atorvastatin [Lipitor] 40 mg PO HS 08/31/14 01/24/25 lamoTRIgine [LaMICtal] 200 mg PO TID@0500,1300,2100 08/10/15 01/24/25 Omeprazole 40 mg PO DAILY 05/14/18 01/24/25 Aspirin EC [Ecotrin Low Dose] 81 mg PO DAILY 06/21/24 01/24/25 DULoxetine HCL [Cymbalta] 60 mg PO BID 06/21/24 01/24/25 Metoprolol Succinate [Toprol XL] 50 mg PO DAILY 06/21/24 01/24/25 Montelukast [Singulair] 10 mg PO HS 06/21/24 01/24/25 Sacubitril/Valsartan [Entresto 24 1 tab PO BID-W/MEALS 06/21/24 01/24/25 mg-26 mg Tablet] Sucralfate [Carafate] 1 gm PO TID@0600,1100,1600 06/21/24 01/24/25 Vortioxetine Hydrobromide 20 mg PO DAILY@0600 06/21/24 01/24/25 [Trintellix] Carbidopa-Levodopa 25-100 mg 1 tab PO QID 01/24/25 01/24/25 [Sinemet 25-100 mg] Folic Acid 1 mg PO DAILY 01/24/25 01/24/25 Midodrine [ProAmatine] 5 mg PO TID@0500,1300,2100 01/24/25 01/24/25 Nitroglycerin Sl Tabs [Nitrostat] 0.4 mg SUBLINGUAL Q5M PRN 01/24/25 01/24/25 Pregabalin [Lyrica] 100 mg PO BID 01/24/25 01/24/25 Pyridoxine [Vitamin B-6] 50 mg PO DAILY 01/24/25 01/24/25 levETIRAcetam [Keppra] 500 mg PO Q12HR 01/24/25 01/24/25 Previous Rx's Medication Instructions Recorded Amiodarone [Cordarone] 200 mg PO BID 30 Days #60 tab 12/31/24 Dapagliflozin Propanediol [Farxiga] 10 mg PO DAILY 30 Days #30 tab 12/31/24 Isosorbide Mononitrate ER [Imdur] 30 mg PO DAILY 30 Days #30 tab 12/31/24 Rivaroxaban [Xarelto] 20 mg PO W/SUPPER 30 Days #30 tab 12/31/24 hydrALAZINE HCL [Apresoline] 25 mg PO TID 30 Days #60 tab 12/31/24 Allergies Allergy/AdvReac Type Severity Reaction Status Date / Time venom-honey bee Allergy Swelling Verified 01/24/25 15:59 [bee venom (honey bee)] Review of Systems ROS Statement: Those systems with pertinent positive or pertinent negative responses have been documented in the HPI. ROS Other: All systems not noted in ROS Statement are negative. Constitutional: Denies: fever Cardiovascular: Denies: chest pain Gastrointestinal: Denies: abdominal pain Musculoskeletal: Denies: back pain Neurological: Denies: headache Past Medical History Past Medical History: COPD, CVA/TIA, Diabetes Mellitus, Fibromyalgia, GERD/Reflux, Hyperlipidemia, Hypertension, Memory Impairment, Seizure Disorder, Skin Disorder, Sleep Apnea/CPAP/BIPAP Additional Past Medical History / Comment(s): uses CPAP machine, on 4L home oxygen, EPILEPTIC, past fall w/ concussion, ambulate with a walker and a wheelchair, Parkinson's History of Any Multi-Drug Resistant Organisms: None Reported Past Surgical History: Hernia Repair, Pacemaker Additional Past Surgical History / Comment(s): left big toe surgery/debridement r/t diabetic ulcer Past Anesthesia/Blood Transfusion Reactions: No Reported Reaction Type of Cardiac Device: Permanent Pacemaker, AICD Device Placement Date:: 2020 Past Psychological History: No Psychological Hx Reported Smoking Status: Former smoker Past Alcohol Use History: None Reported Past Drug Use History: None Reported - Past Family History Father Family Medical History: Cancer Additional Family Medical History / Comment(s): LUNG Brother(s) History Unknown: Yes Family Medical History: Myocardial Infarction ([place]) Additional Family Medical History / Comment(s): Sister(s) History Unknown: Yes Family Medical History: Myocardial Infarction ([place]) Additional Family Medical History / Comment(s): General Exam Limitations: no limitations General appearance: alert Head exam: Present: atraumatic Eye exam: Present: normal appearance, PERRL, EOMI ENT exam: Present: mucous membranes dry Neck exam: Present: tenderness (Mild diffuse tenderness). Absent: meningismus Respiratory exam: Present: normal lung sounds bilaterally Cardiovascular Exam: Present: regular rate, normal rhythm GI/Abdominal exam: Present: soft. Absent: tenderness Extremities exam: Present: normal inspection, full ROM. Absent: tenderness Neurological exam: Present: alert, CN II-XII intact, other (Somewhat limited exam as patient does not want to answer questions. Patient does not want to follow commands.). Absent: motor sensory deficit Psychiatric exam: Present: agitated Skin exam: Present: normal color Course Vital Signs 01/24/25 01/24/25 01/24/25 15:04 16:19 18:19 Temperature 97.8 F Pulse Rate 73 90 70 Respiratory 18 18 18 Rate Blood Pressure 98/58 107/85 113/99 O2 Sat by Pulse 94 L 93 L 93 L Oximetry 01/24/25 01/24/25 01/24/25 19:32 22:14 22:20 Temperature Pulse Rate 82 90 Respiratory 18 18 Rate Blood Pressure 152/97 145/110 O2 Sat by Pulse 95 Oximetry 01/25/25 01/25/25 01/25/25 02:00 06:07 07:52 Temperature 97.5 F L Pulse Rate 84 89 94 Respiratory 18 18 22 Rate Blood Pressure 143/75 141/109 125/73 O2 Sat by Pulse 96 95 98 Oximetry 01/25/25 01/25/25 10:48 11:25 Temperature Pulse Rate 89 87 Respiratory 20 18 Rate Blood Pressure 106/80 116/66 O2 Sat by Pulse 94 L Oximetry EKG Findings - EKG Results: EKG: interpreted by ERMD (Right axis. Inferior Q waves. A-fib. Right bundle branch block. T wave inversion inferior) EKG shows: atrial fibrillation Procedures - Restraint - Face to Face Restraint Occurrence 1 Patient's Immediate Situation: Endangers self safety, Endangers others' safety, Endangers staff safety Patient's Reaction to the Intervention: Angry Patient's Medical & Behavioral Condition: Awake, Alert Need to Continue or Terminate Restraint or Seclusion: Continue Face to Face Eval of Restraint Date: 01/24/25 Face to Face Eval of Restraint Time: 15:17 Medical Decision Making - Medical Decision Making Was pt. sent in by a medical professional or institution (, PA, AREA REPRESENTATIVE, urgent care, hospital, or custodial...) When possible be specific @ -Patient was sent from a prison Did you speak to anyone other than the patient for history (EMS, parent, family, police, friend...)? What history was obtained from this source @ -EMS provides history of transport Did you review nursing and triage notes (agree or disagree)? Why? @ -I reviewed and agree with nursing and triage notes Were old charts reviewed (outside hosp., previous admission, EMS record, old EKG, old radiological studies, urgent care reports/EKG's, custodial records)? Report findings @ -No old charts were reviewed Differential Diagnosis (chest pain, altered mental status, abdominal pain women, abdominal pain men, vaginal bleeding, weakness, fever, dyspnea, syncope, headache, dizziness, GI bleed, back pain, seizure, CVA, palpatations, mental health, musculoskeletal)? @ -Differential Mental Health Depression, anxiety, bipolar, psychosis, schizophrenia, borderline personality, situational depression, adjustment disorder, behavioral disorder, brain tumor, malingering, substance abuse, encephalopathy, medication reaction, dementia, hypothyroidism, degenerative neurologic disorder, lupus.... This is not meant to be all-inclusive list differential Altered Mental Status: Hypoglycemia, DKA, hypercapnia, ETOH, overdose, CO poisoning, trauma, myxedema coma, HTN encephalopathy, infection, encephalitis, psychosis, intercranial hemorrhage, hepatic encephalopathy, meningitis, CVA, this is not meant to be an all-inclusive list EKG interpreted by me (3pts min.). @ -As above X-rays interpreted by me (1pt min.). @ - CT interpreted by me (1pt min.). @ -CT brain and cervical spine without acute abnormality U/S interpreted by me (1pt. min.). @ -None done What testing was considered but not performed or refused? (CT, X-rays, U/S, labs)? Why? @ -None What meds were considered but not given or refused? Why? @ -None Did you discuss the management of the patient with other professionals (professionals i.e. , PA, AREA REPRESENTATIVE, lab, RT, psych nurse, social insurance administrator, resident care manager, teacher, botanical technical officer, foster care case manager)? Give summary @ -Case was discussed with Dr. Sol who feels [facility] and he can consult if they need him. Was smoking cessation discussed for >3mins.? @ -No Was critical care preformed (if so, how long)? @ -No Were there social determinants of health that impacted care today? How? (Homelessness, low income, unemployed, alcoholism, drug addiction, transportation, low edu. Level, literacy, decrease access to med. care, custodial, rehab)? @ -No Was there de-escalation of care discussed even if they declined (Discuss DNR or withdrawal of care, Hospice)? DNR status @ -No What co-morbidities impacted this encounter? (DM, HTN, Smoking, COPD, CAD, Ca ncer, CVA, ARF, Chemo, Hep., AIDS, mental health diagnosis, sleep apnea, morbid obesity)? @ -History of seizure, comes from prison Was patient admitted / discharged? Hospital course, mention meds given and route, prescriptions, significant lab abnormalities, going to OR and other pertinent info. @ -Patient presents with changes in behavior. Patient is mostly agitated and bizarre. Patient does have petition. Patient to be seen by mental health for disposition Undiagnosed new problem with uncertain prognosis? @ -No Drug Therapy requiring intensive monitoring for toxicity (Heparin, Nitro, Insulin, Cardizem)? @ -No Were any procedures done? @ -No Diagnosis/symptom? @ -Agitation Acute, or Chronic, or Acute on Chronic? @ -Acute Uncomplicated (without systemic symptoms) or Complicated (systemic symptoms)? @ -Default Side effects of treatment? @ -No Exacerbation, Progression, or Severe Exacerbation? @ -No Poses a threat to life or bodily function? How? (Chest pain, [place], [place], pneumonia, PE, COPD, DKA, ARF, appy, cholecystitis, CVA, Diverticulitis, Homicidal, Suicidal, threat to staff... and all critical care pts) @ -No - Lab Data Result diagrams: 01/24/25 15:38 01/27/25 12:32 Lab Results 01/24/25 01/24/25 01/24/25 Range/Units 15:38 15:38 15:38 WBC 5.95 (4.50-10.00) 10*3/uL RBC 3.97 L (4.40-5.60) 10*6/uL Hgb 12.0 L (13.0-17.0) g/dL Hct 35.3 L (39.6-50.0) % MCV 88.9 (80.0-97.0) fL MCH 30.2 (27.0-32.0) pg MCHC 34.0 (32.0-37.0) g/dL Plt Count 261 (140-440) 10*3/uL MPV 9.0 L (9.5-12.2) fL Immature Gran % (Auto) 0.3 % Neutrophils % 82.8 % Lymphocytes % 9.4 % Monocytes % 6.6 % Eosinophils % 0.2 % Basophils % 0.7 % Immature Gran # 0.02 (0.00-0.04) 10*3/uL Neutrophils # 4.93 (1.80-7.70) 10*3/uL Lymphocytes # 0.56 L (0.90-5.00) 10*3/uL Monocytes # 0.39 (0.20-1.00) 10*3/uL Eosinophils # 0.01 L (0.04-0.35) 10*3/uL Basophils # 0.04 (0.00-0.10) 10*3/uL Sodium 139 (137-145) mmol/L Potassium 4.0 (3.5-5.1) mmol/L Chloride 104 (98-107) mmol/L Carbon Dioxide 19 L (22-30) mmol/L Anion Gap 16 mmol/L BUN 36 H (9-20) mg/dL Creatinine 2.19 H (0.66-1.25) mg/dL Est GFR (CKD-EPI)AfAm 37 (>60 ml/min/1.73 sqM) Est GFR (CKD-EPI)NonAf 32 (>60 ml/min/1.73 sqM) Glucose 102 H (74-99) mg/dL Calcium 10.2 (8.4-10.2) mg/dL Magnesium 2.2 (1.6-2.3) mg/dL Total Bilirubin 1.6 H (0.2-1.3) mg/dL AST 23 (17-59) U/L ALT 14 (4-49) U/L Alkaline Phosphatase 94 (38-126) U/L Total Protein 7.0 (6.3-8.2) g/dL Albumin 4.0 (3.5-5.0) g/dL Urine Color Urine Appearance (Clear) Urine pH (5.0-8.0) Ur Specific [place] (1.001-1.035) Urine Protein (Negative) Urine Glucose (UA) (Negative) Urine Ketones (Negative) Urine Blood (Negative) Urine Nitrite (Negative) Urine Bilirubin (Negative) Urine Urobilinogen (<2.0) mg/dL Ur Leukocyte Esterase (Negative) Urine RBC (0-5) /hpf Urine WBC (0-5) /hpf Urine Mucus (None) /hpf Urine Opiates Screen Not Detected (NotDetected) Ur Oxycodone Screen Not Detected (NotDetected) Urine Methadone Screen Not Detected (NotDetected) Ur Barbiturates Screen Not Detected (NotDetected) U Tricyclic Antidepress Not Detected (NotDetected) Ur Phencyclidine Scrn Not Detected (NotDetected) Ur Amphetamines Screen Not Detected (NotDetected) U Methamphetamines Scrn Not Detected (NotDetected) U Benzodiazepines Scrn Not Detected (NotDetected) Urine Cocaine Screen Not Detected (NotDetected) U Marijuana (THC) Screen Detected H (NotDetected) Serum Alcohol <10 mg/dL 01/24/25 Range/Units 15:38 WBC (4.50-10.00) 10*3/uL RBC (4.40-5.60) 10*6/uL Hgb (13.0-17.0) g/dL Hct (39.6-50.0) % MCV (80.0-97.0) fL MCH (27.0-32.0) pg MCHC (32.0-37.0) g/dL Plt Count (140-440) 10*3/uL MPV (9.5-12.2) fL Immature Gran % (Auto) % Neutrophils % % Lymphocytes % % Monocytes % % Eosinophils % % Basophils % % Immature Gran # (0.00-0.04) 10*3/uL Neutrophils # (1.80-7.70) 10*3/uL Lymphocytes # (0.90-5.00) 10*3/uL Monocytes # (0.20-1.00) 10*3/uL Eosinophils # (0.04-0.35) 10*3/uL Basophils # (0.00-0.10) 10*3/uL Sodium (137-145) mmol/L Potassium (3.5-5.1) mmol/L Chloride (98-107) mmol/L Carbon Dioxide (22-30) mmol/L Anion Gap mmol/L BUN (9-20) mg/dL Creatinine (0.66-1.25) mg/dL Est GFR (CKD-EPI)AfAm (>60 ml/min/1.73 sqM) Est GFR (CKD-EPI)NonAf (>60 ml/min/1.73 sqM) Glucose (74-99) mg/dL Calcium (8.4-10.2) mg/dL Magnesium (1.6-2.3) mg/dL Total Bilirubin (0.2-1.3) mg/dL AST (17-59) U/L ALT (4-49) U/L Alkaline Phosphatase (38-126) U/L Total Protein (6.3-8.2) g/dL Albumin (3.5-5.0) g/dL Urine Color Light Red Urine Appearance Turbid (Clear) Urine pH 5.0 (5.0-8.0) Ur Specific [place] 1.022 (1.001-1.035) Urine Protein 1+ H (Negative) Urine Glucose (UA) 4+ H (Negative) Urine Ketones 1+ H (Negative) Urine Blood Negative (Negative) Urine Nitrite Negative (Negative) Urine Bilirubin Negative (Negative) Urine Urobilinogen <2.0 (<2.0) mg/dL Ur Leukocyte Esterase Negative (Negative) Urine RBC 2 (0-5) /hpf Urine WBC 7 H (0-5) /hpf Urine Mucus Rare H (None) /hpf Urine Opiates Screen (NotDetected) Ur Oxycodone Screen (NotDetected) Urine Methadone Screen (NotDetected) Ur Barbiturates Screen (NotDetected) U Tricyclic Antidepress (NotDetected) Ur Phencyclidine Scrn (NotDetected) Ur Amphetamines Screen (NotDetected) U Methamphetamines Scrn (NotDetected) U Benzodiazepines Scrn (NotDetected) Urine Cocaine Screen (NotDetected) U Marijuana (THC) Screen (NotDetected) Serum Alcohol mg/dL Disposition Clinical Impression: Agitation Disposition: ADMITTED IP TO THIS HOSP Is patient prescribed a controlled substance at d/c from ED?: No
[2025-01-24 15:49] LABS: Basophils # (A) 0.04 10*3/uL (0.00-0.10); Basophils % (A) 0.7 %; Eosinophils # (A) 0.01 10*3/uL (0.04-0.35); Eosinophils % (A) 0.2 %; HCT 35.3 % (39.6-50.0); Lymphocytes # (A) 0.56 10*3/uL (0.90-5.00); Lymphocytes % (A) 9.4 %; MCH 30.2 pg (27.0-32.0); MCV 88.9 fL (80.0-97.0); Monocytes # (A) 0.39 10*3/uL (0.20-1.00); Monocytes % (A) 6.6 %; Neutrophils # (A) 4.93 10*3/uL (1.80-7.70); Neutrophils % (A) 82.8 %; Platelet Count 261 10*3/uL (140-440); RBC 3.97 10*6/uL (4.40-5.60); RDW 14.2 % (11.5-14.5); WBC 5.95 10*3/uL (4.50-10.00)
--- NOTE | 2025-01-24 15:50 | CT ---
EXAMINATION TYPE: CT brain cspine wo con CT DLP: 1579.2 mGycm, Automated exposure control for dose reduction was used. DATE OF EXAM: 01/24/2025 3:41 PM COMPARISON: CT brain 06/18/2021, CT brain C-spine 01/01/2017. CLINICAL INDICATION:Male, 59 years old with history of ? fall, seizure; Fall out of wheelchair, on bl ood thinners, pain TECHNIQUE: Brain: Multiple axial CT images of the brain were obtained without IV contrast. Cspine: Axial CT images from the skull base to the inferior aspect of T2 we obtained without intraven ous contrast. Coronal and sagittal reformatted images were also reviewed. FINDINGS: Brain: Extra-axial spaces: No abnormal extra-axial fluid collections. Ventricular system: Within normal limits Cerebral parenchyma: No acute intraparenchymal hemorrhage or mass effect. The lópez-white junction is well differentiated. Scattered hypoattenuating areas are seen within the periventricular white matte r. Cerebellum: Unremarkable. Mass effect: No evidence of midline shift. Intracranial vasculature: Atherosclerotic calcifications of the intracranial vessels. Soft tissues: Normal. Calvarium/osseous structures: No depressed skull fracture. Paranasal sinuses and mastoid air cells: The mastoid air cells are clear. Couple of mucous retention cysts within the left maxillary sinus measuring 11 and 9 mm. The remaining paranasal sinuses are farrukh r. Apical plagiocephaly right frontal sinus. Visualized orbits: Bilateral aphakia Cervical spine: Fracture: None. Osseous structures: Multilevel degenerative disc disease changes with endplate spurring and disc oste ophyte complex's. Multilevel anterior osteophytosis from C4 through C7. Vertebral alignment: Degenerative grade 1 anterolisthesis of C2 on C3 and C3 on C4. Spinal canal/Neural Foramina: Disc osteophyte complexes at C5-C6 and C6-C7 with at least mild spinal canal stenosis. Facet joint uncovertebral joint arthropathy scattered throughout the cervical spine w ith varying degrees of neural foraminal stenosis. Neck soft tissues: Prevertebral soft tissues are within normal limits. Other: The airway is patent. The lung apices are clear. Bilateral carotid bulb calcification of the r ight or the left. Left anterior chest wall cardiac pacemaker device with 2 leads identified. IMPRESSION: 1. No acute intracranial process. 2. Nonspecific white matter changes, likely secondary to chronic small vessel ischemic disease. 3. No evidence of cervical spine fracture. 4. Moderate multilevel degenerative disc disease. [facility], , 01/24/2025 3:47 PM
[2025-01-24 16:09] LABS: ALT 14 U/L (4-49); AST 23 U/L (17-59); African American GFR (CKD) 37 (>60 ml/min/1.73 sqM); Alcohol <10 mg/dL; Alkaline Phosphatase 94 U/L (38-126); Anion Gap 16 mmol/L; Blood Urea Nitrogen 36 mg/dL (9-20); Calcium 10.2 mg/dL (8.4-10.2); Carbon Dioxide 19 mmol/L (22-30); Chloride 104 mmol/L (98-107); Glucose 102 mg/dL (74-99); Magnesium 2.2 mg/dL (1.6-2.3); Non-African American GFR(CKD) 32 (>60 ml/min/1.73 sqM); Sodium 139 mmol/L (137-145); Total Bilirubin 1.6 mg/dL (0.2-1.3)
[2025-01-24] MEDS: SODIUM CHLORIDE 0.9% 1,000 ML IV STA (16:22)
[2025-01-24 21:41] LABS: Amphetamine Screen,Urine Not Detected (NotDetected); Barbiturate Screen,Urine Not Detected (NotDetected); Benzodiazepines Screen,Urine Not Detected (NotDetected); Cocaine Screen,Urine Not Detected (NotDetected); Methadone Screen, Urine Not Detected (NotDetected); Opiate Screen,Urine Not Detected (NotDetected); Oxycodone Screen, Urine Not Detected (NotDetected); Phencyclidine Screen,Urine Not Detected (NotDetected); Tricyclic Antidepressant,Urine Not Detected (NotDetected); Urn Cannabinoid Scrn Detected (NotDetected)
[2025-01-24] MEDS ORDERED: NALOXONE 0.4 MG/ML 1 ML VIAL IV PRN (22:37)
[2025-01-24] MEDS: SODIUM CHLORIDE 0.9% 1,000 ML IV SCH (22:48)
[2025-01-25] MEDS: SUCRALFATE 1 GM TAB PO SCH (06:31)
[2025-01-25] MEDS: VORTIOXETINE HYDROBROMIDE 20 MG TABLET PO SCH (06:31)
[2025-01-25] MEDS: MIDODRINE 5 MG TAB PO SCH (10:34)
[2025-01-25] MEDS: ISOSORBIDE MONONITRATE ER 30 MG TAB.ER.24H PO SCH (11:11)
[2025-01-25] MEDS: SACUBITRIL/VALSARTAN 24 MG-26 MG TABLET PO SCH (11:11)
[2025-01-25] MEDS: lamoTRIgine 100 MG TAB PO SCH (11:11)
[2025-01-25] MEDS: DULoxetine HCL 60 MG CAPSULE.DR PO SCH (11:11)
[2025-01-25] MEDS: METOPROLOL SUCCINATE (ER) 50 MG TAB.ER.24H PO SCH (11:12)
[2025-01-25] MEDS: PREGABALIN 100 MG CAP PO SCH (11:12)
[2025-01-25] MEDS: levETIRAcetam 500 MG TAB PO SCH (11:12)
[2025-01-25] MEDS: ASPIRIN 81 MG PO SCH (11:12)
[2025-01-25] MEDS: DAPAGLIFLOZIN PROPANEDIOL 10 MG TABLET PO SCH (11:13)
[2025-01-25] MEDS: PANTOPRAZOLE 40 MG TABLET PO SCH (11:13)
[2025-01-25] MEDS: AMIODARONE 200 MG TAB PO SCH (11:13)
[2025-01-25] MEDS: CARBIDOPA-LEVODOPA 25-100 MG 1 EACH TAB PO SCH (11:13)
[2025-01-25] MEDS: hydrALAZINE HCL 25 MG TAB PO SCH (11:14)
--- NOTE | 2025-01-25 12:05 | P.NPCON ---
History of Present Illness - Reason for Consult acute renal failure - History of Present Illness Patient is a 59-year-old male with history of COPD, type 2 diabetes, CVA/TIA, hypertension, seizure disorder who lives in a long-term and was brought in with concern for altered mentation and agitation. It was not clear if patient had fallen. CT head was negative Serum creatinine 2.1 yesterday. Previous creatinine was 1.3 on 12/31/2024. Initial blood pressure was low at 98/58 Maintained on Entresto at home History of cardiomyopathy with a EF of 20 to 25% on echocardiogram on 12/25/2024 Past Medical History Past Medical History: COPD, CVA/TIA, Diabetes Mellitus, Fibromyalgia, GERD/Reflux, Hyperlipidemia, Hypertension, Memory Impairment, Seizure Disorder, Skin Disorder, Sleep Apnea/CPAP/BIPAP Additional Past Medical History / Comment(s): uses CPAP machine, on 4L home oxygen, EPILEPTIC, past fall w/ concussion, ambulate with a walker and a wheelchair, Parkinson's History of Any Multi-Drug Resistant Organisms: None Reported Past Surgical History: Hernia Repair, Pacemaker Additional Past Surgical History / Comment(s): left big toe surgery/debridement r/t diabetic ulcer Past Anesthesia/Blood Transfusion Reactions: No Reported Reaction Type of Cardiac Device: Permanent Pacemaker, AICD Device Placement Date:: 2020 Past Psychological History: No Psychological Hx Reported Smoking Status: Former smoker Past Alcohol Use History: None Reported Past Drug Use History: None Reported - Past Family History Father Family Medical History: Cancer Additional Family Medical History / Comment(s): LUNG Brother(s) History Unknown: Yes Family Medical History: Myocardial Infarction ([place]) Additional Family Medical History / Comment(s): Sister(s) History Unknown: Yes Family Medical History: Myocardial Infarction ([place]) Additional Family Medical History / Comment(s): Medications and Allergies Home Medications Medication Instructions Recorded Confirmed Type Atorvastatin [Lipitor] 40 mg PO HS 08/31/14 01/24/25 History lamoTRIgine [LaMICtal] 200 mg PO TID@0500,1300,2100 08/10/15 01/24/25 History Omeprazole 40 mg PO DAILY 05/14/18 01/24/25 History Aspirin EC [Ecotrin Low Dose] 81 mg PO DAILY 06/21/24 01/24/25 History DULoxetine HCL [Cymbalta] 60 mg PO BID 06/21/24 01/24/25 History Metoprolol Succinate [Toprol XL] 50 mg PO DAILY 06/21/24 01/24/25 History Montelukast [Singulair] 10 mg PO HS 06/21/24 01/24/25 History Sacubitril/Valsartan [Entresto 24 1 tab PO BID-W/MEALS 06/21/24 01/24/25 History mg-26 mg Tablet] Sucralfate [Carafate] 1 gm PO TID@0600,1100,1600 06/21/24 01/24/25 History Vortioxetine Hydrobromide 20 mg PO DAILY@0600 06/21/24 01/24/25 History [Trintellix] Amiodarone [Cordarone] 200 mg PO BID 30 Days #60 tab 12/31/24 01/24/25 Rx Dapagliflozin Propanediol [Farxiga] 10 mg PO DAILY 30 Days #30 tab 12/31/24 01/24/25 Rx Isosorbide Mononitrate ER [Imdur] 30 mg PO DAILY 30 Days #30 tab 12/31/24 01/24/25 Rx Rivaroxaban [Xarelto] 20 mg PO W/SUPPER 30 Days #30 tab 12/31/24 01/24/25 Rx hydrALAZINE HCL [Apresoline] 25 mg PO TID 30 Days #60 tab 12/31/24 01/24/25 Rx Carbidopa-Levodopa 25-100 mg 1 tab PO QID 01/24/25 01/24/25 History [Sinemet 25-100 mg] Folic Acid 1 mg PO DAILY 01/24/25 01/24/25 History Midodrine [ProAmatine] 5 mg PO TID@0500,1300,2100 01/24/25 01/24/25 History Nitroglycerin Sl Tabs [Nitrostat] 0.4 mg SUBLINGUAL Q5M PRN 01/24/25 01/24/25 History Pregabalin [Lyrica] 100 mg PO BID 01/24/25 01/24/25 History Pyridoxine [Vitamin B-6] 50 mg PO DAILY 01/24/25 01/24/25 History levETIRAcetam [Keppra] 500 mg PO Q12HR 01/24/25 01/24/25 History Allergies Allergy/AdvReac Type Severity Reaction Status Date / Time venom-honey bee Allergy Swelling Verified 01/24/25 15:59 [bee venom (honey bee)] Physical Exam Vitals: Vital Signs Temp Pulse Resp BP Pulse Ox 01/25/25 11:25 87 18 116/66 94 L 01/25/25 10:48 89 20 106/80 01/25/25 07:52 97.5 F L 94 22 125/73 98 01/25/25 06:07 89 18 141/109 95 01/25/25 02:00 84 18 143/75 96 01/24/25 22:20 145/110 01/24/25 22:14 90 18 01/24/25 19:32 82 18 152/97 95 01/24/25 18:19 70 18 113/99 93 L 01/24/25 16:19 90 18 107/85 93 L 01/24/25 15:04 97.8 F 73 18 98/58 94 L Intake and Output 01/24/25 01/25/25 01/25/25 22:59 06:59 14:59 Output Total 700 Balance -700 Output: Urine 700 Straight 700 Other: Weight 86.863 kg Patient is awake, confused No acute distress Examination of the heart S1 and S2 Examination of the lungs bilateral breath sounds are heard Abdomen is soft nontender Examination of lower extremities shows no significant edema Results - Lab Results Most recent lab results Calcium 10.2 mg/dL (8.4-10.2) 01/24/25 15:38 Magnesium 2.2 mg/dL (1.6-2.3) 01/24/25 15:38 01/24/25 15:38 01/24/25 15:38 Assessment and Plan Assessment: 1. Acute kidney injury, most likely ATN with an element of volume depletion. Currently maintained on IV fluids. Check bladder scan rule out urine retention. Check UA. Check ultrasound of the kidneys 2. Cardiomyopathy with EF of 20 to 25% 3. Mental status changes. CT head was negative for acute changes. History of memory impairment 4. History of seizures maintained on Keppra and Lamictal, will level is pending Plan: May continue with the IV fluids for now May continue with Entresto Repeat labs in a.m. Repeat labs today Ultrasound of the kidneys Check UA Thank you for the consultation. Will continue to follow the patient with you during his hospitalization.
[2025-01-25] MEDS: FOLIC ACID 1 MG TAB PO SCH (12:06)
[2025-01-25 12:21] LABS: African American GFR (CKD) 51 (>60 ml/min/1.73 sqM); Anion Gap 15 mmol/L; Blood Urea Nitrogen 35 mg/dL (9-20); Calcium 10.2 mg/dL (8.4-10.2); Carbon Dioxide 21 mmol/L (22-30); Chloride 106 mmol/L (98-107); Glucose 78 mg/dL (74-99); Non-African American GFR(CKD) 44 (>60 ml/min/1.73 sqM); Potassium 3.8 mmol/L (3.5-5.1); Sodium 142 mmol/L (137-145)
[2025-01-25] MEDS: PYRIDOXINE 50 MG TAB PO SCH (12:28)
--- NOTE | 2025-01-25 14:20 | P.CN ---
Psychiatric Consult - . Consult date: 01/25/25 Consult:: 01/25/25 14:11 IDENTIFYING DATA: This patient is a 59-year-old male, living at [facility] REASON FOR REFERRAL: Psychiatry was consulted for aggressive behavior HISTORY OF PRESENT ILLNESS: The patient presented to the hospital with agitation after being found on the floor at his senior care. EKG revealed atrial fibrillation, QTc 471. CT head revealed no acute changes. Patient was seen and examined in his room, exhibits confusion however was able to follow commands and was A&Ox2, questionable historian. Patient expressed feeling "pissed off" due to family members taking his gun away from him roughly 4-5 months ago due to suicidal statements. At this time patient denies any suicidal or homicidal ideations, intent or plan. Patient denies any auditory, visual hallucinations and denies any paranoia or delusions. Patients admits to using no substances. He was unable to recall the events that landed him here and due to his ongoing confusion, history was limited. He does feel as though it is difficult to control his anger at times and was on board with starting a medication to help. PAST PSYCHIATRIC HISTORY: Patient has a history of depression. Patient is currently prescribed Trintellix 20 mg daily, Cymbalta 60 mg twice daily. Patient denies any previous psychiatric hospitalizations. Patient denies any psychiatric outpatient follow-up. Patient denies any history of suicide attempts in the past. PAST MEDICAL HISTORY: Seizures, Parkinson's disease, COPD, CVA, diabetes, hypertension. ALLERGIES: as per EMR. CHEMICAL DEPENDENCY HISTORY: as per HPI. FAMILY PSYCHIATRIC/SUBSTANCE USE HISTORY: Denies SOCIAL HISTORY: Patient is and has 3 children, currently staying at [facility]. MENTAL STATUS EXAM: General Appearance: Patient appears to be stated age is alert, cooperative. Patient appears to have fair hygiene and grooming wearing hospital gown with poor eye contact. Behavior: Patient is calmly lying in bed without any agitated behavior. Speech: Patient's speech is fluent and nonpressured. Mood/Affect: Patient reports their mood is "pissed off", affect is congruent Suicidality/Homicidality: Patient denies having any suicidal or homicidal ideation intent or plan. Perceptions: Patient denies any visual hallucinations and denies any auditory hallucinations Though content/process: There is no evidence of any delusional thought content and thought process is linear. Memory and concentration: AOX2 Judgment and insight: Poor IMPRESSIONS: Major neurocognitive disorder, likely due to Parkinson's disease PLAN: -At this time patient DOES NOT meet criteria for inpatient psychiatric admission. -Would recommend the following medication changes/additions: Decrease Cymbalta to 60 mg daily for depression and start Seroquel 50 mg at bedtime for mood stabilization, continue Trintellix 20 mg daily for depression -Communicated plan to patient's nurse -Will continue to follow along as needed -Please contact with any questions.
--- NOTE | 2025-01-25 16:42 | P.HPIM ---
History of Present Illness H&P Date: 01/25/25 Chief Complaint: Agitated This is a 59-year-old patient who follows with Dr. Wheeler, at the [facility]. Medical conditions include diabetes, fibromyalgia, GERD, hyperlipidemia, hypertension, memory impairment, seizure disorder, obstructive sleep apnea, on home oxygen 4 L. History of TIA/CVA with no residual. EMS was called out of the [facility]. Staff was had a back to the patient noticed that the patient was fallen out of the wheelchair and wheelchair was on top of him. When the EMS arrived patient was agitated. Try to kick out. And he said s omebody had killed his dog. Patient's sensorium appears to be altered. He is able to answer simple questions. Though he does not know why he is here. He was rather restless in the ER yesterday when he first arrived in the ER physician. He says he is not hungry. Denies any chest pain or shortness of breath. Review of systems: GEN.: Tired EYES: None HEENT: None NECK: None RESPIRATORY: None CARDIOVASCULAR: None GASTROINTESTINAL: None GENITOURINARY: None MUSCULOSKELETAL: None LYMPHATICS: None HEMATOLOGICAL: None PSYCHIATRY: Bit anxious. A bit restless NEUROLOGICAL: Decreased sensorium Social history: Lives at [facility]. Stopped smoking 2015. Has a son and a daughter. Physical examination: VITAL SIGNS: 97.8, 73, 18, 98 x 58, 94% room air upon presentation GENERAL: BMI 29.1, laying in bed. Slightly lethargic but awake. Moving about EYES: Pupils equal. Conjunctiva ashish l. HEENT: External appearance of nose and ears normal, oral cavity grossly normal. NECK: JVD not raised; masses not palpable. HEART: First and second heart sounds are normal; no edema. LUNGS: Respiratory rate normal; decreased breath sound. ABDOMEN: Soft, nontender, liver spleen not palpable, no masses palpable. PSYCH: Patient can state his name. Knows that in the hospital. Not sure why he is here. Not sure about the year l. MUSCULOSKELETAL:No Clubbing/cyanosis;muscles-grossly intact. OA. Chronic changes to toenails NEUROLOGICAL: Cranial nerves grossly intact; no facial asymmetry, power and sensation grossly intact. LYMPHATICS: No lymph nodes palpable in the axilla and neck INVESTIGATIONS, reviewed in the clinical context: January 25, 2025: Sodium 142 potassium 3.8 BUN 35 creatinine 1.68 CPK 107 January 24: White count 5.9 hemoglobin 12 platelets 261 potassium 4 BUN 36 creatinine 2.19 Urine drug screen positive for marijuana EKG tracing personally reviewed by me-possible variable heart block. P waves are noted. CT brain C-spine without contrast: Nonspecific and chronic findings Previous labs: December 31, 2024: Creatinine 1.32. December 25, 2024: Creatinine 0.92 Cardiac catheterization [December 28, 2024] chronically occluded mid PDA. Mild disease in LAD and left circumflex. 2D echo [December 25, 2024]: EF 20-25% moderate concentric LVH.. Mild to moderate . Mild to moderate MR Assessment plan: -Patient present episode of acute agitation and altered sensorium. He fell off his wheelchair. Patient is found to have increased creatinine from recent. Likely combination of: Acute delirium/encephalopathy, multifactorial - Acute kidney injury likely ATN December 25, 2024 patient's creatinine was 0.92. On this presentation 2.19. Will hold off Entresto temporarily. Gentle hydration. - Possible variable block. Consult cardiology -History of persistent atrial fibrillation, rate controlled Xarelto. Toprol-XL 50 mg a day - Coronary artery disease. Cardiac catheterization December 28, [address] Varghese. For medical management. Toprol-XL. Aspirin. Lipitor. - Parkinson's disease Sinemet 25/101 tablet 4 times daily - Chronic congestive heart failure from systolic dysfunction EF 20-25% Farxiga. Toprol-XL. Entresto-hold for now - Epilepsy disorder Keppra. Lamictal. - Neurocognitive disorder likely secondary to Parkinson's disease Patient on Lamictal. Trintellix. Cymbalta Psychiatry consulted - Hyperlipidemia Lipitor - COPD no prior smoker Singulair - Full code - Past Medical History Past Medical History: COPD, CVA/TIA, Diabetes Mellitus, Fibromyalgia, GERD/Reflux, Hyperlipidemia, Hypertension, Memory Impairment, Seizure Disorder, Skin Disorder, Sleep Apnea/CPAP/BIPAP Additional Past Medical History / Comment(s): uses CPAP machine, on 4L home oxygen, EPILEPTIC, past fall w/ concussion, ambulate with a walker and a wheelchair, Parkinson's History of Any Multi-Drug Resistant Organisms: None Reported Past Surgical History: Hernia Repair, Pacemaker Additional Past Surgical History / Comment(s): left big toe surgery/debridement r/t diabetic ulcer Past Anesthesia/Blood Transfusion Reactions: No Reported Reaction Type of Cardiac Device: Permanent Pacemaker, AICD Device Placement Date:: 2020 Past Psychological History: No Psychological Hx Reported Smoking Status: Former smoker Past Alcohol Use History: None Reported Past Drug Use History: None Reported - Past Family History Father Family Medical History: Cancer Additional Family Medical History / Comment(s): LUNG Brother(s) History Unknown: Yes Family Medical History: Myocardial Infarction (ID) Additional Family Medical History / Comment(s): Sister(s) History Unknown: Yes Family Medical History: Myocardial Infarction (ID) Additional Family Medical History / Comment(s): Medications and Allergies Home Medications Medication Instructions Recorded Confirmed Type Atorvastatin [Lipitor] 40 mg PO HS 08/31/14 01/24/25 History lamoTRIgine [LaMICtal] 200 mg PO TID@0500,1300,2100 08/10/15 01/24/25 History Omeprazole 40 mg PO DAILY 05/14/18 01/24/25 History Aspirin EC [Ecotrin Low Dose] 81 mg PO DAILY 06/21/24 01/24/25 History DULoxetine HCL [Cymbalta] 60 mg PO BID 06/21/24 01/24/25 History Metoprolol Succinate [Toprol XL] 50 mg PO DAILY 06/21/24 01/24/25 History Montelukast [Singulair] 10 mg PO HS 06/21/24 01/24/25 History Sacubitril/Valsartan [Entresto 24 1 tab PO BID-W/MEALS 06/21/24 01/24/25 History mg-26 mg Tablet] Sucralfate [Carafate] 1 gm PO TID@0600,1100,1600 06/21/24 01/24/25 History Vortioxetine Hydrobromide 20 mg PO DAILY@0600 06/21/24 01/24/25 History [Trintellix] Amiodarone [Cordarone] 200 mg PO BID 30 Days #60 tab 12/31/24 01/24/25 Rx Dapagliflozin Propanediol [Farxiga] 10 mg PO DAILY 30 Days #30 tab 12/31/24 01/24/25 Rx Isosorbide Mononitrate ER [Imdur] 30 mg PO DAILY 30 Days #30 tab 12/31/24 01/24/25 Rx Rivaroxaban [Xarelto] 20 mg PO W/SUPPER 30 Days #30 tab 12/31/24 01/24/25 Rx hydrALAZINE HCL [Apresoline] 25 mg PO TID 30 Days #60 tab 12/31/24 01/24/25 Rx Carbidopa-Levodopa 25-100 mg 1 tab PO QID 01/24/25 01/24/25 History [Sinemet 25-100 mg] Folic Acid 1 mg PO DAILY 01/24/25 01/24/25 History Midodrine [ProAmatine] 5 mg PO TID@0500,1300,2100 01/24/25 01/24/25 History Nitroglycerin Sl Tabs [Nitrostat] 0.4 mg SUBLINGUAL Q5M PRN 01/24/25 01/24/25 History Pregabalin [Lyrica] 100 mg PO BID 01/24/25 01/24/25 History Pyridoxine [Vitamin B-6] 50 mg PO DAILY 01/24/25 01/24/25 History levETIRAcetam [Keppra] 500 mg PO Q12HR 01/24/25 01/24/25 History Allergies Allergy/AdvReac Type Severity Reaction Status Date / Time venom-honey bee Allergy Swelling Verified 01/24/25 15:59 [bee venom (honey bee)] Physical Exam Vitals: Vital Signs Temp Pulse Resp BP Pulse Ox 01/25/25 07:52 97.5 F L 94 22 125/73 98 01/25/25 06:07 89 18 141/109 95 01/25/25 02:00 84 18 143/75 96 01/24/25 22:20 145/110 01/24/25 22:14 90 18 01/24/25 19:32 82 18 152/97 95 01/24/25 18:19 70 18 113/99 93 L 01/24/25 16:19 90 18 107/85 93 L 01/24/25 15:04 97.8 F 73 18 98/58 94 L Intake and Output 01/24/25 01/25/25 01/25/25 22:59 06:59 14:59 Output Total 700 Balance -700 Output: Urine 700 Straight 700 Other: Weight 86.863 kg Results CBC & Chem 7: 01/24/25 15:38 01/25/25 07:59 Labs: Abnormal Lab Results - Last 24 Hours (Table) 01/24/25 01/24/25 01/24/25 Range/Units 15:38 15:38 15:38 RBC 3.97 L (4.40-5.60) 10*6/uL Hgb 12.0 L (13.0-17.0) g/dL Hct 35.3 L (39.6-50.0) % MPV 9.0 L (9.5-12.2) fL Lymphocytes # 0.56 L (0.90-5.00) 10*3/uL Eosinophils # 0.01 L (0.04-0.35) 10*3/uL Carbon Dioxide 19 L (22-30) mmol/L BUN 36 H (9-20) mg/dL Creatinine 2.19 H (0.66-1.25) mg/dL Glucose 102 H (74-99) mg/dL Total Bilirubin 1.6 H (0.2-1.3) mg/dL U Marijuana (THC) Screen Detected H (NotDetected)
[2025-01-25] MEDS: RIVAROXABAN 15 MG TAB PO SCH (17:43)
[2025-01-25 18:05] LABS: Appearance,Urine Turbid (Clear); Bilirubin,Urine Negative (Negative); Blood,Urine Negative (Negative); Color,Urine Light Red; Glucose,Urine (UA) 4+ (Negative); Ketones,Urine 1+ (Negative); Leukocyte Esterase,Urine Negative (Negative); Mucus,Urine Rare /hpf; Nitrite,Urine Negative (Negative); Protein,Urine 1+ (Negative); RBC,Urine 2 /hpf (0-5); Specific Gravity,Urine 1.022 (1.001-1.035); Urobilinogen,Urine <2.0 mg/dL (<2.0); WBC,Urine 7 /hpf (0-5)
[2025-01-25] MEDS: ATORVASTATIN 40 MG TAB PO SCH (20:57)
[2025-01-25] MEDS: MONTELUKAST 10 MG TAB PO SCH (20:57)
[2025-01-25] MEDS: QUEtiapine 50 MG TAB PO SCH (20:58)
[2025-01-26] MEDS: DULoxetine HCL 60 MG CAPSULE.DR PO SCH (09:37)
--- NOTE | 2025-01-26 12:01 | P.PN ---
Subjective Patient is seen for follow-up for acute kidney injury and chronic kidney disease Renal function has improved with IV hydration. Serum creatinine down to 1.6 from 2.1 yesterday. No significant complaints. Patient has been voiding Objective - Vital Signs Vital signs: Vital Signs Temp 97.3 F L 01/26/25 07:12 Pulse 75 01/26/25 07:12 Resp 20 01/26/25 07:12 BP 95/53 01/26/25 07:12 Pulse Ox 94 L 01/26/25 07:12 FiO2 Intake & Output 01/25/25 01/26/25 01/26/25 18:59 06:59 18:59 Intake Total 240 Output Total 973 Balance 240 -973 Weight 86.863 kg Intake: Oral 240 Output: Urine 200 Post Void Residual 773 Other: Voiding Method Urinal Incontinent # Voids 3 - Exam Patient is awake, confused No acute distress Examination of the heart S1 and S2 Examination of the lungs bilateral breath sounds are heard Abdomen is soft nontender Examination of lower extremities shows no significant edema - Labs CBC & Chem 7: 01/24/25 15:38 01/25/25 07:59 Labs: Abnormal Lab Results - Last 24 Hours (Table) 01/24/25 01/25/25 Range/Units 15:38 07:59 Carbon Dioxide 21 L (22-30) mmol/L BUN 35 H (9-20) mg/dL Creatinine 1.68 H (0.66-1.25) mg/dL Urine Protein 1+ H (Negative) Urine Glucose (UA) 4+ H (Negative) Urine Ketones 1+ H (Negative) Urine WBC 7 H (0-5) /hpf Urine Mucus Rare H (None) /hpf Assessment and Plan Assessment: 1. Acute kidney injury, most likely ATN with an element of volume depletion. Currently maintained on IV fluids. . UA shows 1+ protein, no blood. Check ultrasound of the kidneys 2. Cardiomyopathy with EF of 20 to 25% 3. Mental status changes. CT head was negative for acute changes. History of memory impairment 4. History of seizures maintained on Keppra and Lamictal, will level is pending Plan: May continue with the IV fluids for now May continue with Entresto Repeat labs in a.m. Repeat labs today Ultrasound of the kidneys
--- NOTE | 2025-01-26 12:16 | US ---
EXAMINATION TYPE: US kidneys/renal and bladder DATE OF EXAM: 01/26/2025 COMPARISON: NONE CLINICAL INDICATION: Male, 59 years old with history of megan; here for AMS, patient has no kidney hist ory he knows of TECHNIQUE: Grayscale imaging of the bilateral kidneys and urinary bladder: FINDINGS: EXAM MEASUREMENTS: Right Kidney: 10.5 x 5.4 x 6.1 cm Left Kidney: 12.6 x 5.3 x 5.9 cm Right Kidney: No hydronephrosis or masses seen Left Kidney: No hydronephrosis or masses seen Bladder: not distended There is no evidence for hydronephrosis at this point in time. No nephrolithiasis is seen. No vinny s are identified. The urinary bladder is anechoic. IMPRESSION: Unremarkable study [facility], , 01/26/2025 12:14 PM
--- NOTE | 2025-01-26 14:40 | P.CRDCN ---
History of Present Illness Consult date: 01/26/25 Reason for Consult (text): Variable heart rate History of present illness: This is a 59-year-old male previously seen in the office by Dr. Llyes in 2020 with past medical history of diabetes, hypertension, dyslipidemia, obesity sick sinus syndrome status post permanent pacemaker implantation, seizure disorder. We have been asked to evaluate the patient for variable heart block. Patient presented to the emergency center on 01/24 with altered mental status and agitation from the intermediate. Patient apparently was found out of his wheelcha ir and it was not known if he had a fall. 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 He denies any chest pain or chest pressure at this time, no lightheadedness or dizziness. Blood pressure running between 95/53-142/86, heart rate in the 70s, pulse ox 99% on room air. -EKG: Atrial fibrillation 85 bpm, IVCD. -Laboratory studies: WBC 5.9, hemoglobin 12, sodium 142, potassium 3.8, BUN 35, initial creatinine 2.19 and repeat 1.68. Urine drug screen positive for marijuana. Alcohol level less than 10. -Home cardiac medications: Amiodarone 200 mg twice daily, aspirin 81 mg daily, atorvastatin 40 mg at bedtime, Farxiga 10 mg daily, hydralazine 25 mg 3 times daily, Imdur 30 mg daily, metoprolol succinate 50 mg daily, Nitrostat as needed, Xarelto 20 mg with supper, Entresto 24-26 mg 1 twice daily. -Cardiac cath performed by Dr. Varghese revealed chronically occluded mid PDA, mild disease in the LAD and left circumflex, right dominance, elevated LVEDP. Medical management was recommended to treat his cardiomyopathy. -Echocardiogram performed 12/24/2024 revealed EF of 20 to 25%. Mild to moderate aortic stenosis. Mild to moderate mitral regurgitation. -Dual-chamber permanent pacemaker, [employer], implantation on 06/28/2021. Review Of Systems: At the time of my exam: CONSTITUTIONAL: Denies fever or chills. HEENT: Denies blurred vision, vision changes, or eye pain. Denies hemoptysis CARDIOVASCULAR: Denies chest pain. Denies orthopnea. Denies PND. Denies palpitations RESPIRATORY: Denies shortness of breath. GASTROINTESTINAL: Denies abdominal pain. Denies nausea or vomiting. HEMATOLOGIC: Denies bleeding disorders. GENITOURINARY: Denies any blood in urine. SKIN: Denies puritis. Denies rash. Physical examination: Gen: This is a 59-year-old male in no acute distress VS: reviewed HEENT: Head is atraumatic, normocephalic. Pupils equal, round. Sclerae is anic teric. NECK: Supple. No JVD. LUNGS: Clear to auscultation. No wheezes or rhonchi. No intercostal retractions. HEART: Irregular rate and rhythm. No murmur. ABDOMEN: Soft No tenderness. EXTREMITIES: No pedal edema. No calf tenderness. NEUROLOGICAL: Patient is awake, alert. Assessment: History of permanent pacemaker for sick sinus syndrome Paroxysmal atrial fibrillation/typical atrial flutter, rate controlled Nonischemic cardiomyopathy with EF of 20 to 25% most likely due to atrial fibrillation Coronary artery disease History of CVA Seizure disorder Hypertension Dyslipidemia Acute kidney injury with chronic kidney disease Plan: Continue patient's home cardiac medications Pacemaker interrogation awake overnight monitor for 24 hours and if no significant abnormalities at that point, can be discontinued Further recommendations to follow based upon clinical course Thank you kindly for this consultation. Nurse practitioner note has been reviewed, I agree with documented findings and plan of care. Patient was seen and examined. Past Medical History Past Medical History: COPD, CVA/TIA, Diabetes Mellitus, Fibromyalgia, GERD/Reflux, Hyperlipidemia, Hypertension, Memory Impairment, Seizure Disorder, Skin Disorder, Sleep Apnea/CPAP/BIPAP Additional Past Medical History / Comment(s): uses CPAP machine, on 4L home oxygen, EPILEPTIC, past fall w/ concussion, ambulate with a walker and a wheelchair, Parkinson's History of Any Multi-Drug Resistant Organisms: None Reported Past Surgical History: Hernia Repair, Pacemaker Additional Past Surgical History / Comment(s): left big toe surgery/debridement r/t diabetic ulcer Past Anesthesia/Blood Transfusion Reactions: No Reported Reaction Type of Cardiac Device: Permanent Pacemaker, AICD Device Placement Date:: 2020 Past Psychological History: No Psychological Hx Reported Smoking Status: Former smoker Past Alcohol Use History: None Reported Past Drug Use History: None Reported - Past Family History Father Family Medical History: Cancer Additional Family Medical History / Comment(s): LUNG Brother(s) History Unknown: Yes Family Medical History: Myocardial Infarction (NH) Additional Family Medical History / Comment(s): Sister(s) History Unknown: Yes Family Medical History: Myocardial Infarction (NH) Additional Family Medical History / Comment(s): Medications and Allergies Home Medications Medication Instructions Recorded Confirmed Type Atorvastatin [Lipitor] 40 mg PO HS 08/31/14 01/24/25 History lamoTRIgine [LaMICtal] 200 mg PO TID@0500,1300,2100 08/10/15 01/24/25 History Omeprazole 40 mg PO DAILY 05/14/18 01/24/25 History Aspirin EC [Ecotrin Low Dose] 81 mg PO DAILY 06/21/24 01/24/25 History DULoxetine HCL [Cymbalta] 60 mg PO BID 06/21/24 01/24/25 History Metoprolol Succinate [Toprol XL] 50 mg PO DAILY 06/21/24 01/24/25 History Montelukast [Singulair] 10 mg PO HS 06/21/24 01/24/25 History Sacubitril/Valsartan [Entresto 24 1 tab PO BID-W/MEALS 06/21/24 01/24/25 History mg-26 mg Tablet] Sucralfate [Carafate] 1 gm PO TID@0600,1100,1600 06/21/24 01/24/25 History Vortioxetine Hydrobromide 20 mg PO DAILY@0600 06/21/24 01/24/25 History [Trintellix] Amiodarone [Cordarone] 200 mg PO BID 30 Days #60 tab 12/31/24 01/24/25 Rx Dapagliflozin Propanediol [Farxiga] 10 mg PO DAILY 30 Days #30 tab 12/31/24 01/24/25 Rx Isosorbide Mononitrate ER [Imdur] 30 mg PO DAILY 30 Days #30 tab 12/31/24 01/24/25 Rx Rivaroxaban [Xarelto] 20 mg PO W/SUPPER 30 Days #30 tab 12/31/24 01/24/25 Rx hydrALAZINE HCL [Apresoline] 25 mg PO TID 30 Days #60 tab 12/31/24 01/24/25 Rx Carbidopa-Levodopa 25-100 mg 1 tab PO QID 01/24/25 01/24/25 History [Sinemet 25-100 mg] Folic Acid 1 mg PO DAILY 01/24/25 01/24/25 History Midodrine [ProAmatine] 5 mg PO TID@0500,1300,2100 01/24/25 01/24/25 History Nitroglycerin Sl Tabs [Nitrostat] 0.4 mg SUBLINGUAL Q5M PRN 01/24/25 01/24/25 Hi story Pregabalin [Lyrica] 100 mg PO BID 01/24/25 01/24/25 History Pyridoxine [Vitamin B-6] 50 mg PO DAILY 01/24/25 01/24/25 History levETIRAcetam [Keppra] 500 mg PO Q12HR 01/24/25 01/24/25 History Allergies Allergy/AdvReac Type Severity Reaction Status Date / Time venom-honey bee Allergy Swelling Verified 01/24/25 15:59 [bee venom (honey bee)] Physical Exam Vitals: Vital Signs Temp Pulse Resp BP Pulse Ox 01/26/25 12:10 96.8 F L 74 20 142/86 99 01/26/25 07:12 97.3 F L 75 20 95/53 94 L 01/26/25 01:11 97.6 F 59 L 18 96/57 96 01/25/25 18:55 97.6 F 76 17 118/71 96 01/25/25 17:39 98.1 F 59 L 16 113/72 94 L 01/25/25 17:37 113/72 01/25/25 13:58 98.2 F 73 16 171/83 91 L Intake and Output 01/25/25 01/26/25 01/26/25 22:59 06:59 14:59 Output Total 773 200 Balance -773 -200 Output: Urine 200 Post Void Residual 773 Other: Voiding Method Urinal Incontinent # Voids 3 Results 01/24/25 15:38 01/27/25 05:51 Current Medications Generic Name Dose Route Start Last Admin Trade Name Freq PRN Reason Stop Dose Admin Amiodarone HCl 200 mg 01/25/25 09:00 01/26/25 09:39 Amiodarone 200 Mg Tab PO 200 mg BID AMANDO Administration Aspirin 81 mg 01/25/25 09:00 01/26/25 09:39 Aspirin 81 Mg PO 81 mg DAILY AMANDO Administration Atorvastatin Calcium 40 mg 01/25/25 21:00 01/25/25 20:57 Atorvastatin 40 Mg Tab PO 40 mg HS AMANDO Administration Carbidopa/Levodopa 1 each 01/25/25 09:00 01/26/25 12:58 Carbidopa-Levodopa 25-100 Mg 1 Each Tab PO 1 each QID AMANDO Administration Dapagliflozin 10 mg 01/25/25 09:00 01/26/25 09:39 Dapagliflozin Propanediol 10 Mg Tablet PO 10 mg DAILY AMANDO Administration Duloxetine HCl 60 mg 01/26/25 09:00 01/26/25 09:37 Duloxetine Hcl 60 Mg Capsule.Dr PO 60 mg DAILY AMANDO Administration Folic Acid 1 mg 01/25/25 09:00 01/26/25 09:37 Folic Acid 1 Mg Tab PO 1 mg DAILY AMANDO Administration Sodium Chloride 1,000 mls @ 75 mls/hr 01/24/25 22:45 01/26/25 05:55 Saline 0.9% IV 75 mls/hr .[id number] AMANDO Administration Isosorbide Mononitrate 30 mg 01/25/25 09:00 01/26/25 09:38 Isosorbide Mononitrate Er 30 Mg Tab.Er.24h PO 30 mg DAILY AMANDO Administration Lamotrigine 200 mg 01/25/25 09:00 01/26/25 09:47 Lamotrigine 100 Mg Tab PO Not Given TID AMANDO Levetiracetam 500 mg 01/25/25 09:00 01/26/25 09:37 Levetiracetam 500 Mg Tab PO 500 mg Q12HR AMANDO Administration Metoprolol Succinate 50 mg 01/25/25 09:00 01/26/25 09:38 Metoprolol Succinate (Er) 50 Mg Tab.Er.24h PO 50 mg DAILY AMANDO Administration Midodrine 5 mg 01/25/25 07:30 01/26/25 12:48 Midodrine 5 Mg Tab PO Not Given AC-TID AMANDO Montelukast Sodium 10 mg 01/25/25 21:00 01/25/25 20:57 Montelukast 10 Mg Tab PO 10 mg HS AMANDO Administration Naloxone HCl 0.2 mg 01/24/25 22:37 Naloxone 0.4 Mg/Ml 1 Ml Vial IV Q2M PRN Opioid Reversal Pantoprazole Sodium 40 mg 01/25/25 07:30 01/26/25 09:39 Pantoprazole 40 Mg Tablet PO 40 mg AC-BRKFST AMANDO Administration Pregabalin 100 mg 01/25/25 09:00 01/26/25 09:38 Pregabalin 100 Mg Cap PO 100 mg BID AMANDO Administration Pyridoxine HCl 50 mg 01/25/25 09:00 01/26/25 09:40 Pyridoxine 50 Mg Tab PO 50 mg DAILY AMANDO Administration Quetiapine Fumarate 50 mg 01/25/25 21:00 01/25/25 20:58 Quetiapine 50 Mg Tab PO 50 mg HS AMANDO Administration Rivaroxaban 15 mg 01/25/25 17:30 01/25/25 17:43 Rivaroxaban 15 Mg Tab PO 15 mg W/SUPPER AMANDO Administration Protocol Sucralfate 1 gm 01/25/25 06:00 01/26/25 12:58 Sucralfate 1 Gm Tab PO 1 gm TID@0600,1100,1600 AMANDO Administration Vortioxetine 20 mg 01/25/25 06:00 01/26/25 05:47 Vortioxetine Hydrobromide 20 Mg Tablet PO 20 mg DAILY@0600 [facility] Administration Intake and Output 01/25/25 01/26/25 01/26/25 22:59 06:59 14:59 Output Total 773 200 Balance -773 -200 Output: Urine 200 Post Void Residual 773 Other: Voiding Method Urinal Incontinent # Voids 3 01/24/25 15:38 01/25/25 07:59
--- NOTE | 2025-01-26 18:55 | P.PN ---
Progress Note - Text Progress Note Date: 01/26/25 Chief Complaint: Agitated This is a 59-year-old patient who follows with Dr. Wheeler, at the [facility] [place]. Medical conditions include diabetes, fibromyalgia, GERD, hyperlipidemia, hypertension, memory impairment, seizure disorder, obstructive sleep apnea, on home oxygen 4 L. History of TIA/CVA with no residual. EMS was called out of the [facility]. Staff was had a back to the patient noticed that the patient was fallen out of the wheelchair and wheelchair was on top of him. When the EMS arrived patient was agitated. Try to kick out. And he said somebody had killed his dog. Patient's sensorium appears to be altered. He is able to answer simple questions. Though he does not know why he is here. He was rather restless in the ER yesterday when he first arrived in the ER physician. He says he is not hungry. Denies any chest pain or shortness of breath. January 26: Patient communicating more today. Bit more cheerful. Refusing to eat. Says not hungry. Admitted with acute kidney injury. Improvement in creatinine Active Medications Amiodarone HCl (Amiodarone 200 Mg Tab) 200 mg PO BID [facility] Last Admin: 01/26/25 09:39 Dose: 200 mg Aspirin (Aspirin 81 Mg) 81 mg PO DAILY [facility] Last Admin: 01/26/25 09:39 Dose: 81 mg Atorvastatin Calcium (Atorvastatin 40 Mg Tab) 40 mg PO HS [facility] Last Admin: 01/25/25 20:57 Dose: 40 mg Carbidopa/Levodopa (Carbidopa-Levodopa 25-100 Mg 1 Each Tab) 1 each PO QID [facility] Last Admin: 01/26/25 18:26 Dose: 1 each Dapagliflozin (Dapagliflozin Propanediol 10 Mg Tablet) 10 mg PO DAILY [facility] Last Admin: 01/26/25 09:39 Dose: 10 mg Duloxetine HCl (Duloxetine Hcl 60 Mg Capsule.) 60 mg PO DAILY [facility] Last Admin: 01/26/25 09:37 Dose: 60 mg Folic Acid (Folic Acid 1 Mg Tab) 1 mg PO DAILY [facility] Last Admin: 01/26/25 09:37 Dose: 1 mg Sodium Chloride (Saline 0.9%) 1,000 mls @ 75 mls/hr IV .[id number] [facility] Last Admin: 01/26/25 05:55 Dose: 75 mls/hr Isosorbide Mononitrate (Isosorbide Mononitrate Er 30 Mg Tab.Er.24h) 30 mg PO DAILY [facility] Last Admin: 01/26/25 09:38 Dose: 30 mg Lamotrigine (Lamotrigine 100 Mg Tab) 200 mg PO TID [facility] Last Admin: 01/26/25 16:23 Dose: Not Given Levetiracetam (Levetiracetam 500 Mg Tab) 500 mg PO Q12HR [facility] Last Admin: 01/26/25 09:37 Dose: 500 mg Metoprolol Succinate (Metoprolol Succinate (Er) 50 Mg Tab.Er.24h) 50 mg PO DAILY [facility] Last Admin: 01/26/25 09:38 Dose: 50 mg Midodrine (Midodrine 5 Mg Tab) 5 mg PO AC-TID [facility] Last Admin: 01/26/25 16:23 Dose: Not Given Montelukast Sodium (Montelukast 10 Mg Tab) 10 mg PO HS [facility] Last Admin: 01/25/25 20:57 Dose: 10 mg Naloxone HCl (Naloxone 0.4 Mg/Ml 1 Ml Vial) 0.2 mg IV Q2M PRN PRN Reason: Opioid Reversal Pantoprazole Sodium (Pantoprazole 40 Mg Tablet) 40 mg PO AC-BRKFST [facility] Last Admin: 01/26/25 09:39 Dose: 40 mg Pregabalin (Pregabalin 100 Mg Cap) 100 mg PO BID [facility] Last Admin: 01/26/25 09:38 Dose: 100 mg Pyridoxine HCl (Pyridoxine 50 Mg Tab) 50 mg PO DAILY [facility] Last Admin: 01/26/25 09:40 Dose: 50 mg Quetiapine Fumarate (Quetiapine 50 Mg Tab) 50 mg PO HS [facility] Last Admin: 01/25/25 20:58 Dose: 50 mg Rivaroxaban (Rivaroxaban 15 Mg Tab) 15 mg PO W/SUPPER [facility]; Protocol Last Admin: 01/26/25 16:56 Dose: 15 mg Sucralfate (Sucralfate 1 Gm Tab) 1 gm PO TID@0600,1100,1600 [facility] Last Admin: 01/26/25 16:56 Dose: 1 gm Vortioxetine (Vortioxetine Hydrobromide 20 Mg Tablet) 20 mg PO DAILY@0600 [facility] Last Admin: 01/26/25 05:47 Dose: 20 mg Social history: Lives at [facility]. Stopped smoking 2016. Has a son and a daughter. Physical examination: VITAL SIGNS: 96.8, 74, 20, 142/86, 99% room air GENERAL: BMI 29.1, laying in bed. More awake EYES: Pupils equal. Conjunctiva ashish l. HEENT: External appearance of nose and ears normal, oral cavity grossly normal. NECK: JVD not raised; masses not palpable. HEART: First and second heart sounds are normal; no edema. LUNGS: Respiratory rate normal; decreased breath sound. ABDOMEN: Soft, nontender, liver spleen not palpable, no masses palpable. PSYCH: Answering simple questions. More awake MUSCULOSKELETAL:No Clubbing/cyanosis;muscles-grossly intact. OA. Chronic changes to toenails NEUROLOGICAL: Cranial nerves grossly intact; no facial asymmetry, power and sensation grossly intact. Moving all 4 limbs. Following commands INVESTIGATIONS, reviewed in the clinical context: January 26: Potassium 3.8 BUN 35 creatinine 1.68 January 25, 2025: Sodium 142 potassium 3.8 BUN 35 creatinine 1.68 CPK 107 January 24: White count 5.9 hemoglobin 12 platelets 261 potassium 4 BUN 36 creatinine 2.19 Urine drug screen positive for marijuana EKG tracing personally reviewed by me-possible variable heart block. P waves are noted. CT brain C-spine without contrast: Nonspecific and chronic findings Previous labs: December 31, 2024: Creatinine 1.32. December 25, 2024: Creatinine 0.92 Cardiac catheterization [December 28, 2024] chronically occluded mid PDA. Mild disease in LAD and left circumflex. 2D echo [December 25, 2024]: EF 20-25% moderate concentric LVH.. Mild to moderate . Mild to moderate MR Assessment plan: -Patient present episode of acute agitation and altered sensorium. He fell off his wheelchair. Patient is found to have increased creatinine from recent. Likely combination of: Acute delirium/encephalopathy, multifactorial: Some improvement - Acute kidney injury likely ATN: Some improvement December 25, 2024 patient's creatinine was 0.92. On this presentation 2.19. Will hold off Entresto temporarily. Gentle hydration. -Atrial flutter/persistent atrial fibrillation, rate controlled Xarelto. Toprol-XL 50 mg a day Cardiology following - Coronary artery disease. Cardiac catheterization December 28, [address] Varghese. For medical management. Toprol-XL. Aspirin. Lipitor. - Parkinson's disease Sinemet 25/101 tablet 4 times daily - Chronic congestive heart failure from systolic dysfunction EF 20-25% [facility]. Toprol-XL. Entresto-hold for now - Epilepsy disorder Keppra. Lamictal. - Neurocognitive disorder likely secondary to Parkinson's disease Patient on Lamictal. Trintellix. Cymbalta Psychiatry consulted - Hyperlipidemia Lipitor - COPD no prior smoker Singulair - Full code Decrease IV fluids to 50 cc an hour. Will check labs in the morning. Encourage oral intake. - Past Medical History Past Medical History: COPD, CVA/TIA, Diabetes Mellitus, Fibromyalgia, GERD/Reflux, Hyperlipidemia, Hypertension, Memory Impairment, Seizure Disorder, Skin Disorder, Sleep Apnea/CPAP/BIPAP Additional Past Medical History / Comment(s): uses CPAP machine, on 4L home oxygen, EPILEPTIC, past fall w/ concussion, ambulate with a walker and a wheelchair, Parkinson's History of Any Multi-Drug Resistant Organisms: None Reported Past Surgical History: Hernia Repair, Pacemaker Additional Past Surgical History / Comment(s): left big toe surgery/debridement r/t diabetic ulcer Past Anesthesia/Blood Transfusion Reactions: No Reported Reaction Type of Cardiac Device: Permanent Pacemaker, AICD Device Placement Date:: 2020 Past Psychological History: No Psychological Hx Reported Smoking Status: Former smoker Past Alcohol Use History: None Reported Past Drug Use History: None Reported
[2025-01-27 06:27] LABS: African American GFR (CKD) 65 (>60 ml/min/1.73 sqM); Anion Gap 8 mmol/L; Blood Urea Nitrogen 32 mg/dL (9-20); Calcium 9.6 mg/dL (8.4-10.2); Carbon Dioxide 24 mmol/L (22-30); Chloride 104 mmol/L (98-107); Glucose 100 mg/dL (74-99); Non-African American GFR(CKD) 56 (>60 ml/min/1.73 sqM); Potassium 3.2 mmol/L (3.5-5.1); Sodium 136 mmol/L (137-145)
--- NOTE | 2025-01-27 08:43 | P.CNNES ---
History of Present Illness Consult date: 01/26/25 Requesting physician: Kentrell Sol Reason for Consult: AMS/hx of seizures History of Present Illness: Patient is a 59-year-old male came to the hospital by ambulance on 01/24/2025 at 2:57 PM, for breakthrough seizure. Patient states that he takes his seizure medications very regularly, does not miss a dose. He takes medication as he is supposed to take daily. As per EMS flowsheet, when they arrived to [facility], it was reported that patient earlier in the day flipped his wheelchair over following what may have been a seizure, unwitnessed by staff. Staff moved patient back to his room. Hour after fall, patient became altered and combative towards staff. Patient is on Xarelto. Patient reported to be threatening the staff with physical harm. On EMS arrival, patient was combative and being restr ained by staff and Weed Control Inspector deputies. Patient began extremely combative and trying to hit and kick staff. Patient moved to EMS stretcher and hands were restrained using soft restraint. Patient's vitals at the scene was blood pressure 118/72, pulse rate 104, respiration 24 Blood test shows normal CBC, basic metabolic panel, with BUN 36 creatinine 2.19. Hepatic panel is normal, UA negative. Urine drug screen positive for marijuana. Blood alcohol level negative. CT of the head and cervical spine showed no acute intracranial process. Nonspecific white matter changes, likely secondary to chronic small vessel ischemic disease. No evidence of cervical spine fracture. Moderate multilevel degenerative disc disease. I personally reviewed CT head, agree with the findings. EKG showed atrial fibrillation. Abdominal ultrasound unremarkable. Patient has been seen by myself on 12/30/2024 for leg weakness. Patient was diagnosed with severe vitamin B12 deficiency due to pernicious anemia. Patient also has history of folate and B6 deficiency. He has diabetes with peripheral neuropathy. Zinc deficiency seizure disorder. He lives by himself with a little dog. Patient also has history of epilepsy for last 8 years. He states he gets grand mal seizures as well as petit mal seizures which consist of staring spells. The grand mal seizures are occurring about twice a year and the last one was 7-8 months ago. The petit mal seizures are about 4-5 times a year and the last one was 6-7 months ago. Patient also claims that he has been diagnosed with Parkinson's disease. He has peripheral neuropathy. He states his leg problem has been severe for last 2-3 years. He admits to neck hurting and low back hurting. Patient has been seen by myself in May 2021 for vitamin B12 deficiency, syncopal spell versus seizure diabetes hypertension. He was started on B12 injections. Folic acid was also low. 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 His B6 and folate were also low. Patient is hard of hearing. Patient currently takes Lamictal 200 mg 3 times daily, Keppra 500 mg every 12 hours and also on Lyrica 100 mg twice daily. Patient is on Xarelto. Review of Systems All pertinent positive and negative review of systems mentioned in the HPI, otherwise unremarkable. Past Medical History Past Medical History: COPD, CVA/TIA, Diabetes Mellitus, Fibromyalgia, GERD/Reflux, Hyperlipidemia, Hypertension, Memory Impairment, Seizure Disorder, Skin Disorder, Sleep Apnea/CPAP/BIPAP Additional Past Medical History / Comment(s): uses CPAP machine, on 4L home oxygen, EPILEPTIC, past fall w/ concussion, ambulate with a walker and a wheelchair, Parkinson's History of Any Multi-Drug Resistant Organisms: None Reported Past Surgical History: Hernia Repair, Pacemaker Additional Past Surgical History / Comment(s): left big toe surgery/debridement r/t diabetic ulcer Past Anesthesia/Blood Transfusion Reactions: No Reported Reaction Type of Cardiac Device: Permanent Pacemaker, AICD Device Placement Date:: 2020 Past Psychological History: No Psychological Hx Reported Smoking Status: Former smoker Past Alcohol Use History: None Reported Past Drug Use History: None Reported - Past Family History Father Family Medical History: Cancer Additional Family Medical History / Comment(s): LUNG Brother(s) History Unknown: Yes Family Medical History: Myocardial Infarction ([place]) Additional Family Medical History / Comment(s): Sister(s) History Unknown: Yes Family Medical History: Myocardial Infarction ([place]) Additional Family Medical History / Comment(s): Medications and Allergies Home Medications Medication Instructions Recorded Confirmed Type Atorvastatin [Lipitor] 40 mg PO HS 08/31/14 01/24/25 History lamoTRIgine [LaMICtal] 200 mg PO TID@0500,1300,2100 08/10/15 01/24/25 History Omeprazole 40 mg PO DAILY 05/14/18 01/24/25 History Aspirin EC [Ecotrin Low Dose] 81 mg PO DAILY 06/21/24 01/24/25 History DULoxetine HCL [Cymbalta] 60 mg PO BID 06/21/24 01/24/25 History Metoprolol Succinate [Toprol XL] 50 mg PO DAILY 06/21/24 01/24/25 History Montelukast [Singulair] 10 mg PO HS 06/21/24 01/24/25 History Sacubitril/Valsartan [Entresto 24 1 tab PO BID-W/MEALS 06/21/24 01/24/25 History mg-26 mg Tablet] Sucralfate [Carafate] 1 gm PO TID@0600,1100,1600 06/21/24 01/24/25 History Vortioxetine Hydrobromide 20 mg PO DAILY@0600 06/21/24 01/24/25 History [Trintellix] Amiodarone [Cordarone] 200 mg PO BID 30 Days #60 tab 12/31/24 01/24/25 Rx Dapagliflozin Propanediol [Farxiga] 10 mg PO DAILY 30 Days #30 tab 12/31/24 01/24/25 Rx Isosorbide Mononitrate ER [Imdur] 30 mg PO DAILY 30 Days #30 tab 12/31/24 01/24/25 Rx Rivaroxaban [Xarelto] 20 mg PO W/SUPPER 30 Days #30 tab 12/31/24 01/24/25 Rx hydrALAZINE HCL [Apresoline] 25 mg PO TID 30 Days #60 tab 12/31/24 01/24/25 Rx Carbidopa-Levodopa 25-100 mg 1 tab PO QID 01/24/25 01/24/25 History [Sinemet 25-100 mg] Folic Acid 1 mg PO DAILY 01/24/25 01/24/25 History Midodrine [ProAmatine] 5 mg PO TID@0500,1300,2100 01/24/25 01/24/25 History Nitroglycerin Sl Tabs [Nitrostat] 0.4 mg SUBLINGUAL Q5M PRN 01/24/25 01/24/25 History Pregabalin [Lyrica] 100 mg PO BID 01/24/25 01/24/25 History Pyridoxine [Vitamin B-6] 50 mg PO DAILY 01/24/25 01/24/25 History levETIRAcetam [Keppra] 500 mg PO Q12HR 01/24/25 01/24/25 History Allergies Allergy/AdvReac Type Severity Reaction Status Date / Time venom-honey bee Allergy Swelling Verified 01/24/25 15:59 [bee venom (honey bee)] Physical Examination - Vital Signs Vital Signs: Vital Signs Temp Pulse Resp BP Pulse Ox 01/26/25 20:00 98.5 F 66 14 141/70 99 01/26/25 12:10 96.8 F L 74 20 142/86 99 01/26/25 08:00 74 20 01/26/25 07:12 97.3 F L 75 20 95/53 94 L 01/26/25 01:11 97.6 F 59 L 18 96/57 96 Intake and Output 01/26/25 01/26/25 01/26/25 06:59 14:59 22:59 Output Total 200 Balance -200 Output: Urine 200 Other: Voiding Method Urinal Incontinent # Voids 1 # Bowel Movements 1 Patient is a middle aged male, appears older than his stated age. Patient is having decreased tone of his body. He was sitting on side of the bed, and leaning his head and body on the side table. Then he tilted to the left side and almost was falling face down when I held him and called for help. Nursing aides arrived and he was situated back in the bed in supine position. Patient is a fall risk. Patient is alert awake oriented to time place and person. Speech and language functions are normal. Patient can name and repeat very well. No aphasia or dysarthria. Attention, concentration and fund of knowledge is adequate. On cranial nerve examination, pupils are equal, round and reacting to light, visual gutierrez are full on confrontation, with no neglect on double simultaneous stimulation. Extraocular muscles are intact, and he has mild nystagmus in the end gaze bilaterally. Face is symmetric, tongue protrudes to the midline. Palatal elevation and sensation normal, hearing and shoulder shrug normal, facial sensation normal. On muscle strength testing, there is no pronator drift and the strength is normal in arms and legs distally and proximally. Patient did not cooperate very well with examination specially proximally in the legs. Deep tendon reflexes are symmetric and trace at the biceps, 0 brachioradialis, 1 at the knees, absent ankles and plantars are flat. Sensory to touch is equal with no neglect on double simultaneous stimulation. Cerebellar function showed mild ataxia for [id number]-[id number] testing bilaterally. Patient has mild to moderate ataxia for [id number]-[id number] testing on either side. Tone and bulk of muscles normal. Gait deferred.. On general examination, there is no carotid bruit or murmur, S1-S2 audible. Chest is clear on consultation. Abdomen is soft nontender. No organomegaly, b owel sounds present. Peripheral pulses are present. No peripheral edema. Results - Laboratory Findings CBC and BMP: 01/24/25 15:38 01/27/25 05:51 Abnormal Lab Findings: Abnormal Labs 01/24/25 01/24/25 01/24/25 15:38 15:38 15:38 RBC 3.97 L Hgb 12.0 L Hct 35.3 L MPV 9.0 L Lymphocytes # 0.56 L Eosinophils # 0.01 L Carbon Dioxide 19 L BUN 36 H Creatinine 2.19 H Glucose 102 H Total Bilirubin 1.6 H Urine Protein Urine Glucose (UA) Urine Ketones Urine WBC Urine Mucus U Marijuana (THC) Screen Detected H 01/24/25 01/25/25 15:38 07:59 RBC Hgb Hct MPV Lymphocytes # Eosinophils # Carbon Dioxide 21 L BUN 35 H Creatinine 1.68 H Glucose Total Bilirubin Urine Protein 1+ H Urine Glucose (UA) 4+ H Urine Ketones 1+ H Urine WBC 7 H Urine Mucus Rare H U Marijuana (THC) Screen Assessment and Plan Assessment: * Breakthrough seizure in a patient with longstanding history of seizure disorder. * Chronic gait imbalance, with frequent falls, likely multifactorial. * History of severe vitamin B12 deficiency due to pernicious anemia * History of folate and B6 deficiency * Diabetes with peripheral neuropathy * Zinc deficiency * History of L1 vertebral body fracture with disc protrusion T12-L1 * Hypertension * Obesity * COPD * Depression * Seizure disorder * Reported history of Parkinson's * Sleep apnea * Chronic low back pain * Pacemaker * X-tobacco use Plan: * Patient had a breakthrough seizure of unclear cause. We will increase Keppra to 750 mg twice daily. * Continue Lamictal 200 mg 3 times daily. * Continue with B12, B6, folic acid and zinc replacement. We will give an extra B12 injection while in the hospital. * Patient is a high fall risk. * PT OT. * Thank you for the consult.
[2025-01-27] MEDS: CYANOCOBALAMIN 1,000 MCG/ML 1 ML VIAL IM ONE (09:59)
[2025-01-27] MEDS: ZINC SULFATE 220 MG CAP PO SCH (10:00)
[2025-01-27] MEDS: POTASSIUM CHLORIDE ER 20 MEQ TAB.ER PO STA (10:52)
--- NOTE | 2025-01-27 13:40 | P.PN ---
Subjective Progress Note Date: 01/27/25 Reason for Consult (text): Variable heart rate History of present illness: This is a 59-year-old male previously seen in the office by Dr. Lyles in 2020 wi th past medical history of diabetes, hypertension, dyslipidemia, obesity sick sinus syndrome status post permanent pacemaker implantation, seizure disorder. We have been asked to evaluate the patient for variable heart block. Patient presented to the emergency center on 01/24 with altered mental status and agitation from the fpc. Patient apparently was found out of his wheelchair and it was not known if he had a fall. Patient states he does not follow with a airport planner. He denies any chest pain or chest pressure at this time, no lightheadedness or dizziness. Blood pressure running between 95/53- 142/86, heart rate in the 70s, pulse ox 99% on room air. -EKG: Atrial fibrillation 85 bpm, IVCD. -Laboratory studies: WBC 5.9, hemoglobin 12, sodium 142, potassium 3.8, BUN 35, initial creatinine 2.19 and repeat 1.68. Urine drug screen positive for marijuana. Alcohol level less than 10. -Home cardiac medications: Amiodarone 200 mg twice daily, aspirin 81 mg daily, atorvastatin 40 mg at bedtime, Farxiga 10 mg daily, hydralazine 25 mg 3 times daily, Imdur 30 mg daily, metoprolol succinate 50 mg daily, Nitrostat as needed, Xarelto 20 mg with supper, Entresto 24-26 mg 1 twice daily. -Cardiac cath performed by Dr. Varghese revealed chronically occluded mid PDA, mild disease in the LAD and left circumflex, right dominance, elevated LVEDP. Medical management was recommended to treat his cardiomyopathy. -Echocardiogram performed 12/24/2024 revealed EF of 20 to 25%. Mild to moderate aortic stenosis. Mild to moderate mitral regurgitation. -Dual-chamber permanent pacemaker, [employer], implantation on 06/28/2021. 01/27 Patient seen and examined. 103/64, heart rate 55, pulse ox 96% on room air. Repeat blood work reveals sodium 136, potassium 3.2, BUN 32 and creatinine 1.38. Pacemaker has been interrogated and report has been reviewed. Patient had an episode of 7 minutes of atrial fibrillation since he has been hospitalized. Atrial fibrillation burden is 5.9%. Nothing else noted on the telemetry. Patient does state he has tightness in his chest but he is feeling back to normal other than weakness in his legs. He denies lightheadedness. Physical examination: Gen: This is a 59-year-old male in no acute distress VS: reviewed HEENT: Head is atraumatic, normocephalic. Pupils equal, round. Sclerae is anicteric. NECK: Supple. No JVD. LUNGS: Clear to auscultation. No wheezes or rhonchi. No intercostal retractions. HEART: Irregular rate and rhythm. No murmur. ABDOMEN: Soft No tenderness. EXTREMITIES: No pedal edema. No calf tenderness. NEUROLOGICAL: Patient is awake, alert. Assessment: History of permanent pacemaker for sick sinus syndrome Paroxysmal atrial fibrillation/typical atrial flutter, rate controlled Nonischemic cardiomyopathy with EF of 20 to 25% most likely due to atrial fibrillation Coronary artery disease History of CVA Seizure disorder Hypertension Dyslipidemia Acute kidney injury with chronic kidney disease Plan: Continue patient's home cardiac medications Pacemaker interrogation has been reviewed electronic device monitor for another 24 hours Further recommendations to follow based upon clinical course Nurse practitioner note has been reviewed, I agree with documented findings and plan of care. Patient was seen and examined. Objective - Vital Signs Vital signs: Vital Signs Temp 97.4 F L 01/27/25 07:59 Pulse 55 L 01/27/25 07:59 Resp 18 01/27/25 07:59 BP 103/64 01/27/25 07:59 Pulse Ox 96 01/27/25 07:59 FiO2 Intake & Output 01/26/25 01/27/25 01/27/25 18:59 06:59 18:59 Intake Total 540 Balance 540 Intake: Oral 540 Other: Voiding Method Urinal Urinal Incontinent Incontinent # Voids 1 1 # Bowel Movements 1 1 - Labs CBC & Chem 7: 01/24/25 15:38 01/27/25 12:32 Labs: Abnormal Lab Results - Last 24 Hours (Table) 01/27/25 Range/Units 05:51 Sodium 136 L (137-145) mmol/L Potassium 3.2 L (3.5-5.1) mmol/L BUN 32 H (9-20) mg/dL Creatinine 1.38 H (0.66-1.25) mg/dL Glucose 100 H (74-99) mg/dL
--- NOTE | 2025-01-27 17:43 | P.PN ---
Progress Note - Text Progress Note Date: 01/27/25 This is a 59-year-old patient who follows with Dr. Wheeler, at the [facility]. Medical conditions include diabetes, fibromyalgia, GERD, hyperlipidemia, hypertension, memory impairment, seizure disorder, obstructive sleep apnea, on home oxygen 4 L. History of TIA/CVA with no residual. EMS was called out of the [facility]. Staff was had a back to the patient noticed that the patient was fallen out of the wheelchair and wheelchair was on top of him. When the EMS arrived patient was agitated. Try to kick out. And he said somebody had killed his dog. Patient's sensorium appears to be altered. He is able to answer simple questions. Though he does not know why he is here. He was rather restless in the ER yesterday when he first arrived in the ER physician. He says he is not hungry. Denies any chest pain or shortness of breath. January 26: Patient communicating more today. Bit more cheerful. Refusing to eat. Says not hungry. Admitted with acute kidney injury. Improvement in creatinine January 1: Communicating much better.Says not hungry. Getting IV fluids. Creatinine slowly coming down now 1.38. Oral intake encouraged. Seen by neurology Dr. Quiles. Kountze to have breakthrough seizures. Keppra dose increased Active Medications Amiodarone HCl (Amiodarone 200 Mg Tab) 200 mg PO BID [facility] Last Admin: 01/27/25 08:39 Dose: 200 mg Aspirin (Aspirin 81 Mg) 81 mg PO DAILY [facility] Last Admin: 01/27/25 08:39 Dose: 81 mg Atorvastatin Calcium (Atorvastatin 40 Mg Tab) 40 mg PO HS [facility] Last Admin: 01/26/25 20:03 Dose: 40 mg Carbidopa/Levodopa (Carbidopa-Levodopa 25-100 Mg 1 Each Tab) 1 each PO QID [facility] Last Admin: 01/27/25 17:29 Dose: 1 each Dapagliflozin (Dapagliflozin Propanediol 10 Mg Tablet) 10 mg PO DAILY [facility] Last Admin: 01/27/25 08:39 Dose: 10 mg Duloxetine HCl (Duloxetine Hcl 60 Mg Capsule.) 60 mg PO DAILY [facility] Last Admin: 01/27/25 08:39 Dose: 60 mg Folic Acid (Folic Acid 1 Mg Tab) 1 mg PO DAILY [facility] Last Admin: 01/27/25 08:39 Dose: 1 mg Sodium Chloride (Saline 0.9%) 1,000 mls @ 50 mls/hr IV .Q20H [facility] Last Admin: 01/27/25 04:38 Dose: 75 mls/hr Isosorbide Mononitrate (Isosorbide Mononitrate Er 30 Mg Tab.Er.24h) 30 mg PO DAILY [facility] Last Admin: 01/27/25 08:39 Dose: 30 mg Lamotrigine (Lamotrigine 100 Mg Tab) 200 mg PO TID [facility] Last Admin: 01/27/25 13:21 Dose: Not Given Levetiracetam (Levetiracetam 750 Mg Tab) 750 mg PO Q12HR [facility] Last Admin: 01/27/25 10:00 Dose: 750 mg Metoprolol Succinate (Metoprolol Succinate (Er) 50 Mg Tab.Er.24h) 50 mg PO DAILY [facility] Last Admin: 01/27/25 08:39 Dose: 50 mg Midodrine (Midodrine 5 Mg Tab) 5 mg PO AC-TID [facility] Last Admin: 01/27/25 13:35 Dose: Not Given Montelukast Sodium (Montelukast 10 Mg Tab) 10 mg PO HS [facility] Last Admin: 01/26/25 20:04 Dose: 10 mg Naloxone HCl (Naloxone 0.4 Mg/Ml 1 Ml Vial) 0.2 mg IV Q2M PRN PRN Reason: Opioid Reversal Pantoprazole Sodium (Pantoprazole 40 Mg Tablet) 40 mg PO AC-BRKFST [facility] Last Admin: 01/27/25 08:39 Dose: 40 mg Pregabalin (Pregabalin 100 Mg Cap) 100 mg PO BID [facility] Last Admin: 01/27/25 08:39 Dose: 100 mg Pyridoxine HCl (Pyridoxine 50 Mg Tab) 50 mg PO DAILY [facility] Last Admin: 01/27/25 08:40 Dose: 50 mg Quetiapine Fumarate (Quetiapine 50 Mg Tab) 50 mg PO HS [facility] Last Admin: 01/26/25 20:03 Dose: 50 mg Rivaroxaban (Rivaroxaban 15 Mg Tab) 15 mg PO W/SUPPER [facility]; Protocol Last Admin: 01/27/25 17:29 Dose: 15 mg Vortioxetine (Vortioxetine Hydrobromide 20 Mg Tablet) 20 mg PO DAILY@0600 [facility] Last Admin: 01/27/25 05:23 Dose: 20 mg Zinc Sulfate (Zinc Sulfate 220 Mg Cap) 220 mg PO DAILY [facility] Last Admin: 01/27/25 10:00 Dose: 220 mg Social history: Lives at [facility]. Stopped smoking 2015. Has a son and a daughter. Physical examination: VITAL SIGNS: 97.1, 67, 17, 111 x 67, 99% room air GENERAL: BMI 29.1, laying in bed. Talkative EYES: Pupils equal. Conjunctiva ashish l. HEENT: External appearance of nose and ears normal, oral cavity grossly normal. NECK: JVD not raised; masses not palpable. HEART: First and second heart sounds are normal; no edema. LUNGS: Respiratory rate normal; decreased breath sound. ABDOMEN: Soft, nontender, liver spleen not palpable, no masses palpable. PSYCH: Talkative. Occasionally confused MUSCULOSKELETAL:No Clubbing/cyanosis;muscles-grossly intact. OA. Chronic changes to toenails NEUROLOGICAL: Cranial nerves grossly intact; no facial asymmetry, power and sensation grossly intact. Following commands INVESTIGATIONS, reviewed in the clinical context: January 27: Potassium 3.2 repeat 3.6 BUN 32 creatinine 1.38 January 26: Potassium 3.8 BUN 35 creatinine 1.68 January 25, 2025: Sodium 142 potassium 3.8 BUN 35 creatinine 1.68 CPK 107 January 24: White count 5.9 hemoglobin 12 platelets 261 potassium 4 BUN 36 creatinine 2.19 Urine drug screen positive for marijuana EKG tracing personally reviewed by me-possible variable heart block. P waves are noted. CT brain C-spine without contrast: Nonspecific and chronic findings Previous labs: December 31, 2024: Creatinine 1.32. December 25, 2024: Creatinine 0.92 Cardiac catheterization [December 28, 2024] chronically occluded mid PDA. Mild disease in LAD and left circumflex. 2D echo [December 25, 2024]: EF 20-25% moderate concentric LVH.. Mild to moderate . Mild to moderate MR Assessment plan: -Patient present episode of acute agitation and altered sensorium. He fell off his wheelchair. Patient is found to have increased creatinine from recent. Likely combination of: Acute delirium/encephalopathy, multifactorial: Much better - Acute kidney injury likely ATN: Improving December 25, 2024 patient's creatinine was 0.92. On this presentation 2.19. Will hold off Entresto temporarily. Gentle hydration. -Atrial flutter/persistent atrial fibrillation, rate controlled Xarelto. Toprol-XL 50 mg a day Cardiology following - Coronary artery disease. Cardiac catheterization December 28, [address] Varghese. For medical management. Toprol-XL. Aspirin. Lipitor. - Parkinson's disease Sinemet 25/101 tablet 4 times daily - Chronic congestive heart failure from systolic dysfunction EF 20-25% Farxiga. Toprol-XL. Entresto-hold for now - Epilepsy disorder Keppra. Lamictal. - Neurocognitive disorder likely secondary to Parkinson's disease Patient on Lamictal. Trintellix. Cymbalta Psychiatry consulted - Hyperlipidemia Lipitor - COPD no prior smoker Singulair - Full code Continue IV fluids to 50 cc an hour. . Encourage oral intake. - Past Medical History Past Medical History: COPD, CVA/TIA, Diabetes Mellitus, Fibromyalgia, GERD/Reflux, Hyperlipidemia, Hypertension, Memory Impairment, Seizure Disorder, Skin Disorder, Sleep Apnea/CPAP/BIPAP Additional Past Medical History / Comment(s): uses CPAP machine, on 4L home oxygen, EPILEPTIC, past fall w/ concussion, ambulate with a walker and a wheelchair, Parkinson's History of Any Multi-Drug Resistant Organisms: None Reported Past Surgical History: Hernia Repair, Pacemaker Additional Past Surgical History / Comment(s): left big toe surgery/debridement r/t diabetic ulcer Past Anesthesia/Blood Transfusion Reactions: No Reported Reaction Type of Cardiac Device: Permanent Pacemaker, AICD Device Placement Date:: 2020 Past Psychological History: No Psychological Hx Reported Smoking Status: Former smoker Past Alcohol Use History: None Reported Past Drug Use History: None Reported
--- NOTE | 2025-01-28 10:45 | P.PN ---
Subjective Progress Note Date: 01/27/25 Patient was seen for a follow-up. Patient is laying in the bed. No further seizures. Patient states he slept well. Objective - Vital Signs Vital signs: Vital Signs Temp 97.4 F L 01/27/25 07:59 Pulse 55 L 01/27/25 07:59 Resp 18 01/27/25 07:59 BP 103/64 01/27/25 07:59 Pulse Ox 96 01/27/25 07:59 FiO2 Intake & Output 01/26/25 01/27/25 01/27/25 18:59 06:59 18:59 Intake Total 540 Balance 540 Intake: Oral 540 Other: Voiding Method Urinal Urinal Incontinent Incontinent # Voids 1 1 # Bowel Movements 1 1 - Exam No change. - Labs CBC & Chem 7: 01/24/25 15:38 01/27/25 12:32 Labs: Abnormal Lab Results - Last 24 Hours (Table) 01/27/25 Range/Units 05:51 Sodium 136 L (137-145) mmol/L Potassium 3.2 L (3.5-5.1) mmol/L BUN 32 H (9-20) mg/dL Creatinine 1.38 H (0.66-1.25) mg/dL Glucose 100 H (74-99) mg/dL Assessment and Plan Assessment: * Breakthrough seizure in a patient with longstanding history of seizure disorder. * Chronic gait imbalance, with frequent falls, likely multifactorial. * Ataxia, likely due to Lamictal toxicity. * History of severe vitamin B12 deficiency due to pernicious anemia * History of folate and B6 deficiency * Diabetes with peripheral neuropathy * Zinc deficiency * History of L1 vertebral body fracture with disc protrusion T12-L1 * Hypertension * Obesity * COPD * Depression * Seizure disorder * Reported history of Parkinson's * Sleep apnea * Chronic low back pain * Pacemaker * X-tobacco use * Marijuana use Plan: * Patient had a breakthrough seizure of unclear cause. We will increase Keppra to 750 mg twice daily. * Lamictal level 23.9 (2-15). We will decrease Lamictal to 200 mg twice daily and 100 mg at noon. * Continue with B12, B6, folic acid and zinc replacement. We will give an extra B12 injection while in the hospital. * Patient is a high fall risk, due to all above factors. * PT OT. * Consider subacute rehab
[2025-01-28 11:34] LABS: African American GFR (CKD) 84 (>60 ml/min/1.73 sqM); Anion Gap 14 mmol/L; Blood Urea Nitrogen 20 mg/dL (9-20); Calcium 10.1 mg/dL (8.4-10.2); Carbon Dioxide 21 mmol/L (22-30); Chloride 104 mmol/L (98-107); Glucose 83 mg/dL (74-99); Non-African American GFR(CKD) 73 (>60 ml/min/1.73 sqM); Potassium 3.9 mmol/L (3.5-5.1); Sodium 139 mmol/L (137-145)
--- NOTE | 2025-01-28 14:50 | P.PN ---
Subjective Progress Note Date: 01/28/25 Reason for Consult (text): Variable heart rate History of present illness: This is a 59-year-old male previously seen in the office by Dr. Lyles in 2020 wi th past medical history of diabetes, hypertension, dyslipidemia, obesity sick sinus syndrome status post permanent pacemaker implantation, seizure disorder. We have been asked to evaluate the patient for variable heart block. Patient presented to the emergency center on 01/24 with altered mental status and agitation from the fpc. Patient apparently was found out of his wheelchair and it was not known if he had a fall. Patient states he does not follow with a shoe repair cobbler. He denies any chest pain or chest pressure at this time, no lightheadedness or dizziness. Blood pressure running between 95/53- 142/86, heart rate in the 70s, pulse ox 99% on room air. -EKG: Atrial fibrillation 85 bpm, IVCD. -Laboratory studies: WBC 5.9, hemoglobin 12, sodium 142, potassium 3.8, BUN 35, initial creatinine 2.19 and repeat 1.68. Urine drug screen positive for marijuana. Alcohol level less than 10. -Home cardiac medications: Amiodarone 200 mg twice daily, aspirin 81 mg daily, atorvastatin 40 mg at bedtime, Farxiga 10 mg daily, hydralazine 25 mg 3 times daily, Imdur 30 mg daily, metoprolol succinate 50 mg daily, Nitrostat as needed, Xarelto 20 mg with supper, Entresto 24-26 mg 1 twice daily. -Cardiac cath performed by Dr. Varghese revealed chronically occluded mid PDA, mild disease in the LAD and left circumflex, right dominance, elevated LVEDP. Medical management was recommended to treat his cardiomyopathy. -Echocardiogram performed 12/24/2024 revealed EF of 20 to 25%. Mild to moderate aortic stenosis. Mild to moderate mitral regurgitation. -Dual-chamber permanent pacemaker, [employer], implantation on 06/28/2021. 01/27 Patient seen and examined. 103/64, heart rate 55, pulse ox 96% on room air. Repeat blood work reveals sodium 136, potassium 3.2, BUN 32 and creatinine 1.38. Pacemaker has been interrogated and report has been reviewed. Patient had an episode of 7 minutes of atrial fibrillation since he has been hospitalized. Atrial fibrillation burden is 5.9%. Nothing else noted on the telemetry. Patient does state he has tightness in his chest but he is feeling back to normal other than weakness in his legs. He denies lightheadedness. 01/28 Patient seen and examined. Blood pressures have been labile running between 129 and 169 systolic. Heart rate is running between 50 and 94. Patient states he is feeling okay today. Repeat blood work reveals sodium 139, potassium 3.9, creatinine 1.11. Telemetry reviewed. Telemetry reveals atrial fibrillation. No episodes of RVR. Physical examination: Gen: This is a 59-year-old male in no acute distress VS: reviewed HEENT: Head is atraumatic, normocephalic. Pupils equal, round. Sclerae is anicteric. NECK: Supple. No JVD. LUNGS: Clear to auscultation. No wheezes or rhonchi. No intercostal retractio ns. HEART: Irregular rate and rhythm. No murmur. ABDOMEN: Soft No tenderness. EXTREMITIES: No pedal edema. No calf tenderness. NEUROLOGICAL: Patient is awake, alert. Assessment: History of permanent pacemaker for sick sinus syndrome Paroxysmal atrial fibrillation/typical atrial flutter, rate controlled Nonischemic cardiomyopathy with EF of 20 to 25% most likely due to atrial fibrillation Coronary artery disease History of CVA Seizure disorder Hypertension Dyslipidemia Acute kidney injury with chronic kidney disease Plan: Continue patient's home cardiac medications Pacemaker interrogation has been reviewed Telemetry can be discontinued Cardiology will sign off this case and follow on an as-needed basis. Please reconsult for any new concerns. Patient may follow-up in the office in one to 2 weeks. Nurse practitioner note has been reviewed, I agree with documented findings and plan of care. Patient was seen and examined. Objective - Vital Signs Vital signs: Vital Signs Temp 98.4 F 01/28/25 13:20 Pulse 54 L 01/28/25 13:20 Resp 15 01/28/25 13:20 BP 129/80 01/28/25 13:20 Pulse Ox 99 01/28/25 13:20 FiO2 Intake & Output 01/27/25 01/28/25 01/28/25 18:59 06:59 18:59 Intake Total 660 Output Total 700 600 Balance -40 -600 Intake: Oral 660 Output: Urine 700 600 Other: Voiding Method Diaper Urinal Diaper Diaper Incontinent # Voids 2 1 # Bowel Movements 1 - Labs CBC & Chem 7: 01/24/25 15:38 01/28/25 10:34 Labs: Abnormal Lab Results - Last 24 Hours (Table) 01/28/25 Range/Units 10:34 Carbon Dioxide 21 L (22-30) mmol/L
--- NOTE | 2025-01-28 16:50 | P.PN ---
Progress Note - Text Progress Note Date: 01/28/25 This is a 59-year-old patient who follows with Dr. Wheeler, at the [facility]. Medical conditions include diabetes, fibromyalgia, GERD, hyperlipidemia, hypertension, memory impairment, seizure disorder, obstructive sleep apnea, on home oxygen 4 L. History of TIA/CVA with no residual. EMS was called out of the [facility]. Staff was had a back to the patient noticed that the patient was fallen out of the wheelchair and wheelchair was on top of him. When the EMS arrived patient was agitated. Try to kick out. And he said somebody had killed his dog. Patient's sensorium appears to be altered. He is able to answer simple questions. Though he does not know why he is here. He was rather restless in the ER yesterday when he first arrived in the ER physician. He says he is not hungry. Denies any chest pain or shortness of breath. January 26: Patient communicating more today. Bit more cheerful. Refusing to eat. Says not hungry. Admitted with acute kidney injury. Improvement in creatinine January 1: Communicating much better.Says not hungry. Getting IV fluids. Creatinine slowly coming down now 1.38. Oral intake encouraged. Seen by neurology Dr. Quiles. [place] to have breakthrough seizures. Keppra dose increased January 2: Eating intermittently. Plan was to discharge the patient. Spoke to social media content manager. Pending authorization. Creatinine down to 1.11. Will resume home dose of Entresto from tomorrow Active Medications Amiodarone HCl (Amiodarone 200 Mg Tab) 200 mg PO BID [facility] Last Admin: 01/28/25 08:16 Dose: 200 mg Aspirin (Aspirin 81 Mg) 81 mg PO DAILY [facility] Last Admin: 01/28/25 08:16 Dose: 81 mg Atorvastatin Calcium (Atorvastatin 40 Mg Tab) 40 mg PO HS [facility] Last Admin: 01/27/25 21:03 Dose: 40 mg Carbidopa/Levodopa (Carbidopa-Levodopa 25-100 Mg 1 Each Tab) 1 each PO QID [facility] Last Admin: 01/28/25 13:46 Dose: Not Given Dapagliflozin (Dapagliflozin Propanediol 10 Mg Tablet) 10 mg PO DAILY [facility] Last Admin: 01/28/25 08:17 Dose: 10 mg Duloxetine HCl (Duloxetine Hcl 60 Mg Capsule.Dr) 60 mg PO DAILY [facility] Last Admin: 01/28/25 08:16 Dose: 60 mg Folic Acid (Folic Acid 1 Mg Tab) 1 mg PO DAILY [facility] Last Admin: 01/28/25 08:16 Dose: 1 mg Sodium Chloride (Saline 0.9%) 1,000 mls @ 50 mls/hr IV .Q20H [facility] Last Admin: 01/27/25 23:58 Dose: 50 mls/hr Isosorbide Mononitrate (Isosorbide Mononitrate Er 30 Mg Tab.Er.24h) 30 mg PO DAILY [facility] Last Admin: 01/28/25 08:16 Dose: 30 mg Lamotrigine (Lamotrigine 100 Mg Tab) 200 mg PO BID [facility] Lamotrigine (Lamotrigine 100 Mg Tab) 100 mg PO DAILY@1400 [facility] Levetiracetam (Levetiracetam 750 Mg Tab) 750 mg PO Q12HR [facility] Last Admin: 01/28/25 08:17 Dose: 750 mg Metoprolol Succinate (Metoprolol Succinate (Er) 50 Mg Tab.Er.24h) 50 mg PO DAILY [facility] Last Admin: 01/28/25 08:17 Dose: 50 mg Midodrine (Midodrine 5 Mg Tab) 5 mg PO AC-TID [facility] Last Admin: 01/28/25 13:46 Dose: Not Given Montelukast Sodium (Montelukast 10 Mg Tab) 10 mg PO HS [facility] Last Admin: 01/27/25 21:03 Dose: 10 mg Naloxone HCl (Naloxone 0.4 Mg/Ml 1 Ml Vial) 0.2 mg IV Q2M PRN PRN Reason: Opioid Reversal Pantoprazole Sodium (Pantoprazole 40 Mg Tablet) 40 mg PO AC-BRKFST [facility] Last Admin: 01/28/25 08:16 Dose: 40 mg Pregabalin (Pregabalin 100 Mg Cap) 100 mg PO BID [facility] Last Admin: 01/28/25 08:17 Dose: 100 mg Pyridoxine HCl (Pyridoxine 50 Mg Tab) 50 mg PO DAILY [facility] Last Admin: 01/28/25 08:17 Dose: 50 mg Quetiapine Fumarate (Quetiapine 50 Mg Tab) 50 mg PO [facility] Last Admin: 01/27/25 21:03 Dose: 50 mg Rivaroxaban (Rivaroxaban 15 Mg Tab) 15 mg PO W/SUPPER [facility]; Protocol Last Admin: 01/27/25 17:29 Dose: 15 mg Vortioxetine (Vortioxetine Hydrobromide 20 Mg Tablet) 20 mg PO DAILY@0600 [facility] Last Admin: 01/28/25 05:13 Dose: Not Given Zinc Sulfate (Zinc Sulfate 220 Mg Cap) 220 mg PO DAILY [facility] Last Admin: 01/28/25 08:16 Dose: 220 mg Social history: Lives at [facility]. Stopped smoking 2015. Has a son and a daughter. Physical examination: VITAL SIGNS: 98.4, 54, 15, 129 x 80, 97% room air GENERAL: BMI 29.1, l comfortable EYES: Pupils equal. Conjunctiva ashish l. HEENT: External appearance of nose and ears normal, oral cavity grossly normal. NECK: JVD not raised; masses not palpable. HEART: First and second heart sounds are normal; no edema. LUNGS: Respiratory rate normal; decreased breath sound. ABDOMEN: Soft, nontender, liver spleen not palpable, no masses palpable. PSYCH: Talkative. Occasionally confused MUSCULOSKELETAL:No Clubbing/cyanosis;muscles-grossly intact. OA. Chronic changes to toenails NEUROLOGICAL: Cranial nerves grossly intact; no facial asymmetry, power and sensation grossly intact. Following commands INVESTIGATIONS, reviewed in the clinical context: January 28: Potassium 3.9 creatinine 1.11 January 27: Potassium 3.2 repeat 3.6 BUN 32 creatinine 1.38 January 26: Potassium 3.8 BUN 35 creatinine 1.68 January 25, 2025: Sodium 142 potassium 3.8 BUN 35 creatinine 1.68 CPK 107 January 24: White count 5.9 hemoglobin 12 platelets 261 potassium 4 BUN 36 creatinine 2.19 Urine drug screen positive for marijuana EKG tracing personally reviewed by me-possible variable heart block. P waves are noted. CT brain C-spine without contrast: Nonspecific and chronic findings Previous labs: December 31, 2024: Creatinine 1.32. December 25, 2024: Creatinine 0.92 Cardiac catheterization [December 28, 2024] chronically occluded mid PDA. Mild disease in LAD and left circumflex. 2D echo [December 25, 2024]: EF 20-25% moderate concentric LVH.. Mild to moderate . Mild to moderate MR Assessment plan: -Patient present episode of acute agitation and altered sensorium. He fell off his wheelchair. Patient is found to have increased creatinine from recent. Likely combination of: Acute delirium/encephalopathy, multifactorial: Much better - Acute kidney injury likely ATN: Much improved December 25, 2024 patient's creatinine was 0.92. On this presentation 2.19. Will resume Entresto from tomorrow -Atrial flutter/persistent atrial fibrillation, rate controlled Xarelto. Toprol-XL 50 mg a day Cardiology following - Coronary artery disease. Cardiac catheterization December 28, [address] Varghese. For medical management. Toprol-XL. Aspirin. Lipitor. - Parkinson's disease Sinemet 25/101 tablet 4 times daily - Chronic congestive heart failure from systolic dysfunction EF 20-25% Farxiga. Toprol-XL. Entresto-was held initially. Will resume from tomorrow - Epilepsy disorder Keppra. Lamictal. - Lamictal toxicity After dose of Lamictal reduced to 100 mg - Neurocognitive disorder likely secondary to Parkinson's disease Patient on Lamictal. Trintellix. Cymbalta Psychiatry consulted - Hyperlipidemia Lipitor - COPD no prior smoker Singulair - Full code DC IV fluids. Resume Entresto from tomorrow morning pending authorization to go to rehab - Past Medical History Past Medical History: COPD, CVA/TIA, Diabetes Mellitus, Fibromyalgia, GERD/Reflux, Hyperlipidemia, Hypertension, Memory Impairment, Seizure Disorder, Skin Disorder, Sleep Apnea/CPAP/BIPAP Additional Past Medical History / Comment(s): uses CPAP machine, on 4L home oxygen, EPILEPTIC, past fall w/ concussion, ambulate with a walker and a whe elchair, Parkinson's History of Any Multi-Drug Resistant Organisms: None Reported Past Surgical History: Hernia Repair, Pacemaker Additional Past Surgical History / Comment(s): left big toe surgery/debridement r/t diabetic ulcer Past Anesthesia/Blood Transfusion Reactions: No Reported Reaction Type of Cardiac Device: Permanent Pacemaker, AICD Device Placement Date:: 2020 Past Psychological History: No Psychological Hx Reported Smoking Status: Former smoker Past Alcohol Use History: None Reported Past Drug Use History: None Reported
--- NOTE | 2025-01-28 17:25 | P.PN ---
Subjective Patient is seen for follow-up for acute kidney injury and chronic kidney disease Renal function has improved with IV hydration. Serum creatinine down to 1.38 from 2.1 No significant complaints. Patient has been voiding Objective - Vital Signs Vital signs: Vital Signs Temp 98.4 F 01/28/25 13:20 Pulse 54 L 01/28/25 13:20 Resp 15 01/28/25 13:20 BP 129/80 01/28/25 13:20 Pulse Ox 99 01/28/25 13:20 FiO2 Intake & Output 01/27/25 01/28/25 01/28/25 18:59 06:59 18:59 Intake Total 660 Output Total 700 600 Balance -40 -600 Intake: Oral 660 Output: Urine 700 600 Other: Voiding Method Diaper Urinal Diaper Diaper Incontinent # Voids 2 1 # Bowel Movements 1 - Exam Patient is awake, confused No acute distress Examination of the heart S1 and S2 Examination of the lungs bilateral breath sounds are heard Abdomen is soft nontender Examination of lower extremities shows no significant edema - Labs CBC & Chem 7: 01/24/25 15:38 01/28/25 10:34 Labs: Abnormal Lab Results - Last 24 Hours (Table) 01/28/25 Range/Units 10:34 Carbon Dioxide 21 L (22-30) mmol/L Assessment and Plan Assessment: 1. Acute kidney injury, most likely ATN with an element of volume depletion. Currently maintained on IV fluids. UA shows 1+ protein, no blood. No obstruction noted on ultrasound of the kidneys. 2. Cardiomyopathy with EF of 20 to 25% 3. Mental status changes. CT head was negative for acute changes. History of memory impairment 4. History of seizures maintained on Keppra and Lamictal Plan: May continue with the IV fluids for now May continue with Entresto Repeat labs in a.m.
--- NOTE | 2025-01-28 17:27 | P.PN ---
Subjective Patient is seen for follow-up for acute kidney injury and chronic kidney disease Renal function has improved with IV hydration. Serum creatinine down to 1.1 No significant complaints. Patient has been voiding Objective - Vital Signs Vital signs: Vital Signs Temp 98.4 F 01/28/25 13:20 Pulse 54 L 01/28/25 13:20 Resp 15 01/28/25 13:20 BP 129/80 01/28/25 13:20 Pulse Ox 99 01/28/25 13:20 FiO2 Intake & Output 01/27/25 01/28/25 01/28/25 18:59 06:59 18:59 Intake Total 660 Output Total 700 600 Balance -40 -600 Intake: Oral 660 Output: Urine 700 600 Other: Voiding Method Diaper Urinal Diaper Diaper Incontinent # Voids 2 1 # Bowel Movements 1 - Exam Patient is awake, confused No acute distress Examination of the heart S1 and S2 Examination of the lungs bilateral breath sounds are heard Abdomen is soft nontender Examination of lower extremities shows no significant edema - Labs CBC & Chem 7: 01/24/25 15:38 01/28/25 10:34 Labs: Abnormal Lab Results - Last 24 Hours (Table) 01/28/25 Range/Units 10:34 Carbon Dioxide 21 L (22-30) mmol/L Assessment and Plan Assessment: 1. Acute kidney injury, most likely ATN with an element of volume depletion. Currently maintained on IV fluids. UA shows 1+ protein, no blood. No obstr uction noted on ultrasound of the kidneys. 2. Cardiomyopathy with EF of 20 to 25% 3. Mental status changes. CT head was negative for acute changes. History of memory impairment 4. History of seizures maintained on Keppra and Lamictal Plan: DC IV fluids May continue with Entresto Repeat labs in a.m.
[2025-01-28] MEDS: lamoTRIgine 100 MG TAB PO SCH (20:20)
[2025-01-29 07:55] VITALS: RESP 18
--- NOTE | 2025-01-29 09:19 | P.PN ---
Subjective Progress Note Date: 01/28/25 Patient was seen for a follow-up. Patient is laying in the bed. No further seizures. Patient states he is feeling better. No new concerns. Objective - Vital Signs Vital signs: Vital Signs Temp 97.9 F 01/28/25 19:42 Pulse 54 L 01/28/25 19:42 Resp 16 01/28/25 19:42 BP 115/75 01/28/25 19:42 Pulse Ox 99 01/28/25 19:42 FiO2 Intake & Output 01/28/25 01/28/25 01/29/25 06:59 18:59 06:59 Intake Total 660 Output Total 700 600 Balance -40 -600 Intake: Oral 660 Output: Urine 700 600 Other: Voiding Method Urinal Diaper Diaper Incontinent # Voids 2 1 # Bowel Movements 1 - Exam Patient's mental status, speech and language functions are normal. Patient continues to have nystagmus and mild ataxia for [id number] testing bilaterally. Rest of the examination is unchanged. - Labs CBC & Chem 7: 01/24/25 15:38 01/28/25 10:34 Labs: Abnormal Lab Results - Last 24 Hours (Table) 01/28/25 Range/Units 10:34 Carbon Dioxide 21 L (22-30) mmol/L Assessment and Plan Assessment: * Breakthrough seizure in a patient with longstanding history of seizure disorder. * Chronic gait imbalance, with frequent falls, likely multifactorial. * Ataxia and nystagmus, likely due to Lamictal toxicity. * History of severe vitamin B12 deficiency due to pernicious anemia * History of folate and B6 deficiency * Diabetes with peripheral neuropathy * Zinc deficiency * History of L1 vertebral body fracture with disc protrusion T12-L1 * Hypertension * Obesity * COPD * Depression * Seizure disorder * Reported history of Parkinson's * Sleep apnea * Chronic low back pain * Pacemaker * X-tobacco use * Marijuana use Plan: * Patient had a breakthrough seizure of unclear cause. We will increase Keppra to 750 mg twice daily. * Lamictal level 23.9 (2-15). We will decrease Lamictal to 200 mg twice daily and 100 mg at noon. * Continue with B12, B6, folic acid and zinc replacement. We will give an extra B12 injection while in the hospital. * Patient is a high fall risk, due to all above factors. * PT OT. * Consider subacute rehab * Recommend patient follow-up with neurologist outpatient for repeat Lamictal levels to make sure it is in therapeutic range.
[2025-01-29] MEDS: SACUBITRIL/VALSARTAN 24 MG-26 MG TABLET PO SCH (09:46)
[2025-01-29 12:59] VITALS: BP 113/66; PULSE 65; TEMP 98.5
[2025-01-29] MEDS: lamoTRIgine 100 MG TAB PO SCH (14:03)
--- NOTE | 2025-01-29 14:03 | P.DS ---
Providers Date of admission: 01/24/25 22:38 Expected date of discharge: 01/29/25 Attending physician: Kentrell Sol Consults: 01/24/25 22:37 Consult Physician Routine Consulting Provider: Psychiatry - [facility] Psychiatry Consult Reason/Comments: aggressive behavior Do you want consulting provider notified?: Already Contacted Consult Physician Routine Consulting Provider: Mary Gutierrez Consult Reason/Comments: acute kidney injury Do you want consulting provider notified?: Yes 01/25/25 14:32 Consult Physician Routine Consulting Provider: Harjeet Quiles Consult Reason/Comments: AMS/hx of seizures Do you want consulting provider notified?: Yes 01/25/25 16:21 Consult Physician Routine Consulting Provider: Girish Lyles Consult Reason/Comments: Variable heart block Do you want consulting provider notified?: Yes [facility] Course: This is a 59-year-old patient who follows with Dr. Wheeler, at the [facility] [place]. Medical conditions include diabetes, fibromyalgia, GERD, hyperlipidemia, hypertension, memory impairment, seizure disorder, obstructive sleep apnea, on home oxygen 4 L. History of TIA/CVA with no residual. EMS was called out of the [facility]. Staff was had a back to the patient noticed that the patient was fallen out of the wheelchair and wheelchair was on top of him. When the EMS arrived patient was agitated. Try to kick out. And he said somebody had killed his dog. Patient's sensorium appears to be altered. He is able to answer simple questions. Though he does not know why he is here. He was rather restless in the ER yesterday when he first arrived in the ER physician. He says he is not hungry. Denies any chest pain or shortness of breath. January 26: Patient communicating more today. Bit more cheerful. Refusing to eat. Says not hungry. Admitted with acute kidney injury. Improvement in creatinine January 1: Communicating much better.Says not hungry. Getting IV fluids. Creati nine slowly coming down now 1.38. Oral intake encouraged. Seen by neurology Dr. Quiles. [place] to have breakthrough seizures. Keppra dose increased January 2: Eating intermittently. Plan was to discharge the patient. Spoke to licensed clinical social worker. Pending authorization. Creatinine down to 1.11. Will resume home dose of Entresto from tomorrow January 3: Entresto has been resumed. Per group home protocol patient cannot be on Seroquel. Hence being switched over to trazodone. Patient be discharged on reduced dose of Lamictal. Follow-up outpatient with psychiatry. Social history: Lives at [facility]. Stopped smoking 2016. Has a son and a daughter. Physical examination: VITAL SIGNS: 98.5, 65, 18, 113 x 76, 97% room air GENERAL: BMI 29.1, l comfortable EYES: Pupils equal. Conjunctiva ashish l. HEENT: External appearance of nose and ears normal, oral cavity grossly normal. NECK: JVD not raised; masses not palpable. HEART: First and second heart sounds are normal; no edema. LUNGS: Respiratory rate normal; decreased breath sound. ABDOMEN: Soft, nontender, liver spleen not palpable, no masses palpable. PSYCH: Talkative. Occasionally confused MUSCULOSKELETAL:No Clubbing/cyanosis;muscles-grossly intact. OA. Chronic changes to toenails NEUROLOGICAL: Cranial nerves grossly intact; no facial asymmetry, power and sensation grossly intact. Following commands INVESTIGATIONS, reviewed in the clinical context: January 28: Potassium 3.9 creatinine 1.11 January 25, 2025: Sodium 142 potassium 3.8 BUN 35 creatinine 1.68 CPK 107 January 24: White count 5.9 hemoglobin 12 platelets 261 potassium 4 BUN 36 creatinine 2.19 Urine drug screen positive for marijuana EKG tracing personally reviewed by me-possible variable heart block. P waves are noted. CT brain C-spine without contrast: Nonspecific and chronic findings Previous labs: December 31, 2024: Creatinine 1.32. December 25, 2024: Creatinine 0.92 Cardiac catheterization [December 28, 2024] chronically occluded mid PDA. Mild dis ease in LAD and left circumflex. 2D echo [December 25, 2024]: EF 20-25% moderate concentric LVH.. Mild to moderate . Mild to moderate MR Assessment plan: -Patient present episode of acute agitation and altered sensorium. He fell off his wheelchair. Patient is found to have increased creatinine from recent. Likely combination of: Acute delirium/encephalopathy, multifactorial: Much better - Acute kidney injury likely ATN: Much improved December 25, 2024 patient's creatinine was 0.92. On this presentation 2.19. Will resume Entresto from tomorrow -Atrial flutter/persistent atrial fibrillation, rate controlled Xarelto. Toprol-XL 50 mg a day Cardiology following - Coronary artery disease. Cardiac catheterization December 28, [address] Varghese. For medical management. Toprol-XL. Aspirin. Lipitor. - Parkinson's disease Sinemet 25/101 tablet 4 times daily - Chronic congestive heart failure from systolic dysfunction EF 20-25% [facility]. Toprol-XL. Entresto-was held initially, then resumed - Epilepsy disorder, with breakthrough seizures Keppra increased to 750 twice daily. Lamictal. Seen by Dr. Quiles from neurology - Lamictal toxicity Afternoon dose of Lamictal reduced to 100 mg - Neurocognitive disorder likely secondary to Parkinson's disease Patient on Lamictal. Trintellix. Cymbalta Psychiatry, Dr. Pride saw the patient. Seroquel was prescribed.As ECF cannot have it switched over to trazodone - Hyperlipidemia Lipitor - COPD no prior smoker Singulair - Full code Disposition: [facility] Labs: CBC, CMP: 3 days - Past Medical History Past Medical History: COPD, CVA/TIA, Diabetes Mellitus, Fibromyalgia, GERD/Reflux, Hyperlipidemia, Hypertension, Memory Impairment, Seizure Disorder, Skin Disorder, Sleep Apnea/CPAP/BIPAP Additional Past Medical History / Comment(s): uses CPAP machine, on 4L home oxygen, EPILEPTIC, past fall w/ concussion, ambulate with a walker and a wh eelchair, Parkinson's History of Any Multi-Drug Resistant Organisms: None Reported Past Surgical History: Hernia Repair, Pacemaker Additional Past Surgical History / Comment(s): left big toe surgery/debridement r/t diabetic ulcer Past Anesthesia/Blood Transfusion Reactions: No Reported Reaction Type of Cardiac Device: Permanent Pacemaker, AICD Device Placement Date:: 2020 Past Psychological History: No Psychological Hx Reported Smoking Status: Former smoker Past Alcohol Use History: None Reported Past Drug Use History: None Reported Plan - Discharge Summary Discharge Rx Participant: No New Discharge Prescriptions: New levETIRAcetam [Keppra] 750 mg PO Q12HR tab Sacubitril/Valsartan [Entresto 24 mg-26 mg Tablet] 1 each PO BID tab Rivaroxaban [Xarelto] 15 mg PO W/SUPPER tab traZODone HCL [Desyrel] 50 mg PO HS #1 tab lamoTRIgine [LaMICtal] 100 mg PO DAILY@1400 tab lamoTRIgine [LaMICtal] 200 mg PO BID #1 tablet Continue Atorvastatin [Lipitor] 40 mg PO HS Omeprazole 40 mg PO DAILY DULoxetine HCL [Cymbalta] 60 mg PO BID Metoprolol Succinate [Toprol XL] 50 mg PO DAILY Montelukast [Singulair] 10 mg PO HS Vortioxetine Hydrobromide [Trintellix] 20 mg PO DAILY@0600 Carbidopa-Levodopa 25-100 mg [Sinemet 25-100 mg] 1 tab PO QID Midodrine [ProAmatine] 5 mg PO TID@0500,1300,2100 Pregabalin [Lyrica] 100 mg PO BID #6 cap Aspirin EC [Ecotrin Low Dose] 81 mg PO DAILY Dapagliflozin Propanediol [Farxiga] 10 mg PO DAILY 30 Days #30 tab Isosorbide Mononitrate ER [Imdur] 30 mg PO DAILY 30 Days #30 tab Folic Acid 1 mg PO DAILY Nitroglycerin Sl Tabs [Nitrostat] 0.4 mg SUBLINGUAL Q5M PRN PRN Reason: Chest Pain Pyridoxine [Vitamin B-6] 50 mg PO DAILY Changed Amiodarone [Cordarone] 200 mg PO DAILY 30 Days #60 tab Discontinued lamoTRIgine [LaMICtal] 200 mg PO TID@0500,1300,2100 Sacubitril/Valsartan [Entresto 24 mg-26 mg Tablet] 1 tab PO BID-W/MEALS Sucralfate [Carafate] 1 gm PO TID@0600,1100,1600 hydrALAZINE HCL [Apresoline] 25 mg PO TID 30 Days #60 tab Rivaroxaban [Xarelto] 20 mg PO W/SUPPER 30 Days #30 tab levETIRAcetam [Keppra] 500 mg PO Q12HR Discharge Medication List Atorvastatin [Lipitor] 40 mg PO HS 08/31/14 [History] Omeprazole 40 mg PO DAILY 05/14/18 [History] Aspirin EC [Ecotrin Low Dose] 81 mg PO DAILY 06/21/24 [History] DULoxetine HCL [Cymbalta] 60 mg PO BID 06/21/24 [History] Metoprolol Succinate [Toprol XL] 50 mg PO DAILY 06/21/24 [History] Montelukast [Singulair] 10 mg PO HS 06/21/24 [History] Vortioxetine Hydrobromide [Trintellix] 20 mg PO DAILY@0600 06/21/24 [History] Dapagliflozin Propanediol [Farxiga] 10 mg PO DAILY 30 Days #30 tab 12/31/24 [Rx] Isosorbide Mononitrate ER [Imdur] 30 mg PO DAILY 30 Days #30 tab 12/31/24 [Rx] Carbidopa-Levodopa 25-100 mg [Sinemet 25-100 mg] 1 tab PO QID 01/24/25 [History] Folic Acid 1 mg PO DAILY 01/24/25 [History] Midodrine [ProAmatine] 5 mg PO TID@0500,1300,2100 01/24/25 [History] Nitroglycerin Sl Tabs [Nitrostat] 0.4 mg SUBLINGUAL Q5M PRN 01/24/25 [History] Pyridoxine [Vitamin B-6] 50 mg PO DAILY 01/24/25 [History] Amiodarone [Cordarone] 200 mg PO DAILY 30 Days #60 tab 01/28/25 [Rx] Pregabalin [Lyrica] 100 mg PO BID #6 cap 01/28/25 [Rx] lamoTRIgine [LaMICtal] 100 mg PO DAILY@1400 tab 01/28/25 [Rx] lamoTRIgine [LaMICtal] 200 mg PO BID #1 tablet 01/28/25 [Rx] levETIRAcetam [Keppra] 750 mg PO Q12HR tab 01/28/25 [Rx] Rivaroxaban [Xarelto] 15 mg PO W/SUPPER tab 01/29/25 [Rx] Sacubitril/Valsartan [Entresto 24 mg-26 mg Tablet] 1 each PO BID tab 01/29/25 [Rx] traZODone HCL [Desyrel] 50 mg PO HS #1 tab 01/29/25 [Rx] Follow up Appointment(s)/Referral(s): Psychiatristdr [Other] - 1 Week Mc Wheeler DO [Primary Care Provider] - 1-2 days
--- NOTE | 2025-01-29 15:02 | P.PN ---
Subjective Progress Note Date: 01/29/25 Patient is seen for follow-up for acute kidney injury and chronic kidney disease. Renal function has improved with IV hydration. Serum creatinine down to 1.1 Patient is awake, confused No acute distress Examination of the heart S1 and S2 Examination of the lungs bilateral breath sounds are heard Abdomen is soft nontender Examination of lower extremities shows no significant edema Objective - Vital Signs Vital signs: Vital Signs Temp 98.5 F 01/29/25 12:58 Pulse 65 01/29/25 12:58 Resp 18 01/29/25 12:58 BP 113/66 01/29/25 12:58 Pulse Ox 97 01/29/25 12:58 FiO2 Intake & Output 01/28/25 01/29/25 01/29/25 18:59 06:59 18:59 Intake Total 480 Output Total 600 Balance -600 480 Intake: Oral 480 Output: Urine 600 Other: Voiding Method Diaper Diaper Diaper Incontinent Incontinent Incontinent # Voids 1 0 1 # Bowel Movements 1 1 - Labs CBC & Chem 7: 01/24/25 15:38 01/28/25 10:34 Assessment and Plan Assessment: 1. Acute kidney injury, most likely ATN with an element of volume depletion. Currently maintained on IV fluids. UA shows 1+ protein, no blood. No obstruction noted on ultrasound of the kidneys. 2. Cardiomyopathy with EF of 20 to 25% 3. Mental status changes. CT head was negative for acute changes. History of memory impairment 4. History of seizures maintained on Keppra and Lamictal Plan: May continue with Entresto Clear for discharge
[2025-01-29] MEDS ORDERED: traZODone HCL 50 MG TAB PO SCH (21:00)
== END 2025-01-29 14:59 | DRG 100 ==
LOC: EC 14:57 → 5NMEDONC 22:38
PROVIDERS: ADMIT Hospitalist; ATTEND Hospitalist
DX: G40.409 Other generalized epilepsy and epileptic syndromes, not intractable, without status epilepticus (principal); N17.0 Acute kidney failure with tubular necrosis; G20.A1 Parkinson's disease without dyskinesia, without mention of fluctuations; J44.9 Chronic obstructive pulmonary disease, unspecified; E11.42 Type 2 diabetes mellitus with diabetic polyneuropathy; I12.9 Hypertensive chronic kidney disease with stage 1 through stage 4 chronic kidney disease, or unspecified chronic kidney disease; F32.A Depression, unspecified; I08.0 Rheumatic disorders of both mitral and aortic valves; N18.9 Chronic kidney disease, unspecified; I42.8 Other cardiomyopathies; I48.19 Other persistent atrial fibrillation; I48.3 Typical atrial flutter; I49.5 Sick sinus syndrome; G47.33 Obstructive sleep apnea (adult) (pediatric); G89.29 Other chronic pain; R45.1 Restlessness and agitation; I45.5 Other specified heart block; M10.9 Gout, unspecified; M51.25 Other intervertebral disc displacement, thoracolumbar region; R27.0 Ataxia, unspecified; H55.00 Unspecified nystagmus; I25.10 Atherosclerotic heart disease of native coronary artery without angina pectoris; K21.9 Gastro-esophageal reflux disease without esophagitis; M79.7 Fibromyalgia; R29.6 Repeated falls; Z79.01 Long term (current) use of anticoagulants; Z79.82 Long term (current) use of aspirin; Z79.84 Long term (current) use of oral hypoglycemic drugs; Z79.899 Other long term (current) drug therapy; Z86.73 Personal history of transient ischemic attack (TIA), and cerebral infarction without residual deficits; Z87.891 Personal history of nicotine dependence; Z95.0 Presence of cardiac pacemaker
CPT/HCPCS: 36415; 51701; 70450; 72125; 76770; 80048; 80053; 80175; 80306; 80320; 81001; 82550; 83735; 84132; 85025; 93005; 96361; 96374; 99285